=== PATIENT | male | born 1955 | race Caucasian/White ===

== ENCOUNTER 2016-03-31 12:31 | Inpatient (IN) | payer MEDICARE, MEDICAID ==
[~2016-03-31] VITALS: Ht 182.9 cm; Wt 62.1 kg
[~2016-03-31 12:31] MED LIST: ACET-868 PO; ACID1TAB12 PO; ASCO500T9 PO; CLON0.1T PO; DEXT1CAP3 PO; FERR1TAB44 PO; HYDR-3326 PO; ONDA4TAB5 PO; PANT40TA4 PO
[2016-03-31 12:59] LABS: BASOPHILS # (AUTO) 0.1 /CMM (0.0-0.2); BASOPHILS % (AUTO) 1.4 % (0.0-2.0); DIFF TOTAL % 100 %; EOSINOPHILS # (AUTO) 0.2 /CMM (0.0-0.7); EOSINOPHILS % (AUTO) 2.3 % (0.0-6.0); HEMATOCRIT 38 % (39-51); HEMOGLOBIN 11.2 g/dL (13.5-17.5); LYMPHOCYTES # (AUTO) 1.7 /CMM (0.8-4.8); LYMPHOCYTES % (AUTO) 17.2 % (20.0-44.0); MEAN CORPUSCULAR HEMOGLOBIN 24 PG (26.0-33.0); MEAN CORPUSCULAR HGB CONC 30 g/dl (31.0-36.0); MEAN CORPUSCULAR VOLUME 81 fL (80-96); MONOCYTES # (AUTO) 0.5 /CMM (0.1-1.30); MONOCYTES % (AUTO) 5.5 % (2.0-12.0); NEUTROPHILS # (AUTO) 7.1 /CMM (1.8-8.9); NEUTROPHILS % (AUTO) 73.6 % (43.0-81.0); PLATELET COUNT (AUTO) 499 /CMM (150-450); RED BLOOD CELL COUNT(AUTO) 4.68 MIL/uL (4.5-6.0); WHITE BLOOD COUNT (AUTO) 9.6 K/uL (4.3-11.0)
[2016-03-31 13:04] LABS: KETONES,URINE Negative (NEGATIVE); LEUKOCYTE ESTERASE ,URINE Moderate (NEGATIVE); PH,URINE 5.5 (5.0-8.0)
[2016-03-31 13:08] LABS: ADD UA MICROSCOPIC YES
[2016-03-31 13:12] LABS: ADD URINE CULTURE YES
[2016-03-31 13:13] LABS: ANION GAP 11 (5-14); CALCIUM, SERUM 8.9 mg/dL (8.5-10.1); CARBON DIOXIDE 28 mmol/L (21-32); CHLORIDE 104 mmol/L (98-107); CREATININE 0.5 mg/dL (0.6-1.3); GFR 171 mL/min (>60); GLUCOSE 108 mg/dL (74-106); SODIUM SERUM 139 mmol/L (136-145); UREA NITROGEN, BLOOD 16 mg/dL (7-18)
[2016-03-31 13:17] LABS: TROPONIN I < 0.017 ng/mL (0.00-0.056)
[2016-03-31 13:19] LABS: ALANINE AMINOTRANSFERASE 21 U/L (12-78); ALBUMIN 2.4 g/dL (3.4-5.0); ASPARTATE AMINOTRANSFERASE 22 U/L (15-37); BILIRUBIN,DIRECT 0.1 mg/dL (0.0-0.2); BILIRUBIN,TOTAL 0.2 mg/dL (0.2-1.0); INDIRECT BILIRUBIN 0.1 mg/dL (0.0-1.1); INR 1.03 (0.87-1.13); LACTIC ACID 1.1 mmol/L (0.4-2.0); PROTHROMBIN TIME 10.8 SECS (9.5-12.7); TOTAL PROTEIN, SERUM 8.6 g/dL (6.4-8.2)
[2016-03-31] MEDS ORDERED: MIRT15TA PO (13:40)
[2016-03-31] MEDS ORDERED: MULT-213 PO (13:40)
[2016-03-31] MEDS ORDERED: IV NS 0.9% 1,000 ML ONE (14:42)
[2016-03-31] MEDS ORDERED: CEFTRIAXONE 1GM BAG (ER ONLY) 50 ML IV ONE ×2 (14:42→15:00)
[2016-03-31] MEDS ORDERED: IV SET PRIMARY 1 EA INFUS.SET MC ONE (14:42)
[2016-03-31] MEDS ORDERED: IV SET PRIMARY PUMP SET 1 EA INFUS.SET MC ONE ×2 (14:49→17:57)
[2016-03-31] MEDS ORDERED: MEROPENEM 1 G in IV NS 0.9% 100 ML IV ONE ×4 (15:00)
[2016-03-31] MEDS ORDERED: IV NS 0.9% 1,000 ML BAG IV ONE (15:00)
[2016-03-31 16:00] VITALS: BP 129/92
[2016-03-31] MEDS ORDERED: Z GUARD REMEDY 2 OZ OINT TP PRN (16:00)
[2016-03-31] MEDS ORDERED: MAGNESIUM HYDROXIDE 30 ML UDC PO PRN (16:00)
[2016-03-31] MEDS ORDERED: HYDROCODONE/APAP 5/325MG 1 EACH TABLET PO PRN (16:00)
[2016-03-31] MEDS ORDERED: MAG HYDROX/AL HYDROX/SIMETH 30 ML UDC PO PRN (16:00)
[2016-03-31] MEDS ORDERED: ONDANSETRON HCL/PF 4 MG/2 ML VIAL IVP PRN (16:00)
[2016-03-31] MEDS ORDERED: ACETAMINOPHEN 325 MG TABLET PO PRN ×2 (16:00)
[2016-03-31] MEDS ORDERED: CLONIDINE HCL 0.1 MG TABLET PO PRN (16:00)
[2016-03-31] MEDS: ENOXAPARIN SODIUM 40 MG/0.4 ML DISP.SYRIN SQ SCH (17:53)
[2016-03-31] MEDS: ASCORBIC ACID 500 MG TABLET PO SCH (17:53)
[2016-03-31] MEDS: FERROUS SULFATE (325 MG) 325 MG/TAB TABLET PO SCH (17:53)
[2016-03-31] MEDS: ACIDOPHILUS/BULGARICUS 1 EACH TAB.CHEW PO SCH (17:53)
[2016-03-31] MEDS: IV NS 0.9% 1,000 ML IV PRN (17:54)
[2016-03-31 20:00] VITALS: BP 122/90
[2016-03-31] MEDS: MEROPENEM 1 G in IV NS 0.9% 100 ML IV SCH (21:00)
[2016-03-31] MEDS: MIRTAZAPINE 15 MG TABLET PO SCH (21:12)
[2016-03-31] MEDS ORDERED: SECONDARY IV SET 1 EA INFUS.SET MC ONE (21:14)
[2016-04-01] MEDS: ZOLPIDEM TARTRATE 5 MG TABLET PO PRN ×2 (00:25→23:53)
[2016-04-01] MEDS: MEROPENEM 1 G in IV NS 0.9% 100 ML IV SCH ×3 (04:44→20:42)
[2016-04-01 06:42] LABS: BASOPHILS % (AUTO) 0.5 % (0.0-2.0); DIFF TOTAL % 100 %; EOSINOPHILS # (AUTO) 0.2 /CMM (0.0-0.7); EOSINOPHILS % (AUTO) 3.3 % (0.0-6.0); HEMATOCRIT 33 % (39-51); HEMOGLOBIN 10.3 g/dL (13.5-17.5); LYMPHOCYTES # (AUTO) 1.4 /CMM (0.8-4.8); LYMPHOCYTES % (AUTO) 20.1 % (20.0-44.0); MEAN CORPUSCULAR HEMOGLOBIN 25 PG (26.0-33.0); MEAN CORPUSCULAR HGB CONC 31 g/dl (31.0-36.0); MEAN CORPUSCULAR VOLUME 80 fL (80-96); MONOCYTES # (AUTO) 0.4 /CMM (0.1-1.30); MONOCYTES % (AUTO) 6.3 % (2.0-12.0); NEUTROPHILS # (AUTO) 4.7 /CMM (1.8-8.9); NEUTROPHILS % (AUTO) 69.8 % (43.0-81.0); PLATELET COUNT (AUTO) 491 /CMM (150-450); RED BLOOD CELL COUNT(AUTO) 4.08 MIL/uL (4.5-6.0); WHITE BLOOD COUNT (AUTO) 6.8 K/uL (4.3-11.0)
[2016-04-01 06:55] LABS: CALCIUM, SERUM 8.8 mg/dL (8.5-10.1); CREATININE 0.5 mg/dL (0.6-1.3); PHOSPHORUS 3.4 mg/dL (2.5-4.9); POTASSIUM 3.8 mmol/L (3.5-5.1)
[2016-04-01 08:00] VITALS: BP 157/89
[2016-04-01] MEDS: ACIDOPHILUS/BULGARICUS 1 EACH TAB.CHEW PO SCH ×3 (09:17→16:30)
[2016-04-01] MEDS: FERROUS SULFATE (325 MG) 325 MG/TAB TABLET PO SCH ×2 (09:17→16:30)
[2016-04-01] MEDS: ASCORBIC ACID 500 MG TABLET PO SCH ×2 (09:18→16:30)
[2016-04-01] MEDS: PANTOPRAZOLE 40 MG TABLET.DR PO SCH (09:18)
[2016-04-01] MEDS: MULTIVIT, IRON, MIN NO. 8, FA 1 TAB TABLET PO SCH (09:18)
[2016-04-01] MEDS: HYDROCODONE/APAP 5/325MG 1 EACH TABLET PO SCH (09:18)
[2016-04-01] MEDS: IV NS 0.9% 1,000 ML IV PRN (11:05)
[2016-04-01] MEDS: DAKINS QUARTER STRENGTH (0.125%) 480 ML BOTTLE TOP SCH (15:03)
[2016-04-01 16:00] VITALS: BP 129/79
[2016-04-01 20:00] VITALS: BP 136/85
[2016-04-01] MEDS: MIRTAZAPINE 15 MG TABLET PO SCH (20:43)
[2016-04-01] MEDS: ENOXAPARIN SODIUM 40 MG/0.4 ML DISP.SYRIN SQ SCH (20:44)
[2016-04-02] MEDS: IV NS 0.9% 1,000 ML IV PRN (05:14)
[2016-04-02] MEDS: MEROPENEM 1 G in IV NS 0.9% 100 ML IV SCH ×2 (05:14→12:28)
[2016-04-02 08:00] VITALS: BP 125/78
[2016-04-02] MEDS: DAKINS QUARTER STRENGTH (0.125%) 480 ML BOTTLE TOP SCH (09:00)
[2016-04-02] MEDS ORDERED: LIDOCAINE HCL/PF 1% 30 ML SDV ONE (09:18)
[2016-04-02] MEDS ORDERED: BUPIVACAINE MPF 0.5% W/EPI INJ 30 ML VIAL ONE (09:18)
[2016-04-02] MEDS ORDERED: BACITRACIN 50000 UNITS/VIAL ONE (09:20)
[2016-04-02] MEDS ORDERED: CELLULOSE,OXIDIZED 1 EA PACK MC ONE (09:29)
[2016-04-02] MEDS ORDERED: FENTANYL PF 100MCG/2ML AMPUL ONE (09:32)
[2016-04-02] MEDS: PANTOPRAZOLE 40 MG TABLET.DR PO SCH (12:27)
[2016-04-02] MEDS: FERROUS SULFATE (325 MG) 325 MG/TAB TABLET PO SCH ×2 (12:27→17:32)
[2016-04-02] MEDS: MULTIVIT, IRON, MIN NO. 8, FA 1 TAB TABLET PO SCH (12:27)
[2016-04-02] MEDS: HYDROCODONE/APAP 5/325MG 1 EACH TABLET PO SCH (12:27)
[2016-04-02] MEDS: ACIDOPHILUS/BULGARICUS 1 EACH TAB.CHEW PO SCH ×3 (12:28→17:32)
[2016-04-02] MEDS: ASCORBIC ACID 500 MG TABLET PO SCH ×2 (12:28→17:32)
[2016-04-02] MEDS: BOOST PLUS FOOD-CHOCLATE 237 ML BOX PO SCH ×2 (14:05→17:32)
[2016-04-02 16:00] VITALS: BP 122/90
[2016-04-02 20:00] VITALS: BP 129/78
[2016-04-02] MEDS: MIRTAZAPINE 15 MG TABLET PO SCH (22:28)
[2016-04-02] MEDS: ENOXAPARIN SODIUM 40 MG/0.4 ML DISP.SYRIN SQ SCH (22:29)
[2016-04-03] MEDS: MEROPENEM 1 G in IV NS 0.9% 100 ML IV SCH ×3 (00:03→21:26)
[2016-04-03 08:00] VITALS: BP 132/86
[2016-04-03] MEDS: PANTOPRAZOLE 40 MG TABLET.DR PO SCH (09:40)
[2016-04-03] MEDS: ASCORBIC ACID 500 MG TABLET PO SCH ×2 (09:40→16:56)
[2016-04-03] MEDS: ACIDOPHILUS/BULGARICUS 1 EACH TAB.CHEW PO SCH ×3 (09:40→16:57)
[2016-04-03] MEDS: FERROUS SULFATE (325 MG) 325 MG/TAB TABLET PO SCH ×2 (09:40→16:57)
[2016-04-03] MEDS: MULTIVIT, IRON, MIN NO. 8, FA 1 TAB TABLET PO SCH (09:40)
[2016-04-03] MEDS: BOOST PLUS FOOD-CHOCLATE 237 ML BOX PO SCH ×3 (09:41→16:56)
[2016-04-03] MEDS: HYDROCODONE/APAP 5/325MG 1 EACH TABLET PO SCH (09:41)
[2016-04-03 16:00] VITALS: BP_SYST 113; BP_SYST 132; BP_DIAS 49; BP_DIAS 86
[2016-04-03] MEDS: HYDROGEL DRESSING 90 GM TUBE TP SCH (16:33)
[2016-04-03 20:00] VITALS: BP 126/78
[2016-04-03] MEDS: MIRTAZAPINE 15 MG TABLET PO SCH (21:17)
[2016-04-03] MEDS: ZOLPIDEM TARTRATE 5 MG TABLET PO PRN (21:18)
[2016-04-03] MEDS: ENOXAPARIN SODIUM 40 MG/0.4 ML DISP.SYRIN SQ SCH (21:21)
[2016-04-04] MEDS: MEROPENEM 1 G in IV NS 0.9% 100 ML IV SCH ×3 (04:52→20:27)
[2016-04-04 07:43] LABS: BASOPHILS % (AUTO) 0.4 % (0.0-2.0); DIFF TOTAL % 100 %; EOSINOPHILS # (AUTO) 0.1 /CMM (0.0-0.7); EOSINOPHILS % (AUTO) 1.3 % (0.0-6.0); HEMATOCRIT 31 % (39-51); HEMOGLOBIN 9.9 g/dL (13.5-17.5); LYMPHOCYTES % (AUTO) 20.1 % (20.0-44.0); MEAN CORPUSCULAR HEMOGLOBIN 25 PG (26.0-33.0); MEAN CORPUSCULAR HGB CONC 32 g/dl (31.0-36.0); MEAN CORPUSCULAR VOLUME 79 fL (80-96); MONOCYTES # (AUTO) 0.4 /CMM (0.1-1.30); MONOCYTES % (AUTO) 8.5 % (2.0-12.0); NEUTROPHILS # (AUTO) 3.6 /CMM (1.8-8.9); NEUTROPHILS % (AUTO) 69.7 % (43.0-81.0); PLATELET COUNT (AUTO) 335 /CMM (150-450); WHITE BLOOD COUNT (AUTO) 5.2 K/uL (4.3-11.0)
[2016-04-04 07:56] LABS: CALCIUM, SERUM 8.1 mg/dL (8.5-10.1); CREATININE 0.5 mg/dL (0.6-1.3); PHOSPHORUS 2.2 mg/dL (2.5-4.9); POTASSIUM 3.7 mmol/L (3.5-5.1)
[2016-04-04 08:00] VITALS: BP 131/94
[2016-04-04] MEDS: ACIDOPHILUS/BULGARICUS 1 EACH TAB.CHEW PO SCH ×3 (08:12→17:23)
[2016-04-04] MEDS: MULTIVIT, IRON, MIN NO. 8, FA 1 TAB TABLET PO SCH (08:13)
[2016-04-04] MEDS: FERROUS SULFATE (325 MG) 325 MG/TAB TABLET PO SCH ×2 (08:13→17:23)
[2016-04-04] MEDS: HYDROCODONE/APAP 5/325MG 1 EACH TABLET PO SCH (08:13)
[2016-04-04] MEDS: PANTOPRAZOLE 40 MG TABLET.DR PO SCH (08:13)
[2016-04-04] MEDS: ASCORBIC ACID 500 MG TABLET PO SCH ×2 (08:13→17:23)
[2016-04-04] MEDS: ENOXAPARIN SODIUM 40 MG/0.4 ML DISP.SYRIN SQ SCH (08:16)
[2016-04-04] MEDS: BOOST PLUS FOOD-CHOCLATE 237 ML BOX PO SCH ×3 (08:18→17:09)
[2016-04-04] MEDS: HYDROGEL DRESSING 90 GM TUBE TP SCH (11:51)
[2016-04-04] MEDS ORDERED: SECONDARY IV SET 1 EA INFUS.SET MC ONE (12:58)
[2016-04-04] MEDS: Magnesium 1GM/D5W 100ML PREMIX 100 ML IV SCH ×2 (14:00→15:09)
[2016-04-04 16:00] VITALS: BP 128/82
[2016-04-04] MEDS ORDERED: K PHOS NEUTRAL 250 MG TABLET PO ONE (16:00)
[2016-04-04 20:00] VITALS: BP 141/86
[2016-04-04] MEDS: ZOLPIDEM TARTRATE 5 MG TABLET PO PRN (20:34)
[2016-04-04] MEDS ORDERED: IV NS 0.9% 250 ML IV ONE (21:30)
[2016-04-04] MEDS: MIRTAZAPINE 15 MG TABLET PO SCH (21:53)
[2016-04-05] VITALS: BP 141/86
[2016-04-05] MEDS: MEROPENEM 1 G in IV NS 0.9% 100 ML IV SCH ×3 (04:50→21:45)
[2016-04-05 08:00] VITALS: BP 107/84
[2016-04-05] MEDS: ACIDOPHILUS/BULGARICUS 1 EACH TAB.CHEW PO SCH ×3 (08:13→16:17)
[2016-04-05] MEDS: ASCORBIC ACID 500 MG TABLET PO SCH ×2 (08:14→16:17)
[2016-04-05] MEDS: FERROUS SULFATE (325 MG) 325 MG/TAB TABLET PO SCH ×2 (08:14→16:16)
[2016-04-05] MEDS: PANTOPRAZOLE 40 MG TABLET.DR PO SCH (08:14)
[2016-04-05] MEDS: HYDROCODONE/APAP 5/325MG 1 EACH TABLET PO SCH (08:14)
[2016-04-05] MEDS: MULTIVIT, IRON, MIN NO. 8, FA 1 TAB TABLET PO SCH (08:14)
[2016-04-05] MEDS: HYDROGEL DRESSING 90 GM TUBE TP SCH (08:16)
[2016-04-05] MEDS: BOOST PLUS FOOD-CHOCLATE 237 ML BOX PO SCH ×3 (08:16→16:17)
[2016-04-05 08:38] LABS: CALCIUM, SERUM 8.1 mg/dL (8.5-10.1); CREATININE 0.4 mg/dL (0.6-1.3); PHOSPHORUS 2.5 mg/dL (2.5-4.9); POTASSIUM 3.7 mmol/L (3.5-5.1)
[2016-04-05 16:00] VITALS: BP 110/80
[2016-04-05 20:00] VITALS: BP 113/71
[2016-04-05] MEDS: ENOXAPARIN SODIUM 40 MG/0.4 ML DISP.SYRIN SQ SCH (21:44)
[2016-04-05] MEDS ORDERED: IV NS 0.9% 250 ML IV ONE (21:49)
[2016-04-05] MEDS: MIRTAZAPINE 15 MG TABLET PO SCH (22:19)
[2016-04-06] MEDS: MEROPENEM 1 G in IV NS 0.9% 100 ML IV SCH ×2 (04:36→12:33)
[2016-04-06 07:59] LABS: CALCIUM, SERUM 8.2 mg/dL (8.5-10.1); CREATININE 0.5 mg/dL (0.6-1.3); POTASSIUM 3.9 mmol/L (3.5-5.1)
[2016-04-06 08:00] VITALS: BP_SYST 122; BP_SYST 124; BP_DIAS 95
[2016-04-06] MEDS: BOOST PLUS FOOD-CHOCLATE 237 ML BOX PO SCH ×3 (08:59→17:00)
[2016-04-06] MEDS: PANTOPRAZOLE 40 MG TABLET.DR PO SCH (09:00)
[2016-04-06] MEDS: MULTIVIT, IRON, MIN NO. 8, FA 1 TAB TABLET PO SCH (09:00)
[2016-04-06] MEDS: ACIDOPHILUS/BULGARICUS 1 EACH TAB.CHEW PO SCH ×3 (09:00→17:00)
[2016-04-06] MEDS: HYDROCODONE/APAP 5/325MG 1 EACH TABLET PO SCH (09:01)
[2016-04-06] MEDS: ASCORBIC ACID 500 MG TABLET PO SCH ×2 (09:01→17:00)
[2016-04-06] MEDS: FERROUS SULFATE (325 MG) 325 MG/TAB TABLET PO SCH ×2 (09:01→17:00)
[2016-04-06] MEDS: HYDROGEL DRESSING 90 GM TUBE TP SCH (09:02)
[2016-04-06] MEDS ORDERED: Lactose-Free Food PO (13:40)
[2016-04-06] MEDS ORDERED: ERTA1VIA2 IV (13:40)
[2016-04-06] MEDS ORDERED: ENOX40DI SQ (13:40)
[2016-04-06 16:00] VITALS: BP 115/77
== END 2016-04-06 17:50 | DRG 579 ==
LOC: ER 12:34 → MED 15:05
PROVIDERS: ADMIT Internal Medicine; ATTEND Internal Medicine
PROC: 0KBM0ZZ Excision of Perineum Muscle, Open Approach (ICD-10-PCS; principal; 2016-04-02 09:21)
DX: L03.90 Cellulitis, unspecified (principal); R53.2 Functional quadriplegia; G93.41 Metabolic encephalopathy; L97.429 Non-pressure chronic ulcer of left heel and midfoot with unspecified severity; N39.0 Urinary tract infection, site not specified; E87.1 Hypo-osmolality and hyponatremia; L98.499 Non-pressure chronic ulcer of skin of other sites with unspecified severity; K21.9 Gastro-esophageal reflux disease without esophagitis; I10 Essential (primary) hypertension; Z89.511 Acquired absence of right leg below knee; Q05.9 Spina bifida, unspecified; F79 Unspecified intellectual disabilities; Z89.512 Acquired absence of left leg below knee; F32.9 Major depressive disorder, single episode, unspecified; F20.9 Schizophrenia, unspecified; B96.20 Unspecified Escherichia coli [E. coli] as the cause of diseases classified elsewhere; L89.309 Pressure ulcer of unspecified buttock, unspecified stage; L89.619 Pressure ulcer of right heel, unspecified stage; Z87.440 Personal history of urinary (tract) infections
CPT/HCPCS: 36415; 71010-TC; 80048-TC; 80076-TC; 81000-TC; 83605-TC; 83735-TC; 84100-TC; 84484-TC; 85025-TC; 85730-TC; 87040-TC; 87070-TC; 87081-TC; 87086-TC; 87186-TC; 88305-TC; 88312-TC; A4216; A4349; A4606; A6248; A6253; A6402; A6403; J0696; J1650; J2185; J3010; J3475; J3490; J7030; J7050; Z7610

== ENCOUNTER 2016-05-06 17:19 | Inpatient (IN) | payer MEDICARE, MEDICAID ==
[~2016-05-06] VITALS: Ht 182.9 cm; Wt 61.2 kg
[~2016-05-06 17:19] MED LIST changes: -DEXT1CAP3 PO; +ENOX40DI SQ; +ERTA1VIA2 IV; +Lactose-Free Food PO; +MIRT15TA PO; +MULT-213 PO; -ONDA4TAB5 PO
[2016-05-06] MEDS ORDERED: IV NS 0.9% 1,000 ML BAG IV ONE (17:30)
[2016-05-06] MEDS ORDERED: IV NS 0.9% 1,000 ML ONE (17:43)
[2016-05-06] MEDS ORDERED: IV SET PRIMARY PUMP SET 1 EA INFUS.SET MC ONE (17:43)
[2016-05-06 18:03] LABS: BASOPHILS % (AUTO) 0.4 % (0.0-2.0); DIFF TOTAL % 100 %; EOSINOPHILS # (AUTO) 0.1 /CMM (0.0-0.7); EOSINOPHILS % (AUTO) 1.6 % (0.0-6.0); HEMATOCRIT 34 % (39-51); HEMOGLOBIN 10.4 g/dL (13.5-17.5); LYMPHOCYTES # (AUTO) 1.3 /CMM (0.8-4.8); LYMPHOCYTES % (AUTO) 18.6 % (20.0-44.0); MEAN CORPUSCULAR HEMOGLOBIN 24 PG (26.0-33.0); MEAN CORPUSCULAR HGB CONC 31 g/dl (31.0-36.0); MEAN CORPUSCULAR VOLUME 77 fL (80-96); MONOCYTES # (AUTO) 0.4 /CMM (0.1-1.30); MONOCYTES % (AUTO) 6.3 % (2.0-12.0); NEUTROPHILS # (AUTO) 5.1 /CMM (1.8-8.9); NEUTROPHILS % (AUTO) 73.1 % (43.0-81.0); PLATELET COUNT (AUTO) 468 /CMM (150-450); WHITE BLOOD COUNT (AUTO) 6.9 K/uL (4.3-11.0)
[2016-05-06 18:22] LABS: ALBUMIN 2.2 g/dL (3.4-5.0); BILIRUBIN,DIRECT 0.1 mg/dL (0.0-0.2); BILIRUBIN,TOTAL 0.2 mg/dL (0.2-1.0); CALCIUM, SERUM 8.6 mg/dL (8.5-10.1); CREATININE 0.6 mg/dL (0.6-1.3); INDIRECT BILIRUBIN 0.1 mg/dL (0.0-1.1); POTASSIUM 4.3 mmol/L (3.5-5.1)
[2016-05-06 18:31] LABS: INR 0.96 (0.87-1.13); PROTHROMBIN TIME 10.4 SECS (9.5-12.7)
[2016-05-06 18:45] VITALS: BP 132/78
[2016-05-06 20:00] VITALS: BP 131/86
[2016-05-06] MEDS ORDERED: ENOXAPARIN SODIUM 40 MG/0.4 ML DISP.SYRIN SQ SCH (21:00)
[2016-05-06] MEDS ORDERED: CLONIDINE HCL 0.1 MG TABLET PO PRN (21:00)
[2016-05-06] MEDS ORDERED: MEROPENEM 1 G in IV NS 0.9% 100 ML IV SCH (21:00)
[2016-05-06] MEDS ORDERED: ACETAMINOPHEN 325 MG TABLET PO PRN ×2 (21:00→21:30)
[2016-05-06] MEDS: ENOXAPARIN SODIUM 40 MG/0.4 ML DISP.SYRIN SQ SCH (21:30)
[2016-05-06] MEDS ORDERED: MAG HYDROX/AL HYDROX/SIMETH 30 ML UDC PO PRN (21:30)
[2016-05-06] MEDS ORDERED: HYDROCODONE/APAP 5/325MG 1 EACH TABLET PO PRN (21:30)
[2016-05-06] MEDS ORDERED: MAGNESIUM HYDROXIDE 30 ML UDC PO PRN (21:30)
[2016-05-06] MEDS ORDERED: ONDANSETRON HCL/PF 4 MG/2 ML VIAL IVP PRN (21:30)
[2016-05-06] MEDS ORDERED: Z GUARD REMEDY 2 OZ OINT TP PRN (21:30)
[2016-05-06] MEDS ORDERED: VANCOMYCIN 1 GM in IV D5W 250 ML IV SCH (21:30)
[2016-05-06] MEDS ORDERED: ZOLPIDEM TARTRATE 5 MG TABLET PO PRN (21:30)
[2016-05-06] MEDS ORDERED: MIRTAZAPINE 15 MG TABLET ONE (22:18)
[2016-05-06] MEDS: MIRTAZAPINE 15 MG TABLET PO SCH (23:17)
[2016-05-07] MEDS ORDERED: MEROPENEM 1 G VIAL IV ONE (00:37)
[2016-05-07] MEDS ORDERED: IV NS 0.9% 100 ML IV ONE (00:40)
[2016-05-07] MEDS ORDERED: IV SET PRIMARY PUMP SET 1 EA INFUS.SET MC ONE (00:41)
[2016-05-07] MEDS ORDERED: SECONDARY IV SET 1 EA INFUS.SET MC ONE (00:41)
[2016-05-07] MEDS ORDERED: IV NS 0.9% 250 ML IV ONE ×2 (00:41→20:17)
[2016-05-07 06:39] LABS: BASOPHILS % (AUTO) 0.3 % (0.0-2.0); DIFF TOTAL % 100 %; EOSINOPHILS # (AUTO) 0.1 /CMM (0.0-0.7); EOSINOPHILS % (AUTO) 1.8 % (0.0-6.0); HEMATOCRIT 32 % (39-51); HEMOGLOBIN 10.1 g/dL (13.5-17.5); LYMPHOCYTES # (AUTO) 1.3 /CMM (0.8-4.8); LYMPHOCYTES % (AUTO) 19.1 % (20.0-44.0); MEAN CORPUSCULAR HEMOGLOBIN 24 PG (26.0-33.0); MEAN CORPUSCULAR HGB CONC 32 g/dl (31.0-36.0); MEAN CORPUSCULAR VOLUME 77 fL (80-96); MONOCYTES # (AUTO) 0.5 /CMM (0.1-1.30); MONOCYTES % (AUTO) 7.9 % (2.0-12.0); NEUTROPHILS # (AUTO) 4.7 /CMM (1.8-8.9); NEUTROPHILS % (AUTO) 70.9 % (43.0-81.0); PLATELET COUNT (AUTO) 506 /CMM (150-450); RED BLOOD CELL COUNT(AUTO) 4.17 MIL/uL (4.5-6.0); WHITE BLOOD COUNT (AUTO) 6.6 K/uL (4.3-11.0)
[2016-05-07 06:47] LABS: CALCIUM, SERUM 9.1 mg/dL (8.5-10.1); CREATININE 0.5 mg/dL (0.6-1.3); PHOSPHORUS 3.6 mg/dL (2.5-4.9)
[2016-05-07 07:12] LABS: THYROID STIMULATING HORMONE 3.236 uIU/mL (0.358-3.74)
[2016-05-07] MEDS ORDERED: PANTOPRAZOLE 40 MG TABLET.DR PO SCH (07:30)
[2016-05-07 08:00] VITALS: BP 130/72
[2016-05-07] MEDS ORDERED: FENTANYL PF 100MCG/2ML AMPUL ONE (08:25)
[2016-05-07] MEDS ORDERED: MIDAZOLAM HCL 2 MG/2ML VIAL ONE (08:25)
[2016-05-07] MEDS: PANTOPRAZOLE 40 MG TABLET.DR PO SCH (08:26)
[2016-05-07] MEDS: HYDROCODONE/APAP 5/325MG 1 EACH TABLET PO SCH (09:00)
[2016-05-07] MEDS: ACIDOPHILUS/BULGARICUS 1 EACH TAB.CHEW PO SCH ×3 (09:00→17:14)
[2016-05-07] MEDS: ASCORBIC ACID 500 MG TABLET PO SCH ×2 (09:00→17:14)
[2016-05-07] MEDS: FERROUS SULFATE (325 MG) 325 MG/TAB TABLET PO SCH ×2 (09:00→17:14)
[2016-05-07] MEDS: BOOST PLUS FOOD-CHOCLATE 237 ML BOX PO SCH ×3 (09:00→17:13)
[2016-05-07] MEDS ORDERED: CELLULOSE,OXIDIZED 1 EA PACK MC ONE ×3 (10:15→10:17)
[2016-05-07] MEDS ORDERED: CELLULOSE,OXIDIZED 1 EACH EACH MC ONE (10:15)
[2016-05-07] MEDS ORDERED: LIDOCAINE HCL/PF 1% 30 ML SDV ONE (11:44)
[2016-05-07] MEDS ORDERED: BUPIVACAINE MPF 0.5% W/EPI INJ 30 ML VIAL ONE (11:45)
[2016-05-07] MEDS ORDERED: BACITRACIN 50000 UNITS/VIAL ONE (11:45)
[2016-05-07] MEDS: MEROPENEM 1 G in IV NS 0.9% 100 ML IV SCH ×2 (13:11→17:14)
[2016-05-07 15:45] LABS: BASOPHILS % (AUTO) 0.2 % (0.0-2.0); DIFF TOTAL % 100 %; EOSINOPHILS % (AUTO) 0.3 % (0.0-6.0); HEMATOCRIT 30 % (39-51); HEMOGLOBIN 9.6 g/dL (13.5-17.5); MEAN CORPUSCULAR HEMOGLOBIN 24 PG (26.0-33.0); MEAN CORPUSCULAR HGB CONC 31 g/dl (31.0-36.0); MEAN CORPUSCULAR VOLUME 77 fL (80-96); MONOCYTES # (AUTO) 0.5 /CMM (0.1-1.30); MONOCYTES % (AUTO) 6.3 % (2.0-12.0); NEUTROPHILS # (AUTO) 6.9 /CMM (1.8-8.9); NEUTROPHILS % (AUTO) 81.2 % (43.0-81.0); PLATELET COUNT (AUTO) 555 /CMM (150-450); RED BLOOD CELL COUNT(AUTO) 3.97 MIL/uL (4.5-6.0); WHITE BLOOD COUNT (AUTO) 8.5 K/uL (4.3-11.0)
[2016-05-07 15:58] LABS: CALCIUM, SERUM 8.5 mg/dL (8.5-10.1); CREATININE 0.5 mg/dL (0.6-1.3); POTASSIUM 4.3 mmol/L (3.5-5.1)
[2016-05-07 16:00] VITALS: BP_SYST 130; BP_SYST 150; BP_DIAS 72; BP_DIAS 93
[2016-05-07 20:00] VITALS: BP 147/93
[2016-05-07] MEDS ORDERED: BLOOD IV SET 1 EA INFUS.SET MC ONE (20:17)
[2016-05-07] MEDS: ACETYLCYSTEINE 10% 3,000 MG/30 ML VIAL PO SCH (22:25)
[2016-05-07] MEDS: MIRTAZAPINE 15 MG TABLET PO SCH (22:26)
[2016-05-07] MEDS: ENOXAPARIN SODIUM 40 MG/0.4 ML DISP.SYRIN SQ SCH (22:28)
[2016-05-08] MEDS: MEROPENEM 1 G in IV NS 0.9% 100 ML IV SCH ×3 (01:06→16:32)
[2016-05-08] MEDS: PANTOPRAZOLE 40 MG TABLET.DR PO SCH (07:30)
[2016-05-08 08:00] VITALS: BP 129/88
[2016-05-08] MEDS: BOOST PLUS FOOD-CHOCLATE 237 ML BOX PO SCH ×3 (08:23→16:33)
[2016-05-08] MEDS: FERROUS SULFATE (325 MG) 325 MG/TAB TABLET PO SCH ×2 (08:23→16:33)
[2016-05-08] MEDS: ACIDOPHILUS/BULGARICUS 1 EACH TAB.CHEW PO SCH ×3 (08:23→16:33)
[2016-05-08] MEDS: ASCORBIC ACID 500 MG TABLET PO SCH ×2 (08:24→16:33)
[2016-05-08] MEDS: ACETYLCYSTEINE 10% 3,000 MG/30 ML VIAL PO SCH ×2 (08:24→21:13)
[2016-05-08] MEDS: HYDROCODONE/APAP 5/325MG 1 EACH TABLET PO SCH (08:24)
[2016-05-08 08:36] LABS: IRON, SERUM 21 ug/dl (50-175); PERCENT SATURATION 10 % (14-33); TOTAL IRON BINDING CAPACITY 211 ug/dl (250-450)
[2016-05-08] MEDS ORDERED: IV NS 0.9% 250 ML IV ONE (08:41)
[2016-05-08] MEDS ORDERED: CT SWABBABLE VALVE TRANS SET 1 EA INFUS.SET MC ONE (08:42)
[2016-05-08] MEDS ORDERED: IOHEXOL-300 100 ML VIAL IV ONE (08:42)
[2016-05-08 16:00] VITALS: BP 135/89
[2016-05-08 16:19] VITALS: BP 135/89
[2016-05-08] MEDS: DOCUSATE SODIUM 100 MG CAPSULE PO SCH (16:33)
[2016-05-08] MEDS ORDERED: SECONDARY IV SET 1 EA INFUS.SET MC ONE (18:17)
[2016-05-08] MEDS: SOD FERRIC GLUC 125 MG in IV NS 0.9% 100 ML IV SCH (18:19)
[2016-05-08 20:00] VITALS: BP 139/89
[2016-05-08 20:29] VITALS: BP 139/89
[2016-05-08] MEDS: MIRTAZAPINE 15 MG TABLET PO SCH (21:10)
[2016-05-08] MEDS: ENOXAPARIN SODIUM 40 MG/0.4 ML DISP.SYRIN SQ SCH (21:12)
[2016-05-09] MEDS: MEROPENEM 1 G in IV NS 0.9% 100 ML IV SCH ×3 (00:08→17:12)
[2016-05-09 06:50] LABS: PROTHROMBIN TIME 10.8 SECS (9.5-12.7)
[2016-05-09 08:00] VITALS: BP_SYST 105; BP_SYST 123; BP_DIAS 53; BP_DIAS 77
[2016-05-09] MEDS: BOOST PLUS FOOD-CHOCLATE 237 ML BOX PO SCH ×3 (08:38→17:12)
[2016-05-09] MEDS: PANTOPRAZOLE 40 MG TABLET.DR PO SCH (08:40)
[2016-05-09] MEDS: ACIDOPHILUS/BULGARICUS 1 EACH TAB.CHEW PO SCH ×3 (08:40→17:12)
[2016-05-09] MEDS: ACETYLCYSTEINE 10% 3,000 MG/30 ML VIAL PO SCH (08:40)
[2016-05-09] MEDS: DOCUSATE SODIUM 100 MG CAPSULE PO SCH ×2 (08:40→17:12)
[2016-05-09] MEDS: ASCORBIC ACID 500 MG TABLET PO SCH ×2 (08:40→17:12)
[2016-05-09] MEDS: HYDROCODONE/APAP 5/325MG 1 EACH TABLET PO SCH (08:41)
[2016-05-09] MEDS: SOD FERRIC GLUC 125 MG in IV NS 0.9% 100 ML IV SCH (13:54)
[2016-05-09 16:00] VITALS: BP 124/87
[2016-05-09 20:00] VITALS: BP 126/77
[2016-05-09] MEDS: MIRTAZAPINE 15 MG TABLET PO SCH (21:47)
[2016-05-09] MEDS: ENOXAPARIN SODIUM 40 MG/0.4 ML DISP.SYRIN SQ SCH (21:50)
[2016-05-10] MEDS: MEROPENEM 1 G in IV NS 0.9% 100 ML IV SCH ×2 (01:01→08:57)
[2016-05-10 08:00] VITALS: BP 138/98
[2016-05-10] MEDS: ACIDOPHILUS/BULGARICUS 1 EACH TAB.CHEW PO SCH ×3 (08:58→16:54)
[2016-05-10] MEDS: ASCORBIC ACID 500 MG TABLET PO SCH ×2 (08:58→16:54)
[2016-05-10] MEDS: DOCUSATE SODIUM 100 MG CAPSULE PO SCH ×2 (08:58→16:54)
[2016-05-10] MEDS: PANTOPRAZOLE 40 MG TABLET.DR PO SCH (08:58)
[2016-05-10] MEDS: BOOST PLUS FOOD-CHOCLATE 237 ML BOX PO SCH ×3 (08:59→16:55)
[2016-05-10] MEDS: HYDROCODONE/APAP 5/325MG 1 EACH TABLET PO SCH (08:59)
[2016-05-10] MEDS: SOD FERRIC GLUC 125 MG in IV NS 0.9% 100 ML IV SCH (14:23)
[2016-05-10 16:00] VITALS: BP 128/89
[2016-05-10 16:02] VITALS: BP 128/89
[2016-05-10] MEDS: HYDROGEL DRESSING 90 GM TUBE TP SCH (17:04)
[2016-05-10 20:00] VITALS: BP 131/81
[2016-05-10] MEDS: ENOXAPARIN SODIUM 40 MG/0.4 ML DISP.SYRIN SQ SCH (21:30)
[2016-05-10] MEDS: MIRTAZAPINE 15 MG TABLET PO SCH (21:45)
[2016-05-11] MEDS: PANTOPRAZOLE 40 MG TABLET.DR PO SCH ×2 (07:30→09:30)
[2016-05-11 08:00] VITALS: BP 116/69
[2016-05-11] MEDS: BOOST PLUS FOOD-CHOCLATE 237 ML BOX PO SCH ×3 (09:00→17:33)
[2016-05-11] MEDS: ASCORBIC ACID 500 MG TABLET PO SCH ×2 (09:30→17:33)
[2016-05-11] MEDS: HYDROCODONE/APAP 5/325MG 1 EACH TABLET PO SCH (09:30)
[2016-05-11] MEDS: ACIDOPHILUS/BULGARICUS 1 EACH TAB.CHEW PO SCH ×3 (09:30→17:33)
[2016-05-11] MEDS: DOCUSATE SODIUM 100 MG CAPSULE PO SCH ×2 (09:32→17:33)
[2016-05-11 10:10] LABS: BASOPHILS % (AUTO) 0.4 % (0.0-2.0); DIFF TOTAL % 100 %; EOSINOPHILS # (AUTO) 0.3 /CMM (0.0-0.7); EOSINOPHILS % (AUTO) 4.5 % (0.0-6.0); HEMATOCRIT 29 % (39-51); HEMOGLOBIN 8.9 g/dL (13.5-17.5); LYMPHOCYTES # (AUTO) 1.5 /CMM (0.8-4.8); LYMPHOCYTES % (AUTO) 21.9 % (20.0-44.0); MEAN CORPUSCULAR HEMOGLOBIN 24 PG (26.0-33.0); MEAN CORPUSCULAR HGB CONC 31 g/dl (31.0-36.0); MEAN CORPUSCULAR VOLUME 77 fL (80-96); MONOCYTES # (AUTO) 0.6 /CMM (0.1-1.30); MONOCYTES % (AUTO) 8.8 % (2.0-12.0); NEUTROPHILS # (AUTO) 4.5 /CMM (1.8-8.9); NEUTROPHILS % (AUTO) 64.4 % (43.0-81.0); PLATELET COUNT (AUTO) 514 /CMM (150-450); RED BLOOD CELL COUNT(AUTO) 3.75 MIL/uL (4.5-6.0)
[2016-05-11] MEDS: HYDROGEL DRESSING 90 GM TUBE TP SCH (11:12)
[2016-05-11 13:13] LABS: *SPE ALBUMIN 2.4 g/dL (2.9-4.4)
[2016-05-11] MEDS: SOD FERRIC GLUC 125 MG in IV NS 0.9% 100 ML IV SCH (15:08)
[2016-05-11 16:00] VITALS: BP_SYST 117; BP_DIAS 63; BP_DIAS 79
[2016-05-11 19:55] VITALS: BP 120/76
[2016-05-11] MEDS: MIRTAZAPINE 15 MG TABLET PO SCH (21:24)
[2016-05-11] MEDS: ENOXAPARIN SODIUM 40 MG/0.4 ML DISP.SYRIN SQ SCH (21:25)
[2016-05-12] MEDS: PANTOPRAZOLE 40 MG TABLET.DR PO SCH (07:30)
[2016-05-12] MEDS ORDERED: MIDAZOLAM HCL 2 MG/2ML VIAL ONE (07:53)
[2016-05-12] MEDS ORDERED: FENTANYL PF 100MCG/2ML AMPUL ONE (07:53)
[2016-05-12] MEDS ORDERED: SUCCINYLCHOLINE CHLORIDE 20 MG/ML VIAL ONE (07:54)
[2016-05-12] MEDS ORDERED: BUPIVACAINE 0.5 % PF 150 MG/30 ML VIAL ONE (08:08)
[2016-05-12] MEDS ORDERED: BUPIVACAINE MPF 0.5% W/EPI INJ 30 ML VIAL ONE (08:08)
[2016-05-12] MEDS: ACIDOPHILUS/BULGARICUS 1 EACH TAB.CHEW PO SCH ×2 (09:00→12:06)
[2016-05-12] MEDS: ASCORBIC ACID 500 MG TABLET PO SCH (09:00)
[2016-05-12] MEDS: DOCUSATE SODIUM 100 MG CAPSULE PO SCH (09:00)
[2016-05-12] MEDS: HYDROGEL DRESSING 90 GM TUBE TP SCH (09:00)
[2016-05-12] MEDS: BOOST PLUS FOOD-CHOCLATE 237 ML BOX PO SCH ×2 (09:00→12:07)
[2016-05-12] MEDS ORDERED: MULTIVITAMINS,THERAPEUTIC 1 UDTAB TABLET PO SCH (09:00)
[2016-05-12 10:20] VITALS: BP 121/73
[2016-05-12 11:21] VITALS: BP 121/74
[2016-05-12] MEDS: HYDROCODONE/APAP 5/325MG 1 EACH TABLET PO SCH (12:06)
[2016-05-12 16:00] VITALS: BP 113/72
== END 2016-05-12 19:00 | DRG 570 ==
LOC: ER 17:20 → MEDSG2 18:34
PROVIDERS: ADMIT Internal Medicine; ATTEND Internal Medicine
PROC: 0HBJXZZ Excision of Left Upper Leg Skin, External Approach (ICD-10-PCS; principal; 2016-05-07 09:15)
PROC: 07BJ3ZX Excision of Left Inguinal Lymphatic, Percutaneous Approach, Diagnostic (ICD-10-PCS; 2016-05-12)
PROC: 07BH3ZX Excision of Right Inguinal Lymphatic, Percutaneous Approach, Diagnostic (ICD-10-PCS; 2016-05-12)
DX: C44.529 Squamous cell carcinoma of skin of other part of trunk (principal); E43 Unspecified severe protein-calorie malnutrition; R53.2 Functional quadriplegia; G93.40 Encephalopathy, unspecified; D68.59 Other primary thrombophilia; Z68.1 Body mass index [BMI] 19.9 or less, adult; N12 Tubulo-interstitial nephritis, not specified as acute or chronic; L89.899 Pressure ulcer of other site, unspecified stage; D50.9 Iron deficiency anemia, unspecified; E88.09 Other disorders of plasma-protein metabolism, not elsewhere classified; Z74.01 Bed confinement status; K21.9 Gastro-esophageal reflux disease without esophagitis; I10 Essential (primary) hypertension; K59.00 Constipation, unspecified; Z87.442 Personal history of urinary calculi; Z89.511 Acquired absence of right leg below knee; D47.3 Essential (hemorrhagic) thrombocythemia; Q05.9 Spina bifida, unspecified; F32.9 Major depressive disorder, single episode, unspecified; F20.9 Schizophrenia, unspecified; Z87.440 Personal history of urinary (tract) infections; R59.1 Generalized enlarged lymph nodes
CPT/HCPCS: 36415; 71010-TC; 71270-TC; 72194-TC; 74170-TC; 80048-TC; 80061-TC; 80076-TC; 82728-TC; 83540-TC; 83735-TC; 84100-TC; 84155; 84165; 84443-TC; 84484-TC; 85025-TC; 85045-TC; 85610-TC; 85730-TC; 86850-TC; 86921-TC; 87040-TC; 87081-TC; 87086-TC; 88305-TC; A4606; A6248; A6253; A6402; A6403; J0330; J1650; J2185; J2250; J2916; J3010; J3370; J3490; J7030; J7050; J7060; Q9967; Z7610

== ENCOUNTER 2016-06-17 11:45 | Inpatient (IN) | payer MEDICARE, MEDICAID ==
[~2016-06-17] VITALS: Ht 167.6 cm; Wt 68.0 kg
[~2016-06-17 11:45] MED LIST changes: -ERTA1VIA2 IV
--- NOTE | 2016-06-17 11:45 | NUR ---
[facility] FROM [facility]F FOR LEFT UPPER THIGH WOUND DEBRIDEMENT SENT BY DR BIGGS. NAD NOTED. PT IS ALERT AND COOPERATIVE. VSS. PT PLACED IN GOWN AND MONITOR. PENDING MD MENDOZA.
--- NOTE | 2016-06-17 12:00 | NUR ---
SUSAN GIVEN PER PT REQUEST, MD MURRAY TO GIVE
[2016-06-17 12:27] LABS: CALCIUM, SERUM 9.1 mg/dL (8.5-10.1); CREATININE 0.6 mg/dL (0.6-1.3)
[2016-06-17 12:28] LABS: BASOPHILS % (AUTO) 0.4 % (0.0-2.0); EOSINOPHILS # (AUTO) 0.2 /CMM (0.0-0.7); EOSINOPHILS % (AUTO) 2.1 % (0.0-6.0); HEMATOCRIT 39 % (39-51); HEMOGLOBIN 12.3 g/dL (13.5-17.5); LYMPHOCYTES # (AUTO) 1.7 /CMM (0.8-4.8); LYMPHOCYTES % (AUTO) 20.3 % (20.0-44.0); MEAN CORPUSCULAR HEMOGLOBIN 25 PG (26.0-33.0); MEAN CORPUSCULAR HGB CONC 32 g/dl (31.0-36.0); MEAN CORPUSCULAR VOLUME 78 fL (80-96); MONOCYTES # (AUTO) 0.8 /CMM (0.1-1.30); MONOCYTES % (AUTO) 9.3 % (2.0-12.0); NEUTROPHILS # (AUTO) 5.6 /CMM (1.8-8.9); NEUTROPHILS % (AUTO) 67.9 % (43.0-81.0); PLATELET COUNT (AUTO) 333 /CMM (150-450); RDW COEFFICIENT OF VARIATION 19.1 (11.5-15.0); RED BLOOD CELL COUNT(AUTO) 4.95 MIL/uL (4.5-6.0); WHITE BLOOD COUNT (AUTO) 8.3 K/uL (4.3-11.0)
[2016-06-17 12:33] LABS: ALBUMIN 2.9 g/dL (3.4-5.0); BILIRUBIN,TOTAL 0.2 mg/dL (0.2-1.0); TOTAL PROTEIN, SERUM 8.3 g/dL (6.4-8.2)
[2016-06-17 12:48] LABS: INR 0.95 (0.87-1.13); PROTHROMBIN TIME 9.9 SECS (9.5-12.7)
--- NOTE | 2016-06-17 13:45 | NUR ---
REPORT MARTHA SALDIVAR RN FOR KEITH
[2016-06-17 14:00] VITALS: BP 130/66
[2016-06-17] MEDS ORDERED: ZOLPIDEM TARTRATE 5 MG TABLET PO PRN (14:00)
[2016-06-17] MEDS ORDERED: ACETAMINOPHEN 325 MG TABLET PO PRN (14:00)
[2016-06-17] MEDS ORDERED: MAG HYDROX/AL HYDROX/SIMETH 30 ML UDC PO PRN (14:00)
[2016-06-17] MEDS ORDERED: ONDANSETRON HCL/PF 4 MG/2 ML VIAL IVP PRN (14:00)
[2016-06-17] MEDS ORDERED: HYDROCODONE/APAP 5/325MG 1 EACH TABLET PO PRN (14:00)
[2016-06-17] MEDS ORDERED: MORPHINE SULFATE INJ 2 MG/ML DISP.SYRIN IV PRN (14:00)
[2016-06-17] MEDS ORDERED: MAGNESIUM HYDROXIDE 30 ML UDC PO PRN (14:00)
[2016-06-17] MEDS ORDERED: OMEP20CA10 PO (14:29)
[2016-06-17] MEDS ORDERED: HYDR-3326 PO (14:29)
[2016-06-17] MEDS ORDERED: DOCU-170 PO (14:29)
[2016-06-17] MEDS ORDERED: ACID1TAB4 PO (14:29)
[2016-06-17] MEDS ORDERED: PROT946L PO (14:31)
--- NOTE | 2016-06-17 14:36 | NUR ---
MS RN OPENING RECEIVED PATIENT A/OX1 RESPONSIVE TO SOME QUESTIONS. PATIENT DOES NOT APPEAR TO BE IN PAIN, NO SOB, DIFFICULTY BREATHING WITH RESPIRATIONS EQUAL AND UNLABORED. PATIENT IS ON ISOLATION FOR ESBL HX. PATIENT SKIN CLEANSED AND WOUND CARE COMPLETED. PIRES INSERTED. PATIENT ASKING FOR HIS RADIO. CALLED [facility] AND THEY WILL BRING IT FOR PATIENT. PATIENT WITH CALL LIGHT IN REACH, BED LOWERED AND LOCKED, RAILS UPX3 FOR SAFETY AND BED ALARM ON. MD ALANIZ AWARE OF ADMISION AND ADMISSION ORDERS ALREADY ADDED BY
[2016-06-17 14:40] VITALS: BP 128/77
[2016-06-17] MEDS ORDERED: IV SET PRIMARY PUMP SET 1 EA INFUS.SET MC ONE (15:40)
[2016-06-17] MEDS: Z GUARD REMEDY 2 OZ OINT TP PRN (15:44)
[2016-06-17] MEDS: IV D5/0.45 NACL 1,000 ML IV PRN (15:44)
[2016-06-17 16:00] VITALS: BP_SYST 126; BP_DIAS 72; BP_DIAS 75
--- NOTE | 2016-06-17 18:47 | NUR ---
MS RN CLOSING PT STABLE NO COMPLICATIONS NO CHANGES. PATIENT CALL LIGHT IN REACH, BED LOWERED AND LOCKED, RAILS UPX3 FOR SAFETY AND CARE WILL BE ENDORSED TO RN AT THIS TIME
[2016-06-17 20:00] VITALS: BP 157/83
[2016-06-17] MEDS ORDERED: PIPERACILLIN /TAZOBACTAM 3.375 G in IV D5W 50 ML IV SCH (20:00)
[2016-06-17] MEDS ORDERED: LEVOFLOXACIN 500 MG /D5W 100ML 500 MG in PREMIX 1 EA IV SCH (20:00)
--- NOTE | 2016-06-17 20:00 | NUR ---
patient received alert;follows simple commands;right bka and left foot contracted;pt on room air;ivf infusing per order;pt npo for wound debridement in am;wasserman to dd with clear yellow urine;no distres noted at this time
[2016-06-17] MEDS ORDERED: SECONDARY IV SET 1 EA INFUS.SET MC ONE (20:46)
[2016-06-17] MEDS: MEROPENEM 500 MG in IV NS 0.9% 50 ML IV SCH (20:49)
--- NOTE | 2016-06-18 | NUR ---
patient comfortable in bed listening to radio;denies complaints
--- NOTE | 2016-06-18 02:45 | NUR ---
RECEIVED PATIENT FROM ANOTHER NURSE CHAVA. PATIENT AWAKE IN BED A/O X1. PT LISTENING TO MUSIC ON RADIO. IV ON L AC#20 PATENT AND INTACT. PT ON ROOM AIR. PT KEPT CLEAN, DRY, AND COMFORTABLE. CALL LIGHT WITHIN PT REACH. BED IN LOW, LOCKED POSITION, AND SIDE RAILS UP X2. WILL CONTINUE TO MONITOR PT.
[2016-06-18] MEDS ORDERED: SECONDARY IV SET 1 EA INFUS.SET MC ONE (04:07)
[2016-06-18] MEDS: MEROPENEM 500 MG in IV NS 0.9% 50 ML IV SCH ×2 (04:27→14:01)
[2016-06-18] MEDS: IV D5/0.45 NACL 1,000 ML IV PRN ×2 (05:50→22:04)
--- NOTE | 2016-06-18 06:53 | NUR ---
MS RN CLOSING NOTES: PATIENT A/O X1. ALL NEEDS WERE ATTENDED TO. PT LAYING IN BED LISTENING TO MUSIC. PT KEPT CLEAN, DRY, AND COMFORTABLE. FC OUTPUT WAS 400ML. CALL LIGHT WITHIN PT REACH. BED IN LOWEST, LOCKED POSITION, AND SIDE RAILS X2 UP. L AC #20 IV PATENT AND INTACT. WILL ENDORSE TO DAY SHIFT NURSE.
[2016-06-18 07:15] LABS: BASOPHILS % (AUTO) 0.4 % (0.0-2.0); EOSINOPHILS # (AUTO) 0.2 /CMM (0.0-0.7); EOSINOPHILS % (AUTO) 2.9 % (0.0-6.0); HEMATOCRIT 35 % (39-51); HEMOGLOBIN 11.2 g/dL (13.5-17.5); LYMPHOCYTES # (AUTO) 1.5 /CMM (0.8-4.8); MEAN CORPUSCULAR HEMOGLOBIN 25 PG (26.0-33.0); MEAN CORPUSCULAR HGB CONC 32 g/dl (31.0-36.0); MEAN CORPUSCULAR VOLUME 78 fL (80-96); MONOCYTES # (AUTO) 0.4 /CMM (0.1-1.30); MONOCYTES % (AUTO) 7.3 % (2.0-12.0); NEUTROPHILS # (AUTO) 3.4 /CMM (1.8-8.9); NEUTROPHILS % (AUTO) 62.4 % (43.0-81.0); PLATELET COUNT (AUTO) 302 /CMM (150-450); RDW COEFFICIENT OF VARIATION 20.6 (11.5-15.0); RED BLOOD CELL COUNT(AUTO) 4.53 MIL/uL (4.5-6.0); WHITE BLOOD COUNT (AUTO) 5.4 K/uL (4.3-11.0)
--- NOTE | 2016-06-18 07:20 | NUR ---
RN OPENING NOTES RECEIVED REPORT FROM CALENDER WIND UP TENDER NURSE. PATIENT IS IN BED, ALERT AND ORIENTED TO NAME AND PLACE. PATIENT IS NON VERBAL AND COMMUNICATE BY WRITING ON A BOARD. IV SITE IS POTENT AND INTACT. BED IN LOW POSITION, LOCKED AND 2 SIDE RAILS ARE UP. NO SIGNS AND SYMPTOMS OF DISTRESS. WILL CONTINUE TO MONITOR, ASSESS AND EDUCATE PATIENT THROUGHOUT MY SHIFT
[2016-06-18] MEDS: PANTOPRAZOLE 40 MG TABLET.DR PO SCH (07:30)
[2016-06-18 07:40] LABS: MAGNESIUM 1.9 mg/dL (1.8-2.4); PHOSPHORUS 3.5 mg/dL (2.5-4.9)
[2016-06-18 07:45] LABS: INR 0.94 (0.87-1.13)
[2016-06-18 08:00] VITALS: BP 123/71
[2016-06-18] MEDS: DAKINS QUARTER STRENGTH (0.125%) 480 ML BOTTLE TOP SCH (08:40)
--- NOTE | 2016-06-18 08:49 | NUR ---
RN NOTES 0900 MEDS PATIENT IS NPO. MEDS WILL BE ADMINISTERED AFTER DEBRIDEMENT
--- NOTE | 2016-06-18 11:20 | NUR ---
WOUND CARE CONSULT: PT PRESENTS WITH LEFT THIGH WOUND, PRESENT ON ADMISSION WELL LEFT HEEL SCAR. RT BK STUMP INTACT. WOUND ORDERS BY PLASTICS CONSTRUCTION INSPECTOR. LEFT HEEL FOLLOWED BY DPAsim. ALL SKIN PROTECTION MEASURES IN PLACE AND DISCUSSED WITH NURSING STAFF. WILL SEE PRN. RIVAS IN AGREEMENT WITH PLAN OF CARE. Addendum: 06/18/16 at 1126 by BOGDAN ALBERTO PT ON [facility] BED. Addendum: 06/18/16 at 1127 by BOGDAN ALBERTO Amended: Links added.
[2016-06-18 16:00] VITALS: BP 126/78
--- NOTE | 2016-06-18 19:34 | NUR ---
RN CLOSING NOTES PATIENT STABLE. REPORT GAVE TO CREDIT CONTROL ADMINISTRATOR NURSE
--- NOTE | 2016-06-18 20:43 | NUR ---
MS RN OPENING NOTES: RECEIVED PATIENT AWAKE IN BED LYING DOWN. PT A/O X 1 AND CONSTANTLY WRITING ON BOARD. PATIENT WATCHING TELEVISION AND LISTENING TO MUSIC. IV ON L AC 20G INTACT AND PATENT. BED IN LOCKED, LOWEST POSITION, AND SIDE RAILS X2 UP. CALL LIGHT WITHIN PT'S REACH. WILL CONTINUE TO MONITOR PT.
[2016-06-18 20:46] VITALS: BP 143/96
[2016-06-19 05:47] VITALS: BP 143/96
--- NOTE | 2016-06-19 06:32 | NUR ---
MS RN CLOSING NOTES: PATIENT AWAKE IN BED A/O X 1. PATIENT HAS IV ON L AC #20 PATENT AND INTACT. CALL LIGHT WITHIN PT REACH. PT KEPT CLEAN, DRY, AND COMFORTABLE. PT'S BED KEPT IN LOCKED, LOWEST POSITION, AND SIDE RAILS X2 UP. PT'S PIRES CATH WAS EMPTIED AT 2,000 ML. ALL NEEDS WERE ATTENDED TO. WILL ENDORSE TO DAY SHIFT NURSE.
--- NOTE | 2016-06-19 07:30 | NUR ---
RN OPEN NOTES RECEIVED REPORT FROM FLOOR MOLDER NURSE. PATIENT IS IN BED, AWAKE, WATCHING TV. BED IN LOW POSITION, LOCKED AND TWO SIDE RAILS ARE UP. NO SIGNS AND SYMPTOMS OF DISTRESS. WILL CONTINUE TO MONITOR AND ASSESS PATIENT THROUGHOUT MY SHIFT.
[2016-06-19 08:00] VITALS: BP 129/83
[2016-06-19] MEDS: DAKINS QUARTER STRENGTH (0.125%) 480 ML BOTTLE TOP SCH (09:16)
[2016-06-19] MEDS: PANTOPRAZOLE 40 MG TABLET.DR PO SCH (09:17)
[2016-06-19] MEDS: IV D5/0.45 NACL 1,000 ML IV PRN (13:09)
[2016-06-19 16:00] VITALS: BP 123/79
--- NOTE | 2016-06-19 20:00 | NUR ---
RN CLOSING NOTES GAVE REPORT TO MODERN DANCER NURSE. PATIENT IS STABLE. ALERT IN BED, WATCHING TV. NO SIGNS AND SYMPTOMS OF DISTRESS.
[2016-06-19 20:57] VITALS: BP 131/90
--- NOTE | 2016-06-19 21:00 | NUR ---
phlebitis noted to left antecubital where iv is infusing, pictures taken and placed to chart. d/cd iv and started new iv site to right forearm and continue with iv fluids.
[2016-06-20] MEDS: IV D5/0.45 NACL 1,000 ML IV PRN ×2 (02:15→16:30)
--- NOTE | 2016-06-20 07:06 | NUR ---
pt sleeping intermittently overnight,screams and laugh,no bm only smear, continue with iv fluids, wasserman intact and draining well clear yellow urine, dressing change to left thigh wound wet-dry dakins.will continue to monitor.
--- NOTE | 2016-06-20 07:30 | NUR ---
RN MS NOTES PT IN BED, AWAKE, ALERT TO SELF, NO COMPLAINT OF PAIN, BREATHING PATTERN NORMAL, IV FLUIDS INFUSING WELL, CALL LIGHT WITHIN REACH, MADE COMFORTABLE, ISOLATION PRECAUTIONS OBSERVED.
[2016-06-20 07:59] LABS: BASOPHILS % (AUTO) 0.4 % (0.0-2.0); EOSINOPHILS # (AUTO) 0.2 /CMM (0.0-0.7); HEMATOCRIT 35 % (39-51); HEMOGLOBIN 11.2 g/dL (13.5-17.5); LYMPHOCYTES # (AUTO) 1.5 /CMM (0.8-4.8); LYMPHOCYTES % (AUTO) 27.5 % (20.0-44.0); MEAN CORPUSCULAR HEMOGLOBIN 25 PG (26.0-33.0); MEAN CORPUSCULAR HGB CONC 32 g/dl (31.0-36.0); MEAN CORPUSCULAR VOLUME 78 fL (80-96); MONOCYTES # (AUTO) 0.5 /CMM (0.1-1.30); MONOCYTES % (AUTO) 8.9 % (2.0-12.0); NEUTROPHILS # (AUTO) 3.4 /CMM (1.8-8.9); NEUTROPHILS % (AUTO) 60.2 % (43.0-81.0); PLATELET COUNT (AUTO) 279 /CMM (150-450); RDW COEFFICIENT OF VARIATION 20.4 (11.5-15.0); RED BLOOD CELL COUNT(AUTO) 4.48 MIL/uL (4.5-6.0); WHITE BLOOD COUNT (AUTO) 5.6 K/uL (4.3-11.0)
[2016-06-20 08:00] VITALS: BP 157/96
[2016-06-20 08:15] LABS: CALCIUM, SERUM 8.6 mg/dL (8.5-10.1); CREATININE 0.6 mg/dL (0.6-1.3); MAGNESIUM 1.8 mg/dL (1.8-2.4); PHOSPHORUS 3.6 mg/dL (2.5-4.9); POTASSIUM 3.8 mmol/L (3.5-5.1)
[2016-06-20] MEDS: PANTOPRAZOLE 40 MG TABLET.DR PO SCH (08:39)
[2016-06-20] MEDS: PROSOURCE / PROSTAT (PYXIS) 30 ML UDC PO SCH ×2 (08:39→16:30)
[2016-06-20] MEDS: DAKINS QUARTER STRENGTH (0.125%) 480 ML BOTTLE TOP SCH (08:40)
--- NOTE | 2016-06-20 12:16 | NUR ---
RN MS NOTES PT IN BED, AWAKE, CALM AND COOPERATIVE WITH CARE, BEING ASSISTED WITH LUNCH BY METAL POURER, IV FLUIDS INFUSING WELL, CALL LIGHT WITHIN REACH, KEPT COMFORTABLE.
[2016-06-20 16:00] VITALS: BP 136/85
--- NOTE | 2016-06-20 18:30 | NUR ---
RN MS NOTES PT IN BED, AWAKE, ALERT TO SELF, WATCHING TV, NO SIGN OF PAIN OR DISTRESS, RESPIRATIONS NORMAL, IV FLUIDS INFUSING WELL, F/C IN PLACE, DRAINING WELL WITH CLEAR, YELLOW URINE, WOUND TREATMENTS DONE ORDERED, PM CARE RENDERED, ASSISTED WITH MEALS, ASSISTED WITH TURNING AND REPOSITIONING, ALL NEEDS ATTENDED.
--- NOTE | 2016-06-20 19:30 | NUR ---
MS RN OPENING NOTES: PATIENT IN BED, AOX1, NON-VERBAL. APPEARS CALM AND IN NO DISTRESS, WAS SCRIBBLING ON BOARD. BREATHING EVEN AND UNLABORED. BREATH SOUNDS CLEAR TO AUSCULTATION. PIV ACCESS OVER RFA G 22 INTACT AND PATENT TO FLUSH. PIRES CATHETER IN PLACE, DRAINING CLEAR YELLOW URINE. PROVIDED FOR COMFORT AND SAFETY. ON CONTACT ISOLATION FOR ESBL OF THE URINE. WILL CONT TO MONITOR.
[2016-06-20 20:00] VITALS: BP 148/97
[2016-06-21] MEDS: IV D5/0.45 NACL 1,000 ML IV PRN ×2 (05:52→22:53)
--- NOTE | 2016-06-21 07:20 | NUR ---
MS RN CLOSING NOTES: PATIENT IN BED, AOX1, NON VERBAL BUT ABLE TO MAKE NEEDS KNOWN BY WRITING. ON ROOM AIR, BREATHING EVEN AND UNLABORED. PIRES CATHETER IN PLACE DRAINING CLEAR YELLOW URINE, DRAINED TOTAL OF 1500 CC THROUGH SHIFT. PIV OVER RFA G 22 INTACT AND NIFUSING WELL WITH D5 1/2 NS RUNNING AT 75 ML/HR. WOUND DRESSING OVER L INNER THIGH CHANGED. PROVIDED FOR COMFORT AND SAFETY. NO ACUTE CHANGE IN CONDITION NOTED THROUGH SHIFT. WILL ENDORSE TO AM RN FOR KEITH.
--- NOTE | 2016-06-21 07:30 | NUR ---
RN MS NOTES PT IN BED, AWAKE, ALERT AND ORIENTED, NO SIGN OF PAIN OR DISCOMFORT, RESPIRATIONS NORMAL AND NOT LABORED, IV FLUIDS INFUSING WELL, CALL LIGHT WITHIN REACH, COMMUNICATES THROUGH BOARD, NEEDS ATTENDED.
[2016-06-21 08:00] VITALS: BP 171/108
[2016-06-21] MEDS: PANTOPRAZOLE 40 MG TABLET.DR PO SCH (08:55)
[2016-06-21] MEDS: PROSOURCE / PROSTAT (PYXIS) 30 ML UDC PO SCH ×2 (08:55→16:31)
[2016-06-21] MEDS: DAKINS QUARTER STRENGTH (0.125%) 480 ML BOTTLE TOP SCH (09:00)
[2016-06-21] MEDS ORDERED: ACETAMINOPHEN 325 MG TABLET PO PRN (10:30)
--- NOTE | 2016-06-21 12:00 | NUR ---
RN MS NOTES PT IN BED, RESTING, NO COMPLAINT OF PAIN, BREATHING PATTERN NORMAL AND NOT LABORED, CALL LIGHT WITHIN REACH, ASSISTED IN TURNING AND REPOSITIONING.
[2016-06-21] MEDS: ASCORBIC ACID 500 MG TABLET PO SCH ×2 (12:07→16:31)
[2016-06-21] MEDS: FERROUS SULFATE (325 MG) 325 MG/TAB TABLET PO SCH ×2 (12:07→16:31)
[2016-06-21] MEDS: DOCUSATE SODIUM 100 MG CAPSULE PO SCH ×2 (12:08→16:31)
[2016-06-21] MEDS: CLONIDINE HCL 0.1 MG TABLET PO PRN (12:08)
--- NOTE | 2016-06-21 14:52 | NUR ---
RN MS NOTES MADE A FOLLOW UP CALL TO DR. KHURRAM MCKEON TO GET CONSENT FOR PT'S LEFT THIGH WOUND DEBRIDEMENT TOMORROW, LEFT MESSAGES AT PHONE NUMBERS [phone] AND [phone] ext [phone].
[2016-06-21 16:00] VITALS: BP 162/97
[2016-06-21 18:00] VITALS: BP 153/97
--- NOTE | 2016-06-21 18:42 | NUR ---
RN MS NOTES PT IN BED, AWAKE, ALERT TO SELF, NO SIGN OF PAIN OR DISTRESS, BREATHING PATTERN NORMAL, ASSISTED WITH MEALS, PM CARE RENDERED, SKIN TREATMENTS DONE ORDERED, PM MEDS GIVEN, ALL NEEDS ATTENDED.
--- NOTE | 2016-06-21 19:30 | NUR ---
MS RN OPENING NOTES: PATIENT IN BED, AOX1, ABLE TO MAKE NEEDS KNOWN BY WRITING. APPEARS CALM AND IN NO DISTRESS. BREATHING EVEN AND UNLABORED. PIV ACCESS OVER RFA G 22 INTACT AND PATENT, INFUSING WELL WITH D5 1/2 NS RUNNING AT 75 ML/HR. PIRES CATHETER IN PLACE, DRAINING CLEAR YELLOW URINE. PROVIDED FOR COMFORT AND SAFETY. WILL CONT TO MONITOR.
[2016-06-21 20:00] VITALS: BP 139/97
[2016-06-21 22:00] VITALS: BP 139/97
[2016-06-21] MEDS: MIRTAZAPINE 15 MG TABLET PO SCH (22:53)
--- NOTE | 2016-06-22 07:00 | NUR ---
RN NOTES: PATIENT IN BED, AOX1, ON ROOM AIR, BREATHING EVEN AND UNLABORED. APPEARS CALM AND IN NO DISTRESS. MORNING CARE RENDERED. WOUND DRESSING OVER INNER LEFT THIGH CHANGED. NO ACUTE CHANGE IN CONDITION NOTED THROUGH SHIFT. WILL ENDORSE TO AM RN FOR KEITH.
[2016-06-22] MEDS: PANTOPRAZOLE 40 MG TABLET.DR PO SCH (07:30)
[2016-06-22 08:00] VITALS: BP 139/92
--- NOTE | 2016-06-22 08:07 | NUR ---
RN AM NOTES PATIENT AWAKE AND ALERT AND ORIENTED X1, ABLE TO COMMUNICATE BY WRITING ON COMMUNICATION BOARD. ALL NEEDS MET. WILL CONTINUE TO MONITOR.
--- NOTE | 2016-06-22 08:40 | NUR ---
VERBAL CONSENT FROM [facility] OBTAINED OVER THE PHONE WITH 2 NURSE SIGNATURES FOR VERIFICATION. WAITING FOR SURGICAL SCHEDULE.
[2016-06-22] MEDS: ASCORBIC ACID 500 MG TABLET PO SCH ×2 (09:00→16:32)
[2016-06-22] MEDS: FERROUS SULFATE (325 MG) 325 MG/TAB TABLET PO SCH ×2 (10:28→16:31)
[2016-06-22] MEDS: DOCUSATE SODIUM 100 MG CAPSULE PO SCH ×2 (10:28→16:31)
[2016-06-22] MEDS: PROSOURCE / PROSTAT (PYXIS) 30 ML UDC PO SCH ×2 (10:28→16:31)
[2016-06-22] MEDS: DAKINS QUARTER STRENGTH (0.125%) 480 ML BOTTLE TOP SCH (10:35)
--- NOTE | 2016-06-22 11:00 | NUR ---
TRANSFERRED PATIENT TO SECOND FLOOR. GAVE REPORT TO NURSE TAKING OVER CASE. PATIENT LEFT FLOOR IN STABLE CONDITION, ACCOMPANIED BY TWO HOSPITAL STAFF MEMBERS, CULVERT INSTALLER NURSE AND CONTRACTS ANALYST.
[2016-06-22 11:30] VITALS: BP 125/86
--- NOTE | 2016-06-22 11:30 | NUR ---
MS RN NOTE: RECEIVED PATIENT FROM [facility], BENJAMIN GARCIA. PATIENT A/OX 1, BEDBOUND. PATIENT PLACED ON ISOLATION. BREATHING EVEN AND UNLABORED ON ROOM AIR. NO SOB. NO DISTRESS/DISCOMFORT. PATIENT ARRIVED WITH IV PULLED OUT. ATTEMPTED TO INSERT NEW IV'S WITH NO SUCCESS. WILL INFORM MD AND REQUEST MIDLINE INSERTION. PATIENT MADE COMFORTABLE, ALL NEEDS ATTENDED TO, SAFETY MEASURES IN PLACE, WILL CONTINUE TO MONITOR.
[2016-06-22 16:00] VITALS: BP 140/87
--- NOTE | 2016-06-22 16:00 | NUR ---
MS RN NOTE: WOUND CARE RENDERED, TOLERATED WELL. WILL CONTINUE TO MONITOR.
[2016-06-22 17:34] VITALS: BP 140/87
--- NOTE | 2016-06-22 18:21 | NUR ---
MS RN NOTE: PATIENT RESTING IN BED, A/OX 1. BREATHING EVEN AND UNLABORED ON ROOM AIR. NO SOB, NO DISTRESS. PATIENTS F/C INTACT AND DRAINING WELL. LEFT THIGH DRESSING CLEAN AND INTACT. PATIENTS NEEDS ATTENDED TO, SAFETY MEASURES IN PLACE, WILL ENDORSE TO CASINO BANKER FOR KEITH.
[2016-06-22 20:00] VITALS: BP 155/99
--- NOTE | 2016-06-22 20:00 | NUR ---
RN NOTES PX RECEIVED AWAKE, VERBAL BUT RN UNABLE TO COMPREHEND PX, ABLE TO COMMUNICATE VIA WRITING; ON ROOM; NOT IN DISTRESS, RESP EVEN AND UNLABORED; DENIED PAIN, SOB, N/V; PIRES CATH CONNECTED TO BAG BY GRAVITY; WITH RIGHT BKA; LEFT HEEL OFFLOADED; SEE SKIN FLOWSHEET FOR SKIN ASSESSMENT; DISCUSSED PLAN OF CARE.
[2016-06-22] MEDS: MIRTAZAPINE 15 MG TABLET PO SCH (21:30)
[2016-06-22] MEDS ORDERED: SECONDARY IV SET 1 EA INFUS.SET MC ONE (23:16)
[2016-06-22] MEDS ORDERED: IV SET PRIMARY PUMP SET 1 EA INFUS.SET MC ONE (23:17)
[2016-06-22] MEDS: IV D5/0.45 NACL 1,000 ML IV PRN (23:25)
--- NOTE | 2016-06-23 02:12 | NUR ---
RN NOTES PX SLEEPING, RESP EVEN AND UNLABORED; NO S/SX OF DISTRESS. CONTINUED TO MONITOR. CALL LIGHT WITHIN REACH.
--- NOTE | 2016-06-23 06:15 | NUR ---
RN NOTES CONDITION AND NEURO STATUS UNCHANGED; NOT IN DISTRESS, RESP EVEN AND UNLABORED; PX DENIED PAIN, SOB; REPOSITIONED; EARLY AM CARE RENDERED, PIRES AND ORAL CARE GIVEN; CHANGED DRESSING ON RIGHT INNER THIGH USING DAKIN'S PACKING, PROCEDURE TOLERATED; CALL LIGHT WITHIN REACH. WILL ENDORSE TO NEXT RN.
--- NOTE | 2016-06-23 07:15 | NUR ---
MS RN OPENING RECEIVED PATIENT STABLE NO S/S SOB, DIFFICULTY BREATHING OR PAIN. PATIENT IN POSITION OF COMFORT AND REPOSITIONED LEFT HEEL AND BILAT ELBOWS OFFLOADED. PATIENT HAS ALL NEEDS ATTENDED TO. WILL ROUND Q2H OR LESS PER NEEDS.
[2016-06-23 08:00] VITALS: BP 148/81
[2016-06-23] MEDS: PROSOURCE / PROSTAT (PYXIS) 30 ML UDC PO SCH ×2 (08:03→16:19)
[2016-06-23] MEDS: FERROUS SULFATE (325 MG) 325 MG/TAB TABLET PO SCH ×2 (08:03→16:19)
[2016-06-23] MEDS: ASCORBIC ACID 500 MG TABLET PO SCH ×2 (08:03→16:19)
[2016-06-23] MEDS: DOCUSATE SODIUM 100 MG CAPSULE PO SCH ×2 (08:03→16:19)
[2016-06-23] MEDS: Z GUARD REMEDY 2 OZ OINT TP PRN (08:03)
[2016-06-23] MEDS: PANTOPRAZOLE 40 MG TABLET.DR PO SCH (08:03)
[2016-06-23] MEDS: DAKINS QUARTER STRENGTH (0.125%) 480 ML BOTTLE TOP SCH (08:08)
[2016-06-23 16:00] VITALS: BP 131/83
[2016-06-23] MEDS ORDERED: IV SET PRIMARY PUMP SET 1 EA INFUS.SET MC ONE (17:59)
[2016-06-23] MEDS: IV D5/0.45 NACL 1,000 ML IV PRN (18:22)
--- NOTE | 2016-06-23 18:41 | NUR ---
MS RN CLOSING PATIENT STABLE NO COMPLICATIONS. ALL DUE MEDS GIVEN ALL NEEDS MET. PATIENT REPOSITIONED Q2H AND LEFT HEEL AND BILAT ELBOWS OFFLOADED THROUGHOUT DAY. WOUND CARE/SKIN CARE COMPLETED PRN NEEDED. PATIENT LEFT WITH CALL LIGHT IN REACH, BED LOWERED AND LOCKED, RAILS UPX3 FOR SAFETY WITH BED ALARM ON. WILL ENDORSE CARE TO RN.
--- NOTE | 2016-06-23 19:30 | NUR ---
MS RN NOTES RECEIVED ON BED AWAKE,ALERT X1,SCREAM IN NEEDS,WRITE ON BOARD MOST OF HE TIME.DRESSING INTACT ON LEFT THIGH AND GROIN,REPOSITION PER PROTOCOL,OFFLOAD BILATERAL FOOT.ISOLATION PRECAUTION FOR ESBL URINE.PIRES CATH IN PLACE DRAING YELLOWISH OUTPUT.CALL LIGHT IN REACH,NEEDS ANTICIPATED.
[2016-06-23 20:00] VITALS: BP 116/76
[2016-06-23] MEDS: MIRTAZAPINE 15 MG TABLET PO SCH (20:57)
--- NOTE | 2016-06-23 22:00 | NUR ---
MS RN NOTES DUE PO REMERON 7.5MG PO GIVEN
--- NOTE | 2016-06-24 00:46 | NUR ---
MS RN NOTES STILL AWAKE.AMBIEN 5MG PO GIVEN,REPOSITIONED
[2016-06-24] MEDS: IV D5/0.45 NACL 1,000 ML IV PRN ×2 (06:04→16:57)
--- NOTE | 2016-06-24 06:11 | NUR ---
MS RN NOTES SLEPT 5 HOURS LAST NIGHT,DRESSING CHANGED TO LEFT GROIN,THIGH TOLERATED WELL.NEW IVF HUNG,INFUSING AT SAME RATE VIA PUMP.KEPT ISOLATION FOR ESBL URINE.CALL LIGHT IN REACH,NEEDS ATTENDED.FOR WOUND DEBRIDEMENT LEFT GROIN AND THIGH TOMORROW BY DR STEVENSON.WILL ENDORSE TO DAY NURSE FOR KEITH.
--- NOTE | 2016-06-24 07:30 | NUR ---
MS/RN Patient received Patient received from shift supervisor rn. No needs at this time, call light within reach, will continue to monitor and ensure safety.
[2016-06-24] MEDS: FERROUS SULFATE (325 MG) 325 MG/TAB TABLET PO SCH ×2 (08:28→16:51)
[2016-06-24] MEDS: ASCORBIC ACID 500 MG TABLET PO SCH ×2 (08:28→16:51)
[2016-06-24] MEDS: PROSOURCE / PROSTAT (PYXIS) 30 ML UDC PO SCH ×2 (08:28→16:51)
[2016-06-24] MEDS: DOCUSATE SODIUM 100 MG CAPSULE PO SCH ×2 (08:28→16:51)
[2016-06-24] MEDS: PANTOPRAZOLE 40 MG TABLET.DR PO SCH (08:28)
[2016-06-24] MEDS: DAKINS QUARTER STRENGTH (0.125%) 480 ML BOTTLE TOP SCH (08:29)
[2016-06-24 08:30] VITALS: BP 154/96
--- NOTE | 2016-06-24 08:31 | NUR ---
MS/RN Medications Morning medications administered as ordered, no problems swallowing.
[2016-06-24 09:10] VITALS: BP 108/73
--- NOTE | 2016-06-24 10:30 | NUR ---
MS/RN S/B Dr Sandhu Seen by Dr Sandhu - continue with current treatment, await surgery tomorrow.
--- NOTE | 2016-06-24 12:30 | NUR ---
MS/RN Pre op labs Pre op labs, chest x-ray and EKG ordered.
--- NOTE | 2016-06-24 13:02 | NUR ---
MS/RN S/B Fernanda Ortega Seen by wound HEALTHCARE PROJECT MANAGER - patient for surgery tomorrow.
[2016-06-24 13:33] LABS: CALCIUM, SERUM 8.7 mg/dL (8.5-10.1); CREATININE 0.4 mg/dL (0.6-1.3); POTASSIUM 3.7 mmol/L (3.5-5.1)
[2016-06-24 13:41] LABS: INR 0.98 (0.87-1.13); PROTHROMBIN TIME 10.5 SECS (9.5-12.7)
[2016-06-24 13:59] LABS: BASOPHILS % (AUTO) 0.4 % (0.0-2.0); EOSINOPHILS # (AUTO) 0.2 /CMM (0.0-0.7); EOSINOPHILS % (AUTO) 3.1 % (0.0-6.0); HEMATOCRIT 37 % (39-51); HEMOGLOBIN 11.4 g/dL (13.5-17.5); LYMPHOCYTES # (AUTO) 1.5 /CMM (0.8-4.8); LYMPHOCYTES % (AUTO) 26.1 % (20.0-44.0); MEAN CORPUSCULAR HEMOGLOBIN 24 PG (26.0-33.0); MEAN CORPUSCULAR HGB CONC 31 g/dl (31.0-36.0); MEAN CORPUSCULAR VOLUME 78 fL (80-96); MONOCYTES # (AUTO) 0.4 /CMM (0.1-1.30); MONOCYTES % (AUTO) 7.5 % (2.0-12.0); NEUTROPHILS # (AUTO) 3.6 /CMM (1.8-8.9); NEUTROPHILS % (AUTO) 62.9 % (43.0-81.0); PLATELET COUNT (AUTO) 291 /CMM (150-450); RDW COEFFICIENT OF VARIATION 19.6 (11.5-15.0); WHITE BLOOD COUNT (AUTO) 5.7 K/uL (4.3-11.0)
--- NOTE | 2016-06-24 14:58 | NUR ---
MS/RN EKG / Labs EKG and labs drawn ready for surgery.
[2016-06-24 16:00] VITALS: BP 135/94
--- NOTE | 2016-06-24 18:10 | NUR ---
MS/RN End note No changes at this time, for surgery tomorrow. NPO from midnight, consent forms already signed and placed in front of chart. Has been turned and repositioned every 2- hours throughout shift. Will endorse to shift mechanic.
--- NOTE | 2016-06-24 19:30 | NUR ---
RN NOTES RECEIVED PT. AWAKE ON BED, A/OX2, IV FLUID D51/2 NS RUNNING @ 75 ml/hr, F/C DRAINING CLEAR YELLOW URINE, SIDERILS UPX2 CONTINUE TO MONITOR
[2016-06-24 20:00] VITALS: BP 158/79
[2016-06-24] MEDS: MIRTAZAPINE 15 MG TABLET PO SCH (21:37)
[2016-06-25] MEDS: IV D5/0.45 NACL 1,000 ML IV PRN ×2 (05:23→18:46)
[2016-06-25] MEDS: PANTOPRAZOLE 40 MG TABLET.DR PO SCH (07:30)
--- NOTE | 2016-06-25 07:30 | NUR ---
MS/RN OPENING NOTE PT. AWAKE. A&OX2, IN STABLE CONDITION, NO SOB, UNLABORED BREATHING. RIGHT IV MIDLINE INTACT INFUSING AT 75ML/HR. REMAINS NPO FOR SURGERY SCHEDULED AT 1130. TELEPHONE CONSENT OBTAINED FROM [facility].
[2016-06-25 08:00] VITALS: BP 146/91
[2016-06-25] MEDS: FERROUS SULFATE (325 MG) 325 MG/TAB TABLET PO SCH ×2 (08:18→16:50)
[2016-06-25] MEDS: DAKINS QUARTER STRENGTH (0.125%) 480 ML BOTTLE TOP SCH (08:18)
[2016-06-25] MEDS: ASCORBIC ACID 500 MG TABLET PO SCH ×2 (08:18→16:50)
[2016-06-25] MEDS: PROSOURCE / PROSTAT (PYXIS) 30 ML UDC PO SCH ×2 (08:18→16:57)
[2016-06-25] MEDS: DOCUSATE SODIUM 100 MG CAPSULE PO SCH ×2 (08:18→16:52)
--- NOTE | 2016-06-25 09:00 | NUR ---
MS/RN MEDICATIONS AM MEDICATIONS HELD DUE TO NPO BEFORE SURGERY
--- NOTE | 2016-06-25 11:30 | NUR ---
MS/RN OFF FLOOR PT. LEFT TO OPERATING ROOM IN STABLE CONDITION, CHART WITH PT.
[2016-06-25] MEDS ORDERED: LIDOCAINE HCL/PF 1% 30 ML SDV ONE (11:51)
[2016-06-25] MEDS ORDERED: BUPIVACAINE MPF 0.5% W/EPI INJ 30 ML VIAL ONE (11:51)
[2016-06-25] MEDS ORDERED: BACITRACIN 50000 UNITS/VIAL ONE (12:05)
[2016-06-25 12:15] VITALS: BP 137/89
[2016-06-25 12:30] VITALS: BP 134/79
--- NOTE | 2016-06-25 13:08 | NUR ---
MS/RN RETUNED BACK TO SAME ROOM FROM LEFT THIGH WOUND SURGERY PT. RETURNED TO ROOM AWAKE AND TALKING, A&OX2 , IN STABLE CONDITION WITH PIRES CATHETER. VITAL SIGNS STABLE, BP 137/70, HR 96, SPO2 98%. ORDERED FOR PT. TO RESUME DIET, CARDIAC DIET, AND ALL MEDICATIONS. REVIEWED ALL ORDERS AND WERE CARRIED OUT. IV FLUIDS INFUSING AT 75ML/HR IN RIGHT ARM MIDLINE.
[2016-06-25 16:00] VITALS: BP 134/86
--- NOTE | 2016-06-25 16:30 | NUR ---
MS/RN SACRAL WOUND DRESSING CHANGE SACRAL WOUND WAS CLEANSED WITH DAKIN SOLUTION, AND PACKED WITH KERLIX DRESSING SOAKED IN DAKIN SOLUTION. DRY DRESSING APPLIED.
--- NOTE | 2016-06-25 19:30 | NUR ---
MS NURSE'S OPENING NOTE RECEIVED REPORT FROM NIGHT NURSE. PATIENT IS RESTING IN BED, SIDE RAILS UP X2, CALL LIGHT WITHIN REACH AND SO SIGNS OF DISTRESS.
--- NOTE | 2016-06-25 19:35 | NUR ---
MS/RN CLOSING NOTE PT. IS AWAKE IN BED, VITAL SIGNS REMAIN STABLE AFTER SURGERY. NO DRAINAGE NOTED FROM SURGICAL SITE ON LEFT THIGH. TOLERATING DIET, DOES NOT APPEAR IN PAIN OR DISTRESS. WAS INDORSED TO DIRECTOR PATIENT.
[2016-06-25 20:00] VITALS: BP 137/87
[2016-06-25 21:19] VITALS: BP 137/87
[2016-06-25] MEDS: MIRTAZAPINE 15 MG TABLET PO SCH (21:26)
[2016-06-26] MEDS ORDERED: IV D5/0.45 NACL 1,000 ML IV ONE (04:24)
[2016-06-26] MEDS: IV D5/0.45 NACL 1,000 ML IV PRN (04:29)
--- NOTE | 2016-06-26 06:47 | NUR ---
PT IS RESTING IN BED, SIDE RAILS UP X2, BED IN LOCKED POSITION, CALL LIGHT WITHIN REACH. PT SHOWS NO SIGNS OF DISTRESS.
--- NOTE | 2016-06-26 07:30 | NUR ---
MS/RN OPENING NOTE PT. IS AWAKE IN BED, A&OX2. PT. IS NOT IN DISTRESS, NO SOB, AND NO SIGNS OF PAIN. PT. HAS A RIGHT UPPER ARM MIDLINE IV ACCESS INTACT INFUSING AT 75ML/HR. PIRES CATHETER NEAR BEDSIDE. PT. HAS 2 SIDE RAILS UP, BED IN LOW POSITION, AND CALL LIGHT WITHIN REACH.
[2016-06-26] MEDS: FERROUS SULFATE (325 MG) 325 MG/TAB TABLET PO SCH ×2 (07:59→18:44)
[2016-06-26] MEDS: PANTOPRAZOLE 40 MG TABLET.DR PO SCH (07:59)
[2016-06-26] MEDS: DOCUSATE SODIUM 100 MG CAPSULE PO SCH ×2 (07:59→18:44)
[2016-06-26] MEDS: ASCORBIC ACID 500 MG TABLET PO SCH ×2 (07:59→18:44)
[2016-06-26] MEDS: PROSOURCE / PROSTAT (PYXIS) 30 ML UDC PO SCH ×2 (07:59→18:44)
[2016-06-26 08:00] VITALS: BP 141/93
[2016-06-26] MEDS: DAKINS QUARTER STRENGTH (0.125%) 480 ML BOTTLE TOP SCH (08:00)
[2016-06-26 09:00] VITALS: BP 141/93
--- NOTE | 2016-06-26 14:42 | NUR ---
d/c back to SNF today,accepted as per admission Homero.Spoke with Dr. Dick Bryant [phone] and Demetria @ the [facility] , aware and agreed with dc plan of care. Ambulance sweet pickled fruit maker @ 6pm Addendum: 06/26/16 at 1442 by FRAN HINSON RN Amended: Links added.
[2016-06-26 16:00] VITALS: BP 137/75
--- NOTE | 2016-06-26 16:05 | NUR ---
MS/RN PT. DISCHARGE PT. WAS DISCHARGED, AND LEFT HOME WITH .
--- NOTE | 2016-06-26 19:28 | NUR ---
MS/RN CLOSING NOTE LEFT THIGH WOUND INITIAL DRESSING WAS CHANGED WITH DAKIN SOLUTION MOIST GAUZE TO DRY COVER. PT. IS IN STABLE CONDITION. BREATHING EVENLY AND UNLABORED. PT. IS GOING TO BE DISCHARGED TO [facility] AND REPORT WAS GIVEN TO RN. PT. IS IN BED A&OX2. CALL LIGHT WITHIN REACH.
--- NOTE | 2016-06-26 19:30 | NUR ---
MSRN BP ELEVATED AT THIS TIME. NO SOB, AGITATED AT THIS TIME. CLONIDINE 0.1 MG 1 TAB PO ADMINISTERED BY RN . WILL MONITOR BP.
[2016-06-26 19:46] VITALS: BP 150/98
[2016-06-26] MEDS: CLONIDINE HCL 0.1 MG TABLET PO PRN (19:46)
--- NOTE | 2016-06-26 20:00 | NUR ---
BP PRESSURE 150/98. HR= 114, RR=20, O2 SAT 96 ADMINISTERED CLONIDINE 0.1 MG.
--- NOTE | 2016-06-26 20:00 | NUR ---
MSRN BP FROM 170/112 NOW 149/98. WAITING FOR AMBULANCE FOR DISCHARGE TO [facility].
--- NOTE | 2016-06-26 20:30 | NUR ---
MSRN AMBULANCE HERE, BP 160/101. PATIENT TRYING TO COMMUNICATE THROUGH BOARD. AGITATED AGAIN. PLACED CALL TO AUSTYNDemetrius DUCKWORTH, NOBODY ANSWERING. TRIED MORE CALLS, NO ANSWER.
--- NOTE | 2016-06-26 21:00 | NUR ---
MSRN PLACE CALL TO SECONDARY EDUCATION PROFESSOR , NOTIFIED HIGH BP. RN RECEIVED ORDERS PATIENT CLEARED TO GO. ABLE TO REACH [facility], AT 2105, WILL CALL BACK.
--- NOTE | 2016-06-26 21:10 | NUR ---
MSRN RETURN CALL FROM AUSTYNDemetrius DUCKWORTH, AWARE OF BP. LAST BP 138/91. CHELO TSANG WILL TAKE PATIENT.
--- NOTE | 2016-06-26 21:18 | NUR ---
MS NURSES DC NOTES ALBERT SPOKE TO TRINH AT [facility] AND REPORTED PT'S LAST BP OF 131/94 AND TRINH SAID TO GO AHEAD TO TRANSFER PATIENT TO THEIR FACILITY.
--- NOTE | 2016-06-26 21:30 | NUR ---
MSRN PATIENT ON [facility], PATIENT STABLE, LEFT WITH ALL HIS BELONGINGS VIA AMBULANCE IN SATISFACTORY CONDITION.
== END 2016-06-26 21:30 | DRG 579 ==
LOC: EDUNIT# 11:45 → ER 11:47 → MED 13:48 → MEDSG2 06-22 11:32
PROVIDERS: ADMIT Internal Medicine; ATTEND Internal Medicine
PROC: 0KBR0ZZ Excision of Left Upper Leg Muscle, Open Approach (ICD-10-PCS; principal; 2016-06-18)
PROC: 05H533Z Insertion of Infusion Device into Right Subclavian Vein, Percutaneous Approach (ICD-10-PCS; 2016-06-22)
PROC: 0KBR0ZZ Excision of Left Upper Leg Muscle, Open Approach (ICD-10-PCS; 2016-06-25)
DX: C44.729 Squamous cell carcinoma of skin of left lower limb, including hip (principal); E43 Unspecified severe protein-calorie malnutrition; R53.2 Functional quadriplegia; G93.40 Encephalopathy, unspecified; D68.59 Other primary thrombophilia; N12 Tubulo-interstitial nephritis, not specified as acute or chronic; N39.0 Urinary tract infection, site not specified; F79 Unspecified intellectual disabilities; I10 Essential (primary) hypertension; F32.9 Major depressive disorder, single episode, unspecified; K21.9 Gastro-esophageal reflux disease without esophagitis; L89.899 Pressure ulcer of other site, unspecified stage; Q05.9 Spina bifida, unspecified; Z74.01 Bed confinement status; Z89.511 Acquired absence of right leg below knee; E88.09 Other disorders of plasma-protein metabolism, not elsewhere classified; Z68.24 Body mass index [BMI] 24.0-24.9, adult; L89.620 Pressure ulcer of left heel, unstageable; D50.9 Iron deficiency anemia, unspecified; Z87.440 Personal history of urinary (tract) infections; F20.9 Schizophrenia, unspecified; D47.3 Essential (hemorrhagic) thrombocythemia; B96.89 Other specified bacterial agents as the cause of diseases classified elsewhere
CPT/HCPCS: 36415; 36569; 71010-TC; 80048-TC; 80053-TC; 80061-TC; 83540-TC; 83735-TC; 84100-TC; 85025-TC; 85610-TC; 85730-TC; 87040-TC; 87081-TC; 88305-TC; 93307-TC; A4216; A4606; A6253; A6402; A6403; J1956; J2001; J2185; J2543; J2704; J3490; J7060; Z7610

== ENCOUNTER 2016-09-11 19:21 | Inpatient (IN) | payer MEDICARE, MEDICAID ==
[~2016-09-11] VITALS: Ht 165.1 cm; Wt 69.9 kg
[~2016-09-11 19:21] MED LIST changes: -ACID1TAB12 PO; +ACID1TAB4 PO; +DOCU-170 PO; -ENOX40DI SQ; +OMEP20CA10 PO; -PANT40TA4 PO; +PROT946L PO
--- NOTE | 2016-09-11 19:21 | NUR ---
PT CARL MOODY FROM [facility] LEFT UPPER THIGH CELLULITIS SINCE 09/07/16. PLACED ON MONITOR. GOWNED PT. AWAITING MD ORDER
--- NOTE | 2016-09-11 19:30 | NUR ---
DR HERNANDEZ AT BEDSIDE FOR EVAL
--- NOTE | 2016-09-11 19:45 | NUR ---
EKG IN PROGRESS
--- NOTE | 2016-09-11 19:46 | NUR ---
RAC #18 IV ACCESS. BLOOD SAMPLE COLLECTED SENT TO LAB
[2016-09-11 19:52] LABS: BASOPHILS # (AUTO) 0.3 /CMM (0.0-0.2); EOSINOPHILS # (AUTO) 0.1 /CMM (0.0-0.7); EOSINOPHILS % (AUTO) 1.1 % (0.0-6.0); HEMATOCRIT 33 % (39-51); HEMOGLOBIN 10.1 g/dL (13.5-17.5); LYMPHOCYTES # (AUTO) 1.5 /CMM (0.8-4.8); LYMPHOCYTES % (AUTO) 13.8 % (20.0-44.0); MEAN CORPUSCULAR HEMOGLOBIN 22 PG (26.0-33.0); MEAN CORPUSCULAR HGB CONC 31 g/dl (31.0-36.0); MEAN CORPUSCULAR VOLUME 71 fL (80-96); MONOCYTES # (AUTO) 0.7 /CMM (0.1-1.30); MONOCYTES % (AUTO) 6.6 % (2.0-12.0); NEUTROPHILS # (AUTO) 8.3 /CMM (1.8-8.9); NEUTROPHILS % (AUTO) 75.5 % (43.0-81.0); PLATELET COUNT (AUTO) 586 /CMM (150-450); RDW COEFFICIENT OF VARIATION 18.7 (11.5-15.0); RED BLOOD CELL COUNT(AUTO) 4.66 MIL/uL (4.5-6.0); WHITE BLOOD COUNT (AUTO) 10.9 K/uL (4.3-11.0)
[2016-09-11] MEDS ORDERED: IV NS 0.9% 1,000 ML ONE ×2 (19:52→21:10)
[2016-09-11] MEDS ORDERED: IV SET PRIMARY PUMP SET 1 EA INFUS.SET MC ONE (19:52)
[2016-09-11] MEDS ORDERED: MEROPENEM 1,000 MG in IV NS 0.9% 100 ML IV ONE (20:00)
[2016-09-11] MEDS ORDERED: IV NS 0.9% 1,000 ML BAG IV ONE (20:00)
[2016-09-11 20:02] LABS: CALCIUM, SERUM 8.6 mg/dL (8.5-10.1); CARBON DIOXIDE 27 mmol/L (21-32); CHLORIDE 103 mmol/L (98-107); CREATININE 0.7 mg/dL (0.6-1.3); GLUCOSE 123 mg/dL (74-106); POTASSIUM 4.4 mmol/L (3.5-5.1); SODIUM SERUM 136 mmol/L (136-145); UREA NITROGEN, BLOOD 18 mg/dL (7-18)
[2016-09-11 20:06] LABS: INR 1.03 (0.87-1.13); PROTHROMBIN TIME 10.7 SECS (9.5-12.7)
[2016-09-11 20:07] LABS: ALANINE AMINOTRANSFERASE 33 U/L (12-78); ALKALINE PHOSPHATASE 192 U/L (46-116); ASPARTATE AMINOTRANSFERASE 33 U/L (15-37); BILIRUBIN,DIRECT 0.1 mg/dL (0.0-0.2); BILIRUBIN,TOTAL 0.2 mg/dL (0.2-1.0); TOTAL PROTEIN, SERUM 8.3 g/dL (6.4-8.2)
[2016-09-11 20:09] LABS: TROPONIN I < 0.017 ng/mL (0.00-0.056)
[2016-09-11] MEDS ORDERED: IV NS 0.9% 1,000 ML IV ONE (20:30)
[2016-09-11] MEDS ORDERED: LINEZOLID RTU BAG 600 MG in PREMIX 1 EA IV SCH (21:00)
[2016-09-11 21:10] VITALS: BP 130/66
[2016-09-11] MEDS ORDERED: IV SET PRIMARY 1 EA INFUS.SET MC ONE (21:10)
[2016-09-11] MEDS ORDERED: ACETAMINOPHEN 325 MG TABLET PO PRN (21:30)
[2016-09-11] MEDS ORDERED: CLONIDINE HCL 0.1 MG TABLET PO PRN (21:30)
[2016-09-11] MEDS ORDERED: Z GUARD REMEDY 2 OZ OINT TP PRN (21:30)
[2016-09-11] MEDS ORDERED: ONDANSETRON HCL/PF 4 MG/2 ML VIAL IVP PRN (21:30)
--- NOTE | 2016-09-11 21:30 | NUR ---
ms/rn notesa patient new admitted from ER, 60 yo male who came from [facility] with elevated temperature and [facility] 130. awake, alertx1, and anxious. 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 incontinent. wound on sacral area, lower abdomen and lwft groin. edema on left foot. requiring extensive assistance for safety and frequent reassurance. will continue to monitor. md reconciile meds/ informed about elevated hr.will continue to monitor.
[2016-09-11] MEDS ORDERED: MIRTAZAPINE 15 MG TABLET PO SCH (22:00)
[2016-09-11] MEDS ORDERED: MIRTAZAPINE 15 MG TABLET ONE (23:02)
[2016-09-12] MEDS ORDERED: MEROPENEM 1 G VIAL IV ONE (01:28)
[2016-09-12] MEDS ORDERED: IV NS 0.9% 1,000 ML ONE (01:39)
[2016-09-12] MEDS ORDERED: IV SET PRIMARY PUMP SET 1 EA INFUS.SET MC ONE (01:39)
[2016-09-12] MEDS ORDERED: IV NS 0.9% 100 ML IV ONE (01:39)
[2016-09-12] MEDS ORDERED: SECONDARY IV SET 1 EA INFUS.SET MC ONE ×4 (01:39→21:28)
[2016-09-12] MEDS: IV NS 0.9% 1,000 ML IV PRN (01:48)
[2016-09-12 02:34] VITALS: BP 130/66
[2016-09-12] MEDS ORDERED: MEROPENEM 1 G in IV NS 0.9% 100 ML IV SCH (05:00)
--- NOTE | 2016-09-12 06:30 | NUR ---
ms/rn closing notes patient in bed, hob elevated can use call lights for assistance and uses board to write his request. no grimace but not able to sleep during the night prefer to watch tv.On iv ns running 75 ml/hr. right ac gauge 18 patent. for wound consult for lower left groin cellulitis. will endorse to am rn.
[2016-09-12 07:11] LABS: BASOPHILS % (AUTO) 0.4 % (0.0-2.0); EOSINOPHILS # (AUTO) 0.1 /CMM (0.0-0.7); HEMATOCRIT 31 % (39-51); HEMOGLOBIN 9.6 g/dL (13.5-17.5); LYMPHOCYTES # (AUTO) 1.2 /CMM (0.8-4.8); LYMPHOCYTES % (AUTO) 13.7 % (20.0-44.0); MEAN CORPUSCULAR HEMOGLOBIN 22 PG (26.0-33.0); MEAN CORPUSCULAR HGB CONC 31 g/dl (31.0-36.0); MEAN CORPUSCULAR VOLUME 72 fL (80-96); MONOCYTES # (AUTO) 0.8 /CMM (0.1-1.30); MONOCYTES % (AUTO) 9.2 % (2.0-12.0); NEUTROPHILS # (AUTO) 6.5 /CMM (1.8-8.9); NEUTROPHILS % (AUTO) 75.7 % (43.0-81.0); PLATELET COUNT (AUTO) 460 /CMM (150-450); RDW COEFFICIENT OF VARIATION 20.6 (11.5-15.0); RED BLOOD CELL COUNT(AUTO) 4.28 MIL/uL (4.5-6.0); WHITE BLOOD COUNT (AUTO) 8.6 K/uL (4.3-11.0)
[2016-09-12 07:28] LABS: ALBUMIN 1.8 g/dL (3.4-5.0); BILIRUBIN,TOTAL 0.3 mg/dL (0.2-1.0); CALCIUM, SERUM 8.5 mg/dL (8.5-10.1); CREATININE 0.4 mg/dL (0.6-1.3); MAGNESIUM 1.8 mg/dL (1.8-2.4); PHOSPHORUS 3.2 mg/dL (2.5-4.9); POTASSIUM 3.5 mmol/L (3.5-5.1); TOTAL PROTEIN, SERUM 7.5 g/dL (6.4-8.2)
--- NOTE | 2016-09-12 07:30 | NUR ---
MS RN NOTES RECEIVED REPORT WITH PATIENT A/OX1-2. PATIENT ABLE TO COMMUNICATE NEEDS WITH BOARD. NO S/S OF SOB OR DISTRESS NOTED. IV IS PATENT AND INTACT. NO S/S OF SOB OR DISTRESS NOTED. CALL LIGHT IS WITHIN REACH. BED IS IN LOWEST, LOCKED POSITION. SIDE RAILS UPX2. WILL CONTINUE TO MONITOR THROUGHOUT SHIFT.
[2016-09-12 07:34] LABS: THYROID STIMULATING HORMONE 3.814 uIU/mL (0.358-3.74)
[2016-09-12 08:44] LABS: MONOCYTES % (MANUAL) 6 % (0-11.0)
[2016-09-12] MEDS: PROSTAT (PYXIS) 30 ML UDC PO SCH (09:00)
[2016-09-12 09:06] LABS: NEUTROPHILS % (MANUAL) 80 (42-76)
[2016-09-12 09:07] LABS: BAND % (MANUAL) 0 % (0.0-5.0); LYMPHOCYTES % (MANUAL) 12 % (16-48)
[2016-09-12 09:08] LABS: EOSINOPHILS % (MANUAL) 2 % (0-4)
[2016-09-12] MEDS: ASCORBIC ACID 500 MG TABLET PO SCH ×2 (09:48→17:45)
[2016-09-12] MEDS: FERROUS SULFATE (325 MG) 325 MG/TAB TABLET PO SCH ×2 (09:48→17:45)
[2016-09-12] MEDS: DOCUSATE SODIUM 100 MG CAPSULE PO SCH ×2 (09:48→17:45)
[2016-09-12] MEDS: LINEZOLID RTU BAG 600 MG in PREMIX 1 EA IV SCH ×2 (10:26→22:11)
[2016-09-12] MEDS: PANTOPRAZOLE 40 MG TABLET.DR PO SCH (10:31)
[2016-09-12] MEDS: HYDROCODONE/APAP 5/325MG 1 EACH TABLET PO SCH (11:25)
--- NOTE | 2016-09-12 13:16 | NUR ---
MS RN NOTES CALLED CONSERVATORJOEY X2 TO OBTAIN CONSENT FOR PROCEDURE. NO ANSWER. LEFT VM.
[2016-09-12] MEDS: MEROPENEM 500 MG in IV NS 0.9% 50 ML IV SCH ×2 (14:15→21:23)
[2016-09-12] MEDS: NEOMY SULF/BACITRAC ZN/POLY 15 GM TUBE TP SCH (15:26)
[2016-09-12] MEDS: DAKINS QUARTER STRENGTH (0.125%) 480 ML BOTTLE TOP SCH (15:26)
[2016-09-12 16:00] VITALS: BP 128/92
--- NOTE | 2016-09-12 18:44 | NUR ---
MS RN NOTES PATIENT IS A/OX1. PATIENT ATTEMPTS TO COMMUNICATE WITH BOARD. SITTER AT BEDSIDE FOR SAFETY MEASURES. IV PATENT AND INTACT. NO S/S OF SOB OR ACUTE DISTRESS NOTED. ALL PATIENT NEEDS HAVE BEEN MET THROUGHOUT THE DAY. CALL LIGHT IS WITHIN REACH. BED IS IN THE LOWEST, LOCKED POSITION. WILL ENDORSE CARE TO PM SHIFT.
--- NOTE | 2016-09-12 19:30 | NUR ---
MS RN OPENING NOTES: PATIENT IN BED, AOX1, ON ROOM AIR, BREATHING EVEN AND UNLABORED. APPEARS CALM AT THIS TIME, BUT MAKES INCOMPREHENSIBLE SOUNDS. PIV OVER LAC G22 INTACT AND PATENT TO FLUSH. NOTED CLEAN AND INTACT DRESSING OVER LEFT THIGH. PROVIDED FOR COMFORT AND SAFETY. SITTER AT BEDSIDE. BED IN LOWEST AND LOCKED POSITION. SIDERAILS UP X3. WILL CONT TO MONITOR.
[2016-09-12 20:00] VITALS: BP 142/99
[2016-09-13] MEDS: IV NS 0.9% 1,000 ML IV PRN (04:40)
[2016-09-13] MEDS: MEROPENEM 500 MG in IV NS 0.9% 50 ML IV SCH ×3 (04:40→20:53)
--- NOTE | 2016-09-13 05:00 | NUR ---
RN NOTES: PATIENT KEEPS BENDING LEFT ARM, IMPEDING IV FLOW. ATTEMPTED TO REINSERT NEW IV LINE BUT FAILED.
--- NOTE | 2016-09-13 06:57 | NUR ---
MS RN CLOSING NOTES: PATIENT IN BED, AOX4, ON ROOM AIR, BREATHING EVEN AND UNLABORED. PIV OVER LAC G22 INTACT AND INFUSING WELL WITH NS RUNNING AT 75 ML/HR. DUE MEDS GIVEN. MORNING CARE RENDERED. WOUND CARE DONE OVER LEFT THIGH AND LEFT GROIN WOUNDS. PROVIDED FOR COMFORT AND SAFETY. BED IN LOWEST AND LOCKED POSITION, SIDERAILS UP X3. WILL ENDORSE TO AM RN FOR KEITH.
--- NOTE | 2016-09-13 07:41 | NUR ---
RN OPEN NOTES RECEIVED REPORT FROM STAVE HEWER NURSE. PATIENT IS IN BED,ALERT AND ORIENTED TO NAME ONLY. PATIENT IS NON VERBAL BUT ABLE TO COMMUNICATE VIA HIS WRITING BOARD. NO SIGNS AND SYMPTOMS OF DISTRESS OR PAIN. 1:1 SITTER AT BEDSIDE FOR SAFETY. IV SITE IS INTACT AND PATENT. STAVE HEWER NURSES TRIED TO START A NEW IV SITE BUT UNSUCCESSFULLY, WILL INFORM CHARGE NURSE AND MD FOR A POSSIBILITY OF PICC LINE. BED IN LOW POSITION, LOCKED AND TWO SIDE RAILS ARE UP. WILL CONTINUE TO MONITOR AND ASSESS PATIENT'S CONDITION THROUGH OUT MY SHIFT
[2016-09-13 07:50] VITALS: BP 138/88
[2016-09-13] MEDS: LINEZOLID RTU BAG 600 MG in PREMIX 1 EA IV SCH ×2 (08:27→21:33)
[2016-09-13] MEDS: FERROUS SULFATE (325 MG) 325 MG/TAB TABLET PO SCH ×2 (08:29→17:00)
[2016-09-13] MEDS: ASCORBIC ACID 500 MG TABLET PO SCH ×2 (08:29→17:00)
[2016-09-13] MEDS: HYDROCODONE/APAP 5/325MG 1 EACH TABLET PO SCH (08:29)
[2016-09-13] MEDS: DOCUSATE SODIUM 100 MG CAPSULE PO SCH ×2 (08:29→17:00)
[2016-09-13] MEDS: PANTOPRAZOLE 40 MG TABLET.DR PO SCH (08:29)
[2016-09-13] MEDS: DAKINS QUARTER STRENGTH (0.125%) 480 ML BOTTLE TOP SCH (08:30)
[2016-09-13] MEDS: NEOMY SULF/BACITRAC ZN/POLY 15 GM TUBE TP SCH (08:30)
--- NOTE | 2016-09-13 08:40 | NUR ---
MIDLINE NURSE AT BEDSIDE
[2016-09-13] MEDS: PROSTAT (PYXIS) 30 ML UDC PO SCH (09:00)
--- NOTE | 2016-09-13 10:31 | NUR ---
CALLED DONALDO REED, CONSERVATOR. WAS UNABLE TO REACH HER. LEFT A MESSAGE
[2016-09-13] MEDS ORDERED: MIRTAZAPINE 15 MG TABLET PO SCH (13:00)
--- NOTE | 2016-09-13 13:00 | NUR ---
PATIENT IS AGITATED. DR MARTINS MADE AWARE. NEW ORDERS RECEIVED AND CARRIED OUT.
--- NOTE | 2016-09-13 13:14 | NUR ---
LEFT A SECOND MESSAGE TO DONALDO REED WITH THE EMERGENCY LINE ANSWERING SERVICE. SPOKE TO FATOU, COMPLIANCE AND CONTROL ANALYST, SHE WILL PAGE THE CARD SETTER CONSERVATOR
[2016-09-13] MEDS: LORAZEPAM INJ 2 MG/ML VIAL IV PRN ×2 (13:56→21:35)
[2016-09-13 15:55] VITALS: BP 111/69
--- NOTE | 2016-09-13 18:45 | NUR ---
DRESSING CHANGE COMPLETED PER HOSPITAL PROTOCOL AND WOUND CARE INSTRUCTION.
--- NOTE | 2016-09-13 18:58 | NUR ---
RN CLOSING NOTES PATIENT IS IN BED, ALERT AND ORIENTED TO NAME ONLY. VERBALIZE VIA BOARD ONLY. NO SIGNS AND SYMPTOMS OF DISTRESS OR PAIN. ALL NEEDS ANTICIPATED AND NURSING CARE PROVIDED. PATIENT KEPT SAFE, CLEAN AND DRY. IV SITES IS INTACT AND POTENT. BED IN LOW POSITION, LOCKED AND TWO SIDE RAILS ARE UP. WILL ENDORSE TO SKIP PIT WORKER NURSE.
[2016-09-13 19:25] VITALS: BP 151/84
--- NOTE | 2016-09-13 19:30 | NUR ---
RN NOTE; RECEIVED PT IN BED W/ SITTER AT THE BED SIDE, BREATHING EVENLY. NO SOB. NAD. NO S/S O PAIN OR DISCOMFORT. NEEDS ATTENDED. CALL LIGHT WITHIN REACH. WILL CONT TO MONITOR
[2016-09-14] VITALS (7 sets, daily range): BP systolic 106–118; BP diastolic 60–75
[2016-09-14] MEDS: MEROPENEM 500 MG in IV NS 0.9% 50 ML IV SCH ×3 (04:38→21:01)
[2016-09-14] MEDS: IV NS 0.9% 1,000 ML IV PRN ×2 (04:41→16:38)
--- NOTE | 2016-09-14 06:23 | NUR ---
RN NOTE; PT IN BED AWAKE W/ SITTER AT THE BED SIDE. BREATHING EVENLY. NO SOB. NAD. ON ONGOING IVF HYDRATION. NPO FOR SX TODAY. CONSENT TO BE OBTAINED FROM THE CONSERVATOR. GOOD SKIN CARE RENDERED. CLEANED AND DRIED. CALL LIGHT WITHIN REACH. WILL CONT TO MONITOR AND WILL ENDORSE TO AM SHIFT FOR KEITH.
--- NOTE | 2016-09-14 07:20 | NUR ---
ms rn initial notes Received patient in bed, awake, sitter at bedside for constant monitoring. Patient is NPO for procedure. Alert and oriented to name only. Per night auditor nurse consent for procedure is not sign yet due to conservator is not available. Will follow up today. Right upper arm midline in place and patent with IVF infusing well. kept patient clean and comfortable in bed, call light with in patient reach, will continue to monitor accordingly.
[2016-09-14] MEDS: PANTOPRAZOLE 40 MG TABLET.DR PO SCH (07:30)
[2016-09-14 07:39] LABS: BASOPHILS % (AUTO) 0.3 % (0.0-2.0); EOSINOPHILS # (AUTO) 0.2 /CMM (0.0-0.7); EOSINOPHILS % (AUTO) 3.2 % (0.0-6.0); HEMATOCRIT 30 % (39-51); HEMOGLOBIN 9.3 g/dL (13.5-17.5); LYMPHOCYTES % (AUTO) 16.3 % (20.0-44.0); MEAN CORPUSCULAR HEMOGLOBIN 22 PG (26.0-33.0); MEAN CORPUSCULAR HGB CONC 31 g/dl (31.0-36.0); MEAN CORPUSCULAR VOLUME 71 fL (80-96); MONOCYTES # (AUTO) 0.6 /CMM (0.1-1.30); MONOCYTES % (AUTO) 9.7 % (2.0-12.0); NEUTROPHILS # (AUTO) 4.4 /CMM (1.8-8.9); NEUTROPHILS % (AUTO) 70.5 % (43.0-81.0); PLATELET COUNT (AUTO) 472 /CMM (150-450); RDW COEFFICIENT OF VARIATION 20.6 (11.5-15.0); RED BLOOD CELL COUNT(AUTO) 4.14 MIL/uL (4.5-6.0); WHITE BLOOD COUNT (AUTO) 6.2 K/uL (4.3-11.0)
[2016-09-14 07:50] LABS: CALCIUM, SERUM 8.3 mg/dL (8.5-10.1); CREATININE 0.5 mg/dL (0.6-1.3); POTASSIUM 3.4 mmol/L (3.5-5.1)
--- NOTE | 2016-09-14 07:52 | NUR ---
ms rn notes Held protonix medication due to patient is NPO for procedure. Will continue to monitor accordingly.
[2016-09-14 08:23] LABS: BAND % (MANUAL) 1 % (0.0-5.0); EOSINOPHILS % (MANUAL) 3 % (0-4); LYMPHOCYTES % (MANUAL) 18 % (16-48); MONOCYTES % (MANUAL) 8 % (0-11.0); NEUTROPHILS % (MANUAL) 70 (42-76)
[2016-09-14] MEDS: LINEZOLID RTU BAG 600 MG in PREMIX 1 EA IV SCH ×2 (08:56→21:39)
[2016-09-14] MEDS: DOCUSATE SODIUM 100 MG CAPSULE PO SCH ×2 (08:58→16:33)
[2016-09-14] MEDS: HYDROCODONE/APAP 5/325MG 1 EACH TABLET PO SCH (08:59)
[2016-09-14] MEDS: FERROUS SULFATE (325 MG) 325 MG/TAB TABLET PO SCH ×2 (08:59→16:33)
[2016-09-14] MEDS: ASCORBIC ACID 500 MG TABLET PO SCH ×2 (08:59→16:33)
[2016-09-14] MEDS: PROSTAT (PYXIS) 30 ML UDC PO SCH (08:59)
[2016-09-14] MEDS: NEOMY SULF/BACITRAC ZN/POLY 15 GM TUBE TP SCH (09:00)
[2016-09-14] MEDS: DAKINS QUARTER STRENGTH (0.125%) 480 ML BOTTLE TOP SCH (09:00)
--- NOTE | 2016-09-14 09:00 | NUR ---
ms rn notes held all PO medications due to patient is NPO for scheduled procedure. Will continue to monitor accordingly.
[2016-09-14] MEDS ORDERED: IV SET PRIMARY PUMP SET 1 EA INFUS.SET MC ONE (09:23)
[2016-09-14] MEDS ORDERED: BUPIVACAINE MPF 0.5% W/EPI INJ 30 ML VIAL ONE (09:23)
[2016-09-14] MEDS ORDERED: LIDOCAINE HCL/PF 1% 30 ML SDV ONE (09:23)
[2016-09-14] MEDS: POTASSIUM CL. PREMIX PERIPHER. 50 ML IV SCH ×2 (09:27→10:27)
[2016-09-14] MEDS: LORAZEPAM INJ 2 MG/ML VIAL IV PRN ×2 (10:27→23:11)
[2016-09-14] MEDS ORDERED: FENTANYL PF 100MCG/2ML AMPUL ONE (11:32)
[2016-09-14] MEDS ORDERED: MIDAZOLAM HCL 2 MG/2ML VIAL ONE (11:32)
[2016-09-14] MEDS ORDERED: BACITRACIN 50000 UNITS/VIAL ONE (12:00)
--- NOTE | 2016-09-14 12:06 | NUR ---
ms rn notes IV ATB given at the surgery department by Pat (OR) nurse.
--- NOTE | 2016-09-14 12:16 | NUR ---
WOUND CARE CONSULT: PT IN O.R. AT THIS TIME. DEFER TO SURGICAL TEAM FOR WOUND/SKIN TREATMENT PLAN. WILL SEE PRN.
[2016-09-14] MEDS ORDERED: CELLULOSE,OXIDIZED 1 EA PACK MC ONE (12:28)
--- NOTE | 2016-09-14 13:38 | NUR ---
ms rn notes Patient just came back from surgery in stable condition, awake, no SOB or distress noted. Vital signs checked and recorded. Will continue to monitor accordingly.
[2016-09-14] MEDS ORDERED: ANESTHESIA TRAY IN PYXIS 1 EA TRAY MC ONE (15:36)
--- NOTE | 2016-09-14 19:19 | NUR ---
ms rn closing notes All needs provided, attended and anticipated. kept patient clean and comfortable in bed, call light with in patient reach, endorsed to next shift RN to continue care.
--- NOTE | 2016-09-14 19:30 | NUR ---
MS INDUCTION FURNACE OPERATOR INITIAL NOTES GOT REPORT FROM AM NURSE ARUNA, CHECKED PT AT THE SAME TIME, HE'S AWAKE AND ALERT NON-VERBAL BUT ABLE TO WRITE AND USING BOARD TO COMMUNICATE . NOT IN ANY ACUTE DISTRESS OR ANY DISCOMFORT NOTED AT THIS TIME. HE'S ON IVF OF NS AT 75ML/HR INFUSING ON HIS MARIO MIDLINE . NO REDNESS NOTED AT THIS TIME. WATCHING TV , NO AGITATION NOTED. KEPT HIM COMFORTABLE AT ALL TIMES. WILL CONTINUE CLOSELY MONITORING.
--- NOTE | 2016-09-14 23:17 | NUR ---
rn med surg/notes pt started screaming and getting anxious, atiavn 1 mg administered by another nurse tiffanie ivp as ordered. . kept him warm and comfortable at all times. continue closely monitoring for pt safety
--- NOTE | 2016-09-15 01:00 | NUR ---
ore miner/notes pt sleeping comfortably after ativan given and alexandre care done. kept him comfortable at all times. will continue to monitor.
--- NOTE | 2016-09-15 04:00 | NUR ---
patent legal assistant/notes pt remains sleeping even alexandre care done. dressing reinforced, no signs of bleeding noted . reposition him for comfort. IVF still infusing on his right upper arm. breathing even and non-labored, not in any acute distress noted. will continue to monitor.
[2016-09-15] MEDS: MEROPENEM 500 MG in IV NS 0.9% 50 ML IV SCH ×3 (04:22→20:17)
--- NOTE | 2016-09-15 06:00 | NUR ---
new vehicle sales consultant/notes morning care rendered as well as wound care treatment. , pt stable tiffanie the night and slept well after ativan given last night. no signs of any acute distress noted. all due meds given and all needs met. reposition him for comfort. offload left heel on pillows. will continue to monitor.
--- NOTE | 2016-09-15 07:06 | NUR ---
roof bolter operator closing notes pt awake and alert no signs of any acute distress noted. kept him warm and comfortable at all times. endorse to am nurse for continuity of care.
--- NOTE | 2016-09-15 07:30 | NUR ---
m/s visual merchandising manager: initial assessment received pt in bed awake, alert to name only, pt able to communicate by writing things down on his board. pt denies any pain at this time. reality orientation provided prn. 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 3. Debridement of left ischial/thigh wound down to and including muscle/fascia. 4. Debridement of Right lower abdominal wound down to and including muscle/fascia. surgical dressing in place. no drainage/discharge noted at this time. ivf infusing well with ns at 75ml/hr via gayatri midline. continue on 1:1 sitter for safety. will continue to monitor.
[2016-09-15 07:36] LABS: BASOPHILS # (AUTO) 0.2 /CMM (0.0-0.2); BASOPHILS % (AUTO) 1.9 % (0.0-2.0); HEMATOCRIT 34 % (39-51); HEMOGLOBIN 10.5 g/dL (13.5-17.5); LYMPHOCYTES # (AUTO) 0.6 /CMM (0.8-4.8); LYMPHOCYTES % (AUTO) 6.4 % (20.0-44.0); MEAN CORPUSCULAR HEMOGLOBIN 22 PG (26.0-33.0); MEAN CORPUSCULAR HGB CONC 31 g/dl (31.0-36.0); MEAN CORPUSCULAR VOLUME 72 fL (80-96); MONOCYTES # (AUTO) 0.3 /CMM (0.1-1.30); MONOCYTES % (AUTO) 2.8 % (2.0-12.0); NEUTROPHILS # (AUTO) 8.9 /CMM (1.8-8.9); NEUTROPHILS % (AUTO) 88.9 % (43.0-81.0); PLATELET COUNT (AUTO) 340 /CMM (150-450); RDW COEFFICIENT OF VARIATION 20.9 (11.5-15.0); RED BLOOD CELL COUNT(AUTO) 4.75 MIL/uL (4.5-6.0); WHITE BLOOD COUNT (AUTO) 10.1 K/uL (4.3-11.0)
[2016-09-15 08:00] VITALS: BP 99/58
[2016-09-15 08:04] LABS: CALCIUM, SERUM 9.1 mg/dL (8.5-10.1); CREATININE 0.6 mg/dL (0.6-1.3); POTASSIUM 4.3 mmol/L (3.5-5.1)
--- NOTE | 2016-09-15 08:20 | NUR ---
m/s elevator operator service: notes placed condom cath as ordered. will continue to monitor.
[2016-09-15] MEDS: IV NS 0.9% 1,000 ML IV PRN (08:47)
[2016-09-15] MEDS: DOCUSATE SODIUM 100 MG CAPSULE PO SCH ×2 (08:47→16:51)
[2016-09-15] MEDS: PANTOPRAZOLE 40 MG TABLET.DR PO SCH (08:47)
[2016-09-15] MEDS: ASCORBIC ACID 500 MG TABLET PO SCH ×2 (08:47→16:51)
[2016-09-15] MEDS: FERROUS SULFATE (325 MG) 325 MG/TAB TABLET PO SCH ×2 (08:47→16:51)
[2016-09-15] MEDS: HYDROCODONE/APAP 5/325MG 1 EACH TABLET PO SCH (08:47)
[2016-09-15] MEDS: PROSTAT (PYXIS) 30 ML UDC PO SCH (09:00)
[2016-09-15] MEDS: LINEZOLID RTU BAG 600 MG in PREMIX 1 EA IV SCH ×2 (09:11→20:37)
[2016-09-15] MEDS: DAKINS QUARTER STRENGTH (0.125%) 480 ML BOTTLE TOP SCH (09:18)
[2016-09-15] MEDS: NEOMY SULF/BACITRAC ZN/POLY 15 GM TUBE TP SCH (09:19)
--- NOTE | 2016-09-15 09:30 | NUR ---
m/s microsoft crm developer: notes condom cath got dislodged. incontinent care rendered. kept clean and dry. will continue to monitor.
[2016-09-15 10:06] LABS: BAND % (MANUAL) 6 % (0.0-5.0); LYMPHOCYTES % (MANUAL) 1 % (16-48); MONOCYTES % (MANUAL) 4 % (0-11.0); NEUTROPHILS % (MANUAL) 89 (42-76)
--- NOTE | 2016-09-15 10:50 | NUR ---
m/s equipment worker: md visit seen and examined by dr. whiting and made aware re: swelling of the bladder area above the penis region. also informed md re: condom cath not holding properly with verbal order to insert a wasserman catheter. order carried out and acknowledged. md assessed swelling area. will continue to monitor.
--- NOTE | 2016-09-15 11:30 | NUR ---
m/s heating mechanic: notes condom cath removed. attempted to insert wasserman catheter, but pt resistive at this time despite pt educated on the need of wasserman catheter. reality orientation provided prn. will try later after lunch. will continue to monitor. incontinent care rendered. kept clean and dry.
[2016-09-15] MEDS: LORAZEPAM INJ 2 MG/ML VIAL IV PRN (12:58)
--- NOTE | 2016-09-15 12:58 | NUR ---
m/s pulp drier: notes pt ate 100% for lunch and then all of a sudden, pt remove the plate and threw the plate on the floor and broken into pieces. reality orientation provided prn. 1:1 intervention provided. ativan 1mg ivp given by rn. will continue to monitor.
--- NOTE | 2016-09-15 13:20 | NUR ---
m/s injection molding machine offbearer: notes inserted f/c [id number], return of 100ml of clear yellow urine, connected to wasserman bag, marissa. well with minimal discomfort. will continue to monitor.
--- NOTE | 2016-09-15 13:30 | NUR ---
m/s a r specialist: notes tx done to left thigh/ischeal and left inguinal area as ordered due to soilage. turned and repositioned, kept comfortable. will continue to monitor.
--- NOTE | 2016-09-15 14:58 | NUR ---
WOUND CARE CONSULT: PT FOLLOWED BY SURGICAL TEAM AND PLASTICS TEAM. DEFER TO SURGEONS. WILL SEE PRN. PT ON NAY ISOFLEX LOW AIRLOSS BED. IN AGREEMENT WITH PLAN OF CARE. Addendum: 09/15/16 at 1503 by BOGDAN SCANLON WNDNU PT SEEN FOR ABDOMINAL SURGICAL SITE WITH N.P. RECOMMEND PACK WITH HYDROGEL AND MOIST KERLIX, COVER WITH ABD PAD. WILL SEE PRN.
--- NOTE | 2016-09-15 15:15 | NUR ---
m/s law enforcement director: plastic surgeon f/u seen and examined by dolores (barbie) with tx order. order acknowledged.
[2016-09-15] MEDS ORDERED: HYDROGEL DRESSING 90 GM TUBE TP PRN (15:30)
[2016-09-15 16:50] VITALS: BP 105/69
--- NOTE | 2016-09-15 16:55 | NUR ---
m/s wax pattern coater: plastic surgeon seen and examined by dr. felton with order. order acknowledged. dr. felton will call dpoa as stated re: plan of care.
--- NOTE | 2016-09-15 17:00 | NUR ---
m/s glass block installer: notes PLACE A CALL TO DR KHURRAM MCKEON ([facility] FROM [facility] ( ) AND INFORMED HIM RE: CT ABDOMEN/PELVIS WITH IV CONTRAST AND OBTAINED CONSENT OVER THE PHONE WITH ANOTHER NURSE VERIFYING VERBAL CONSENT.
--- NOTE | 2016-09-15 18:39 | NUR ---
m/s color depositing machine tender: notes ate 100% for dinner. no apparent distress noted. continue on ivf, infusing well. f/c draining well to gravity. needs attended. will continue to monitor.
--- NOTE | 2016-09-15 19:15 | NUR ---
RN NOTES RECEIVED PT AWAKE, HOB ELEVATED, NO SOB, NOT IN DISTRESS, ON ROOM AIR WITH GOOD SATURATION. PT ALERT AND ORIENTED TO NAME ONLY, SCREAMS AND MUMBLE UNCLEAR WORDS. COMMUNICATES BY WRITING TROUGH THE BOARD. NO SIGNS OF PAIN AND DISCOMFORT NOTED. IV ACCESS ON RIGHT UPPER MIDLINE PATENT AND INTACT WITH ONGOING IVF INFUSING WELL. DRESSING ON RIGHT ABDOMINAL FOLDS , LEFT UPPER THIGH AND POSTERIOR SACRUM INTACT DRY AND CLEAN. PIRES CATH INTACT WITH CLEAR URINE OUTPUT NOTED. KEPT COMFORTABLE AND ATTENDED WITH SITTER AT BEDSIDE. WILL CONTINUE TO MONITOR PT.
[2016-09-15 22:00] VITALS: BP 133/82
--- NOTE | 2016-09-16 | NUR ---
RN NOTES PT FOR CT OF ABDOMEN AND PELVIS WITH CONTRAST TODAY, PLACED PT ON NPO.WILL CONTINUE TO MONITOR PT.
[2016-09-16] MEDS: MEROPENEM 500 MG in IV NS 0.9% 50 ML IV SCH ×2 (04:05→12:38)
[2016-09-16] MEDS: IV NS 0.9% 1,000 ML IV PRN (04:05)
--- NOTE | 2016-09-16 07:10 | NUR ---
RN NOTES PT AWAKE, HOB ELEVATED, NO SIGNS OF DISTRESS AND DISCOMFORT NOTED. ON ROOM AIR AND TOLERATED WELL.VITAL SIGNS STABLE, AFEBRILE, NO COMPLAIN OF PAIN, NO EPISODE OF NAUSEA AND VOMITING. ALL DUE MEDS GIVEN. REORIENT PT PRN. KEPT SAFE AND COMFORTABLE. KEPT PT ON NPO FOR THE PROCEDURE SCHEDULED FOR TODAY.PT STAY AWAKE MOST OF THE TIME. SKIN CARE AND WOUND CARE DONE. TURNED AND REPOSITION SCHEDULED. WILL ENDORSE TO MORNING RN FOR CONTINUITY OF CARE.
[2016-09-16] MEDS: PANTOPRAZOLE 40 MG TABLET.DR PO SCH (07:30)
--- NOTE | 2016-09-16 07:53 | NUR ---
RN OPENING NOTES RECEIVED PATIENT IN BED, AWAKE, HOB ELEVATED, NO SOB OR DISTRESS NOTED. A/O X 1 COMMUNICATION BY WRITING ON HIS BOARD. IV INTACT AND PATENT. KEPT PATIENT CLEAN AND COMFORTABLE IN BED, CALL LIGHT WITHIN PATIENT REACH. WILL CONTINUE TO MONITOR ACCORDINGLY.
[2016-09-16] MEDS: LINEZOLID RTU BAG 600 MG in PREMIX 1 EA IV SCH (08:24)
[2016-09-16] MEDS: DAKINS QUARTER STRENGTH (0.125%) 480 ML BOTTLE TOP SCH (08:25)
[2016-09-16] MEDS: NEOMY SULF/BACITRAC ZN/POLY 15 GM TUBE TP SCH (08:26)
[2016-09-16] MEDS ORDERED: HYDROGEL DRESSING 90 GM TUBE TP SCH (09:00)
[2016-09-16] MEDS: DOCUSATE SODIUM 100 MG CAPSULE PO SCH ×2 (09:00→16:20)
[2016-09-16] MEDS: FERROUS SULFATE (325 MG) 325 MG/TAB TABLET PO SCH ×2 (09:00→16:21)
[2016-09-16] MEDS: ASCORBIC ACID 500 MG TABLET PO SCH ×2 (09:00→16:21)
[2016-09-16] MEDS: PROSTAT (PYXIS) 30 ML UDC PO SCH (09:00)
[2016-09-16] MEDS: HYDROCODONE/APAP 5/325MG 1 EACH TABLET PO SCH (09:00)
[2016-09-16] MEDS ORDERED: IV NS 0.9% 250 ML IV ONE (09:48)
[2016-09-16] MEDS ORDERED: IOHEXOL-300 100 ML VIAL IV ONE (09:49)
[2016-09-16] MEDS ORDERED: CT SWABBABLE VALVE TRANS SET 1 EA INFUS.SET MC ONE (09:49)
--- NOTE | 2016-09-16 13:35 | NUR ---
RN NOTES PATIENT WITH NO SOB OR DISTRESS WITH SITTER AT BEDSIDE.
--- NOTE | 2016-09-16 19:28 | NUR ---
RN NOTES ALL NEEDS PROVIDED, ATTENDED, AND ANTICIPATED. KEPT PATIENT CLEAN AND COMFORTABLE IN BED, CALL LIGHT WITHIN PATIENT REACH, WILL CONTINUE TO MONITOR ACCORDINGLY. ENDORSED TO NEXT SHIFT RN TO CONTINUE CARE.
--- NOTE | 2016-09-16 19:36 | NUR ---
RN NOTES RECEIVED REPORT FROM MORNING RN, PT FOR DISCHARGE BACK TO SNF IN [facility] TODAY. REPORT WAS GIVEN ALREADY TO NURSE AMADO. AMBULANCE IS HERE TO SCHEDULE PLANNING MANAGER THE PT BUT HEART RATE IS 133, CALLED [facility] IF THEY WILL ACCEPT THE PT IF HEART RATE IS 133 BUT NOBODY IS PICKING UP THE PHONE. WILL OBSERVED PT , AND INFORM THE DOCTOR. PT IS AWAKE, ALERT TO SELF, NO SOB, NOT IN DISTRESS, NO SIGNS OF PAIN AND DISCOMFORT NOTED. ON ROOM AIR AND TOLERATED WELL. VITAL SIGNS BP 146/91, HR 133, RR 18, TEMP 98.7, O2 SAT AT ROOM AIR 95%. MIDLINE ON RIGHT UPPER ARM PATENT AND INTACT, NO REDNESS OR SIGNS OF INFILTRATE NOTED. PIRES CATH PATENT AND INTACT WITH CLEAR URINE OUTPUT NOTED. WOUND DRESSING INTACT. WILL CONTINUE TO MONITOR PT.
[2016-09-16 20:44] VITALS: BP 150/86
--- NOTE | 2016-09-16 20:45 | NUR ---
RN NOTES VITAL SIGNS RECHECKED BP 150/86, HR 125, RR 18, TEMP 98.5, O2SAT AT ROOM AIR 95%. NO SOB, NOT IN DISTRESS. DENIES ANY PAIN AND DISCOMFORT. PAGED DOCTOR ELECTRICAL ENGINEERING DRAFTING OFFICER, AWAITING FOR RETURN CALL.WILL CONTINUE TO MONITOR PT.
--- NOTE | 2016-09-16 21:15 | NUR ---
RN NOTES SPOKE TO TAMIE MOHAMUD, COMPOSITE LAYUP WORKER MADE HIM AWARE PT IS FOR D/C BACK TO SNF WITH HEART RATE RANGING FROM 127-135. LATEST VITAL SIGNS BP 150/85, HR 125, RR 18, TEMP 98.5, O2SAT 95% AT ROOM AIR. NO SOB, NOT IN DISTRESS AND NOT COMPLAINING OF ANY PAIN OR DISCOMFORT. PT CALM, QUIET AND COOPERATIVE. PER TAMIE CARLOS PT IS STABLE, AND OK TO DISCHARGE.
--- NOTE | 2016-09-16 21:20 | NUR ---
RN NOTES [facility] AND SPOKE TO NURSE YEIMI, MADE HER AWARE OF THE LATEST VITAL SIGNS OF THE PT AND IS OK TO BE DISCHARGE ORDERED. AGREED TO ACCEPT THE PT LONG THE DOCTOR IS AWARE. [facility] NOTIFIED OF THE DISCHARGE, SPOKE TO EDWARD EMT AND WILL TRAFFIC RATE COMPUTER THE PT IN AN HOUR
--- NOTE | 2016-09-16 22:50 | NUR ---
RN NOTES PT WAS PICKED UP BY [facility], AWAKE, ALERT , NO SOB, NOT IN DISTRESS, DENIES ANY PAIN AND DISCOMFORT, ON ROOM AIR WITH GOOD SATURATION. LATEST VITAL SIGNS BP 153/94, HR 122, RR 18, TEMP 98.5, O2SAT 96%. SKIN CARE AND WOUND CARE DONE, NO BLEEDING NOTED. PIRES CATH INTACT. MID LINE ON RIGHT UPPER ARM INTACT AND FLUSHES WELL WITHOUT SIGNS OF INFILTRATE. KEPT MIDLINE INTACT BECAUSE PT WILL CONTINUE WITH MERREM AND ZYVOX IV FOR FOR 14 MORE DAYS. DISCHARGED PT IN STABLE CONDITION VIA GURNEY.
== END 2016-09-16 22:50 | DRG 571 ==
LOC: ER 19:22 → MED 20:26
PROVIDERS: ADMIT Nurse Practitioner Acute Care; ATTEND Nurse Practitioner Acute Care
PROC: 05H533Z Insertion of Infusion Device into Right Subclavian Vein, Percutaneous Approach (ICD-10-PCS; 2016-09-13)
PROC: 0HBJXZZ Excision of Left Upper Leg Skin, External Approach (ICD-10-PCS; 2016-09-14)
PROC: 0KBL0ZZ Excision of Left Abdomen Muscle, Open Approach (ICD-10-PCS; 2016-09-14)
PROC: 0KBR0ZZ Excision of Left Upper Leg Muscle, Open Approach (ICD-10-PCS; principal; 2016-09-14 12:00)
DX: C44.729 Squamous cell carcinoma of skin of left lower limb, including hip (principal); L03.116 Cellulitis of left lower limb; E44.0 Moderate protein-calorie malnutrition; L02.211 Cutaneous abscess of abdominal wall; F79 Unspecified intellectual disabilities; L89.159 Pressure ulcer of sacral region, unspecified stage; Q05.9 Spina bifida, unspecified; D50.9 Iron deficiency anemia, unspecified; E87.6 Hypokalemia; I10 Essential (primary) hypertension; K21.9 Gastro-esophageal reflux disease without esophagitis; Z87.442 Personal history of urinary calculi; E88.09 Other disorders of plasma-protein metabolism, not elsewhere classified; Z89.511 Acquired absence of right leg below knee; Z87.440 Personal history of urinary (tract) infections; D47.3 Essential (hemorrhagic) thrombocythemia; S31.109A Unspecified open wound of abdominal wall, unspecified quadrant without penetration into peritoneal cavity, initial encounter; X58.XXXA Exposure to other specified factors, initial encounter; Y93.9 Activity, unspecified; Y92.129 Unspecified place in nursing home as the place of occurrence of the external cause; D75.89 Other specified diseases of blood and blood-forming organs; Z79.899 Other long term (current) drug therapy
CPT/HCPCS: 36415; 71010-TC; 80048-TC; 80053-TC; 80061-TC; 80076-TC; 83605-TC; 83735-TC; 84100-TC; 84443-TC; 84484-TC; 85025-TC; 85730-TC; 87040-TC; 87070-TC; 87075-TC; 87081-TC; 87186-TC; 88305-TC; A4216; A4349; A4606; A6248; A6253; A6402; A6403; C1713; J2020; J2060; J2185; J2250; J2704; J3010; J3480; J3490; J7030; J7050; Q9967; Z7610

== ENCOUNTER 2016-10-20 14:25 | Inpatient (IN) | payer MEDICARE, MEDICAID ==
[~2016-10-20] VITALS: Ht 170.2 cm; Wt 68.0 kg
--- NOTE | 2016-10-20 14:25 | NUR ---
SENT BY TAMIE GRANADOS FOR EVALUATION OF RIGHT GROIN ABSCESS WORSENING X 2 DAYS. NAD NOTED. PT AAO X1, COMPLIANT. VSS PT PLACED IN GOWN. RR EVEN AND UNLABORED. PENDING MD MENDOZA.
--- NOTE | 2016-10-20 15:05 | NUR ---
DUKE MOODY AT BEDSIDE FOR EVAL.
--- NOTE | 2016-10-20 15:11 | NUR ---
ekg at bedside
[2016-10-20 15:31] LABS: CALCIUM, SERUM 8.3 mg/dL (8.5-10.1); CREATININE 0.6 mg/dL (0.6-1.3); POTASSIUM 4.1 mmol/L (3.5-5.1)
[2016-10-20] MEDS ORDERED: ONDA4TAB5 PO (15:34)
[2016-10-20 15:37] LABS: ALBUMIN 1.9 g/dL (3.4-5.0); BILIRUBIN,TOTAL 0.2 mg/dL (0.2-1.0); TOTAL PROTEIN, SERUM 7.5 g/dL (6.4-8.2)
[2016-10-20 15:55] LABS: BASOPHILS % (AUTO) 0.4 % (0.0-2.0); EOSINOPHILS # (AUTO) 0.2 /CMM (0.0-0.7); EOSINOPHILS % (AUTO) 1.9 % (0.0-6.0); HEMATOCRIT 29 % (39-51); HEMOGLOBIN 9.1 g/dL (13.5-17.5); LYMPHOCYTES # (AUTO) 1.4 /CMM (0.8-4.8); LYMPHOCYTES % (AUTO) 13.3 % (20.0-44.0); MEAN CORPUSCULAR HEMOGLOBIN 22 PG (26.0-33.0); MEAN CORPUSCULAR HGB CONC 31 g/dl (31.0-36.0); MEAN CORPUSCULAR VOLUME 71 fL (80-96); MONOCYTES # (AUTO) 0.8 /CMM (0.1-1.30); MONOCYTES % (AUTO) 7.7 % (2.0-12.0); NEUTROPHILS # (AUTO) 8.4 /CMM (1.8-8.9); NEUTROPHILS % (AUTO) 76.7 % (43.0-81.0); RDW COEFFICIENT OF VARIATION 18.9 (11.5-15.0); WHITE BLOOD COUNT (AUTO) 10.8 K/uL (4.3-11.0)
[2016-10-20 15:58] LABS: PLATELET COUNT (AUTO) 35 /CMM (150-450)
[2016-10-20] MEDS ORDERED: PIPERACILLIN /TAZOBACTAM 3.375 G in IV D5W 50 ML IV ONE (17:00)
[2016-10-20] MEDS ORDERED: IV NS 0.9% 1,000 ML BAG IV ONE ×2 (17:00→18:30)
[2016-10-20 17:05] LABS: BAND % (MANUAL) 4 % (0.0-5.0); LYMPHOCYTES % (MANUAL) 18 % (16-48); MONOCYTES % (MANUAL) 4 % (0-11.0); NEUTROPHILS % (MANUAL) 74 (42-76)
--- NOTE | 2016-10-20 17:34 | NUR ---
REPORT GIVEN TO OSMIN ALEXANDER FOR KEITH
--- NOTE | 2016-10-20 18:15 | NUR ---
dr gonzalez seeing pt at this time
[2016-10-20] MEDS ORDERED: HYDROCODONE/APAP 5/325MG 1 EACH TABLET PO PRN (18:30)
[2016-10-20] MEDS ORDERED: ONDANSETRON HCL/PF 4 MG/2 ML VIAL IVP PRN (18:30)
[2016-10-20] MEDS ORDERED: VANCOMYCIN 1 GM in IV D5W 250 ML IV ONE (18:30)
[2016-10-20] MEDS ORDERED: ACETAMINOPHEN 325 MG TABLET PO PRN (18:30)
[2016-10-20] MEDS ORDERED: MORPHINE SULFATE INJ 2 MG/ML DISP.SYRIN IV PRN ×2 (18:30)
[2016-10-20] MEDS ORDERED: CLONIDINE HCL 0.1 MG TABLET PO PRN (18:30)
--- NOTE | 2016-10-20 18:41 | NUR ---
RN NOTES RECEIVED PT FROM ER IN ROOM 115-1, ALERT , FOLLOWS SIMPLE COMMANDS, RESPIRATION EVEN AND UNLABORED, NO DISTRESS NOTED, R AC IV SITE G 20 CDI, DENIES ANY DISTRESS , WILL ENDORSE TO MOTOR VEHICLE LIGHT ASSEMBLER NURSE FOR CONTINUITY OF CARE .
[2016-10-20 19:09] LABS: IRON, SERUM 14 ug/dl (50-175); TOTAL IRON BINDING CAPACITY 198 ug/dl (250-450)
--- NOTE | 2016-10-20 19:20 | NUR ---
MS/RN NOTES RECEIVED PT. LYING IN BED. AWAKE, ALERT AND ORIENTED TO SELF. PT. OPENS EYES AND WRITES ON WHITE BOARD. BREATHING EVEN AND UNLABORED ON ROOM AIR. NO SOB, RESPIRATORY DISTRESS OR S/S OF PAIN NOTED AT THIS TIME. PT. WITH RIGHT AC 20 GAUGE IV SALINE LOCK PRESENT, PATENT AND INTACT. BED IN LOWEST POSITION, CALL LIGHT WITHIN REACH, SIDE RAILS UP X3, WILL CONTINUE TO MONITOR.
[2016-10-20 20:00] VITALS: BP 114/76
--- NOTE | 2016-10-20 20:00 | NUR ---
MS/RN NOTES CALLED [facility] POLICE SERGEANT TERRANCE MOHAMUD TO CLARIFY ADMITTING ORDERS. PER TERRANCE MOHAMUD NEW ORDERS: PT. CAN HAVE REGULAR DIET, TELE MONITORING, NO NEED FOR SEPSIS FLUIDS AT THIS TIME PT. RECEIVED 1L NS IN ER AND LACTIC ACID WAS 1.0, START NS @ 75 ML/HR. WILL CARRY OUT ORDERS. WILL CONTINUE TO MONITOR.
[2016-10-20 20:26] VITALS: BP 114/76
[2016-10-20] MEDS ORDERED: IV NS 0.9% 1,000 ML BAG IV PRN (20:30)
[2016-10-20] MEDS: PROSOURCE / PROSTAT (PYXIS) 30 ML UDC PO SCH (20:32)
[2016-10-20] MEDS: ACIDOPHILUS/BULGARICUS 1 EACH TAB.CHEW PO SCH (20:33)
[2016-10-20 21:06] LABS: RETICULOCYTE COUNT 1.9 % (0.6-2.5)
[2016-10-20 21:23] LABS: D-DIMER 1.81 mg/L(FEU (0.17-0.50); INR 1.03 (0.87-1.13); THYROID STIMULATING HORMONE 3.01 uIU/mL (0.358-3.74)
[2016-10-20] MEDS: IV NS 0.9% 1,000 ML IV PRN (22:42)
[2016-10-20] MEDS: MIRTAZAPINE 15 MG TABLET PO SCH (22:42)
[2016-10-20] MEDS: PIPERACILLIN /TAZOBACTAM 3.375 G in IV D5W 50 ML IV SCH (23:54)
[2016-10-21] VITALS: BP 114/70
[2016-10-21] MEDS ORDERED: PIPERACILLIN /TAZOBACTAM 3.375 G in IV D5W 50 ML IV SCH ×2
--- NOTE | 2016-10-21 00:47 | NUR ---
TELE/RN NOTES NOTIFIED TERRANCE MOHAMUD PT. HEART RATE REMAINS ELEVATED RANGING FROM 117-127. PER TERRANCE MOHAMUD NEW ORDER: 500 CC BOLUS OF NS X1 NOW. WILL CARRY OUT ORDER. WILL CONTINUE TO MONITOR.
[2016-10-21] MEDS ORDERED: IV NS 0.9% 500 ML BAG IV ONE (01:00)
[2016-10-21] MEDS: ACETAMINOPHEN 325 MG TABLET PO PRN (01:27)
[2016-10-21 04:00] VITALS: BP 108/65
[2016-10-21 04:01] VITALS: BP 108/65
[2016-10-21] MEDS: PIPERACILLIN /TAZOBACTAM 3.375 G in IV D5W 50 ML IV SCH ×3 (06:25→17:17)
--- NOTE | 2016-10-21 06:50 | NUR ---
MS/RN NOTES PT. IS LYING IN BED. AWAKE, ALERT AND ORIENTED TO SELF. PT. OPENS EYES AND WRITES ON WHITE BOARD. BREATHING EVEN AND UNLABORED ON ROOM AIR. NO SOB, RESPIRATORY DISTRESS OR S/S OF PAIN NOTED AT THIS TIME. PT. WITH RIGHT AC 20 GAUGE IV SALINE LOCK PRESENT, PATENT AND INTACT ADMINISTERING TO PT. NS @ 75 ML/HR. ALL PT. NEEDS MET. PT. OFFLOADED, TURNED AND REPOSITIONED Q2H AND NEEDED. BED IN LOWEST POSITION, CALL LIGHT WITHIN REACH, SIDE RAILS UP X3, WILL ENDORSE TO [facility] NURSE FOR CONTINUITY OF CARE. Addendum: 10/21/16 at 0703 by ALMITA MUÑOZ RN PT. WITH EXTERNAL ROLLS MILL OPERATOR PRESENT AND INTACT. CURRENT RHYTHM = SINUS TACH HR 112.
--- NOTE | 2016-10-21 07:36 | NUR ---
RN OPEN NOTES RECEIVED REPORT FROM COST CONTROL ANALYST NURSE. WILL CONTINUE TO ASSESS AND MONITOR PATIENT THROUGHOUT MY SHIFT
[2016-10-21 07:39] LABS: BASOPHILS % (AUTO) 0.3 % (0.0-2.0); EOSINOPHILS # (AUTO) 0.2 /CMM (0.0-0.7); HEMATOCRIT 27 % (39-51); LYMPHOCYTES # (AUTO) 1.6 /CMM (0.8-4.8); LYMPHOCYTES % (AUTO) 13.2 % (20.0-44.0); MEAN CORPUSCULAR HEMOGLOBIN 22 PG (26.0-33.0); MEAN CORPUSCULAR HGB CONC 30 g/dl (31.0-36.0); MEAN CORPUSCULAR VOLUME 72 fL (80-96); MONOCYTES % (AUTO) 8.2 % (2.0-12.0); NEUTROPHILS # (AUTO) 9.1 /CMM (1.8-8.9); NEUTROPHILS % (AUTO) 76.3 % (43.0-81.0); RDW COEFFICIENT OF VARIATION 20.5 (11.5-15.0); RED BLOOD CELL COUNT(AUTO) 3.69 MIL/uL (4.5-6.0); WHITE BLOOD COUNT (AUTO) 11.9 K/uL (4.3-11.0)
[2016-10-21 07:45] LABS: PLATELET COUNT (AUTO) 38 /CMM (150-450)
--- NOTE | 2016-10-21 07:45 | NUR ---
CRITICAL VALUE REPORTED BY LAB AT 0745. PLATELET LEVEL OF 38. WILL INFORM . DR BORGES ON THE CASE AND EVALUATED PATIENT YESTERDAY.
[2016-10-21 07:55] LABS: TROPONIN I < 0.017 ng/mL (0.00-0.056)
[2016-10-21 07:57] LABS: INR 1.03 (0.87-1.13)
[2016-10-21 08:00] VITALS: BP 116/76
[2016-10-21] MEDS: DOCUSATE SODIUM 100 MG CAPSULE PO SCH ×2 (08:06→16:24)
[2016-10-21] MEDS: ASCORBIC ACID 500 MG TABLET PO SCH ×2 (08:06→16:24)
[2016-10-21] MEDS: PANTOPRAZOLE 40 MG TABLET.DR PO SCH (08:06)
[2016-10-21] MEDS: ACIDOPHILUS/BULGARICUS 1 EACH TAB.CHEW PO SCH ×3 (08:06→16:24)
[2016-10-21] MEDS: FERROUS SULFATE (325 MG) 325 MG/TAB TABLET PO SCH ×2 (08:06→16:24)
[2016-10-21] MEDS: MULTIVIT, IRON, MIN NO. 8, FA 1 TAB PO SCH (08:06)
[2016-10-21] MEDS: PROSOURCE / PROSTAT (PYXIS) 30 ML UDC PO SCH ×3 (08:06→16:24)
[2016-10-21 08:43] LABS: EOSINOPHILS % (MANUAL) 1 % (0-4); LYMPHOCYTES % (MANUAL) 13 % (16-48); MONOCYTES % (MANUAL) 7 % (0-11.0); NEUTROPHILS % (MANUAL) 79 (42-76)
[2016-10-21] MEDS ORDERED: PANTOPRAZOLE 40 MG VIAL IV SCH (09:00)
[2016-10-21] MEDS ORDERED: HYDROCODONE/APAP 5/325MG 1 EACH TABLET PO SCH (09:00)
[2016-10-21 09:15] LABS: APPEARANCE,URINE CLEAR (CLEAR); BILIRUBIN,URINE NEGATIVE (NEGATIVE); BLOOD, URINE TRACE-INTA Ery/uL (NEGATIVE); COLOR,URINE YELLOW (YELLOW); KETONES,URINE NEGATIVE (NEGATIVE); LEUKOCYTE ESTERASE ,URINE 3+ (NEGATIVE); NITRITE, URINE NEGATIVE (NEGATIVE); PROTEIN,URINE NEGATIVE (NEGATIVE); UGLUCOSE NEGATIVE (NEGATIVE)
[2016-10-21 09:40] LABS: BACTERIA,URINE Rare /HPF (None Seen); SQUAMOUS EPITHELIAL CELL,UR Few /HPF (None Seen); WBC,URINE 81-100 /HPF (0-3)
--- NOTE | 2016-10-21 10:05 | NUR ---
TERRANCE MILIAN AT BEDSIDE TO EVALUATE WOUND. PER TERRANCE MILIAN, PATIENT MIGHT BE GOING TO WOUND DEBRIDEMENT / SURGERY TOMORROW
--- NOTE | 2016-10-21 10:21 | NUR ---
WOUND CARE CONSULT: PT SEEN BY SURGICAL TEAM. DEFER TO SURGICAL TEAM FOR WOUND TREATMENT PLAN. WILL SEE PRN. Addendum: 10/21/16 at 1039 by BOGDAN SCANLON WNDNU ALL SKIN PROTECTION MEASURES IN PLACE. FIRST STEP MATTRESS ORDERED. DISCUSSED WITH NURSING STAFF. IN AGREEMENT WITH PLAN OF CARE.
[2016-10-21] MEDS ORDERED: Z GUARD REMEDY 2 OZ OINT TP PRN (11:00)
[2016-10-21 12:00] VITALS: BP 119/75
[2016-10-21] MEDS: Z GUARD REMEDY 2 OZ OINT TP SCH (12:16)
--- NOTE | 2016-10-21 12:25 | NUR ---
ATTEMPTED TO REACH DOM REILLY AT [phone] TO GET A VERBAL CONSENT, UNSUCCESSFULLY
--- NOTE | 2016-10-21 14:05 | NUR ---
SPOKE WITH DOM REILLY AT [phone] TO GET A VERBAL CONSENT. PER PINA REILLY, ONLY DR MIKE PAULSON IS APPROVING CONSENT. WILL ATTEMPT TO REACH DR PAULSON
--- NOTE | 2016-10-21 14:41 | NUR ---
CALLED DR MIKE PAULSON REGARDING CONSENT NEEDED FOR I&D, DEBRIDEMENT AND CT WITH CONTRAST. NO ANSWER, LEFT A MESSAGE
--- NOTE | 2016-10-21 17:44 | NUR ---
RN IS HAVING PROBLEMS GETTING CONSENT FOR CT ABD. & PEL. WITH/WITHOUT IV CONTRAST. RN WILL CALL BACK.
--- NOTE | 2016-10-21 18:52 | NUR ---
AGRI BUSINESS AGENT CLOSING NOTES PATIENT IS IN BED, ALERT AND ORIENTED TO SELF ONLY. SINUS TACHY ON THE MONITOR. ALL NURSING CARE ANTICIPATED. PATIENT KEPT CLEAN ANS DRY. CONSENT FOR ABDOMINAL I&D, DEBRIDEMENT AND CT WITH CONTRAST NEED TO BE OBTAIN FROM DR PAULSON, LEFT A MESSAGE BUT NO CALL BACK. IV SITE IS INTACT AND PATENT. NO SIGNS AND SYMPTOMS OF DISTRESS OR PAIN. BED IN LOW POSITION, LOCKED AND TWO SIDE RAILS ARE UP. WILL ENDORSE TO DIRECTOR OF WEB MARKETING NURSE FOR KEITH.
--- NOTE | 2016-10-21 19:05 | NUR ---
PINSETTER MECHANIC AUTOMATIC OPENING NOTES: RECEIVED PT IN BED, ALERT AND ORIENTED TO SELF ONLY. SINUS TACHY ON THE MONITOR. IV SITE IS INTACT AND PATENT ON R AC. IV BEING INFUSED WITH NS AT 75ML/HR. NO SIGNS AND SYMPTOMS OF DISTRESS OR PAIN. BED IN LOW POSITION, LOCKED AND TWO SIDE RAILS ARE UP. WILL CONTINUE TO MONITOR PT.
[2016-10-21 20:00] VITALS: BP 117/70
[2016-10-21] MEDS ORDERED: ACIDOPHILUS/BULGARICUS 1 EACH TAB.CHEW PO SCH (20:00)
[2016-10-21] MEDS: MEROPENEM 500 MG in IV NS 0.9% 50 ML IV SCH (21:16)
[2016-10-21] MEDS: MIRTAZAPINE 15 MG TABLET PO SCH (21:16)
[2016-10-21] MEDS ORDERED: CLINDAMYCIN IV RTU IN D5W 900 MG/50 ML PIGGYBACK IV SCH (22:00)
[2016-10-21] MEDS: CLINDAMYCIN 900 MG in IV D5W 50 ML IV SCH (22:06)
[2016-10-21] MEDS: IV NS 0.9% 1,000 ML IV PRN (22:48)
[2016-10-22] VITALS (10 sets, daily range): BP systolic 90–163; BP diastolic 50–85
[2016-10-22] MEDS: MEROPENEM 500 MG in IV NS 0.9% 50 ML IV SCH ×3 (04:37→21:19)
[2016-10-22] MEDS: CLINDAMYCIN 900 MG in IV D5W 50 ML IV SCH ×3 (05:37→20:31)
[2016-10-22 07:02] LABS: BASOPHILS % (AUTO) 0.2 % (0.0-2.0); EOSINOPHILS # (AUTO) 0.1 /CMM (0.0-0.7); EOSINOPHILS % (AUTO) 1.1 % (0.0-6.0); HEMATOCRIT 24 % (39-51); HEMOGLOBIN 7.6 g/dL (13.5-17.5); LYMPHOCYTES # (AUTO) 1.6 /CMM (0.8-4.8); LYMPHOCYTES % (AUTO) 15.9 % (20.0-44.0); MEAN CORPUSCULAR HEMOGLOBIN 23 PG (26.0-33.0); MEAN CORPUSCULAR HGB CONC 32 g/dl (31.0-36.0); MEAN CORPUSCULAR VOLUME 71 fL (80-96); MONOCYTES # (AUTO) 0.7 /CMM (0.1-1.30); MONOCYTES % (AUTO) 7.3 % (2.0-12.0); NEUTROPHILS # (AUTO) 7.4 /CMM (1.8-8.9); NEUTROPHILS % (AUTO) 75.5 % (43.0-81.0); PLATELET COUNT (AUTO) 83 /CMM (150-450); RDW COEFFICIENT OF VARIATION 20.4 (11.5-15.0); RED BLOOD CELL COUNT(AUTO) 3.32 MIL/uL (4.5-6.0); WHITE BLOOD COUNT (AUTO) 9.8 K/uL (4.3-11.0)
--- NOTE | 2016-10-22 07:30 | NUR ---
CYTOLOGY TECHNOLOGIST CLOSING NOTES: ALL NEEDS WERE ATTENDED AND ANTICIPATED FOR. PATIENT IS IN BED, ALERT AND ORIENTED TO SELF ONLY. SINUS TACHY ON THE MONITOR. PATIENT KEPT CLEAN AND DRY. NO IV SITE. CHARGE NURSE AWARE AND WILL NOTIFY RESEARCH PHYSIOLOGIST FOR MIDLINE INSERTION. NO SIGNS AND SYMPTOMS OF DISTRESS OR PAIN. CONSENTS HAVE BEEN OBTAINED. BED IN LOW POSITION, LOCKED AND TWO SIDE RAILS ARE UP. ENDORSED TO AM NURSE FOR KEITH.
[2016-10-22 08:06] LABS: CALCIUM, SERUM 7.8 mg/dL (8.5-10.1); CREATININE 0.5 mg/dL (0.6-1.3); MAGNESIUM 1.8 mg/dL (1.8-2.4); PHOSPHORUS 3.2 mg/dL (2.5-4.9)
[2016-10-22 08:45] LABS: BAND % (MANUAL) 1 % (0.0-5.0); EOSINOPHILS % (MANUAL) 1 % (0-4); LYMPHOCYTES % (MANUAL) 12 % (16-48); MONOCYTES % (MANUAL) 5 % (0-11.0); NEUTROPHILS % (MANUAL) 81 (42-76)
[2016-10-22] MEDS: PROSOURCE / PROSTAT (PYXIS) 30 ML UDC PO SCH ×3 (09:00→19:06)
[2016-10-22 09:19] LABS: *SPE A/G RATIO 0.6 (0.7-1.7); *SPE ALBUMIN 2.5 g/dL (2.9-4.4); *SPE ALPHA-1-GLOBULIN 0.2 g/dL (0.0-0.4); *SPE BETA GLOBULIN 0.9 g/dL (0.7-1.3); *SPE M-SPIKE Not Observed g/dL (Not Observed)
--- NOTE | 2016-10-22 10:46 | NUR ---
CT ON HOLD, PT. WENT FOR SURGERY PER RN (SARITA).
[2016-10-22] MEDS ORDERED: LIDOCAINE 0.5% HCL 50 ML VIAL ONE (11:00)
[2016-10-22] MEDS ORDERED: BUPIVACAINE MPF 0.5% W/EPI INJ 30 ML VIAL ONE (11:00)
[2016-10-22] MEDS ORDERED: MIDAZOLAM HCL 2 MG/2ML VIAL ONE (11:01)
[2016-10-22] MEDS ORDERED: FENTANYL PF 250MCG/5ML AMPUL ONE (11:02)
[2016-10-22] MEDS ORDERED: BACITRACIN 50000 UNITS/VIAL ONE (11:25)
--- NOTE | 2016-10-22 12:40 | NUR ---
RN NOTE PT CAME FROM OR IN STABLE CONDITION, VS STABLE, DENIES PAIN, SMALL AMOUNT OF BLOOD NOTED. WILL CONTINUE TO MONITOR.
[2016-10-22] MEDS: ACIDOPHILUS/BULGARICUS 1 EACH TAB.CHEW PO SCH ×3 (13:00→19:05)
[2016-10-22] MEDS: ASCORBIC ACID 500 MG TABLET PO SCH ×2 (13:08→19:05)
[2016-10-22] MEDS: PANTOPRAZOLE 40 MG TABLET.DR PO SCH (13:08)
[2016-10-22] MEDS: MULTIVIT, IRON, MIN NO. 8, FA 1 TAB PO SCH (13:08)
[2016-10-22] MEDS: DOCUSATE SODIUM 100 MG CAPSULE PO SCH ×2 (13:08→19:06)
[2016-10-22] MEDS: FERROUS SULFATE (325 MG) 325 MG/TAB TABLET PO SCH ×2 (13:08→19:06)
[2016-10-22] MEDS: Z GUARD REMEDY 2 OZ OINT TP SCH (13:10)
[2016-10-22] MEDS: POTASSIUM CL. PREMIX PERIPHER. 50 ML IV SCH ×4 (14:29→21:18)
[2016-10-22] MEDS ORDERED: IOHEXOL-300 100 ML VIAL IV ONE (16:29)
[2016-10-22] MEDS ORDERED: IV NS 0.9% 250 ML IV ONE (16:30)
[2016-10-22] MEDS ORDERED: CT SWABBABLE VALVE TRANS SET 1 EA INFUS.SET MC ONE (16:30)
[2016-10-22] MEDS: LORAZEPAM INJ 2 MG/ML VIAL IVP PRN (16:31)
[2016-10-22] MEDS: Magnesium 1GM/D5W 100ML PREMIX 100 ML IV SCH ×2 (16:57→18:54)
--- NOTE | 2016-10-22 18:00 | NUR ---
RN NOTE PER DR ALANIZ TO TRANSFUSE 1 pRBCS TO ADDRESS HBG 7.6. WILL ORDER AND ENDORSE TO LOCAL INTERMODAL TRUCK DRIVER.
--- NOTE | 2016-10-22 18:00 | NUR ---
RN NOTE POTASSIUM AND MAGNESIUM IV WAS GIVEN LATE DUE TO PT BEING ABSENT FROM UNIT AND ONCE PT RETURNED FROM SURGERY, PT NEEDED ANTIBIOTICS A PRIORITY.
[2016-10-22] MEDS: ACETAMINOPHEN 325 MG TABLET PO PRN ×2 (19:07→21:28)
[2016-10-22] MEDS: MIRTAZAPINE 15 MG TABLET PO SCH (21:21)
--- NOTE | 2016-10-22 22:20 | NUR ---
RN NOTES PT IS AWAKE AOX1 MAKES SOME NOISE CONFUSED BUT FOLLOWED COMMAND. NO ACUTE RESP DISTRESS. PALE LOOKING,. ST 103 ON TELE MONITOR. IV SITE ON RAC G 20 INTACT AND PATENT. LAST 2 BAGS OF KCL IV FINISHED. STARTED 1 UNIT PRBC DUE TO HGB 7.6. WITNESS BY ROMEO ALEXANDER. NO ACTIVE BLEEDING FROM S/P SURGERY OR DEBRIDEMENT NOTED. PRESSURE DRESSING KEPT INTACT. KEPT PT CLEAN AND COMFORTABLE IN BED. WILL CONTINUE TO MONITOR.
[2016-10-22] MEDS: IV NS 0.9% 1,000 ML IV PRN (23:41)
[2016-10-23] VITALS (8 sets, daily range): BP systolic 88–130; BP diastolic 51–73
--- NOTE | 2016-10-23 01:30 | NUR ---
RN NOTES NOTED PT 'S BP IN A LOW SIDES LAST VS CHECKED AFTER TRANSFUSION IS 88/54 INTERVENTION MADE, TREN[place], IVF ONGOING PER MD ORDERED. PT IS ASYMPTOMATIC NO SUDDEN CHANGES OF MENTAL STATUS. RECHECKED AFTER 30 MINUTES PT VS/BP WENT UP TO 106/55 HR 100 KEPT PT CLEAN AND DRY. WILL CONTINUE TO MONITOR.
[2016-10-23] MEDS: MEROPENEM 500 MG in IV NS 0.9% 50 ML IV SCH ×3 (04:35→21:46)
[2016-10-23] MEDS: CLINDAMYCIN 900 MG in IV D5W 50 ML IV SCH ×3 (04:35→21:46)
[2016-10-23 05:11] LABS: HAPTOGLOBIN 353 mg/dL (34-200)
[2016-10-23 05:55] LABS: BASOPHILS % (AUTO) 0.4 % (0.0-2.0); EOSINOPHILS # (AUTO) 0.1 /CMM (0.0-0.7); EOSINOPHILS % (AUTO) 1.1 % (0.0-6.0); HEMATOCRIT 24 % (39-51); HEMOGLOBIN 7.8 g/dL (13.5-17.5); LYMPHOCYTES # (AUTO) 0.6 /CMM (0.8-4.8); LYMPHOCYTES % (AUTO) 6.3 % (20.0-44.0); MEAN CORPUSCULAR HEMOGLOBIN 24 PG (26.0-33.0); MEAN CORPUSCULAR HGB CONC 33 g/dl (31.0-36.0); MEAN CORPUSCULAR VOLUME 74 fL (80-96); MONOCYTES # (AUTO) 0.6 /CMM (0.1-1.30); NEUTROPHILS % (AUTO) 86.2 % (43.0-81.0); PLATELET COUNT (AUTO) 115 /CMM (150-450); RDW COEFFICIENT OF VARIATION 21.5 (11.5-15.0); RED BLOOD CELL COUNT(AUTO) 3.24 MIL/uL (4.5-6.0); WHITE BLOOD COUNT (AUTO) 9.2 K/uL (4.3-11.0)
[2016-10-23 06:07] LABS: CALCIUM, SERUM 7.5 mg/dL (8.5-10.1); POTASSIUM 4.5 mmol/L (3.5-5.1)
[2016-10-23 06:15] LABS: CREATININE 0.5 mg/dL (0.6-1.3)
[2016-10-23 06:21] LABS: MAGNESIUM 2.1 mg/dL (1.8-2.4); PHOSPHORUS 3.4 mg/dL (2.5-4.9)
--- NOTE | 2016-10-23 07:26 | NUR ---
RN NOTES PT ASLEEP WELL ON BED. BREATHING EVEN AND UNLABORED. DENIES ANY PAIN. AFEBRILE. VS STABLE AT THIS TIME. NO ACTIVE BLEEDING SHOWS. TOLERATED I UNIT PRBC NO SIGNIFICANT CHANGES. KEPT CLEAN AND DRY. ENDORSED CONTINUITY OF CARE TO AM NURSE.
--- NOTE | 2016-10-23 07:30 | NUR ---
RN INITIAL NOTES PT IS IN BED, A/O X1, ON ROOM AIR SATURATING 95%, NO RESPIRATORY DISTRESS NOTED. ON TELE MONITOR SINUS TACH 110, NO ACTIVE BLEEDING NOTED, AFEBRILE. NO S/SX OF INFECTION OF L THIGH/GROIN AND ABDOMINAL AREA. WILL KEEP SITE CLEAN AND DRY. ON REGULAR DIET, HUMBERTO MIDLINE IS FLUSHED AND PATENT, ON NS 75ML/HR. ASSISTED PT WITH TURNING AND REPOSITIONING, SIDE RAILS UP, BED LOCKED AND IN LOWEST POSITION, CALL LIGHT WITHIN REACH.
[2016-10-23] MEDS: PROSOURCE / PROSTAT (PYXIS) 30 ML UDC PO SCH ×3 (08:14→16:38)
[2016-10-23] MEDS: ACIDOPHILUS/BULGARICUS 1 EACH TAB.CHEW PO SCH ×3 (08:14→16:39)
[2016-10-23] MEDS: DOCUSATE SODIUM 100 MG CAPSULE PO SCH ×2 (08:14→16:39)
[2016-10-23] MEDS: ASCORBIC ACID 500 MG TABLET PO SCH ×2 (08:14→16:39)
[2016-10-23] MEDS: PANTOPRAZOLE 40 MG TABLET.DR PO SCH (08:14)
[2016-10-23] MEDS: MULTIVIT, IRON, MIN NO. 8, FA 1 TAB PO SCH (08:14)
[2016-10-23] MEDS: FERROUS SULFATE (325 MG) 325 MG/TAB TABLET PO SCH ×2 (08:14→16:39)
[2016-10-23] MEDS: Z GUARD REMEDY 2 OZ OINT TP SCH (08:16)
[2016-10-23] MEDS: LORAZEPAM INJ 2 MG/ML VIAL IVP PRN (08:53)
--- NOTE | 2016-10-23 10:04 | NUR ---
REPORTED TO CORBIN REGARDING HGB OF 7.8 - NO NEW FURTHER ORDERS.
[2016-10-23] MEDS: DAKINS QUARTER STRENGTH (0.125%) 480 ML BOTTLE TOP SCH (14:28)
--- NOTE | 2016-10-23 18:44 | NUR ---
RN CLOSING NOTES NO SIGNIFICANT CHANGES DURING AM SHIFT. PT WAS SINUS DURING AM SHIFT, AND NOW ON M/S, TOLERATING ROOM AIR. WOUND TREATMENT DONE, KEPT PT CLEAN AND DRY THROUGHOUT THE SHIFT. HUMBERTO MIDLINE IS PATENT NO S/SX OF INFECTION AND INFILTRATION NOTED. ALL MEDS GIVEN ORDERED, PT TOLERATED IT WELL, ALL SAFETY MEASURES MAINTAINED, CALL LIGHT WITHIN REACH. WILL ENDORSE TO PM NURSE FOR CONTINUATION OF CARE.
--- NOTE | 2016-10-23 19:15 | NUR ---
RN INITIAL NOTES RECEIVED PATIENT IN BED, AWAKE AND ALERT, ORIENTED X1-2. DENIES ANY PAIN AND DISCOMFORT. NEEDS ANTICIPATED AND MET. SAFETY AND COMFORT ENSURED. BED IN LOW AND LOCKED POSITION. PATIENT WITH NO ACUTE DISTRESS. HUMBERTO MIDLINE PATENT AND INTACT, IVF ORDERED. WILL MONITOR CLOSELY.
[2016-10-23] MEDS: MIRTAZAPINE 15 MG TABLET PO SCH (21:46)
[2016-10-23] MEDS: IV NS 0.9% 1,000 ML IV PRN (22:11)
[2016-10-24] VITALS: BP 105/59
[2016-10-24 04:00] VITALS: BP 115/68
--- NOTE | 2016-10-24 04:09 | NUR ---
RN NOTES AM CARE/BED BATH DONE, PATIENT KEPT CLEAN AND DRY. PATIENT WITH MODERATE BLEEDING ON SURGICAL WOUND SITES, S/P DEBRIDEMENT ON 10/20/16. WOUND TREATMENT RENDERED ORDERED. SAFETY AND COMFORT ENSURED. BED IN LOW AND LOCKED POSITION. CALL LIGHT IN REACH. NEEDS ANTICIPATED AND MET.
[2016-10-24] MEDS: CLINDAMYCIN 900 MG in IV D5W 50 ML IV SCH (05:17)
[2016-10-24] MEDS: MEROPENEM 500 MG in IV NS 0.9% 50 ML IV SCH ×3 (05:51→21:08)
--- NOTE | 2016-10-24 06:44 | NUR ---
RN CLOSING NOTES PATIENT WITH NO ACUTE CHANGE IN CONDITION OBSERVED OVERNIGHT. ALL DUE MEDS GIVEN ORDERED. AM LABS DRAWN. PATIENT'S NEEDS ANTICIPATED AND MET. SAFETY AND COMFORT ENSURED. BED IN LOW AND LOCKED POSITION. CALL LIGHT IN REACH. WILL ENDORSE ACCORDINGLY FOR CONTINUITY OF CARE.
[2016-10-24 07:16] LABS: BASOPHILS % (AUTO) 0.4 % (0.0-2.0); EOSINOPHILS # (AUTO) 0.2 /CMM (0.0-0.7); EOSINOPHILS % (AUTO) 3.3 % (0.0-6.0); HEMATOCRIT 25 % (39-51); HEMOGLOBIN 7.9 g/dL (13.5-17.5); LYMPHOCYTES % (AUTO) 17.6 % (20.0-44.0); MEAN CORPUSCULAR HEMOGLOBIN 24 PG (26.0-33.0); MEAN CORPUSCULAR HGB CONC 32 g/dl (31.0-36.0); MEAN CORPUSCULAR VOLUME 74 fL (80-96); MONOCYTES # (AUTO) 0.6 /CMM (0.1-1.30); MONOCYTES % (AUTO) 10.2 % (2.0-12.0); NEUTROPHILS # (AUTO) 3.9 /CMM (1.8-8.9); NEUTROPHILS % (AUTO) 68.5 % (43.0-81.0); PLATELET COUNT (AUTO) 190 /CMM (150-450); RDW COEFFICIENT OF VARIATION 22.4 (11.5-15.0); RED BLOOD CELL COUNT(AUTO) 3.37 MIL/uL (4.5-6.0); WHITE BLOOD COUNT (AUTO) 5.7 K/uL (4.3-11.0)
[2016-10-24 07:20] LABS: CALCIUM, SERUM 7.7 mg/dL (8.5-10.1); CREATININE 0.5 mg/dL (0.6-1.3); MAGNESIUM 1.8 mg/dL (1.8-2.4); PHOSPHORUS 3.6 mg/dL (2.5-4.9); POTASSIUM 3.3 mmol/L (3.5-5.1)
--- NOTE | 2016-10-24 07:26 | NUR ---
RN INITIAL NOTES PT IS IN BED, A/O X1, USES COMMUNICATION BOARD, ON ROOM AIR SATURATING WELL, NO RESPIRATORY DISTRESS NOTED, NO ACTIVE BLEEDING NOTED, L THIGH/GROIN AND ABDOMINAL AREA CLEAN AND DRY. WILL CONTINUE TO MONITOR. ON REGULAR DIET, L UPPER ARM IV SITE IS FLUSHED AND PATENT, ON NS 75ML/HR. ASSISTED PT WITH TURNING AND REPOSITIONING, SIDE RAILS UP, BED LOCKED AND IN LOWEST POSITION, CALL LIGHT WITHIN REACH.
[2016-10-24 08:00] VITALS: BP 116/66
[2016-10-24] MEDS: FERROUS SULFATE (325 MG) 325 MG/TAB TABLET PO SCH ×2 (08:03→16:18)
[2016-10-24] MEDS: DOCUSATE SODIUM 100 MG CAPSULE PO SCH ×2 (08:03→16:17)
[2016-10-24] MEDS: MULTIVIT, IRON, MIN NO. 8, FA 1 TAB PO SCH (08:03)
[2016-10-24] MEDS: PROSOURCE / PROSTAT (PYXIS) 30 ML UDC PO SCH ×3 (08:03→16:18)
[2016-10-24] MEDS: ACIDOPHILUS/BULGARICUS 1 EACH TAB.CHEW PO SCH ×3 (08:03→16:18)
[2016-10-24] MEDS: PANTOPRAZOLE 40 MG TABLET.DR PO SCH (08:04)
[2016-10-24] MEDS: ASCORBIC ACID 500 MG TABLET PO SCH ×2 (08:04→16:18)
[2016-10-24] MEDS: DAKINS QUARTER STRENGTH (0.125%) 480 ML BOTTLE TOP SCH (08:05)
[2016-10-24] MEDS: Z GUARD REMEDY 2 OZ OINT TP SCH (08:06)
[2016-10-24] MEDS ORDERED: POTASSIUM CHLORIDE 20 MEQ TAB.PRT.SR PO ONE ×2 (10:00→11:00)
--- NOTE | 2016-10-24 11:46 | NUR ---
MADE ROUNDS WITH DR ALANIZ, HGB 7.9 INCREASING, NO FURTHER ORDERS. POTASSIUM 3.3 WAS REPLACED.
[2016-10-24] MEDS: IV NS 0.9% 1,000 ML IV PRN (14:06)
[2016-10-24 16:00] VITALS: BP 108/69
--- NOTE | 2016-10-24 19:00 | NUR ---
RN CLOSING NOTES NO SIGNIFICANT CHANGES DURING AM SHIFT. TOLERATED ROOM AIR. NO RESPIRATORY DISTRESS NOTED. WOUND TREATMENT DONE, KEPT PT CLEAN AND DRY THROUGHOUT THE SHIFT. L UPPER ARM IS PATENT, NO S/SX OF INFECTION AND INFILTRATION NOTED. ALL MEDS GIVEN ORDERED, PT TOLERATED IT WELL, ALL SAFETY MEASURES MAINTAINED, CALL LIGHT WITHIN REACH. WILL ENDORSE TO PM NURSE FOR CONTINUATION OF CARE.
--- NOTE | 2016-10-24 19:15 | NUR ---
RN INITIAL NOTES RECEIVED PATIENT IN BED, AWAKE AND ALERT, ORIENTED X1-2. DENIES ANY PAIN AND DISCOMFORT. NEEDS ANTICIPATED AND MET. SAFETY AND COMFORT ENSURED. BED IN LOW AND LOCKED POSITION. PATIENT WITH NO ACUTE DISTRESS. HUMBERTO PIV NOTED TO BE INFILTRATED, FLUIDS HELD, ELEVATED EXTREMITY, WILL INSERT NEW PIV ACCESS. WILL MONITOR CLOSELY.
[2016-10-24 20:00] VITALS: BP 126/69
[2016-10-24 20:10] VITALS: BP 126/69
[2016-10-24] MEDS: MIRTAZAPINE 15 MG TABLET PO SCH (21:08)
[2016-10-25 04:00] VITALS: BP 134/77
[2016-10-25] MEDS: IV NS 0.9% 1,000 ML IV PRN ×2 (05:02→20:14)
[2016-10-25] MEDS: MEROPENEM 500 MG in IV NS 0.9% 50 ML IV SCH ×3 (05:02→21:22)
--- NOTE | 2016-10-25 06:34 | NUR ---
RN CLOSING NOTES PATIENT WITH NO ACUTE DISTRESS OBSERVED OVERNIGHT. NO PAIN AND NO DISCOMFORT. IVF INFUSING ORDERED ON PATIENT'S R UPPER ARM PIV, PATENT AND INTACT, NO SIGNS OF INFILTRATION. WOUND TREATMENT RENDERED ORDERED. AM LABS DRAWN. ALL DUE MEDS GIVEN ORDERED. PATIENT'S NEEDS ANTICIPATED AND MET. SAFETY AND COMFORT ENSURED. BED IN LOW AND LOCKED POSITION. CALL LIGHT IN REACH. WILL ENDORSE ACCORDINGLY FOR CONTINUITY OF CARE.
--- NOTE | 2016-10-25 07:43 | NUR ---
AM RN NOTE Received patient awake, A/O X1-2. No acute distress noted. Resp even and non-labored. IV site intact and patent. Bed in low locked position. Will continue to monitor.
[2016-10-25 07:51] LABS: CALCIUM, SERUM 8.1 mg/dL (8.5-10.1); CREATININE 0.5 mg/dL (0.6-1.3); MAGNESIUM 1.8 mg/dL (1.8-2.4); PHOSPHORUS 3.2 mg/dL (2.5-4.9); POTASSIUM 3.6 mmol/L (3.5-5.1)
[2016-10-25] MEDS: FERROUS SULFATE (325 MG) 325 MG/TAB TABLET PO SCH ×2 (08:10→17:37)
[2016-10-25] MEDS: ACIDOPHILUS/BULGARICUS 1 EACH TAB.CHEW PO SCH ×3 (08:10→17:37)
[2016-10-25] MEDS: PROSOURCE / PROSTAT (PYXIS) 30 ML UDC PO SCH ×3 (08:10→17:37)
[2016-10-25] MEDS: PANTOPRAZOLE 40 MG TABLET.DR PO SCH (08:10)
[2016-10-25] MEDS: MULTIVIT, IRON, MIN NO. 8, FA 1 TAB PO SCH (08:10)
[2016-10-25] MEDS: DOCUSATE SODIUM 100 MG CAPSULE PO SCH ×2 (08:10→17:37)
[2016-10-25] MEDS: ASCORBIC ACID 500 MG TABLET PO SCH ×2 (08:10→17:37)
[2016-10-25] MEDS: Z GUARD REMEDY 2 OZ OINT TP SCH (08:11)
[2016-10-25] MEDS: DAKINS QUARTER STRENGTH (0.125%) 480 ML BOTTLE TOP SCH (08:11)
[2016-10-25] MEDS: LORAZEPAM INJ 2 MG/ML VIAL IVP PRN (14:06)
[2016-10-25] MEDS ORDERED: FEE PK DOSING 1 MIN EA MC ONE (16:31)
[2016-10-25] MEDS ORDERED: LEVOFLOXACIN 500 MG /D5W 100ML 500 MG in PREMIX 1 EA IV SCH (17:00)
[2016-10-25] MEDS: GENTAMICIN 400 MG in IV D5W 100 ML IV SCH (18:00)
--- NOTE | 2016-10-25 18:19 | NUR ---
AM RN NOTE Patient lying in his bed, continue on gentamicin IV ATB as ordered. IV site intact and patent. Will endorse care to next shift.
--- NOTE | 2016-10-25 19:10 | NUR ---
RN NOTES RECEIVED PT AWAKE, HOB ELEVATED, NO SOB, NOT IN DISTRESS, ON ROOM AIR AND TOLERATED WELL. PT ALERT AND ORIENTED X1-2, GARBLED WORDS, ABLE TO COMMUNICATE NEEDS BY WRITING IT IN THE PAPER. PT IS CALM AND COOPERATIVE WITH CARE. DENIES ANY PAIN AND DISCOMFORT AT THIS TIME. IV ACCESS ON RIGHT UPPER ARM PATENT AND INTACT WITH ONGOING IV FLUID INFUSING WELL. KEPT COMFORTABLE AND ATTENDED. KEPT BED IN THE LOWEST POSITION, LOCKED, SIDE RAILS X3 UP, BED ALARM ON, WITH CALL LIGHT WITH IN REACH. WILL CONTINUE TO MONITOR PT.
[2016-10-25 20:00] VITALS: BP 132/84
[2016-10-25] MEDS: LEVOFLOXACIN 500 MG /D5W 100ML 500 MG in PREMIX 1 EA IV SCH (20:09)
[2016-10-25] MEDS: MIRTAZAPINE 15 MG TABLET PO SCH (21:23)
[2016-10-25 22:00] VITALS: BP 132/84
[2016-10-26 03:24] LABS: BASOPHILS % (AUTO) 0.3 % (0.0-2.0); EOSINOPHILS # (AUTO) 0.2 /CMM (0.0-0.7); EOSINOPHILS % (AUTO) 3.8 % (0.0-6.0); HEMATOCRIT 26 % (39-51); HEMOGLOBIN 8.1 g/dL (13.5-17.5); LYMPHOCYTES # (AUTO) 1.3 /CMM (0.8-4.8); LYMPHOCYTES % (AUTO) 21.1 % (20.0-44.0); MEAN CORPUSCULAR HEMOGLOBIN 23 PG (26.0-33.0); MEAN CORPUSCULAR HGB CONC 31 g/dl (31.0-36.0); MEAN CORPUSCULAR VOLUME 74 fL (80-96); MONOCYTES # (AUTO) 0.6 /CMM (0.1-1.30); MONOCYTES % (AUTO) 9.1 % (2.0-12.0); NEUTROPHILS # (AUTO) 4.1 /CMM (1.8-8.9); NEUTROPHILS % (AUTO) 65.7 % (43.0-81.0); PLATELET COUNT (AUTO) 284 /CMM (150-450); WHITE BLOOD COUNT (AUTO) 6.3 K/uL (4.3-11.0)
[2016-10-26 03:32] LABS: CALCIUM, SERUM 8.2 mg/dL (8.5-10.1); CREATININE 0.5 mg/dL (0.6-1.3); MAGNESIUM 1.7 mg/dL (1.8-2.4); PHOSPHORUS 3.5 mg/dL (2.5-4.9); POTASSIUM 3.2 mmol/L (3.5-5.1)
[2016-10-26 04:00] VITALS: BP 157/94
[2016-10-26] MEDS: MEROPENEM 500 MG in IV NS 0.9% 50 ML IV SCH ×2 (04:46→12:49)
--- NOTE | 2016-10-26 06:43 | NUR ---
RN NOTES PT ASLEEP, HOB ELEVATED, BREATHING REGULAR AND UNLABORED, NO SOB, NOT IN DISTRESS, ON ROOM AIR AND TOLERATED WELL. VITAL SIGNS STABLE, AFEBRILE. NO COMPLAIN OF PAIN, NO EPISODE OF NAUSEA AND VOMITING. ALL DUE MEDS GIVEN. SKIN CARE AND WOUND DRESSING DONE. KEPT PT CLEAN AND DRY. ALL NEEDS ATTENDED. WILL ENDORSE TO MORNING RN FOR CONTINUITY OF CARE.
--- NOTE | 2016-10-26 07:00 | NUR ---
RN NOTES RECEIVED PT ON BED, ALERT ,GARBED WORDS ,ABLE TO COMMUNICATE NEEDS BY WRITING ON A BOARD, RESPIRATION EVEN AND UNLABORED, ON RA , NO SOB NOTED, R UPPER ARM IV #22 CDI,NS AT 75CC/HR RUNNING VIA R UPPER ARM IV SITE . SR UP x3, CALL LIGHT WITHIN EASY REACH , CONTINUE TO MONITOR PT CLOSELY .
[2016-10-26 08:00] VITALS: BP 137/84
[2016-10-26] MEDS: DOCUSATE SODIUM 100 MG CAPSULE PO SCH ×2 (08:23→17:24)
[2016-10-26] MEDS: ACIDOPHILUS/BULGARICUS 1 EACH TAB.CHEW PO SCH ×3 (08:24→17:25)
[2016-10-26] MEDS: PROSOURCE / PROSTAT (PYXIS) 30 ML UDC PO SCH ×3 (08:24→17:26)
[2016-10-26] MEDS: ASCORBIC ACID 500 MG TABLET PO SCH ×2 (08:24→17:25)
[2016-10-26] MEDS: MULTIVIT, IRON, MIN NO. 8, FA 1 TAB PO SCH (08:24)
[2016-10-26] MEDS: FERROUS SULFATE (325 MG) 325 MG/TAB TABLET PO SCH ×2 (08:24→17:25)
[2016-10-26] MEDS: PANTOPRAZOLE 40 MG TABLET.DR PO SCH (08:24)
[2016-10-26] MEDS: Z GUARD REMEDY 2 OZ OINT TP SCH (08:26)
[2016-10-26] MEDS: DAKINS QUARTER STRENGTH (0.125%) 480 ML BOTTLE TOP SCH (08:26)
[2016-10-26] MEDS: POTASSIUM CL. PREMIX PERIPHER. 50 ML IV SCH ×4 (10:54→14:54)
[2016-10-26] MEDS: Magnesium 1GM/D5W 100ML PREMIX 100 ML IV SCH ×2 (10:54→11:58)
[2016-10-26] MEDS: IV NS 0.9% 1,000 ML IV PRN (10:54)
[2016-10-26] MEDS ORDERED: POTASSIUM CHLORIDE 20 MEQ TAB.PRT.SR PO ONE (11:00)
[2016-10-26] MEDS ORDERED: Magnesium 1GM/D5W 100ML PREMIX 100 ML IV SCH (11:00)
--- NOTE | 2016-10-26 15:00 | NUR ---
RN NOTES R UPPER ARM IV SITE CAME OUT , ATTEMPT TO START IV SITE x2, INTERNAL RECRUITER NOTIFIED FOR MIDLINE PLACEMENT .
[2016-10-26 16:00] VITALS: BP 119/90
[2016-10-26 16:16] LABS: *SPE PROTEIN TOTAL 6.5 g/dL (6.0-8.5)
--- NOTE | 2016-10-26 18:00 | NUR ---
RN NOTES PT STABLE , AWAITING FOR MIDLINE PLACEMENT , PT AT REST , SR UP x3, CALL LIGHT WITHIN EASY REACH, NO DISTRESS NOTED, WILL ENDORSE TO MACHINE STEMMER NURSE FOR CONTINUITY OF CARE
--- NOTE | 2016-10-26 19:35 | NUR ---
MS RN INITIAL NOTE PT RECEIVED IN BED. A/O X1 NONVERBAL WITH NOTED MUMBLING AND MAKING NOISES TO GET ATTENTION. ON ROOM AIR AND SATURATING WELL. BREATHING IS REGULAR, EVEN AND UNLABORED. MIDLINE JUST INSERTED NOW HUMBERTO MIDLINE #20 WITH CONTINUOUS FLUIDS RESTARTED. PT INSTRUCTED TO NOT PULL ON IV. CALL LIGHT WITHIN REACH. WILL CONTINUE TO MONITOR.
[2016-10-26 20:00] VITALS: BP 128/86
[2016-10-26] MEDS: GENTAMICIN 400 MG in IV D5W 100 ML IV SCH (20:19)
[2016-10-26] MEDS: LEVOFLOXACIN 500 MG /D5W 100ML 500 MG in PREMIX 1 EA IV SCH (21:00)
[2016-10-26] MEDS: MIRTAZAPINE 15 MG TABLET PO SCH (21:43)
[2016-10-27 04:00] VITALS: BP 149/96
--- NOTE | 2016-10-27 07:11 | NUR ---
MS RN CLOSING NOTE MS RN CLOSING NOTE PT REMAINED STABLE DURING SHIFT. NO ACUTE DISTRESS NOTED. IV SITE INTACT AND PATENT. ALL NEEDS ATTENDED TO PROMPTLY. KEPT CLEAN AND DRY AT ALL TIMES. ALL SAFETY MEASURES IN PLACE. WILL ENDORSE TO NEXT SHIFT FOR CONTINUITY OF CARE.
[2016-10-27 07:13] LABS: BASOPHILS % (AUTO) 0.3 % (0.0-2.0); EOSINOPHILS # (AUTO) 0.2 /CMM (0.0-0.7); HEMATOCRIT 28 % (39-51); HEMOGLOBIN 8.9 g/dL (13.5-17.5); LYMPHOCYTES % (AUTO) 16.4 % (20.0-44.0); MEAN CORPUSCULAR HEMOGLOBIN 23 PG (26.0-33.0); MEAN CORPUSCULAR HGB CONC 31 g/dl (31.0-36.0); MEAN CORPUSCULAR VOLUME 74 fL (80-96); MONOCYTES # (AUTO) 0.5 /CMM (0.1-1.30); MONOCYTES % (AUTO) 7.7 % (2.0-12.0); NEUTROPHILS # (AUTO) 4.6 /CMM (1.8-8.9); NEUTROPHILS % (AUTO) 72.6 % (43.0-81.0); PLATELET COUNT (AUTO) 326 /CMM (150-450); RDW COEFFICIENT OF VARIATION 23.1 (11.5-15.0); RED BLOOD CELL COUNT(AUTO) 3.81 MIL/uL (4.5-6.0); WHITE BLOOD COUNT (AUTO) 6.3 K/uL (4.3-11.0)
[2016-10-27 07:39] LABS: CALCIUM, SERUM 8.4 mg/dL (8.5-10.1); CREATININE 0.5 mg/dL (0.6-1.3); PHOSPHORUS 3.6 mg/dL (2.5-4.9); POTASSIUM 3.5 mmol/L (3.5-5.1)
[2016-10-27 07:56] LABS: BAND % (MANUAL) 2 % (0.0-5.0); EOSINOPHILS % (MANUAL) 4 % (0-4); LYMPHOCYTES % (MANUAL) 15 % (16-48); MONOCYTES % (MANUAL) 6 % (0-11.0); NEUTROPHILS % (MANUAL) 73 (42-76)
[2016-10-27 08:00] VITALS: BP 139/87
--- NOTE | 2016-10-27 08:30 | NUR ---
RN NOTES: PT RECEIVED ALERT AWAKE, ABLE TO COMMUNICATE VIA WRITTEN METHOD. ON ROOM AIR. BREATHING PATTERN REGULAR & UNLABORED. HUMBERTO MIDLINE INTACT, RUNNING WITH IV FLUIDS ORDERED. SAFETY MEASURES OBSERVED. HOB ELEVATED. PT CLEAN AND DRY. WILL CONTINUE TO MONITOR. CALL LIGHT WITHIN REACH.
[2016-10-27] MEDS: FERROUS SULFATE (325 MG) 325 MG/TAB TABLET PO SCH ×2 (09:24→17:26)
[2016-10-27] MEDS: PROSOURCE / PROSTAT (PYXIS) 30 ML UDC PO SCH ×3 (09:24→17:27)
[2016-10-27] MEDS: PANTOPRAZOLE 40 MG TABLET.DR PO SCH (09:24)
[2016-10-27] MEDS: MULTIVIT, IRON, MIN NO. 8, FA 1 TAB PO SCH (09:24)
[2016-10-27] MEDS: ACIDOPHILUS/BULGARICUS 1 EACH TAB.CHEW PO SCH ×3 (09:24→17:25)
[2016-10-27] MEDS: ASCORBIC ACID 500 MG TABLET PO SCH ×2 (09:24→17:25)
[2016-10-27] MEDS: DOCUSATE SODIUM 100 MG CAPSULE PO SCH ×2 (09:24→17:25)
[2016-10-27] MEDS: DAKINS QUARTER STRENGTH (0.125%) 480 ML BOTTLE TOP SCH (09:27)
[2016-10-27] MEDS: Z GUARD REMEDY 2 OZ OINT TP SCH (09:27)
[2016-10-27] MEDS: IV NS 0.9% 1,000 ML IV PRN (12:46)
[2016-10-27 16:00] VITALS: BP 153/94
[2016-10-27] MEDS ORDERED: RXGEN XX (16:12)
[2016-10-27] MEDS ORDERED: LEVO500T15 PO (16:12)
[2016-10-27] MEDS: GENTAMICIN 400 MG in IV D5W 100 ML IV SCH (17:28)
--- NOTE | 2016-10-27 18:39 | NUR ---
RN CLOSING NOTE: PT REMAINS STABLE DURING SHIFT. NO CHANGE OF CONDITION NOTED. DISCHARGE CANCELLED TODAY DUE TO NON AVAILABILITY OF ISOLATION BED AT [facility]. WILL CONTINUE TO MONITOR. SAFETY MEASURES OBSERVED. CALL LIGHT WITHIN REACH. WILL ENDORSE TO DIRECTOR OF PLANNING RN FOR CONTINUITY OF CARE.
--- NOTE | 2016-10-27 19:30 | NUR ---
MS RN INITIAL NOTE PT RECEIVED IN BED. NOTED TO BE RESTLESS AND MAKING LOUD NOISES. A/O X1 WITH GARBLED SOUNDS WHEN SPOKEN TO. ON ROOM AIR AND SATURATING WELL. ISOLATION PRECAUTIONS OBSERVED. IV HUMBERTO MIDLINE CLEAN, INTACT AND FLUSHING WELL. BED IN LOWEST POSITION AND LOCKED. BED ALARM ON AT ALL TIMES. CALL LIGHT WITHIN EASY REACH. WILL CONTINUE TO MONITOR.
[2016-10-27 20:00] VITALS: BP 137/84
[2016-10-27] MEDS: LEVOFLOXACIN 500 MG /D5W 100ML 500 MG in PREMIX 1 EA IV SCH (20:02)
[2016-10-27] MEDS: MIRTAZAPINE 15 MG TABLET PO SCH (21:16)
[2016-10-27] MEDS: LORAZEPAM INJ 2 MG/ML VIAL IVP PRN (21:16)
[2016-10-28 04:00] VITALS: BP 143/94
[2016-10-28] MEDS: IV NS 0.9% 1,000 ML IV PRN (04:20)
[2016-10-28 07:26] VITALS: BP 143/94
[2016-10-28 07:27] VITALS: BP 143/94
[2016-10-28 07:30] LABS: CALCIUM, SERUM 8.4 mg/dL (8.5-10.1); CREATININE 0.5 mg/dL (0.6-1.3); POTASSIUM 3.5 mmol/L (3.5-5.1)
--- NOTE | 2016-10-28 07:30 | NUR ---
RN NOTES RECEIVED PATIENT IN BED ALERT, AWAKE, ORIENTED X1 WITH BREATHING NORMAL, EVEN AND UNLABORED. NO SOB NOTED. ON ROOM AIR, SATURATING WELL. NO ACUTE DISTRESS NOTED. HUMBERTO MIDLINE IS PATENT AND INTACT, RUNNING IVF PER ORDER. KEPT CLEAN, DRY AND COMFORTABLE. ALL NEEDS ATTENDED. SAFETY MEASURE OBSERVED. CALL LIGHT WITH IN REACH. WILL CONT TO MONITOR.
--- NOTE | 2016-10-28 07:59 | NUR ---
MS RN CLOSING NOTE PT REMAINED STABLE DURING SHIFT. NO ACUTE DISTRESS NOTED. ISOLATION PRECAUTIONS OBSERVED. CALL LIGHT WITHIN EASY REACH. IV SITE INTACT WITH FLUIDS RUNNING. KEPT CLEAN AND DRY. WOUND TREATMENT DONE PER MD ORDERS. WILL ENDORSE TO NEXT SHIFT FOR KEITH.
[2016-10-28 08:00] VITALS: BP 150/92
[2016-10-28] MEDS: PANTOPRAZOLE 40 MG TABLET.DR PO SCH (08:25)
[2016-10-28] MEDS: DOCUSATE SODIUM 100 MG CAPSULE PO SCH (08:43)
[2016-10-28] MEDS: MULTIVIT, IRON, MIN NO. 8, FA 1 TAB PO SCH (08:43)
[2016-10-28] MEDS: FERROUS SULFATE (325 MG) 325 MG/TAB TABLET PO SCH (08:43)
[2016-10-28] MEDS: ASCORBIC ACID 500 MG TABLET PO SCH (08:43)
[2016-10-28] MEDS: ACIDOPHILUS/BULGARICUS 1 EACH TAB.CHEW PO SCH (08:43)
[2016-10-28] MEDS: DAKINS QUARTER STRENGTH (0.125%) 480 ML BOTTLE TOP SCH (08:44)
[2016-10-28] MEDS: Z GUARD REMEDY 2 OZ OINT TP SCH (08:45)
[2016-10-28] MEDS: PROSOURCE / PROSTAT (PYXIS) 30 ML UDC PO SCH (09:33)
[2016-10-28] MEDS: LORAZEPAM INJ 2 MG/ML VIAL IVP PRN (10:58)
--- NOTE | 2016-10-28 11:30 | NUR ---
RN NOTES PATIENT DISCHARGED IN STABLE CONDITION WITH BREATHING NORMAL, EVEN AND UNLABORED. NO SOB NOTED. NO ACUTE DISTRESS NOTED. REPORT CALLED AND GIVEN TO [facility]. DISCHARGE INSTRUCTION GIVEN WITH FEEDBACK, UNDERSTOOD WELL. KEPT CLEAN, DRY AND COMFORTABLE. HUMBERTO MIDLINE IS PATENT AND INTACT, NO INFILTRATION NOTED. NO REDNESS NOTED. PATIENT LEFT VIA AMBULANCE WITH 2 SOLAR ENERGY ADVISOR IN STABLE CONDITION.
[2016-10-28] MEDS ORDERED: LEVOFLOXACIN (500MG) 500 MG TABLET PO SCH (20:00)
== END 2016-10-28 11:34 | DRG 579 ==
LOC: ER 14:29 → MEDSG1 17:47 → TELE1 10-21 07:10 → MEDSG1 10-23 13:23
PROVIDERS: ADMIT Internal Medicine; ATTEND Internal Medicine
PROC: 0KBR0ZZ Excision of Left Upper Leg Muscle, Open Approach (ICD-10-PCS; principal; 2016-10-20)
PROC: 0KBL0ZZ Excision of Left Abdomen Muscle, Open Approach (ICD-10-PCS; 2016-10-20)
PROC: 0KBP0ZZ Excision of Left Hip Muscle, Open Approach (ICD-10-PCS; 2016-10-20)
PROC: 30233N1 Transfusion of Nonautologous Red Blood Cells into Peripheral Vein, Percutaneous Approach (ICD-10-PCS; 2016-10-22)
PROC: 05H633Z Insertion of Infusion Device into Left Subclavian Vein, Percutaneous Approach (ICD-10-PCS; 2016-10-22)
DX: L03.116 Cellulitis of left lower limb (principal); E43 Unspecified severe protein-calorie malnutrition; L89.159 Pressure ulcer of sacral region, unspecified stage; L89.309 Pressure ulcer of unspecified buttock, unspecified stage; D69.6 Thrombocytopenia, unspecified; E66.01 Morbid (severe) obesity due to excess calories; L02.214 Cutaneous abscess of groin; L89.629 Pressure ulcer of left heel, unspecified stage; N39.0 Urinary tract infection, site not specified; J98.11 Atelectasis; F20.9 Schizophrenia, unspecified; C44.729 Squamous cell carcinoma of skin of left lower limb, including hip; Z89.511 Acquired absence of right leg below knee; Z88.1 Allergy status to other antibiotic agents; Z87.440 Personal history of urinary (tract) infections; Z79.899 Other long term (current) drug therapy; K21.9 Gastro-esophageal reflux disease without esophagitis; I10 Essential (primary) hypertension; F79 Unspecified intellectual disabilities; D50.9 Iron deficiency anemia, unspecified; Q05.9 Spina bifida, unspecified; F89 Unspecified disorder of psychological development; K20.9 Esophagitis, unspecified
CPT/HCPCS: 36415; 36569; 71010-TC; 74178; 80048-TC; 80053-TC; 80170-TC; 81000-TC; 82306; 82378; 82553-TC; 82728-TC; 82746; 82962-TC; 83010; 83540-TC; 83605-TC; 83615-TC; 83735-TC; 84100-TC; 84155; 84165; 84443-TC; 84484-TC; 84550-TC; 85025-TC; 85045-TC; 85385-TC; 85396; 85610-TC; 85652-TC; 85730-TC; 86850-TC; 86921-TC; 87040-TC; 87070-TC; 87075-TC; 87081-TC; 87086-TC; 87186-TC; 88305-TC; 93307-TC; A4216; A4349; A4606; A6253; A6402; A6403; A6407; J1580; J1956; J2060; J2185; J2250; J2370; J2405; J2543; J2704; J3010; J3475; J3480; J3490; J7030; J7040; J7050; J7060; P9016-BL; Q9967; Z7610

== ENCOUNTER 2016-12-21 16:12 | Inpatient (IN) | payer MEDICARE, MEDICAID ==
[~2016-12-21] VITALS: Ht 172.7 cm; Wt 63.2 kg
[~2016-12-21 16:12] MED LIST changes: +LEVO500T15 PO; -Lactose-Free Food PO; +ONDA4TAB5 PO; +RXGEN XX
--- NOTE | 2016-12-21 16:47 | NUR ---
NEW IV STARTED ON LAC, 18G AND RFA, 20 G. BLOOD DRAWN AND SENT TO LAB.
--- NOTE | 2016-12-21 17:00 | NUR ---
URINE OBTAINED AND SENT TO LAB.
[2016-12-21 17:03] LABS: CARBON DIOXIDE 29 mmol/L (21-32); CHLORIDE 102 mmol/L (98-107); CREATININE 0.7 mg/dL (0.6-1.3); GLUCOSE 118 mg/dL (74-106); POTASSIUM 4.3 mmol/L (3.5-5.1); SODIUM SERUM 136 mmol/L (136-145); UREA NITROGEN, BLOOD 18 mg/dL (7-18)
[2016-12-21 17:07] LABS: INR 0.99 (0.87-1.13); PROTHROMBIN TIME 10.3 SECS (9.5-12.7)
[2016-12-21] MEDS ORDERED: CRAN450C PO (17:08)
[2016-12-21] MEDS ORDERED: NUTR1PAC14 PO (17:08)
[2016-12-21] MEDS ORDERED: MAGN400O6 PO (17:08)
[2016-12-21] MEDS ORDERED: MIRT7.5T10 PO (17:08)
[2016-12-21] MEDS ORDERED: SACC250C6 PO (17:08)
[2016-12-21] MEDS ORDERED: NA P133E RC (17:08)
[2016-12-21] MEDS ORDERED: GABA100C PO (17:08)
[2016-12-21 17:09] LABS: ALANINE AMINOTRANSFERASE 43 U/L (12-78); ALBUMIN 1.7 g/dL (3.4-5.0); ALKALINE PHOSPHATASE 214 U/L (46-116); ASPARTATE AMINOTRANSFERASE 47 U/L (15-37); BILIRUBIN,DIRECT 0.1 mg/dL (0.0-0.2); BILIRUBIN,TOTAL 0.1 mg/dL (0.2-1.0)
[2016-12-21 17:11] LABS: TROPONIN I < 0.017 ng/mL (0.00-0.056)
[2016-12-21 17:19] LABS: BASOPHILS % (AUTO) 0.2 % (0.0-2.0); EOSINOPHILS # (AUTO) 0.3 /CMM (0.0-0.7); EOSINOPHILS % (AUTO) 2.2 % (0.0-6.0); HEMATOCRIT 32 % (39-51); HEMOGLOBIN 9.8 g/dL (13.5-17.5); LYMPHOCYTES # (AUTO) 1.6 /CMM (0.8-4.8); LYMPHOCYTES % (AUTO) 14.4 % (20.0-44.0); MEAN CORPUSCULAR HEMOGLOBIN 22 PG (26.0-33.0); MEAN CORPUSCULAR HGB CONC 31 g/dl (31.0-36.0); MEAN CORPUSCULAR VOLUME 72 fL (80-96); MONOCYTES # (AUTO) 0.8 /CMM (0.1-1.30); MONOCYTES % (AUTO) 7.3 % (2.0-12.0); NEUTROPHILS # (AUTO) 8.7 /CMM (1.8-8.9); NEUTROPHILS % (AUTO) 75.9 % (43.0-81.0); PLATELET COUNT (AUTO) 605 /CMM (150-450); RDW COEFFICIENT OF VARIATION 17.4 (11.5-15.0); RED BLOOD CELL COUNT(AUTO) 4.39 MIL/uL (4.5-6.0); WHITE BLOOD COUNT (AUTO) 11.4 K/uL (4.3-11.0)
--- NOTE | 2016-12-21 17:23 | NUR ---
WOUND CULTURES OBTAINED AND SENT TO LAB .
--- NOTE | 2016-12-21 17:30 | NUR ---
REPORT GIVEN TO DENISE ALEXANDER FOR ADMISSION.
[2016-12-21 17:35] LABS: APPEARANCE,URINE Clear (CLEAR); BILIRUBIN,URINE Negative (NEGATIVE); BLOOD, URINE Moderate Ery/uL (NEGATIVE); COLOR,URINE Yellow (YELLOW); KETONES,URINE Trace (NEGATIVE); LEUKOCYTE ESTERASE ,URINE Large (NEGATIVE); NITRITE, URINE Positive (NEGATIVE); PH,URINE 8.5 (5.0-8.0); PROTEIN,URINE 100 mg/dl (NEGATIVE); UGLUCOSE Negative (NEGATIVE)
[2016-12-21 17:41] LABS: BACTERIA,URINE Many /HPF (None Seen); SQUAMOUS EPITHELIAL CELL,UR Moderate /HPF (None Seen); WBC,URINE 21-50 /HPF (0-3)
[2016-12-21] MEDS ORDERED: CEFEPIME 1 GM in IV D5W 50 ML IV ONE (18:00)
[2016-12-21] MEDS ORDERED: PIPERACILLIN /TAZOBACTAM 3.375 G in IV D5W 50 ML IV ONE (18:00)
[2016-12-21] MEDS ORDERED: IV 1/2NS 1000 ML 1,000 ML IV PRN (18:09)
--- NOTE | 2016-12-21 18:25 | NUR ---
PATIENT TRANSPORTED TO [facility] WITH EMT VIA STRETCHER FOR ADMISSION. RN, DENISE TO PROVIDE KEITH.
[2016-12-21] MEDS ORDERED: LORAZEPAM INJ 2 MG/ML VIAL IV PRN ×2 (18:30→18:45)
[2016-12-21] MEDS ORDERED: ONDANSETRON HCL/PF 4 MG/2 ML VIAL IVP PRN ×2 (18:30→18:45)
[2016-12-21] MEDS ORDERED: MAGNESIUM HYDROXIDE 30 ML UDC PO PRN ×2 (18:30→18:45)
[2016-12-21] MEDS ORDERED: ACETAMINOPHEN 325 MG TABLET PO PRN ×2 (18:30→18:45)
[2016-12-21] MEDS ORDERED: ENOXAPARIN SODIUM 40 MG/0.4 ML DISP.SYRIN SQ SCH ×3 (18:30→21:00)
[2016-12-21] MEDS ORDERED: MAG HYDROX/AL HYDROX/SIMETH 30 ML UDC PO PRN ×2 (18:30→18:45)
--- NOTE | 2016-12-21 18:30 | NUR ---
RN MS NOTES RECEIVED PT FROM E.R. STAFF VIA GEOVANY, AWAKE, ALERT, COMMUNICATES THROUGH WRITING ON A BOARD, ASSISTED TO BED, MADE COMFORTABLE, ROOM SET UP ORIENTATION PROVIDED, VITAL SIGNS TAKEN AND RECORDED, CALL LIGHT WITHIN REACH, AWAITING ADMITTING ORDERS FROM MD.
[2016-12-21 19:22] VITALS: BP 102/68
[2016-12-21 20:00] VITALS: BP 109/75
--- NOTE | 2016-12-21 20:00 | NUR ---
RN NOTES PATIENT AWAKE IN THE BED. VS STABLE. NO C/O PAIN AT THIS TIME. RESPIRATIONS EVEN AND UNLABORED. NO RESPIRATORY DISTRESS NOTED. IV ACCESS PATENT AND INTACT. SKIN CLEAN AND DRY. PIRES CATHETER DRAINING WITH CLEAR AND YELLOW URINE. BED IN LOW POSITION. SIDE RAILS X2. CALL LIGHT WITHIN EASY REACH. CONTINUE TO MONITOR.
[2016-12-21] MEDS: MEROPENEM 500 MG in IV NS 0.9% 50 ML IV SCH (20:23)
[2016-12-21] MEDS: IV 1/2NS 1000 ML 1,000 ML IV PRN (20:24)
[2016-12-21] MEDS: LINEZOLID RTU BAG 600 MG in PREMIX 1 EA IV SCH (21:44)
[2016-12-22] MEDS ORDERED: CLONIDINE HCL 0.1 MG TABLET PO PRN (01:00)
[2016-12-22] MEDS: MEROPENEM 500 MG in IV NS 0.9% 50 ML IV SCH ×3 (03:57→20:34)
--- NOTE | 2016-12-22 07:01 | NUR ---
RN CLOSING NOTES PATIENT SLEEPING IN THE BED. VS STABLE. NO C/O PAIN AT THIS TIME. RESPIRATIONS EVEN AND UNLABORED. NO RESPIRATORY DISTRESS NOTED. IV ACCESS PATENT AND INTACT. PIRES CATHETER DRAINING WITH CLEAR AND YELLOW URINE. BED IN LOW POSITION. SIDE RAILS X2. CALL LIGHT WITHIN EASY REACH. WILL ENDORSE TO RN DAY SHIFT FOR CONTINUITY OF CARE.
--- NOTE | 2016-12-22 07:40 | NUR ---
RN OPENING NOTES RECEIVED PT. IN BED AWAKE, ALERT, ACKNOWLEDGES NAME, AND CAN FOLLOW DIRECTION. PT. COMMUNICATES BY WRITING ON BOARD. BREATHING UNLABORED AND EVENLY ON ROOM AIR. IV FLUIDS RUNNING AT BEDSIDE. PT. HAS PIRES CATHETER WITH YELLOW, CLEAR, WITH SEDIMENTATION. BED IS IN LOW LOCKED POSITION, 2 SIDE RAILS UP, AND CALL LIGHT IS WITHIN REACH. WILL CONTINUE TO ASSESS AND MONITOR.
[2016-12-22 08:00] VITALS: BP 112/72
[2016-12-22] MEDS: FAMOTIDINE (20 MG) 20 MG TABLET PO SCH (10:37)
[2016-12-22] MEDS: GABAPENTIN 100 MG CAPSULE PO SCH ×2 (10:37→16:42)
[2016-12-22] MEDS: DOCUSATE SODIUM 100 MG CAPSULE PO SCH ×2 (10:38→16:42)
[2016-12-22] MEDS: MULTIVIT, IRON, MIN NO. 8, FA 1 TAB PO SCH (10:38)
[2016-12-22] MEDS: ASCORBIC ACID 500 MG TABLET PO SCH ×2 (10:38→16:42)
[2016-12-22] MEDS: LINEZOLID RTU BAG 600 MG in PREMIX 1 EA IV SCH ×2 (10:38→21:26)
--- NOTE | 2016-12-22 10:59 | NUR ---
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 RECOMMENDATIONS MADE FOR SKIN PROTECTION AND WOUND CARE. DISCUSSED WITH NURSING STAFF. PT ON NAY ISOFLEX LOW AIRLOSS BED. RECOMMEND SURGICAL CONSULT. WILL SEE PRN. RIVAS IN AGREEMENT WITH PLAN OF CARE. SCARRING NOTED TO SACRAL AND LEFT HEEL AREAS. RT LEG AMPUTATION STUMP NOTED. Addendum: 12/22/16 at 1102 by BOGDAN SCANLON WNDNU Amended: Links added.
[2016-12-22] MEDS ORDERED: HYDROGEL DRESSING 90 GM TUBE TP PRN (11:00)
[2016-12-22] MEDS: Z GUARD REMEDY 2 OZ OINT TP SCH (11:05)
[2016-12-22] MEDS: DAKINS QUARTER STRENGTH (0.125%) 480 ML BOTTLE TOP SCH (12:14)
[2016-12-22] MEDS: Z GUARD REMEDY 2 OZ OINT TP PRN (12:14)
[2016-12-22] MEDS: HYDROGEL DRESSING 90 GM TUBE TP SCH (12:14)
[2016-12-22 12:30] VITALS: BP 109/75
[2016-12-22] MEDS: HYDROCODONE/APAP 5/325MG 1 EACH TABLET PO PRN (14:18)
[2016-12-22 16:00] VITALS: BP_SYST 116; BP_SYST 133; BP_DIAS 70; BP_DIAS 74
--- NOTE | 2016-12-22 16:11 | NUR ---
RN NOTES CHANGED PT.'S DRESSINGS ON LEFT BUTTOCKS STAGE 4, LEFT PERINEAL WOUND, AND ABDOMINAL WOUND PER WOUND TREATMENT RECOMMENDATIONS. PT. WAS SEEN AND EXAMINED BY BOGDAN WOUND CARE NURSE.
[2016-12-22] MEDS ORDERED: SACCHAROMYCES BOULARDII 250 MG CAPSULE PO SCH ×2 (17:00)
--- NOTE | 2016-12-22 19:30 | NUR ---
MS FIORDALIZA INITIAL NOTES RECEIVED REPORT FROM AM NURSE WHILE DOING ROUNDS AND SEEN PT IN BED AWAKE AND ALERT WATCHING TV AT THIS TIME. DENIES ANY PAIN OR ANY DISCOMFORT. NO SOB NOTED. STILL WITH PIRES TO GRAVITY WITH CLOUDY YELLOW WITH SEDIMENTS OUTPUT NOTED. PT COMMUNICATE JOAN WRITING ON HIS BOARD. KEPT HIM WARM AND COMFORTABLE AT ALL TIMES. ENCOURAGE HIM TO USED THE CALL LIGHT IF HE NEEDS SOME HELPED. ON ISOFLEX BED WITH SIDE RAILS X2 BED IN LOW LOCK IN POSITION . PLACE CALL LIGHT AT REACH.
--- NOTE | 2016-12-22 19:30 | NUR ---
RN CLOSING NOTES PT. IN BED AWAKE, ALERT, ACKNOWLEDGES NAME, AND CAN FOLLOW DIRECTION. PT. COMMUNICATES BY WRITING ON BOARD. BREATHING UNLABORED AND EVENLY ON ROOM AIR. IV FLUIDS AT BEDSIDE. PT. HAS PIRES CATHETER. BED IS IN LOW LOCKED POSITION, 2 SIDE RAILS UP, AND CALL LIGHT IS WITHIN REACH. WILL ENDORSE REPORT TO NURSE.
[2016-12-22 20:32] VITALS: BP 97/59
[2016-12-22] MEDS: ENOXAPARIN SODIUM 40 MG/0.4 ML DISP.SYRIN SQ SCH (21:38)
--- NOTE | 2016-12-22 21:53 | NUR ---
PRESCHOOL ASSISTANT PRINCIPAL/NOTES PT RESTING AT THIS TIME. ZYVOX IVP BAG ORDERED. NO ADVERSE REACTION NOTED. ROUTINE MEDS GIVEN ORDERED. KEPT HIM WARM AND COMFORTABLE AT ALL TIMES. PLACE CALL LIGHT AT REACH.
[2016-12-22] MEDS ORDERED: MIRTAZAPINE 15 MG TABLET PO SCH (22:00)
--- NOTE | 2016-12-23 | NUR ---
MANAGER FOREIGN/NOTES PT SLEEPING COMFORTABLY IN BED WITHOUT ANY ACUTE DISTRESS NOTED. RESPIRATION EVEN AND NON-LABORED. IVF STILL INFUSING ON HIS LEFT AC. REPOSITION HIM FOR COMFORT. WILL CONTINUE TO MONITOR. PLACE CALL LIGHT AT REACH.
--- NOTE | 2016-12-23 00:49 | NUR ---
FIORDALIZA/NOTES PT AWAKE AND SCREAMING ONCE IN A WHILE SEEMS IN PAIN FROM HIS WOUND, NORCO TABLET GIVEN PO WITH APPLE SAUCE. ATE WELL AND DRINK WELL, NO ASPIRATION NOTED. REPOSITION HIM FOR COMFORT. KEPT HIM WARM AND COMFORTABLE AT ALL TIMES. WILL CONTINUE TO MONITOR. PLACE CALL LIGHT AT REACH. Addendum: 12/24/16 at 0100 by HERMELINDO YA LVN DISREGARD THIS NOTED. WRONG DATE AND TIMED.
[2016-12-23] MEDS: MEROPENEM 500 MG in IV NS 0.9% 50 ML IV SCH ×3 (04:07→20:34)
[2016-12-23] MEDS: IV 1/2NS 1000 ML 1,000 ML IV PRN (04:09)
--- NOTE | 2016-12-23 07:05 | NUR ---
MS CROSS COUNTRY TRUCK DRIVER CLOSING NOTES PT AWAKE AND ALERT SEEMS COMFORTABLE AFTER SPONGE BATH RENDERED . IVF STILL INFUSING ON HIS LEFT AC. STABLE JOAN THE NIGHT AND SLEPT WELL. ALL DUE MEDS GIVEN AND ALL NEEDS MET. REPOSITION FOR COMFORT. WATCHING AT THIS TIME WITHOUT ANY DISCOMFORT. REQUESTED TO HAVE SPRITE . PIRES DRAINING WELL 1800 OUPTU NOTED . NO BOWEL MOVEMENT AND REPOSITION HIM FOR COMFORT. ENDORSE TO AM NURSE FOR CONTINUITY OF CARE. PLACE CALL LIGHT AT REACH.
--- NOTE | 2016-12-23 07:10 | NUR ---
MS RN OPENING NOTES RECEIVED PT FROM NIGHTSHIFT NURSE IN STABLE CONDITION. PT IS A/O X1-2, NON VERBAL, BUT USES A SKETCH PAD TO COMMUNICATE HIS NEEDS. PIRES CATHETER NOTED TO BE DRAINING CLOUDY YELLOW URINE WITH SEDIMENTS COLLECTED AT THE BOTTOM. MULTIPLE STAGED WOUNDS NOTED ON HIS LOWER RIGHT ABDOMEN, PERINEALS AREA, AND SACRUM. WOUND DRESSINGS ARE DRY AND INTACT. IV PRESENT ON LEFT AC 18G INFUSING 1/2 NS @ 75ML/HR. PT IS TOLERATING INFUSION WELL. NO REDNESS OR SIGNS OF INFILTRATION NOTED. BED IN LOW LOCKED POSITION, SIDE RAILS UP X3, CALL LIGHT WITHIN REACH, BED ALARM ON. WILL CONTINUE TO MONITOR.
[2016-12-23 07:37] LABS: BASOPHILS % (AUTO) 0.3 % (0.0-2.0); EOSINOPHILS # (AUTO) 0.2 /CMM (0.0-0.7); EOSINOPHILS % (AUTO) 2.9 % (0.0-6.0); HEMATOCRIT 29 % (39-51); HEMOGLOBIN 8.8 g/dL (13.5-17.5); LYMPHOCYTES # (AUTO) 0.8 /CMM (0.8-4.8); LYMPHOCYTES % (AUTO) 11.4 % (20.0-44.0); MEAN CORPUSCULAR HEMOGLOBIN 22 PG (26.0-33.0); MEAN CORPUSCULAR HGB CONC 31 g/dl (31.0-36.0); MEAN CORPUSCULAR VOLUME 72 fL (80-96); MONOCYTES # (AUTO) 0.5 /CMM (0.1-1.30); MONOCYTES % (AUTO) 7.5 % (2.0-12.0); NEUTROPHILS # (AUTO) 5.6 /CMM (1.8-8.9); NEUTROPHILS % (AUTO) 77.9 % (43.0-81.0); PLATELET COUNT (AUTO) 543 /CMM (150-450); RED BLOOD CELL COUNT(AUTO) 3.96 MIL/uL (4.5-6.0); WHITE BLOOD COUNT (AUTO) 7.2 K/uL (4.3-11.0)
[2016-12-23 07:58] LABS: CALCIUM, SERUM 8.6 mg/dL (8.5-10.1); CREATININE 0.5 mg/dL (0.6-1.3); MAGNESIUM 2.1 mg/dL (1.8-2.4); PHOSPHORUS 3.4 mg/dL (2.5-4.9); POTASSIUM 3.8 mmol/L (3.5-5.1)
[2016-12-23 08:00] VITALS: BP 108/75
[2016-12-23] MEDS: HYDROGEL DRESSING 90 GM TUBE TP SCH (08:24)
[2016-12-23] MEDS: DAKINS QUARTER STRENGTH (0.125%) 480 ML BOTTLE TOP SCH (08:24)
[2016-12-23] MEDS: Z GUARD REMEDY 2 OZ OINT TP SCH (08:25)
[2016-12-23] MEDS: LINEZOLID RTU BAG 600 MG in PREMIX 1 EA IV SCH (08:26)
[2016-12-23] MEDS: LACTOBACILLUS RHAMNOSUS GG 1 EACH CAP.SPRINK PO SCH ×2 (08:26→17:13)
[2016-12-23] MEDS: DOCUSATE SODIUM 100 MG CAPSULE PO SCH ×2 (08:27→17:13)
[2016-12-23] MEDS: FAMOTIDINE (20 MG) 20 MG TABLET PO SCH (08:27)
[2016-12-23] MEDS: ASCORBIC ACID 500 MG TABLET PO SCH ×2 (08:27→17:13)
[2016-12-23] MEDS: MULTIVIT, IRON, MIN NO. 8, FA 1 TAB PO SCH (08:27)
[2016-12-23] MEDS: GABAPENTIN 100 MG CAPSULE PO SCH ×2 (08:27→17:13)
[2016-12-23 10:14] LABS: BAND % (MANUAL) 1 % (0.0-5.0); EOSINOPHILS % (MANUAL) 1 % (0-4); LYMPHOCYTES % (MANUAL) 14 % (16-48); MONOCYTES % (MANUAL) 6 % (0-11.0); NEUTROPHILS % (MANUAL) 78 (42-76)
--- NOTE | 2016-12-23 13:43 | NUR ---
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 WILL UPDATE MS FLOW SHEET
[2016-12-23 16:00] VITALS: BP 120/84
--- NOTE | 2016-12-23 16:06 | NUR ---
MS RN NOTES MULTIPLE ATTEMPTS WERE MADE TO CONTACT THE PT'S FAMILY TO GET CONSENT FOR WOUND DEBRIDEMENT BUT THE NUMBERS LISTED ON THE FACE SHEET ARE FOR ANOTHER [employer] AND THE OTHER IS DISCONNECTED. [facility] WAS CONTACTED TO SEE IF HE HAD ANY OTHER FAMILY OR A POSSIBLE CONSERVATOR. PER THE CHARGE THERE, DR. MORTENSEN IS THE PRIMARY DECISION MAKER AND CAN BE CONTACTED FOR THE REGARD. DR. MCKEON WAS CONTACTED AND ASKED THAT WE FAX THE CONSENT FOR HIM TO SIGN. CONSENTS WAS SENT, DR. MCKEON CONFIRMED THAT HE RECEIVED IT. CURRENTLY AWAITING FAX BACK.
--- NOTE | 2016-12-23 17:07 | NUR ---
MS RN NOTES FAX RECEIVED FROM DR. MCKEON WITH SIGNED CONSENT FOR WOUND DEBRIDEMENT
--- NOTE | 2016-12-23 18:45 | NUR ---
MS RN CLOSING NOTES PT REMAINS IN STABLE CONDITION. NO ACUTE CHANGES IN STATUS DURING SHIFT. ALL DUE MEDS GIVEN AND ORDERS CARRIED OUT ACCORDINGLY. PT WAS REPOSITIONED AND TURNED Q2HRS. CATHETER CARE RENDERED. WOUND TREATMENT RENDERED ORDERED. DRESSINGS REMAIN DRY, CLEAN, AND INTACT. IV REMAINS PATENT AND INTACT WITH CURRENT INFUSION OF 1/2 NS @ 75ML.HR. PT CONTINUE TO TOLERATE INFUSION WELL. ALL SAFETY MEASURES IN PLACE. WILL ENDORSE TO NIGHTSHIFT NURSE FOR KEITH
--- NOTE | 2016-12-23 19:39 | NUR ---
MS FIORDALIZA INITIAL NOTES RECEIVED REPORT FROM AM NURSE AND SEEN PT IN BED AWAKE AND ALERT WATCHING TV WITH IVF OF 1/2 NS INFUSING AT 75ML/HR ON HIS LEFT AC. PATENT AND INTACT. NO SIGNS OF ANY ACUTE DISTRESS OR ANY DISCOMFORT NOTED. AT THIS TIME. KEPT HIM WARM AND COMFORTABLE AT ALL TIMES. STILL COMMUNICATING USING HIS BOARD. PLACE CALL LIGHT AT REACH.
[2016-12-23 20:00] VITALS: BP 119/69
[2016-12-23] MEDS: LINEZOLID 600 MG TABLET PO SCH (21:26)
[2016-12-23] MEDS: ENOXAPARIN SODIUM 40 MG/0.4 ML DISP.SYRIN SQ SCH (21:27)
[2016-12-23] MEDS: HYDROCODONE/APAP 5/325MG 1 EACH TABLET PO PRN (22:43)
--- NOTE | 2016-12-23 22:45 | NUR ---
CIRCUIT BREAKER MECHANIC/NOTES PT AWAKE AND SCREAMING ONCE IN A WHILE SEEMS IN PAIN FROM HIS WOUND, NORCO TABLET GIVEN PO WITH APPLE SAUCE. ATE WELL AND DRINK WELL, NO ASPIRATION NOTED. REPOSITION HIM FOR COMFORT. KEPT HIM WARM AND COMFORTABLE AT ALL TIMES. WILL CONTINUE TO MONITOR. PLACE CALL LIGHT AT REACH.
[2016-12-24] MEDS: MEROPENEM 500 MG in IV NS 0.9% 50 ML IV SCH ×3 (04:40→19:54)
--- NOTE | 2016-12-24 05:18 | NUR ---
RN NOTES: NOTED THAT IV SITE OVER LAC IS LEAKING. STOPPED MERREM IV DOSE AT THIS TIME. ATTEMPTED TO REINSERT NEW IV LINE, BUT FAILED. [place]AS FROM ICU CALLED TO REINSERT NEW IV LINE.
--- NOTE | 2016-12-24 06:55 | NUR ---
MS SERVICE OFFICER NOTES WOUND CARE TREATMENT DONE AND SPONGE BATH RENDERED. SCREAMS ONCE IN A WHILE BUT NO SIGNS OF ANY ACUTE DISTRESS NOTED. ALL DUE MEDS GIVEN AND ALL NEEDS MET. STABLE JOAN THE NIGHT AND SLEPT WELL AFTER PAIN MEDS GIVEN AND REPOSITION PT FOR COMFORT. KEPT HIM WARM AND COMFORTABLE AT ALL TIMES. BED ALARM SET AND PLACE CALL LIGHT AT REACH. BED IN LOW AND LOCK IN POSITION WITH SIDE RAILS X2 UP. ENDORSE TO AM NURSE FOR CONTINUITY OF CARE.
[2016-12-24 07:28] LABS: BASOPHILS # (AUTO) 0.1 /CMM (0.0-0.2); BASOPHILS % (AUTO) 0.7 % (0.0-2.0); EOSINOPHILS # (AUTO) 0.2 /CMM (0.0-0.7); EOSINOPHILS % (AUTO) 2.6 % (0.0-6.0); HEMATOCRIT 32 % (39-51); HEMOGLOBIN 9.8 g/dL (13.5-17.5); LYMPHOCYTES # (AUTO) 1.3 /CMM (0.8-4.8); LYMPHOCYTES % (AUTO) 16.3 % (20.0-44.0); MEAN CORPUSCULAR HEMOGLOBIN 22 PG (26.0-33.0); MEAN CORPUSCULAR HGB CONC 31 g/dl (31.0-36.0); MEAN CORPUSCULAR VOLUME 72 fL (80-96); MONOCYTES # (AUTO) 0.9 /CMM (0.1-1.30); MONOCYTES % (AUTO) 10.9 % (2.0-12.0); NEUTROPHILS # (AUTO) 5.5 /CMM (1.8-8.9); NEUTROPHILS % (AUTO) 69.5 % (43.0-81.0); PLATELET COUNT (AUTO) 591 /CMM (150-450); RDW COEFFICIENT OF VARIATION 18.5 (11.5-15.0); RED BLOOD CELL COUNT(AUTO) 4.42 MIL/uL (4.5-6.0); RETICULOCYTE COUNT 2.3 % (0.6-2.5); WHITE BLOOD COUNT (AUTO) 7.9 K/uL (4.3-11.0)
--- NOTE | 2016-12-24 07:41 | NUR ---
ms rn initial notes Received patient in bed, awake, head of bed elevated, no SOB or distress noted, on room air and tolerated well. Patient pulled his IV out. Alert and oriented x 1. Kept patient clean and comfortable in bed, call light with in patient reach, will continue to monitor accordingly.
[2016-12-24 07:44] LABS: CALCIUM, SERUM 9.2 mg/dL (8.5-10.1); CREATININE 0.6 mg/dL (0.6-1.3); MAGNESIUM 2.3 mg/dL (1.8-2.4); PHOSPHORUS 3.6 mg/dL (2.5-4.9); POTASSIUM 3.3 mmol/L (3.5-5.1)
[2016-12-24 07:58] LABS: FERRITIN 60 ng/mL (8-388)
[2016-12-24 08:00] VITALS: BP 124/85
[2016-12-24 08:08] LABS: BAND % (MANUAL) 1 % (0.0-5.0); EOSINOPHILS % (MANUAL) 2 % (0-4); LYMPHOCYTES % (MANUAL) 16 % (16-48); MONOCYTES % (MANUAL) 9 % (0-11.0); NEUTROPHILS % (MANUAL) 72 (42-76)
[2016-12-24 08:48] LABS: IRON, SERUM 21 ug/dl (50-175); TOTAL IRON BINDING CAPACITY 197 ug/dl (250-450)
[2016-12-24] MEDS: LINEZOLID 600 MG TABLET PO SCH ×2 (08:53→21:04)
[2016-12-24] MEDS: MULTIVIT, IRON, MIN NO. 8, FA 1 TAB PO SCH (08:53)
[2016-12-24] MEDS: FAMOTIDINE (20 MG) 20 MG TABLET PO SCH (08:54)
[2016-12-24] MEDS: LACTOBACILLUS RHAMNOSUS GG 1 EACH CAP.SPRINK PO SCH ×2 (08:54→16:42)
[2016-12-24] MEDS: DOCUSATE SODIUM 100 MG CAPSULE PO SCH ×2 (08:54→16:42)
[2016-12-24] MEDS: GABAPENTIN 100 MG CAPSULE PO SCH ×2 (08:54→16:42)
[2016-12-24] MEDS: ASCORBIC ACID 500 MG TABLET PO SCH ×2 (08:54→16:42)
[2016-12-24] MEDS: Z GUARD REMEDY 2 OZ OINT TP SCH (08:54)
[2016-12-24] MEDS: DAKINS QUARTER STRENGTH (0.125%) 480 ML BOTTLE TOP SCH (08:54)
--- NOTE | 2016-12-24 10:02 | NUR ---
PATIENT ATE BREAKFAST. AWAITING CONSENT FOR CT CHEST ABD/PELVIS W/WO CONTRAST.
[2016-12-24] MEDS ORDERED: POTASSIUM CHLORIDE 20 MEQ TAB.PRT.SR PO SCH (12:00)
[2016-12-24] MEDS ORDERED: IV NS 0.9% 250 ML IV ONE (14:21)
[2016-12-24] MEDS ORDERED: IOHEXOL-300 100 ML VIAL IV ONE (14:21)
[2016-12-24 16:00] VITALS: BP 113/72
[2016-12-24] MEDS: FERROUS SULFATE (325 MG) 325 MG/TAB TABLET PO SCH (16:42)
[2016-12-24] MEDS ORDERED: FEE PK DOSING 1 MIN EA MC ONE (17:24)
[2016-12-24] MEDS ORDERED: DOSING PER PHARMACY-AMIKACI IV XX PRN (17:30)
[2016-12-24] MEDS: AMIKACIN IV SCH (18:24)
[2016-12-24] MEDS: D5W IV SCH (18:24)
[2016-12-24] MEDS: IV 1/2NS 1000 ML 1,000 ML IV PRN (18:24)
--- NOTE | 2016-12-24 19:12 | NUR ---
ms RN closing notes All needs provided, attended, and anticipated. no complaint of pain or discomfort noted. Kept patient clean and comfortable in bed, call light with in patient reach, endorsed to next shift RN to continue care. Urine output of 800ml.
--- NOTE | 2016-12-24 19:30 | NUR ---
MS RN NOTE RECEIVED PATIENT FROM DAY SHIFT, PATIENT IS ALERT AND ORIENTEDX1, ON BED REST, NO S/S OF RESPIRATORY DISTRESS OR PAIN AT THIS TIME. PIRES CATH PRESENT WITH YELLOW CLEAR URINE, MID LINE ON RIGHT UPPER ARM IS PATENT AND INTACT, FLUID IS RUNNING. SRX2, BED IN LOW POSITION, CALL LIGHT WITHIN REACH, WILL CONTINUE TO MONITOR PATIENT.
[2016-12-24 19:37] VITALS: BP 123/78
[2016-12-24] MEDS: ENOXAPARIN SODIUM 40 MG/0.4 ML DISP.SYRIN SQ SCH (21:03)
--- NOTE | 2016-12-25 07:15 | NUR ---
RN OPEN NOTES RECEIVED REPORT FROM MATHEMATICAL SCIENCES PROFESSOR NURSE. WILL CONTINUE TO MONITOR AND ASSESS PATIENT THROUGH OUT MY SHIFT
[2016-12-25 08:00] VITALS: BP 135/87
[2016-12-25] MEDS: LACTOBACILLUS RHAMNOSUS GG 1 EACH CAP.SPRINK PO SCH ×2 (09:28→17:07)
[2016-12-25] MEDS: DOCUSATE SODIUM 100 MG CAPSULE PO SCH ×2 (09:28→17:07)
[2016-12-25] MEDS: LINEZOLID 600 MG TABLET PO SCH ×2 (09:29→20:20)
[2016-12-25] MEDS: ASCORBIC ACID 500 MG TABLET PO SCH ×2 (09:29→17:07)
[2016-12-25] MEDS: Z GUARD REMEDY 2 OZ OINT TP SCH (09:29)
[2016-12-25] MEDS: MULTIVIT, IRON, MIN NO. 8, FA 1 TAB PO SCH (09:29)
[2016-12-25] MEDS: FAMOTIDINE (20 MG) 20 MG TABLET PO SCH (09:29)
[2016-12-25] MEDS: GABAPENTIN 100 MG CAPSULE PO SCH ×2 (09:29→17:07)
[2016-12-25] MEDS: DAKINS QUARTER STRENGTH (0.125%) 480 ML BOTTLE TOP SCH (09:29)
--- NOTE | 2016-12-25 09:38 | NUR ---
MS RN NOTES RECEIVED PT FROM 3W TRANSFER. STABLE CONDITION. REPORT RECEIVED FROM HUMBERTO.
[2016-12-25] MEDS: FERROUS SULFATE (325 MG) 325 MG/TAB TABLET PO SCH ×2 (10:15→17:07)
[2016-12-25 10:30] LABS: HEMATOCRIT 30 % (39-51); HEMOGLOBIN 9.2 g/dL (13.5-17.5); MEAN CORPUSCULAR HEMOGLOBIN 22 PG (26.0-33.0); MEAN CORPUSCULAR VOLUME 72 fL (80-96); RED BLOOD CELL COUNT(AUTO) 4.18 MIL/uL (4.5-6.0); WHITE BLOOD COUNT (AUTO) 10.9 K/uL (4.3-11.0)
[2016-12-25 10:31] LABS: BASOPHILS % (AUTO) 0.4 % (0.0-2.0); EOSINOPHILS % (AUTO) 1.5 % (0.0-6.0); LYMPHOCYTES % (AUTO) 13.7 % (20.0-44.0); MEAN CORPUSCULAR HGB CONC 30 g/dl (31.0-36.0); MONOCYTES % (AUTO) 7.1 % (2.0-12.0); NEUTROPHILS % (AUTO) 77.3 % (43.0-81.0); PLATELET COUNT (AUTO) 546 /CMM (150-450); RDW COEFFICIENT OF VARIATION 19.1 (11.5-15.0)
[2016-12-25 10:34] LABS: CALCIUM, SERUM 8.6 mg/dL (8.5-10.1); CREATININE 0.5 mg/dL (0.6-1.3); POTASSIUM 3.9 mmol/L (3.5-5.1)
[2016-12-25 10:34] LABS: EOSINOPHILS % (MANUAL) 2 % (0-4); LYMPHOCYTES % (MANUAL) 13 % (16-48); MONOCYTES % (MANUAL) 7 % (0-11.0); NEUTROPHILS % (MANUAL) 78 (42-76)
[2016-12-25] MEDS: IV 1/2NS 1000 ML 1,000 ML IV PRN (11:45)
[2016-12-25] MEDS: MEROPENEM 500 MG in IV NS 0.9% 50 ML IV SCH ×2 (11:46→20:20)
--- NOTE | 2016-12-25 11:46 | NUR ---
MS RN NOTES STARTED MERREM IV. WOUND CARE DONE WITH TASHA MILIAN.
--- NOTE | 2016-12-25 12:35 | NUR ---
MS RN NOTES PATIENT (+) FOR ESBL OF URINE. AMIKACIN LEVEL 6.9. DR. ROJAS NOTIFIED AND AWARE.
--- NOTE | 2016-12-25 15:24 | NUR ---
MS RN NOTES PIRES CATHETER CHANGED [FR 18] ISOLATION PRECAUTION
--- NOTE | 2016-12-25 15:36 | NUR ---
MS RN NOTES SPOKE WITH [facility] RE PT'S AMIKACIN LEVEL IS 6.9, PER HER ITS OKAY ITS A RANDOM LEVEL AND NOT TROUGH. OKAY TO GIVE 1800 SCHEDULE.
[2016-12-25 16:00] VITALS: BP 131/86
[2016-12-25] MEDS: AMIKACIN IV SCH (17:08)
[2016-12-25] MEDS: D5W IV SCH (17:08)
--- NOTE | 2016-12-25 17:08 | NUR ---
MS RN NOTES STARTED AMIKIN IV. PM CARE DONE.
[2016-12-25 18:00] VITALS: BP 131/86
--- NOTE | 2016-12-25 18:23 | NUR ---
MS RN CLOSING NOTES ALL NEEDS PROVIDED, ATTENDED AND ANTICIPATED, NO COMPLAINT OF PAIN OR DISCOMFORT, IVF ONGOING. TO RIGHT UPPER ARM MIDLINE. SITE CLEAR. KEPT PATIENT CLEAN AND COMFORTABLE, CALL LIGHT WITHIN REACH, SAFETY MEASURES IN PLACE. PM CARE DONE. WILL ENDORSE TO NEXT SHIFT FOR KEITH.
--- NOTE | 2016-12-25 19:45 | NUR ---
MS RN NOTE: PATIENT RESTING IN BED, NO ACUTE DISTRESS NOTED. BREATHING EVEN AND UNLABORED, NO SOB NOTED. MIDLINE TO MARIO IN PLACE, INFUSING 1/2NS AT 75 ML/HR. PIRES CATHETER IN PLACE, DRAINING CLEAR YELLOW URINE. ISOLATION PRECAUTIONS OBSERVED. BED LOCKED AND IN LOWEST POSITION, CALL LIGHT IN REACH. WILL CONTINUE TO MONITOR.
[2016-12-25 20:00] VITALS: BP 113/67
[2016-12-25] MEDS: ENOXAPARIN SODIUM 40 MG/0.4 ML DISP.SYRIN SQ SCH (20:20)
--- NOTE | 2016-12-26 03:00 | NUR ---
MS RN NOTE: PATIENT SLEEPING IN BED, NO ACUTE DISTRESS NOTED. BREATHING EVEN AND UNLABORED, NO SOB NOTED. WILL CONTINUE TO MONITOR.
[2016-12-26] MEDS: MEROPENEM 500 MG in IV NS 0.9% 50 ML IV SCH ×3 (03:57→20:03)
[2016-12-26] MEDS: IV 1/2NS 1000 ML 1,000 ML IV PRN ×2 (03:57→17:49)
--- NOTE | 2016-12-26 06:05 | NUR ---
MS RN NOTE: PATIENT RESTING IN BED, NO ACUTE DISTRESS NOTED. BREATHING EVEN AND UNLABORED, NO SOB NOTED. MIDLINE TO MARIO IN PLACE, INFUSING 1/2NS AT 75 ML/HR. PIRES CATHETER IN PLACE, DRAINED 1500ML OF CLEAR YELLOW URINE. ISOLATION PRECAUTIONS OBSERVED. BED LOCKED AND IN LOWEST POSITION, CALL LIGHT IN REACH. WILL ENDORSE TO DAY NURSE TO CONTINUE WITH PLAN OF CARE.
--- NOTE | 2016-12-26 07:30 | NUR ---
MS/RN Patient received Patient received from awake overnight monitor. Side rails X3 in upright position, brakes locked, call light within reach. Communication board with patient and able to make needs known. Will continue to monitor and ensure safety.
[2016-12-26 08:00] VITALS: BP 115/72
[2016-12-26 08:06] LABS: CALCIUM, SERUM 8.7 mg/dL (8.5-10.1); CREATININE 0.4 mg/dL (0.6-1.3); POTASSIUM 3.4 mmol/L (3.5-5.1)
[2016-12-26] MEDS: LACTOBACILLUS RHAMNOSUS GG 1 EACH CAP.SPRINK PO SCH ×2 (08:57→17:47)
[2016-12-26] MEDS: MULTIVIT, IRON, MIN NO. 8, FA 1 TAB PO SCH (08:57)
[2016-12-26] MEDS: ASCORBIC ACID 500 MG TABLET PO SCH ×2 (08:57→17:47)
[2016-12-26] MEDS: FERROUS SULFATE (325 MG) 325 MG/TAB TABLET PO SCH ×2 (08:57→17:47)
[2016-12-26] MEDS: GABAPENTIN 100 MG CAPSULE PO SCH ×2 (08:57→17:47)
[2016-12-26] MEDS: LINEZOLID 600 MG TABLET PO SCH ×2 (08:57→20:03)
[2016-12-26] MEDS: DOCUSATE SODIUM 100 MG CAPSULE PO SCH ×2 (08:57→17:47)
[2016-12-26] MEDS: FAMOTIDINE (20 MG) 20 MG TABLET PO SCH (08:58)
[2016-12-26] MEDS: DAKINS QUARTER STRENGTH (0.125%) 480 ML BOTTLE TOP SCH (08:58)
--- NOTE | 2016-12-26 09:00 | NUR ---
MS/RN Medications Able to swallow all oral medications without difficulty.
--- NOTE | 2016-12-26 11:00 | NUR ---
MS/RN S/B Dr Jacobs Seen by Dr Daniels - labs ordered for tomorrow, await CT scan results for staging.
[2016-12-26] MEDS: Z GUARD REMEDY 2 OZ OINT TP SCH (11:47)
[2016-12-26] MEDS ORDERED: POTASSIUM CHLORIDE 20 MEQ TAB.PRT.SR PO SCH (12:00)
--- NOTE | 2016-12-26 12:21 | NUR ---
MS/RN Potassium replaced Potassium level 3.4, replaced with 20meq oral.
--- NOTE | 2016-12-26 14:36 | NUR ---
MS/RN S/B Dr Yoo Seen by Dr Yoo - recommending GI consult due to mass in ascending colon.
--- NOTE | 2016-12-26 15:30 | NUR ---
MS/RN Dressing changed Dressing changed as ordered.
[2016-12-26 16:17] VITALS: BP 124/66
[2016-12-26] MEDS: AMIKACIN IV SCH (17:47)
[2016-12-26] MEDS: D5W IV SCH (17:47)
--- NOTE | 2016-12-26 18:22 | NUR ---
MS/RN End note All needs attended, skin kept clean and dry, left heel elevated on pillow to prevent skin breakdown. Will endorse to cook night.
[2016-12-26 20:00] VITALS: BP 117/59
[2016-12-26] MEDS: ENOXAPARIN SODIUM 40 MG/0.4 ML DISP.SYRIN SQ SCH (20:18)
--- NOTE | 2016-12-26 20:19 | NUR ---
RN NOTE; RECEIVED PT IN BED AWAKE AND ALERT. BREATHING EVENLY. NO SOB. NAD. SKIN WARM AND DRY. NO S/S OR C/O PAIN OR DISCOMFORT. F/C IN PLACE DRAINING CLEAR YELLOW URINE. ON ONGOING IVF HYDRATION RONALD WELL. MID LINE INTACT AND PATENT. WOUND'S DRESSING CDI. NEEDS ATTENDED. CALL LIGHT WITHIN REACH. WILL CONT TO MONITOR
--- NOTE | 2016-12-26 23:03 | NUR ---
PT NOTED W/ Na LEVEL OF 129 AND CURRENTLY ON 1/2NS AT 75ML/HR HYDRATION. HELD THE IVF TEMPORARY . WILL TRY TO GET A HOLD OF MD FOR POSSIBLE SWITCH TO NS OR D/C THE IVF HYDRATION.
[2016-12-27] MEDS: MEROPENEM 500 MG in IV NS 0.9% 50 ML IV SCH ×2 (05:06→17:40)
--- NOTE | 2016-12-27 06:40 | NUR ---
RN NOTE; PT IN BED SLEEPING, AROUSES EASILY. BREATHING EVENLY. NO SOB,. NAD. SKIN WARM AND DRY. F/C IN PLACE. WOUND CARE AND SKIN CARE PROVIDED. BED BATH GIVEN . ALL MEDS GIVEN ORDERED. ASSISTED W/ REPOSITIONING. CLEANED AND DRIED. NOTED W/ MINIMAL REDNESS ON THE MARIO. CALLED ICU AND REQUESTED MIDLINE TO BE EVALUATED BY A PICC LINE/ MID LINE NURSE. BED LOW LOCKED . CALL LIGHT WITHIN REACH. WILL CONT TO MONITOR AND WILL ENDORSE TO AM SHIFT FOR KEITH.
[2016-12-27 06:57] LABS: CREATININE 0.5 mg/dL (0.6-1.3); POTASSIUM 3.8 mmol/L (3.5-5.1)
--- NOTE | 2016-12-27 07:15 | NUR ---
MS RN NOTES RECEIVED PATIENT IN BED, ON ROOM AIR, TOLERATING WELL. MARIO ARM WITH MINIMAL REDNESS, IVF NOT INFUSING AT THIS TIME, MIDLINE TO BE CHECKED FOR EVAL PER NIGHT NIGHT. WILL F/U. PIRES CATH IN PLACE, DRAINING TO GRAVITY. APPEARS COMFORTABLE IN BED, NO C/O ANY DISCOMFORT. CALL LIGHT WITHIN REACH. ON CONTACT ISOLATION ESBL WOUND AND URINE. WILL CONT TO MONITOR.
[2016-12-27 08:00] VITALS: BP 106/67
[2016-12-27] MEDS: ASCORBIC ACID 500 MG TABLET PO SCH ×2 (08:17→16:12)
[2016-12-27] MEDS: LACTOBACILLUS RHAMNOSUS GG 1 EACH CAP.SPRINK PO SCH ×2 (08:17→16:12)
[2016-12-27] MEDS: FERROUS SULFATE (325 MG) 325 MG/TAB TABLET PO SCH ×2 (08:17→16:12)
[2016-12-27] MEDS: GABAPENTIN 100 MG CAPSULE PO SCH ×2 (08:18→16:12)
[2016-12-27] MEDS: MULTIVIT, IRON, MIN NO. 8, FA 1 TAB PO SCH (08:18)
[2016-12-27] MEDS: DOCUSATE SODIUM 100 MG CAPSULE PO SCH ×2 (08:18→16:12)
[2016-12-27] MEDS: LINEZOLID 600 MG TABLET PO SCH ×2 (08:18→20:27)
[2016-12-27] MEDS: FAMOTIDINE (20 MG) 20 MG TABLET PO SCH (08:18)
[2016-12-27] MEDS: Z GUARD REMEDY 2 OZ OINT TP SCH (08:44)
[2016-12-27] MEDS: DAKINS QUARTER STRENGTH (0.125%) 480 ML BOTTLE TOP SCH (08:45)
--- NOTE | 2016-12-27 09:30 | NUR ---
MARIO MIDLINE WAS EVALUATED AND REMOVED BY JOB-RN. BAR CATCHER WAS INFORMED, WILL RE INSERT ANOTHER MIDLINE.
--- NOTE | 2016-12-27 11:01 | NUR ---
PER NIXONBOGDAN, PATIENT RECEIVED PNA VACCINE ON 2015, VACCINATION STATUS UPDATED. Addendum: 12/27/16 at 1301 by TESS JIN RN DISREGARD ABOVE NOTES, NOT FOR THIS PATIENT.
[2016-12-27 16:00] VITALS: BP 133/79
--- NOTE | 2016-12-27 16:55 | NUR ---
HUMBERTO LUX G18 REINSERT BY SIMON/BENJAMIN. INFORMED PHARMACY TO ADJUST TIMING OF IV ANTIBIOTIC ORDERS.
[2016-12-27] MEDS: D5W IV SCH (18:12)
[2016-12-27] MEDS: AMIKACIN IV SCH (18:12)
--- NOTE | 2016-12-27 18:42 | NUR ---
MS RN CLOSING NOTES PATIENT IN BED, AWAKE. RESPIRATION EVEN AND NON LABORED. HUMBERTO MIDLINE PATENT AND INTACT, ON ANTIBIOTIC WITH NO ADVERSE REACTION, AFEBRILE. DRESSING CHANGED IN LEFT BUTTOCK, LEFT GROIN, AND RIGHT LOWER ABD. SURGICAL WOUND. PIRES CATH INTACT, DRAINING TO GRAVITY, URINE CLEAR AND YELLOW. SIDE RAILS UP X2, SAFETY MEASURES PROVIDED. BED LOW AND LOCKED. PER HYDROSTATIC TESTER-BOLA MILIAN, PATIENT TO BE EVALUATED BY DR. YOUSIF TOMORROW FOR WOUND DEBRIDEMENT OR POSSIBLE I&D ABSCESS. WILL ENDORSE TO CLIENT RELATIONSHIP EXECUTIVE RN FOR CONTINUITY OF CARE.
--- NOTE | 2016-12-27 19:09 | NUR ---
RN NOTE; RECEIVED PT IN BED AWAKE AND ALERT. RESPIRATION EVEN. NO SOB. NAD. SKIN WARM AND DRY. NO S/S OR C/O PAIN OR DISCOMFORT. F/C IN PLACE DRAINING CLEAR YELLOW URINE. ON ONGOING IVF HYDRATION RONALD WELL. MID LINE INTACT AND PATENT. WOUND'S DRESSING CDI. NEEDS ATTENDED. CALL LIGHT WITHIN REACH. WILL CONT TO MONITOR
[2016-12-27 20:00] VITALS: BP 115/63
[2016-12-27] MEDS: ENOXAPARIN SODIUM 40 MG/0.4 ML DISP.SYRIN SQ SCH (20:27)
[2016-12-27 20:36] VITALS: BP 115/63
[2016-12-28] MEDS: MEROPENEM 500 MG in IV NS 0.9% 50 ML IV SCH ×3 (00:28→16:07)
[2016-12-28] MEDS: IV 1/2NS 1000 ML 1,000 ML IV PRN ×3 (00:35→20:50)
--- NOTE | 2016-12-28 04:39 | NUR ---
ATIVAN IV GIVEN ORDERED FOR CONSTANT SCREAMING AND YELLING. WILL CONT TO MONITOR
--- NOTE | 2016-12-28 07:01 | NUR ---
RN NOTE; PT IN BED SLEEPING, AROUSES EASILY. BREATHING EVENLY. NO SOB,. NAD. SKIN WARM AND DRY. F/C IN PLACE. WOUND CARE AND SKIN CARE PROVIDED. BED BATH GIVEN . ALL MEDS GIVEN ORDERED. ASSISTED W/ REPOSITIONING. CLEANED AND DRIED. BED LOW LOCKED . CALL LIGHT WITHIN REACH. WILL CONT TO MONITOR AND WILL ENDORSE TO AM SHIFT FOR KEITH.
--- NOTE | 2016-12-28 07:15 | NUR ---
RN MS NOTES PATIENT ALERT AND ORIENTED X1, ABLE TO WRITE ON BOARD, BREATHING EVEN AND UNLABORED, NO DISTRESS NOTED, NO S/SX OF PAIN OR DISCOMFORT AT THIS TIME, NEEDS ATTENDED, TURNED AND REPOSITIONED, IVF 1/2NS AT 75ML/HR, INFUSING WELL, SAFETY MEASURES IN PLACED, CALL LIGHT WITHIN REACH, WILL CONTINUE TO MONITOR.
[2016-12-28 07:40] LABS: CALCIUM, SERUM 8.2 mg/dL (8.5-10.1); CREATININE 0.6 mg/dL (0.6-1.3); POTASSIUM 3.4 mmol/L (3.5-5.1)
[2016-12-28 08:00] VITALS: BP 107/67
[2016-12-28] MEDS: FERROUS SULFATE (325 MG) 325 MG/TAB TABLET PO SCH ×2 (08:23→16:09)
[2016-12-28] MEDS: LACTOBACILLUS RHAMNOSUS GG 1 EACH CAP.SPRINK PO SCH ×2 (08:23→16:09)
[2016-12-28] MEDS: MULTIVIT, IRON, MIN NO. 8, FA 1 TAB PO SCH (08:23)
[2016-12-28] MEDS: DOCUSATE SODIUM 100 MG CAPSULE PO SCH ×2 (08:23→16:09)
[2016-12-28] MEDS: LINEZOLID 600 MG TABLET PO SCH (08:23)
[2016-12-28] MEDS: FAMOTIDINE (20 MG) 20 MG TABLET PO SCH (08:23)
[2016-12-28] MEDS: ASCORBIC ACID 500 MG TABLET PO SCH ×2 (08:23→16:09)
[2016-12-28] MEDS: Z GUARD REMEDY 2 OZ OINT TP SCH (08:23)
[2016-12-28] MEDS: DAKINS QUARTER STRENGTH (0.125%) 480 ML BOTTLE TOP SCH (08:23)
[2016-12-28] MEDS: GABAPENTIN 100 MG CAPSULE PO SCH ×2 (08:23→16:09)
[2016-12-28] MEDS ORDERED: POTASSIUM CHLORIDE 20 MEQ TAB.PRT.SR PO ONE (10:00)
--- NOTE | 2016-12-28 11:30 | NUR ---
RN MS NOTES PATIENT SEEN BY DR. ELVA YOUSIF WOUND DEBRIDEMENT DONE AT BEDSIDE, WOUND TREATMENT RENDERED, PATIENT TOLERATED PROCEDURE, KEPT IN A COMFORTABLE POSITION. DR. JACQUES MADE AWARE OF DEBRIDEMENT. SAFETY MEASURES IN PLACED, WILL CONTINUE TO MONITOR.
--- NOTE | 2016-12-28 16:31 | NUR ---
RN MS NOTES VITAL SIGNS SHOWS, TEMP 100.8, BP 142/79, HR 143, SPO2 94% IN ROOM AIR, NOTED PATIENT COUGHING INTERMITTENTLY, AND APPEARS RESTLESS, NO S/SX OF DISTRESS, NO SOB NOTED. PATIENT CONTINUES TO BE ALERT AND ORIENTED X1, NO CHANGE IN LOC. PAGED DR. JACQUES AND INFORMED OF CHANGES, RECEIVED ORDER FOR CXR STAT AND EKG STAT, ORDER NOTED AND CARRIED OUT. WILL CONTINUE TO MONITOR.
[2016-12-28] MEDS: AMIKACIN IV SCH (17:02)
[2016-12-28] MEDS: D5W IV SCH (17:02)
--- NOTE | 2016-12-28 17:08 | NUR ---
RN MS NOTES EKG AND CXR DONE, AWAITING FOR CXR RESULT AND WILL RELAY TO DR. JACQUES. PATIENT'S HR 141 AT THIS TIME, ASYMPTOMATIC, SPO2 95% IN ROOM AIR, NO SOB NOTED, PATIENT WITH INTERMITTENT COUGHING. HOB KEPT ELEVATED, NO S/SX OF DISTRESS AT THIS TIME, WILL CONTINUE TO MONITOR.
--- NOTE | 2016-12-28 17:38 | NUR ---
RN MS NOTES VITAL SIGNS RECHECKED, PATIENT RESTING QUIETLY, CALM, BP 126/79, HR 138, R 20, T 98.2, SPO2 96% RA, NO TYLENOL GIVEN, PAGED DR. JACQUES, AWAITING FOR A CALL BACK.
--- NOTE | 2016-12-28 17:55 | NUR ---
RN MS NOTES PAGED DR. JACQUES AGAIN, STILL AWAITING FOR A CALL BACK. PATIENT IS IN NO DISTRESS, WILL CONTINUE TO MONITOR.
--- NOTE | 2016-12-28 18:25 | NUR ---
BENJAMIN DWYER NOTES RECEIVED ORDER FROM DR. JACQUES, TO HOLD DISCHARGE AND TRANSFER PATIENT TO TELEMETRY FOR CONTINUOUS MONITORING. ORDER NOTED AND CARRIED OUT. NURSING OFFICE MACHINES TEACHER MADE AWARE AND WILL MAKE ARRANGEMENTS. Addendum: 12/28/16 at 1837 by CHEL GARVEY RN ADDENDUM: RELAYED EKG RESULT AND CXR RESULT TO DR. JACQUES AND RECEIVED ORDER.
--- NOTE | 2016-12-28 18:41 | NUR ---
RN MS NOTES NOTED PATIENT COUGHING DURING MEALS, PATIENT PLACED ON NPO AND ORDERED SWALLOW EVAL. FOR ASPIRATION PRECAUTION. DR. JACQUES MADE AWARE.
--- NOTE | 2016-12-28 19:10 | NUR ---
RN MS NOTES PATIENT WILL BE TRANSFERRED TO ROOM 319 FOR TELEMETRY, REPORT GIVEN TO GIOVANNI ALEXANDER.
--- NOTE | 2016-12-28 19:30 | NUR ---
ms rn note Received patient awake and alert in bed. No distress or noted. HUMBERTO midline intact, with fluids running as ordered. Cody catheter intact, with yellow urine draining to collection bag. Dressings to wound C/D/I at this time. bed lcoked and in lowest position, side rails up, call light within reach. will continue to monitor.
[2016-12-28 19:55] VITALS: BP 102/65
--- NOTE | 2016-12-28 20:10 | NUR ---
RADIOGRAPHER CARDIAC CATHETERIZATION INITIAL NOTES PT WS TRANSFERRED FROM [place] [id number]. PT CAME TO FLOOR VIA GURNEY. BREATHING EVENLY AND UNLABORED ON ROOM AIR. NO SIGNS OF SOB OR DISTRESS. TELE MONITOR SHOWS ST-126. HUMBERTO MIDLINE INTACT AND PATENT. CONTINUING ABX AND IVF HYDRATION. PT USES BOARD TO COMMUNICATE AND HAS IT AT BEDSIDE. BED IS IN LOW AND LOCKED POSITION. WILL CONTINUE TO MONITOR
--- NOTE | 2016-12-28 20:15 | NUR ---
radio television announcer note patient transferred to room 319 in stable condition. Report given to gomez Ybarra.
[2016-12-28] MEDS: LINEZOLID RTU BAG 600 MG in PREMIX 1 EA IV SCH (20:49)
[2016-12-28] MEDS: ENOXAPARIN SODIUM 40 MG/0.4 ML DISP.SYRIN SQ SCH (20:52)
[2016-12-28 21:00] VITALS: BP 124/68
[2016-12-29] VITALS: BP 104/72
[2016-12-29] MEDS: MEROPENEM 500 MG in IV NS 0.9% 50 ML IV SCH ×3 (00:02→16:46)
[2016-12-29 04:00] VITALS: BP 121/78
[2016-12-29 05:56] LABS: CALCIUM, SERUM 8.5 mg/dL (8.5-10.1); CREATININE 0.5 mg/dL (0.6-1.3); POTASSIUM 3.4 mmol/L (3.5-5.1)
--- NOTE | 2016-12-29 06:51 | NUR ---
MICA MINER BLASTING CLOSING NOTES PT IS IN BED RESTING, IV FLUIDS INFUSING. NPO STATUS AND ISOLATION PRECAUTIONS MAINTAINED. TELE MONITOR SHOWS ST 120. NO SIGNS OF SOB OR DISTRESS. BREATHING EVENLY AND UNLABORED OR RA. WILL ENDORSE TO DAYSHIFT.
--- NOTE | 2016-12-29 07:30 | NUR ---
radio mechanic initial notes Received patient in bed, awake, head of bed elevated, no SOB or distress noted, on room air with 02 saturation of 98%. Midline on the left upper arm patent and intact with IVF infusing well, wasserman in placed attached to drainage bag with no sediment noted. Kept patient clean and comfortable in bed, call light with in patient reach, will continue to monitor accordingly.
[2016-12-29 08:00] VITALS: BP 112/70
[2016-12-29] MEDS: LACTOBACILLUS RHAMNOSUS GG 1 EACH CAP.SPRINK PO SCH ×2 (09:00→16:46)
[2016-12-29] MEDS: ASCORBIC ACID 500 MG TABLET PO SCH ×2 (09:00→16:46)
[2016-12-29] MEDS: FERROUS SULFATE (325 MG) 325 MG/TAB TABLET PO SCH ×2 (09:00→16:46)
[2016-12-29] MEDS: DOCUSATE SODIUM 100 MG CAPSULE PO SCH ×2 (09:00→16:47)
[2016-12-29] MEDS: FAMOTIDINE (20 MG) 20 MG TABLET PO SCH (09:00)
[2016-12-29] MEDS: GABAPENTIN 100 MG CAPSULE PO SCH ×2 (09:00→16:47)
[2016-12-29] MEDS: MULTIVIT, IRON, MIN NO. 8, FA 1 TAB PO SCH (09:00)
[2016-12-29] MEDS: DAKINS QUARTER STRENGTH (0.125%) 480 ML BOTTLE TOP SCH (09:21)
[2016-12-29] MEDS: Z GUARD REMEDY 2 OZ OINT TP SCH (09:21)
--- NOTE | 2016-12-29 09:36 | NUR ---
telemetry registered nurse notes All oral medication held due to patient is npo. will continue to monitor accordingly.
[2016-12-29] MEDS: LINEZOLID RTU BAG 600 MG in PREMIX 1 EA IV SCH ×2 (10:21→20:20)
[2016-12-29 12:00] VITALS: BP 107/64
[2016-12-29] MEDS: POTASSIUM CL. PREMIX PERIPHER. 50 ML IV SCH ×2 (14:02→15:15)
[2016-12-29] MEDS: IV 1/2NS 1000 ML 1,000 ML IV PRN (14:02)
[2016-12-29 16:00] VITALS: BP 118/67
[2016-12-29] MEDS: D5W IV SCH (18:52)
[2016-12-29] MEDS: AMIKACIN IV SCH (18:52)
--- NOTE | 2016-12-29 19:25 | NUR ---
SHOOTER HELPER OPENING NOTES: RECEIVED PT RESTING IN BED AND IS WRITING ON HIS BOARD. PT IS NONVERBAL AND IS TOLERATING ROOM AIR WELL. NO SIGNS OF SOB OR DISTRESS. HUMBERTO MIDLINE INTACT AND PATENT AND IS BEING INFUSED WITH 1/2NS AT 75ML/HR. CALL LIGHT WITHIN PT'S REACH. BED KEPT IN LOW, LOCKED POSITION, AND SIDE RAILS X 2 UP. WILL CONTINUE TO MONITOR PT.
--- NOTE | 2016-12-29 19:48 | NUR ---
telegraph office manager closing notes All needs provided, attended, and anticipated. Kept patient clean and comfortable in bed, call light with in patient reach, endorsed to next shift RN to continue care. on tele monitor ST 105. Cody output of 1350.
[2016-12-29 20:00] VITALS: BP 114/65
[2016-12-29] MEDS: ENOXAPARIN SODIUM 40 MG/0.4 ML DISP.SYRIN SQ SCH (21:21)
[2016-12-30] VITALS: BP 108/67
[2016-12-30] MEDS: MEROPENEM 500 MG in IV NS 0.9% 50 ML IV SCH ×2 (00:03→08:45)
[2016-12-30 04:00] VITALS: BP 114/71
--- NOTE | 2016-12-30 07:30 | NUR ---
PHOTO MASK PATTERN GENERATOR CLOSING NOTES: ALL NEEDS WERE ATTENDED AND ANTICIPATED FOR. PT IS AWAKE WITH HIS HOB ELEVATED. PT IS CLAPPING AND IS NON-VERBAL BUT STILL ABLE TO MAKE SOME SOUNDS. PT IS TOLERATING ROOM AIR WELL. NO SIGNS OF SOB OR DISTRESS. HUMBERTO MIDLINE INTACT AND PATENT AND IS BEING INFUSED WITH 1/2NS AT 75ML/HR. CALL LIGHT WITHIN PT'S REACH. BED KEPT IN LOW, LOCKED POSITION, AND SIDE RAILS X 2 UP. PT ON TELE BOX AND SHOWS SR 90- ST 103. PT ALSO HAS PIRES CATH AND IS ATTACHED TO DRAINAGE BAG WITH URINE DRAINING. PIRES CATH OUTPUT WAS 1800ML. WOUND TREATMENT PERFORMED ORDERED. ENDORSED TO AM NURSE FOR KEITH.
[2016-12-30 08:00] VITALS: BP 117/68
--- NOTE | 2016-12-30 08:45 | NUR ---
BRAZING FURNACE OPERATOR OPENING NOTES PT RESTING IN BED. PT NONVERBAL. NO APPARENT S/S OF DISTRESS OR PAIN. PT TELE MONITORED SINUS TACHYCARDIA RATE 120. PT PIRES CATHETER INTACT. PT MIDLINE INTACT AND IVF NS .45% RUNNING @75ML/HR. PT TOLERATING FLUIDS WELL. WILL CONTINUE TO MONITOR. CALL LIGHT WITHIN REACH.
[2016-12-30] MEDS: GABAPENTIN 100 MG CAPSULE PO SCH ×2 (08:46→17:55)
[2016-12-30] MEDS: FAMOTIDINE (20 MG) 20 MG TABLET PO SCH (08:46)
[2016-12-30] MEDS: DOCUSATE SODIUM 100 MG CAPSULE PO SCH ×2 (08:46→17:55)
[2016-12-30] MEDS: FERROUS SULFATE (325 MG) 325 MG/TAB TABLET PO SCH ×2 (08:46→17:55)
[2016-12-30] MEDS: LACTOBACILLUS RHAMNOSUS GG 1 EACH CAP.SPRINK PO SCH ×2 (08:46→17:55)
[2016-12-30] MEDS: MULTIVIT, IRON, MIN NO. 8, FA 1 TAB PO SCH (08:46)
[2016-12-30] MEDS: ASCORBIC ACID 500 MG TABLET PO SCH ×2 (08:46→17:55)
[2016-12-30] MEDS: Z GUARD REMEDY 2 OZ OINT TP SCH (08:47)
[2016-12-30] MEDS: DAKINS QUARTER STRENGTH (0.125%) 480 ML BOTTLE TOP SCH (08:48)
[2016-12-30 09:46] LABS: BASOPHILS % (AUTO) 0.4 % (0.0-2.0); EOSINOPHILS # (AUTO) 0.1 /CMM (0.0-0.7); EOSINOPHILS % (AUTO) 2.8 % (0.0-6.0); HEMATOCRIT 27 % (39-51); HEMOGLOBIN 8.4 g/dL (13.5-17.5); LYMPHOCYTES # (AUTO) 0.6 /CMM (0.8-4.8); MEAN CORPUSCULAR HEMOGLOBIN 22 PG (26.0-33.0); MEAN CORPUSCULAR HGB CONC 32 g/dl (31.0-36.0); MEAN CORPUSCULAR VOLUME 71 fL (80-96); MONOCYTES # (AUTO) 0.5 /CMM (0.1-1.30); MONOCYTES % (AUTO) 11.2 % (2.0-12.0); NEUTROPHILS # (AUTO) 3.6 /CMM (1.8-8.9); NEUTROPHILS % (AUTO) 73.6 % (43.0-81.0); PLATELET COUNT (AUTO) 299 /CMM (150-450); RDW COEFFICIENT OF VARIATION 18.9 (11.5-15.0); RED BLOOD CELL COUNT(AUTO) 3.74 MIL/uL (4.5-6.0); WHITE BLOOD COUNT (AUTO) 4.8 K/uL (4.3-11.0)
[2016-12-30] MEDS: LINEZOLID RTU BAG 600 MG in PREMIX 1 EA IV SCH (09:53)
[2016-12-30 09:58] LABS: CALCIUM, SERUM 8.7 mg/dL (8.5-10.1); CREATININE 0.6 mg/dL (0.6-1.3); POTASSIUM 3.3 mmol/L (3.5-5.1)
[2016-12-30 11:26] LABS: EOSINOPHILS % (MANUAL) 1 % (0-4); LYMPHOCYTES % (MANUAL) 17 % (16-48); MONOCYTES % (MANUAL) 11 % (0-11.0); NEUTROPHILS % (MANUAL) 71 (42-76)
[2016-12-30] MEDS: METOPROLOL TARTRATE 25 MG TABLET PO SCH ×2 (11:35→20:31)
[2016-12-30] MEDS: IV 1/2NS 1000 ML 1,000 ML IV PRN (14:25)
[2016-12-30 16:00] VITALS: BP 121/70
--- NOTE | 2016-12-30 18:41 | NUR ---
RN MS NOTES PT RESTING IN BED. PT NONVERBAL, PT COMMUNICATES WITH WRITING ON A BOARD. NO APPARENT S/S OF DISTRESS OR PAIN. TOLERATING IVF WELL. PT MIDLINE INTACT. PT PIRES CATHETER INTACT. PT VITAL SIGNS STABLE. KEPT PT CALM AND COMFORTABLE. CALL LIGHT WITHIN REACH.
[2016-12-30] MEDS: PIPERACILLIN /TAZOBACTAM 3.375 G in IV D5W 50 ML IV SCH (18:54)
[2016-12-30 20:00] VITALS: BP 132/70
--- NOTE | 2016-12-30 20:06 | NUR ---
MS/RN OPENING NOTES PATIENT IN BED, AWAKE, ALERT X2. NON VERBAL BUT CAN CLAP HANDS AND USE SIGN BOARD. PULSE RATE AT 110. MD CALLED AND AWAITING FOR RETURN CALL. PLATEST POTASSIUM AT 0945 AT 3.3L AND NEED TO BE REPLACED. WILL CONTINUE SOME IV ATB . WILL CONTINUE TO MONITOR.
[2016-12-30] MEDS: AMIKACIN IV SCH (20:16)
[2016-12-30] MEDS: D5W IV SCH (20:16)
--- NOTE | 2016-12-30 20:30 | NUR ---
MS/RN NOTES RECEIVED ORDER FROM MD REGARDING LATEST POTASSIUM 12/30 RESULT 0945, SAID TO CHECK LABS IN THE AM. TO GIVE LOVENOX PER MD, REPORTED HGB LEVEL 8.4 L, NO BLEEDING, PATIENT ON BED REST.
[2016-12-30] MEDS: ENOXAPARIN SODIUM 40 MG/0.4 ML DISP.SYRIN SQ SCH (20:32)
[2016-12-31] MEDS: PIPERACILLIN /TAZOBACTAM 3.375 G in IV D5W 50 ML IV SCH ×3 (00:16→11:56)
[2016-12-31 05:23] VITALS: BP 132/70
--- NOTE | 2016-12-31 06:31 | NUR ---
319-2 MS/RN NOTES PATIENT ABLE TO SLEEP DURING THE NIGHT. RESPIRATIONS EVEN AND UNLABORED, KEPT SKIN INTACT AND DRY, IV ATB ADMINISTERED W/ NO S/S OF ADVERSE REACTION. OFF LOAD AND KEPT PATIENT COMFORTABLE. TOLERATED MEDS W/ APPLE SAUCE. WILL FOLLOW UP AM LABS. PULSE RATE IN 100.
--- NOTE | 2016-12-31 07:05 | NUR ---
RN NOTES, INITIAL: PATIENT RESTING IN BED. PATIENT NONVERBAL AND AROUSABLE TO NAME. NO SIGNS OF DISTRESS NOTED ON ROOM AIR. NO FACIAL GRIMACING NOTED. MIDLINE PATENT AND INTACT. BED IN LOWEST LOCKED POSITION. CALL LIGHT WITHIN REACH. WILL CONTINUE TO MONITOR
[2016-12-31 08:00] VITALS: BP 108/52
[2016-12-31 08:31] LABS: BASOPHILS % (AUTO) 0.3 % (0.0-2.0); EOSINOPHILS # (AUTO) 0.1 /CMM (0.0-0.7); HEMATOCRIT 26 % (39-51); HEMOGLOBIN 8.6 g/dL (13.5-17.5); LYMPHOCYTES # (AUTO) 0.7 /CMM (0.8-4.8); LYMPHOCYTES % (AUTO) 14.2 % (20.0-44.0); MEAN CORPUSCULAR HEMOGLOBIN 23 PG (26.0-33.0); MEAN CORPUSCULAR HGB CONC 33 g/dl (31.0-36.0); MEAN CORPUSCULAR VOLUME 71 fL (80-96); MONOCYTES # (AUTO) 0.5 /CMM (0.1-1.30); MONOCYTES % (AUTO) 10.5 % (2.0-12.0); NEUTROPHILS # (AUTO) 3.4 /CMM (1.8-8.9); PLATELET COUNT (AUTO) 329 /CMM (150-450); RDW COEFFICIENT OF VARIATION 18.7 (11.5-15.0); WHITE BLOOD COUNT (AUTO) 4.8 K/uL (4.3-11.0)
[2016-12-31] MEDS: LACTOBACILLUS RHAMNOSUS GG 1 EACH CAP.SPRINK PO SCH (09:26)
[2016-12-31] MEDS: ASCORBIC ACID 500 MG TABLET PO SCH (09:26)
[2016-12-31] MEDS: GABAPENTIN 100 MG CAPSULE PO SCH (09:26)
[2016-12-31] MEDS: MULTIVIT, IRON, MIN NO. 8, FA 1 TAB PO SCH (09:26)
[2016-12-31] MEDS: FERROUS SULFATE (325 MG) 325 MG/TAB TABLET PO SCH (09:26)
[2016-12-31 09:27] VITALS: BP 108/52
[2016-12-31] MEDS: METOPROLOL TARTRATE 25 MG TABLET PO SCH (09:27)
[2016-12-31] MEDS: DOCUSATE SODIUM 100 MG CAPSULE PO SCH (09:27)
[2016-12-31] MEDS: FAMOTIDINE (20 MG) 20 MG TABLET PO SCH (09:27)
[2016-12-31] MEDS: DAKINS QUARTER STRENGTH (0.125%) 480 ML BOTTLE TOP SCH (09:28)
[2016-12-31] MEDS: Z GUARD REMEDY 2 OZ OINT TP SCH (09:29)
[2016-12-31] MEDS: Z GUARD REMEDY 2 OZ OINT TP PRN (09:29)
[2016-12-31 10:26] LABS: BAND % (MANUAL) 2 % (0.0-5.0); LYMPHOCYTES % (MANUAL) 4 % (16-48); MONOCYTES % (MANUAL) 4 % (0-11.0); NEUTROPHILS % (MANUAL) 90 (42-76)
[2016-12-31 11:33] LABS: CALCIUM, SERUM 8.4 mg/dL (8.5-10.1); CREATININE 0.6 mg/dL (0.6-1.3)
[2016-12-31 11:35] LABS: POTASSIUM 2.8 mmol/L (3.5-5.1)
--- NOTE | 2016-12-31 11:58 | NUR ---
RN NOTES: LAB CALLED WITH POTASSIUM RESULTS OF 2.8. DR ESTRELLA INFORMED. HE ORDERED POTASSIUM 60MEQ PO ONCE
[2016-12-31] MEDS ORDERED: POTASSIUM CHLORIDE 20 MEQ TAB.PRT.SR PO ONE (12:00)
--- NOTE | 2016-12-31 14:22 | NUR ---
RN NOTES: PATIENT DISCHARGED TO [facility] PER MD ORDERS. PATIENT STABLE. VS WNL. NONLABORED BREATHING ON ROOM AIR. MEDICATION LIST ATTACHED, SAMUEL BARLOW, GIVEN TO PATIENT. REPORT GIVEN TO RN, NORTH, AT [facility]. MIDLINE ON LEFT UPPER ARM INTACT AND PATENT. PIRES CATHETER DRAINING YELLOW CLEAR URINE. WOUND TREATMENT DONE DURING SHIFT, PATIENT TURNED AND REPOSITIONED EVERY 2 HOURS BEFORE LEAVING. PNEUMONIA VACCINE NOT ADMINISTERED DUE TO PATIENT'S AGE. FLU VACCINE GIVEN EARLIER IN THE MONTH. PATIENT LEFT WITH TRANSPORTERS.
--- NOTE | 2016-12-31 14:26 | NUR ---
RN NOTES: PATIENT DISCHARGED TO [facility] PER MD ORDERS. PATIENT STABLE. VS WNL. NONLABORED BREATHING ON ROOM AIR. MEDICATION LIST ATTACHED, SAMUEL BARLOW, GIVEN TO PATIENT. REPORT GIVEN TO RN, NORTH, AT [facility]. MIDLINE ON LEFT UPPER ARM INTACT AND PATENT. PIRES CATHETER DRAINING YELLOW CLEAR URINE. WOUND TREATMENT DONE DURING SHIFT, PATIENT TURNED AND REPOSITIONED EVERY 2 HOURS BEFORE LEAVING. PNEUMONIA VACCINE NOT ADMINISTERED DUE TO PATIENT'S AGE. FLU VACCINE GIVEN EARLIER IN THE MONTH. PATIENT LEFT WITH TRANSPORTERS. PATIENT'S NEXT OF KIN CONTACTED. HOWEVER, UNABLE TO REACH THEM DUE. PHONE NUMBER DID NOT MATCH WITH THE NAME THAT WAS GIVEN ON THE FACESHEET. WOUND PICTURES TAKEN AND PLACED IN CHART
--- NOTE | 2016-12-31 14:26 | NUR ---
RN NOTES: PATIENT DISCHARGED TO [facility] PER MD ORDERS. PATIENT STABLE. VS WNL. NONLABORED BREATHING ON ROOM AIR. MEDICATION LIST ATTACHED, SAMUEL BARLOW, GIVEN TO PATIENT. REPORT GIVEN TO RN, NORTH, AT [facility]. MIDLINE ON LEFT UPPER ARM INTACT AND PATENT. PIRES CATHETER DRAINING YELLOW CLEAR URINE. WOUND TREATMENT DONE DURING SHIFT, PATIENT TURNED AND REPOSITIONED EVERY 2 HOURS BEFORE LEAVING. PNEUMONIA VACCINE NOT ADMINISTERED DUE TO PATIENT'S AGE. FLU VACCINE GIVEN EARLIER IN THE MONTH. PATIENT LEFT WITH TRANSPORTERS. PATIENT'S NEXT OF KIN CONTACTED. HOWEVER, UNABLE TO REACH THEM DUE. PHONE NUMBER DID NOT MATCH WITH THE NAME THAT WAS GIVEN ON THE FACESHEET
== END 2016-12-31 14:30 | DRG 573 ==
LOC: ER 16:13 → MED 19:05 → MEDSG2 12-25 09:40 → TELE 12-28 20:15 → MED 12-30 08:53
PROVIDERS: ADMIT Nurse Practitioner Acute Care; ATTEND Nurse Practitioner Acute Care
PROC: 05H533Z Insertion of Infusion Device into Right Subclavian Vein, Percutaneous Approach (ICD-10-PCS; 2016-12-27)
PROC: 05H633Z Insertion of Infusion Device into Left Subclavian Vein, Percutaneous Approach (ICD-10-PCS; 2016-12-27)
PROC: 0KBP0ZZ Excision of Left Hip Muscle, Open Approach (ICD-10-PCS; principal; 2016-12-28)
PROC: 0YBD0ZZ Excision of Left Upper Leg, Open Approach (ICD-10-PCS; 2016-12-28)
DX: L89.154 Pressure ulcer of sacral region, stage 4 (principal); E43 Unspecified severe protein-calorie malnutrition; G93.40 Encephalopathy, unspecified; R53.2 Functional quadriplegia; D68.59 Other primary thrombophilia; C76.3 Malignant neoplasm of pelvis; C18.2 Malignant neoplasm of ascending colon; M86.9 Osteomyelitis, unspecified; N39.0 Urinary tract infection, site not specified; S71.102A Unspecified open wound, left thigh, initial encounter; F20.9 Schizophrenia, unspecified; F79 Unspecified intellectual disabilities; Q05.9 Spina bifida, unspecified; Z74.01 Bed confinement status; Z89.511 Acquired absence of right leg below knee; Z88.1 Allergy status to other antibiotic agents; Z85.828 Personal history of other malignant neoplasm of skin; S71.102S Unspecified open wound, left thigh, sequela; X58.XXXS Exposure to other specified factors, sequela; I10 Essential (primary) hypertension; Z79.899 Other long term (current) drug therapy; Z87.440 Personal history of urinary (tract) infections; K21.0 Gastro-esophageal reflux disease with esophagitis; B96.89 Other specified bacterial agents as the cause of diseases classified elsewhere; F32.9 Major depressive disorder, single episode, unspecified; D50.9 Iron deficiency anemia, unspecified; S31.103A Unspecified open wound of abdominal wall, right lower quadrant without penetration into peritoneal cavity, initial encounter; S31.104A Unspecified open wound of abdominal wall, left lower quadrant without penetration into peritoneal cavity, initial encounter; X58.XXXA Exposure to other specified factors, initial encounter; K20.9 Esophagitis, unspecified; Y92.129 Unspecified place in nursing home as the place of occurrence of the external cause; R91.1 Solitary pulmonary nodule
CPT/HCPCS: 36415; 36569; 71010-TC; 71270-TC; 74178; 80048-TC; 80076-TC; 80150; 81000-TC; 82378; 82728-TC; 83540-TC; 83605-TC; 83735-TC; 84100-TC; 84484-TC; 85025-TC; 85045-TC; 85730-TC; 87040-TC; 87070-TC; 87081-TC; 87086-TC; 87186-TC; 92611-TC; A4216; A4606; A6248; A6253; A6402; A6403; J0278; J0692; J1650; J2020; J2060; J2185; J2543; J3480; J3490; J7050; J7060; Q9967; Z7610

== ENCOUNTER 2017-01-14 10:46 | Inpatient (IN) | payer MEDICARE, MEDICAID ==
[~2017-01-14] VITALS: Ht 167.6 cm; Wt 66.2 kg
[~2017-01-14 10:46] MED LIST changes: -ACID1TAB4 PO; +CRAN450C PO; -FERR1TAB44 PO; +GABA100C PO; -LEVO500T15 PO; +MAGN400O6 PO; -MIRT15TA PO; +MIRT7.5T10 PO; +NA P133E RC; +NUTR1PAC14 PO; -PROT946L PO; -RXGEN XX; +SACC250C6 PO
--- NOTE | 2017-01-14 11:10 | NUR ---
CARL MOODY FROM [facility] DISCHARGE ON R SUPRAPUBIC WOUND IKERE, ENA NOTED, VSS, COMMUNICATES USING SAMUEL VALDEZ MD AT BS.
[2017-01-14] MEDS ORDERED: METO25TA20 PO (11:14)
[2017-01-14] MEDS ORDERED: AMIN30LI4 PO (11:14)
[2017-01-14] MEDS ORDERED: BISA10SU8 RC (11:14)
[2017-01-14] MEDS ORDERED: ZINC220C8 PO (11:14)
[2017-01-14] MEDS ORDERED: ENOX40DI SQ (11:14)
[2017-01-14] MEDS ORDERED: FERR-58 PO (11:14)
[2017-01-14] MEDS ORDERED: IV NS 0.9% 1,000 ML BAG IV ONE ×2 (11:30)
[2017-01-14] MEDS ORDERED: PIPERACILLIN /TAZOBACTAM 3.375 G in IV D5W 50 ML IV ONE (11:30)
[2017-01-14 12:00] LABS: BILIRUBIN,URINE Negative (NEGATIVE); BLOOD, URINE Trace-lysed Ery/uL (NEGATIVE); COLOR,URINE Yellow (YELLOW); KETONES,URINE Negative (NEGATIVE); LEUKOCYTE ESTERASE ,URINE Moderate (NEGATIVE); NITRITE, URINE Negative (NEGATIVE); PROTEIN,URINE Negative (NEGATIVE); UGLUCOSE Negative (NEGATIVE); UROBILINOGEN,URINE 0.2 EU/dL (0.2)
[2017-01-14 12:00] LABS: BASOPHILS # (AUTO) 0.2 /CMM (0.0-0.2); EOSINOPHILS # (AUTO) 0.5 /CMM (0.0-0.7); HEMOGLOBIN 8.4 g/dL (13.5-17.5); MONOCYTES # (AUTO) 0.8 /CMM (0.1-1.30)
[2017-01-14 12:05] LABS: APPEARANCE,URINE HAZY (CLEAR)
[2017-01-14 12:07] LABS: BASOPHILS % (AUTO) 2.3 % (0.0-2.0); EOSINOPHILS % (AUTO) 5.3 % (0.0-6.0); HEMATOCRIT 27 % (39-51); LYMPHOCYTES # (AUTO) 1.4 /CMM (0.8-4.8); LYMPHOCYTES % (AUTO) 15.9 % (20.0-44.0); MEAN CORPUSCULAR HEMOGLOBIN 22 PG (26.0-33.0); MEAN CORPUSCULAR HGB CONC 31 g/dl (31.0-36.0); MEAN CORPUSCULAR VOLUME 71 fL (80-96); MONOCYTES % (AUTO) 8.9 % (2.0-12.0); NEUTROPHILS % (AUTO) 67.6 % (43.0-81.0); PLATELET COUNT (AUTO) 420 /CMM (150-450); RDW COEFFICIENT OF VARIATION 18.1 (11.5-15.0); RED BLOOD CELL COUNT(AUTO) 3.79 MIL/uL (4.5-6.0); WHITE BLOOD COUNT (AUTO) 8.9 K/uL (4.3-11.0)
[2017-01-14 12:13] LABS: CALCIUM, SERUM 9.8 mg/dL (8.5-10.1); CARBON DIOXIDE 30 mmol/L (21-32); CHLORIDE 101 mmol/L (98-107); CREATININE 0.5 mg/dL (0.6-1.3); GLUCOSE 96 mg/dL (74-106); POTASSIUM 3.6 mmol/L (3.5-5.1); SODIUM SERUM 133 mmol/L (136-145); UREA NITROGEN, BLOOD 18 mg/dL (7-18)
[2017-01-14 12:16] LABS: INR 0.96 (0.87-1.13)
[2017-01-14 12:19] LABS: ALANINE AMINOTRANSFERASE 20 U/L (12-78); ALBUMIN 1.5 g/dL (3.4-5.0); ALKALINE PHOSPHATASE 167 U/L (46-116); ASPARTATE AMINOTRANSFERASE 39 U/L (15-37); BILIRUBIN,TOTAL 0.2 mg/dL (0.2-1.0); TOTAL PROTEIN, SERUM 7.8 g/dL (6.4-8.2)
[2017-01-14 12:21] LABS: TROPONIN I < 0.017 ng/mL (0.00-0.056)
[2017-01-14 12:22] LABS: BACTERIA,URINE Few /HPF (None Seen)
[2017-01-14 12:23] LABS: SQUAMOUS EPITHELIAL CELL,UR Few /HPF (None Seen)
[2017-01-14 12:41] LABS: EOSINOPHILS % (MANUAL) 5 % (0-4); LYMPHOCYTES % (MANUAL) 22 % (16-48); MONOCYTES % (MANUAL) 6 % (0-11.0); NEUTROPHILS % (MANUAL) 67 (42-76)
--- NOTE | 2017-01-14 13:26 | NUR ---
WOUND CULTURE SENT TO LAB
[2017-01-14] MEDS ORDERED: VANCOMYCIN 1 GM in IV D5W 250 ML IV SCH (13:30)
[2017-01-14] MEDS ORDERED: ONDANSETRON HCL/PF 4 MG/2 ML VIAL IVP PRN (13:30)
[2017-01-14] MEDS ORDERED: ACETAMINOPHEN 325 MG TABLET PO PRN (13:30)
[2017-01-14] MEDS ORDERED: MAGNESIUM HYDROXIDE 30 ML UDC PO PRN (13:30)
[2017-01-14] MEDS ORDERED: Z GUARD REMEDY 2 OZ OINT TP PRN (13:30)
[2017-01-14] MEDS ORDERED: CLONIDINE HCL 0.1 MG TABLET PO PRN (13:30)
[2017-01-14] MEDS ORDERED: NA PHOS,M-B/NA PHOS,DI-BA 1 EA ENEMA RC PRN (13:30)
[2017-01-14] MEDS ORDERED: BISACODYL SUPP (10 MG) 10 MG/SUPP.RECT SUPP.RECT RC PRN (13:30)
--- NOTE | 2017-01-14 13:55 | NUR ---
BED 328-1
[2017-01-14 14:45] VITALS: BP 115/77
--- NOTE | 2017-01-14 14:45 | NUR ---
MS RN: ADMISSION NOTE RECEIVED PT FROM ER. REPORT GIVEN BY TASHA. PT A/OX2. UNABLE TO COMMUNICATE. USES BOARD TO COMMUNICATE. ABLE TO SOMEWHAT COMPREHEND INFORMATION PROVIDED. ADMITTED WITH DX OF WOUND INFECTION AND UTI. VS STABLE. BP 115/77, PULSE 101, TMP 98.1, RR 18, O2 98% ON ROOM AIR. NO DISTRESS NOTED. NO PAIN NOTED. NO SOB NOTED. BEDREST. FALL PRECAUTIONS IN PLACE. ON SOFT DIET. R FA #20 HL. L AC #20 RUNNING NS AT 75ML/HR. SKIN ASSESSMENT DONE. PICTURES TAKEN AND PLACED IN CHART OF R LEG BELOW THE KNEE AMPUTATION, SUPRAPUBIC WOUND, L GROIN WOUND, AND L SACRAL WOUND. DRESSING INTACT. MED RECON DONE BY MD BARRAGAN. RESTING COMFORTABLY IN BED. CALL LIGHT WITHIN REACH.
[2017-01-14 16:00] VITALS: BP 115/77
[2017-01-14] MEDS: LINEZOLID RTU BAG 600 MG in PREMIX 1 EA IV SCH (16:13)
[2017-01-14] MEDS: IV NS 0.9% 1,000 ML IV PRN (16:15)
[2017-01-14] MEDS: GABAPENTIN 100 MG CAPSULE PO SCH (17:19)
[2017-01-14] MEDS: DOCUSATE SODIUM 100 MG CAPSULE PO SCH (17:19)
[2017-01-14] MEDS: FERROUS SULFATE (325 MG) 325 MG/TAB TABLET PO SCH (17:19)
--- NOTE | 2017-01-14 18:24 | NUR ---
MS RN: CLOSING NOTE PT A/OX2. ABLE TO UNDERSTAND INFORMATION GIVEN TO A CERTAIN EXTENT. USES BOARD TO VERBALIZE/ COMMUNICATES. PT IS COMPLIANT. TAKES ALL MEDICATION ON TIME NO ADVERSE REACTIONS NOTED. NO PAIN NOTED. ATE DINNER WITH NO N/V NOTED. IV ON RIGHT FA HL AND L AC RUNNING NS AT 75ML/HR. SITE CLEAR AND PATENT. PIRES CATH IN PLACE AND DRAINING. BED REST. TURNED AND REPOSITIONED Q 2 HOURS. RESTING COMFORTABLY IN BED. HOB ELEVATED. FALL PRECAUTIONS IN PLACE. CALL LIGHT WITHIN REACH.
[2017-01-14] MEDS: PIPERACILLIN /TAZOBACTAM 3.375 G in IV D5W 50 ML IV SCH ×2 (18:37→23:55)
--- NOTE | 2017-01-14 19:48 | NUR ---
RN OPENING NOTES PT AWAKE AND RESTING IN BED. NO APPARENT S/S OF PAIN OR DISTRESS. PT USES BOARD FOR COMMUNICATION. PT HAS RT FA IV, PATENT AND INTACT. L AC RUNNING NS @75ML/HR, PT TOLERATING WELL. PT PIRES CATHETER CLEAN, INTACT AND DRAINING WELL. SAFETY PRECAUTIONS IN PLACE, BED IN LOW LOCKED POSITION, 2XSIDERAILS UP. HOB ELEVATED. CALL LIGHT WITHIN REACH. WILL CONTINUE TO MONITOR.
[2017-01-14 20:00] VITALS: BP 107/65
[2017-01-14 20:15] VITALS: BP 108/52
[2017-01-14] MEDS ORDERED: PIPERACILLIN /TAZOBACTAM 4.5 G in IV D5W 50 ML IV SCH (21:00)
[2017-01-14] MEDS: MIRTAZAPINE 15 MG TABLET PO SCH (21:11)
[2017-01-14] MEDS: METOPROLOL TARTRATE 25 MG TABLET PO SCH (21:16)
[2017-01-14] MEDS: ENOXAPARIN SODIUM 40 MG/0.4 ML DISP.SYRIN SQ SCH (21:23)
[2017-01-14] MEDS: DAKINS QUARTER STRENGTH (0.125%) 480 ML BOTTLE TOP SCH (23:30)
[2017-01-15] MEDS: LINEZOLID RTU BAG 600 MG in PREMIX 1 EA IV SCH ×2 (03:44→18:35)
[2017-01-15] MEDS: IV NS 0.9% 1,000 ML IV PRN (04:33)
--- NOTE | 2017-01-15 06:00 | NUR ---
CALLED THE CONSERVATOR TO RECEIVE CONSENT FOR DEBRIDEMENT OF LEFT ISCHIAL, THIGH, GROIN AND SUPRAPUBIC WOUNDS. LEFT A MESSAGE WITH TICKET COLLECTOR AYAN.
--- NOTE | 2017-01-15 06:17 | NUR ---
FLORENCIA RETURNED PHONE CALL AND SAID THAT SHE WOULD TEXT DR MCKEON (CONSERVATOR) AND INFORM HIM THAT I WOULD BE CALLING FOR THE CONSENT.
--- NOTE | 2017-01-15 06:25 | NUR ---
CALLED DR MCKEON FOR CONSENT. REQUESTED A VERBAL TELEPHONE CONSENT. TELEPHONE CONSENT WITNESSED BY GRISEL ALEXANDER. DR MCKEON ALSO REQUESTED CONSENT FORMS BE FAXED TO HIS OFFICE. .
--- NOTE | 2017-01-15 06:46 | NUR ---
RN CLOSING NOTES PT AWAKE AND RESTING IN BED. NO SIGNIFICANT CHANGES OVERNIGHT. NO APPARENT S/S OF PAIN OR DISTRESS. PT USES BOARD FOR COMMUNICATION. PT HAS RT FA IV, PATENT AND INTACT. L AC RUNNING NS @75ML/HR, PT TOLERATING WELL. PT PIRES CATHETER CLEAN, INTACT AND DRAINING WELL. PIRES OUTPUT FOR THE EVENING 1800 ML. ALL PT NEEDS ADDRESSED AND MET. SAFETY PRECAUTIONS IN PLACE, BED IN LOW LOCKED POSITION, 2XSIDERAILS UP. HOB ELEVATED. CONSENT FOR DEBRIDEMENT OF LEFT ISCHIAL, THIGH, GROIN AND SUPRAPUBIC WOUNDS RECEIVED FROM DR MCKEON (CONSERVATOR). CALL LIGHT WITHIN REACH. WILL ENDORSE TO DAY SHIFT NURSE FOR CONTINUITY OF CARE.
[2017-01-15] MEDS: PIPERACILLIN /TAZOBACTAM 3.375 G in IV D5W 50 ML IV SCH ×3 (06:52→18:35)
[2017-01-15 06:56] LABS: BASOPHILS % (AUTO) 0.4 % (0.0-2.0); EOSINOPHILS # (AUTO) 0.4 /CMM (0.0-0.7); EOSINOPHILS % (AUTO) 4.7 % (0.0-6.0); HEMATOCRIT 27 % (39-51); HEMOGLOBIN 8.3 g/dL (13.5-17.5); LYMPHOCYTES # (AUTO) 0.9 /CMM (0.8-4.8); LYMPHOCYTES % (AUTO) 11.9 % (20.0-44.0); MEAN CORPUSCULAR HEMOGLOBIN 22 PG (26.0-33.0); MEAN CORPUSCULAR HGB CONC 31 g/dl (31.0-36.0); MEAN CORPUSCULAR VOLUME 72 fL (80-96); MONOCYTES # (AUTO) 0.4 /CMM (0.1-1.30); MONOCYTES % (AUTO) 4.7 % (2.0-12.0); NEUTROPHILS # (AUTO) 5.9 /CMM (1.8-8.9); NEUTROPHILS % (AUTO) 78.3 % (43.0-81.0); PLATELET COUNT (AUTO) 469 /CMM (150-450); RDW COEFFICIENT OF VARIATION 19.6 (11.5-15.0); RED BLOOD CELL COUNT(AUTO) 3.76 MIL/uL (4.5-6.0); WHITE BLOOD COUNT (AUTO) 7.6 K/uL (4.3-11.0)
[2017-01-15 07:06] LABS: CALCIUM, SERUM 9.3 mg/dL (8.5-10.1); CREATININE 0.5 mg/dL (0.6-1.3); MAGNESIUM 1.9 mg/dL (1.8-2.4); POTASSIUM 3.2 mmol/L (3.5-5.1)
[2017-01-15 08:00] VITALS: BP 120/77
--- NOTE | 2017-01-15 08:20 | NUR ---
MS RN RECEIVED ON BED,AWAKE,ALERT,ORIENTED X2,NOT IN ANY FORM OF DISTRESS, RESPIRATIONS EVEN AND UNLABORED, NO SOB NOTED, LUNGS ARE CLEAR,ABDOMEN SOFT,POSITIVE BOWEL SOUNDS, DENIES PAIN AT THIS TIME, WILL MONITOR PATIENT'S CONDITION.
--- NOTE | 2017-01-15 09:00 | NUR ---
MS ALEXANDER BREAKFAST SERVED,DUE MEDS GIVEN,TOLERATED WELL.
[2017-01-15 09:30] LABS: EOSINOPHILS % (MANUAL) 2 % (0-4); LYMPHOCYTES % (MANUAL) 10 % (16-48); MONOCYTES % (MANUAL) 3 % (0-11.0); NEUTROPHILS % (MANUAL) 85 (42-76)
[2017-01-15] MEDS: ASCORBIC ACID 500 MG TABLET PO SCH (10:15)
[2017-01-15] MEDS: GABAPENTIN 100 MG CAPSULE PO SCH ×2 (10:16→18:35)
[2017-01-15] MEDS: DOCUSATE SODIUM 100 MG CAPSULE PO SCH ×2 (10:16→18:35)
[2017-01-15] MEDS: FERROUS SULFATE (325 MG) 325 MG/TAB TABLET PO SCH ×2 (10:16→18:35)
[2017-01-15] MEDS: METOPROLOL TARTRATE 25 MG TABLET PO SCH ×2 (10:16→22:07)
[2017-01-15] MEDS: ZINC SULFATE 220 MG CAPSULE PO SCH (10:16)
[2017-01-15] MEDS: HYDROCODONE/APAP 5/325MG 1 EACH TABLET PO SCH (10:17)
[2017-01-15] MEDS: DAKINS QUARTER STRENGTH (0.125%) 480 ML BOTTLE TOP SCH ×2 (10:18→18:49)
[2017-01-15] MEDS: POTASSIUM CHLORIDE 20 MEQ POWDER PACKET PO SCH ×2 (10:30→11:30)
[2017-01-15] MEDS ORDERED: HYDROGEL DRESSING 90 GM TUBE TP PRN (10:30)
[2017-01-15 12:19] LABS: IRON, SERUM 15 ug/dl (50-175); TOTAL IRON BINDING CAPACITY 144 ug/dl (250-450)
[2017-01-15] MEDS ORDERED: POTASSIUM CHLORIDE 20 MEQ TAB.PRT.SR PO ONE (12:30)
--- NOTE | 2017-01-15 14:00 | NUR ---
ms rn dressing change to sacral area.
[2017-01-15 16:00] VITALS: BP 95/70
[2017-01-15] MEDS ORDERED: POTASSIUM CHLORIDE 20 MEQ POWDER PACKET GT ONE (16:30)
--- NOTE | 2017-01-15 18:20 | NUR ---
ms rn patient on bed, no distress noted.
[2017-01-15] MEDS: HYDROGEL DRESSING 90 GM TUBE TP SCH (18:49)
--- NOTE | 2017-01-15 19:30 | NUR ---
MS RN OPENING NOTES: PATIENT IN BED, AOX2, COMMUNICATES VIA GESTURING/ WRITING. APPEARS CALM AND IN NO DISTRESS. PIV OVER LAC APPEARS INFILTRATED, D'JEANINE. OTHER PIV OVER RFA G 22 DOES NOT FLUSH WELL, D'JEANINE. PIRES CATHETER IN PLACE DRAINING CLEAR YELLOW URINE. PROVIDED FOR COMFORT AND SAFETY. BED IN LOWEST AND LOCKED POSITION, SIDERAILS UPX3. WILL CONT TO MONITOR.
[2017-01-15 20:00] VITALS: BP 109/67
--- NOTE | 2017-01-15 20:30 | NUR ---
RN NOTES: NEW PIV INSERTED AT LFA G22 INTACT AND PATENT, BY BENJAMIN HATHAWAY WITH GOOD BLOOD RETURN.
[2017-01-15] MEDS: MIRTAZAPINE 15 MG TABLET PO SCH (22:08)
[2017-01-15] MEDS: ENOXAPARIN SODIUM 40 MG/0.4 ML DISP.SYRIN SQ SCH (22:10)
[2017-01-16] MEDS: PIPERACILLIN /TAZOBACTAM 3.375 G in IV D5W 50 ML IV SCH ×3 (00:02→12:50)
[2017-01-16] MEDS: IV NS 0.9% 1,000 ML IV PRN (02:05)
[2017-01-16 02:20] VITALS: BP 106/62
[2017-01-16] MEDS: LINEZOLID RTU BAG 600 MG in PREMIX 1 EA IV SCH (03:34)
--- NOTE | 2017-01-16 04:00 | NUR ---
RN NOTES: MORNING CARE RENDERED. WOUND DRESSING OVER SUPRAPUBIC AREA, LEFT INNER THIGH AND POSTERIOR THIGH DONE.
--- NOTE | 2017-01-16 06:37 | NUR ---
MS RN CLOSING NOTES: PATIENT IN BED, AOX2, ON ROOM AIR, BREATHING EVEN AND UNLABORED. APPEARS CALM AND IN NO DISTRESS. PIV OVER LFA G 22 INTACT AND INFUSING WELL WITH NS RUNNING AT 75 ML/HR. DUE MEDS GIVEN. PROVIDED FOR COMFORT AND SAFETY. WOUND DRESSING OVER SUPRAPUBIC AND LEFT INNER THIGHS DONE. BED IN LOWEST AND LOCKED POSITION, SIDERAILS UPX3. WILL ENDORSE TO AM RN FOR KEITH.
[2017-01-16 06:59] LABS: CALCIUM, SERUM 8.8 mg/dL (8.5-10.1); CREATININE 0.6 mg/dL (0.6-1.3); MAGNESIUM 1.7 mg/dL (1.8-2.4); PHOSPHORUS 3.1 mg/dL (2.5-4.9); POTASSIUM 3.1 mmol/L (3.5-5.1)
--- NOTE | 2017-01-16 07:00 | NUR ---
RN INITIAL NOTES: PATIENT RESTING IN BED. ALERT ORIENTED X2. NO SIGNS OF DISTRESS. NONLABORED BREATHING NOTED ON ROOM AIR. NO FACIAL GRIMACES NOTED. IV SITE PATENT AND INTACT. PATIENT RESTING IN BED AT LOWEST LOCKED POSITION. CALL LIGHT WITHIN REACH. WILL CONTINUE TO MONITOR
[2017-01-16 08:00] VITALS: BP 107/70
[2017-01-16] MEDS: METOPROLOL TARTRATE 25 MG TABLET PO SCH ×2 (09:00→21:19)
[2017-01-16] MEDS: FERROUS SULFATE (325 MG) 325 MG/TAB TABLET PO SCH ×2 (09:05→16:52)
[2017-01-16] MEDS: ASCORBIC ACID 500 MG TABLET PO SCH (09:05)
[2017-01-16] MEDS: DOCUSATE SODIUM 100 MG CAPSULE PO SCH ×2 (09:05→16:51)
[2017-01-16] MEDS: HYDROCODONE/APAP 5/325MG 1 EACH TABLET PO SCH (09:06)
[2017-01-16] MEDS: ZINC SULFATE 220 MG CAPSULE PO SCH (09:07)
[2017-01-16] MEDS ORDERED: Magnesium 1GM/D5W 100ML PREMIX 100 ML IV SCH (10:00)
[2017-01-16] MEDS ORDERED: POTASSIUM CL. PREMIX PERIPHER. 50 ML IV SCH ×2 (10:00→12:00)
[2017-01-16] MEDS: GABAPENTIN 100 MG CAPSULE PO SCH ×2 (10:20→16:53)
[2017-01-16] MEDS: HYDROGEL DRESSING 90 GM TUBE TP SCH (10:21)
[2017-01-16] MEDS: Magnesium 1GM/D5W 100ML PREMIX 100 ML IV SCH ×2 (11:43→13:24)
[2017-01-16] MEDS: MUPIROCIN OINT 2% 22 GM TUBE TP SCH ×2 (11:48→21:19)
--- NOTE | 2017-01-16 11:55 | NUR ---
RN NOTES: DR ALANIZ ORDERED MIDLINE INSERTION
[2017-01-16] MEDS: Potassium Chloride 10 MEQ in IV D5W 50 ML IV SCH ×4 (15:10→19:06)
[2017-01-16 16:00] VITALS: BP 106/63
[2017-01-16] MEDS: MEROPENEM 1 G in IV NS 0.9% 100 ML IV SCH ×2 (16:23→21:18)
--- NOTE | 2017-01-16 18:23 | NUR ---
MS RN CLOSING NOTES: PATIENT RESTING IN BED. ALERT ORIENTED X2. NO SIGNS OF DISTRESS. NONLABORED BREATHING NOTED ON ROOM AIR. NO FACIAL GRIMACES NOTED. ELECTROLYTE REPLACEMENT ADMINISTERED LATE DUE TO PATIENT'S ACCESS. NEW MIDLINE INSERTED ON LEFT UPPER EXTREMITY, GAUGE 18. PATIENT REMOVED IV THAT WAS ON LEFT FOREARM. PATIENT RESTING IN BED AT LOWEST LOCKED POSITION. CALL LIGHT WITHIN REACH. DURING SHIFT, PATIENT TURNED AND REPOSITIONED EVERY 2 HOURS. WOUND CARE DONE. WILL ENDORSE TO NEXT SHIFT
[2017-01-16 20:00] VITALS: BP 122/85
[2017-01-16] MEDS: ENOXAPARIN SODIUM 40 MG/0.4 ML DISP.SYRIN SQ SCH (21:18)
[2017-01-16] MEDS: DOXYCYCLINE HYCLATE (100 MG) 100 MG TABLET PO SCH (21:18)
[2017-01-16] MEDS: MIRTAZAPINE 15 MG TABLET PO SCH (21:18)
[2017-01-16] MEDS: HYDROCODONE/APAP 5/325MG 1 EACH TABLET PO PRN (21:23)
[2017-01-17] MEDS: IV NS 0.9% 1,000 ML IV PRN ×2 (00:28→16:35)
[2017-01-17] MEDS: MEROPENEM 1 G in IV NS 0.9% 100 ML IV SCH ×3 (05:27→20:48)
--- NOTE | 2017-01-17 06:38 | NUR ---
MS RN NOTES AWAKE & ALERT. NOT IN ANY DISTRESS. NO SOB NOTED. DENIES ANY PAIN OR DISCOMFORT AT THIS TIME. WITH IVF INFUSING WELL. AM CARE DONE. MONITORED ACCORDINGLY. CALL LIGHT WITHIN REACH. BED IN LOWEST POSITION. SR UP X 3 FOR SAFETY WITH BED ALARM ON. WILL ENDORSE TO NEXT SHIFT.
[2017-01-17 07:13] LABS: BASOPHILS % (AUTO) 0.3 % (0.0-2.0); EOSINOPHILS # (AUTO) 0.4 /CMM (0.0-0.7); EOSINOPHILS % (AUTO) 4.8 % (0.0-6.0); HEMATOCRIT 26 % (39-51); LYMPHOCYTES % (AUTO) 13.1 % (20.0-44.0); MEAN CORPUSCULAR HEMOGLOBIN 23 PG (26.0-33.0); MEAN CORPUSCULAR HGB CONC 31 g/dl (31.0-36.0); MEAN CORPUSCULAR VOLUME 72 fL (80-96); MONOCYTES # (AUTO) 0.6 /CMM (0.1-1.30); MONOCYTES % (AUTO) 7.3 % (2.0-12.0); NEUTROPHILS # (AUTO) 5.7 /CMM (1.8-8.9); NEUTROPHILS % (AUTO) 74.5 % (43.0-81.0); PLATELET COUNT (AUTO) 477 /CMM (150-450); RDW COEFFICIENT OF VARIATION 19.5 (11.5-15.0); RED BLOOD CELL COUNT(AUTO) 3.56 MIL/uL (4.5-6.0); WHITE BLOOD COUNT (AUTO) 7.7 K/uL (4.3-11.0)
[2017-01-17 07:23] LABS: CALCIUM, SERUM 8.3 mg/dL (8.5-10.1); CREATININE 0.6 mg/dL (0.6-1.3); MAGNESIUM 2.1 mg/dL (1.8-2.4); PHOSPHORUS 3.3 mg/dL (2.5-4.9); POTASSIUM 3.8 mmol/L (3.5-5.1)
--- NOTE | 2017-01-17 07:55 | NUR ---
MS RN: INITIAL NOTE RECEIVED PT A/OX2. ON MS . NO DISTRESS NOTED. NO SOB NOTED. NO PAIN NOTED. PIRES CATH IN PLACE AND FLOWING. ON CONTACT ISOLATION FOR ESBL OF WOUND/URINE AND MRSA OF NARES. ON SOFT DIET. HUMBERTO MIDLINE NOTED. SITE CLEAR AND PATENT. HEAD OF BED ELEVATED. FALL PRECAUTIONS IN PLACE. RESTING COMFORTABLY IN BED. CALL LIGHT WITHIN REACH.
[2017-01-17 08:00] VITALS: BP 118/73
[2017-01-17] MEDS: DOXYCYCLINE HYCLATE (100 MG) 100 MG TABLET PO SCH ×2 (08:37→20:48)
[2017-01-17] MEDS: ZINC SULFATE 220 MG CAPSULE PO SCH (08:37)
[2017-01-17] MEDS: GABAPENTIN 100 MG CAPSULE PO SCH ×2 (08:38→16:34)
[2017-01-17] MEDS: DOCUSATE SODIUM 100 MG CAPSULE PO SCH ×2 (08:38→16:34)
[2017-01-17] MEDS: HYDROCODONE/APAP 5/325MG 1 EACH TABLET PO SCH (08:38)
[2017-01-17] MEDS: FERROUS SULFATE (325 MG) 325 MG/TAB TABLET PO SCH ×2 (08:38→16:34)
[2017-01-17] MEDS: METOPROLOL TARTRATE 25 MG TABLET PO SCH ×2 (08:38→20:49)
[2017-01-17] MEDS: ASCORBIC ACID 500 MG TABLET PO SCH (08:38)
[2017-01-17] MEDS: HYDROGEL DRESSING 90 GM TUBE TP SCH (08:39)
[2017-01-17] MEDS: DAKINS QUARTER STRENGTH (0.125%) 480 ML BOTTLE TOP SCH (08:39)
[2017-01-17] MEDS: MUPIROCIN OINT 2% 22 GM TUBE TP SCH ×2 (08:40→21:02)
[2017-01-17 10:22] LABS: BAND % (MANUAL) 2 % (0.0-5.0); EOSINOPHILS % (MANUAL) 7 % (0-4); LYMPHOCYTES % (MANUAL) 13 % (16-48); MONOCYTES % (MANUAL) 6 % (0-11.0); NEUTROPHILS % (MANUAL) 72 (42-76)
--- NOTE | 2017-01-17 14:32 | NUR ---
PIRES CATH PULLED. REINSERTED DUE TO DEBRIDEMENT IN SACRAL AREA. URINE FLOWING AND PATENT.
[2017-01-17 16:00] VITALS: BP 120/71
--- NOTE | 2017-01-17 19:10 | NUR ---
MS RN: CLOSING NOTE PT/OX2. TOOK ALL MEDICATIONS ON TIME. NO ADVERSE REACTIONS NOTED. NO PAIN NOTED. NO SOB NOTED. MARIO MIDLINE IN PLACE. SITE CLEAR AND PATENT. IV FLUIDS NS RUNNING AT 75ML/HR. WOUND CARE DONE PER MD ORDER. PIRES CATH IN PLACE AND DRAINING. OUTPUT 600ML. ON CONTACT ISOLATION FOR ESBL AND MRSA. RESTING COMFORTABLY IN BED. CALL LIGHT WITHIN REACH.
--- NOTE | 2017-01-17 19:25 | NUR ---
RN OPEN NOTES RECEIVED PATIENT AWAKE IN BED. A/O X2. NO SIGNS OF DISTRESS OR DISCOMFORT. BREATHING EVEN AND UNLABORED. HAS HUMBERTO MIDLINE WITH NS INFUSING, PATENT AND INTACT, NO SIGNS OF REDNESS OR INFILTRATION. BED IN LOW LOCKED POSITION WITH SIDE RAILS X2. CALL LIGHT WITHIN REACH. WILL CONTINUE TO MONITOR.
[2017-01-17 20:00] VITALS: BP_SYST 118; BP_SYST 123; BP_DIAS 62; BP_DIAS 90
[2017-01-17] MEDS: HYDROCODONE/APAP 5/325MG 1 EACH TABLET PO PRN (20:49)
--- NOTE | 2017-01-17 20:49 | NUR ---
RN NOTES ADMINISTERED NORCO 5/325 ORDERED FOR GENERALIZED PAIN. PATIENT PRESENTS WITH FACIAL GRIMACE, VS CHANGES, AND NODES YES WHEN ASKED IF HES IN PAIN. WILL CONTINUE TO MONITOR.
[2017-01-17] MEDS: ENOXAPARIN SODIUM 40 MG/0.4 ML DISP.SYRIN SQ SCH (20:50)
[2017-01-17] MEDS: MIRTAZAPINE 15 MG TABLET PO SCH (21:01)
[2017-01-18] MEDS: MEROPENEM 1 G in IV NS 0.9% 100 ML IV SCH ×2 (05:00→12:12)
[2017-01-18] MEDS: IV NS 0.9% 1,000 ML IV PRN (05:00)
--- NOTE | 2017-01-18 05:00 | NUR ---
RN NOTES PATIENT PIRES CATH CAME OUT WITH BALLOON STILL INTACT, IT APPEARS THE URINE IS BYPASSING THE PIRES CATH. INFORMED CHARGE NURSE. PER CHARGE DO NOT REINSERT NEW PIRES AT THIS TIME. WILL CONTINUE TO MONITOR.
--- NOTE | 2017-01-18 07:10 | NUR ---
RN CLOSING NOTES PATIENT AWAKE IN BED. A/O X2. NO SIGNS OF DISTRESS OR DISCOMFORT. BREATHING EVEN AND UNLABORED. HAS HUMBERTO MIDLINE WITH NS INFUSING, PATENT AND INTACT, NO SIGNS OF REDNESS OR INFILTRATION. BED IN LOW LOCKED POSITION WITH SIDE RAILS X2. CALL LIGHT WITHIN REACH. ENDORSED TO AM SHIFT FOR KEITH. Addendum: 01/18/17 at 0740 by DAMIAN LOWRY RN NO SIGNIFICANT CHANGES THROUGH THE NIGHT. ALL NEEDS MET. WOUND CARE TX ORDERED. REPOSITIONED Q2H.
--- NOTE | 2017-01-18 07:47 | NUR ---
MS RN: INITIAL NOTE RECEIVED PT A/OX2. ON CONTACT ISOLATION FOR ESBL URINE AND WOUND/ MRSA NARES. NO DISTRESS NOTED. NO SOB NOTED. NO PAIN NOTED. USES DIAPER AND INCONTINENT. ON SOFT DIET. LUE MIDLINE RUNNING NS AT 75ML/HR. SITE CLEAR AND PATENT. DRESSING INTACT AND CLEAN. RESTING COMFORTABLY IN BED. CALL LIGHT WITHIN REACH.
[2017-01-18 08:00] VITALS: BP 139/82
[2017-01-18] MEDS: GABAPENTIN 100 MG CAPSULE PO SCH (09:39)
[2017-01-18] MEDS: HYDROCODONE/APAP 5/325MG 1 EACH TABLET PO SCH (09:39)
[2017-01-18] MEDS: ASCORBIC ACID 500 MG TABLET PO SCH (09:39)
[2017-01-18] MEDS: DAKINS QUARTER STRENGTH (0.125%) 480 ML BOTTLE TOP SCH (09:39)
[2017-01-18] MEDS: HYDROGEL DRESSING 90 GM TUBE TP SCH (09:39)
[2017-01-18] MEDS: DOCUSATE SODIUM 100 MG CAPSULE PO SCH (09:39)
[2017-01-18 09:40] VITALS: BP 139/82
[2017-01-18] MEDS: FERROUS SULFATE (325 MG) 325 MG/TAB TABLET PO SCH (09:40)
[2017-01-18] MEDS: METOPROLOL TARTRATE 25 MG TABLET PO SCH (09:40)
[2017-01-18] MEDS: ZINC SULFATE 220 MG CAPSULE PO SCH (09:40)
[2017-01-18] MEDS: DOXYCYCLINE HYCLATE (100 MG) 100 MG TABLET PO SCH (09:40)
[2017-01-18] MEDS: MUPIROCIN OINT 2% 22 GM TUBE TP SCH (09:41)
[2017-01-18] MEDS ORDERED: SODI473S8 TOP (12:04)
[2017-01-18] MEDS ORDERED: Hydrogel Dressing TP ×2 (12:04)
[2017-01-18] MEDS ORDERED: DOXY100T2 PO (14:17)
[2017-01-18] MEDS ORDERED: MERO1VIA IV (14:17)
--- NOTE | 2017-01-18 15:44 | NUR ---
MS RN: DISCHARGE NOTE PT D/C BACK TO [facility]. TOOK ALL MEDICATIONS ON TIME. NO ADVERSE REACTIONS NOTED. NO PAIN NOTED. NO SOB NOTED. VS STABLE. BP 154/98, PULSE 110, RR18, 02 98% ON ROOM AIR. INCONTINENT. USES DIAPER. ON SOFT DIET. WOUND CARE DONE PRIOR TO D/C. WOUND PHOTOS IN CHART. LUE MIDLINE #[address] DRESSING INTACT. NO REDNESS. NO BLEEDING NOTED. PATENT. LEFT HOSPITAL WITH MIDLINE DUE TO CONTINUING OF IV ATB IN FACILITY. ALL DISCHARGE INFORMATION PRINTED AND SIGNED BY TWO RNS. ALL BELONGINGS ACCOUNTED FOR. REPORT GIVEN TO LANDY IN FACILITY. ON CONTACT ISOLATION FOR MRSA NARS AND ESBL URINE AND WOUND. DISCHARGE PACKET SENT WITH AMBULANCE. LEFT FACILITY WITH TWO EMT ON [facility].
== END 2017-01-18 15:30 | DRG 853 ==
LOC: ER 10:54 → MED 14:36
PROC: 0KBP0ZZ Excision of Left Hip Muscle, Open Approach (ICD-10-PCS; principal; 2017-01-15)
PROC: 0JBM0ZZ Excision of Left Upper Leg Subcutaneous Tissue and Fascia, Open Approach (ICD-10-PCS; 2017-01-15)
PROC: 05H633Z Insertion of Infusion Device into Left Subclavian Vein, Percutaneous Approach (ICD-10-PCS; 2017-01-16)
DX: A41.9 Sepsis, unspecified organism (principal); E43 Unspecified severe protein-calorie malnutrition; J15.6 Pneumonia due to other Gram-negative bacteria; L89.154 Pressure ulcer of sacral region, stage 4; L89.329 Pressure ulcer of left buttock, unspecified stage; R53.2 Functional quadriplegia; J15.9 Unspecified bacterial pneumonia; D68.59 Other primary thrombophilia; N13.30 Unspecified hydronephrosis; M86.9 Osteomyelitis, unspecified; N39.0 Urinary tract infection, site not specified; C44.529 Squamous cell carcinoma of skin of other part of trunk; F20.9 Schizophrenia, unspecified; S31.109A Unspecified open wound of abdominal wall, unspecified quadrant without penetration into peritoneal cavity, initial encounter; D63.8 Anemia in other chronic diseases classified elsewhere; I10 Essential (primary) hypertension; Q05.9 Spina bifida, unspecified; Z89.511 Acquired absence of right leg below knee; Z88.1 Allergy status to other antibiotic agents; Z79.899 Other long term (current) drug therapy; F79 Unspecified intellectual disabilities; K21.9 Gastro-esophageal reflux disease without esophagitis; F32.9 Major depressive disorder, single episode, unspecified; I25.10 Atherosclerotic heart disease of native coronary artery without angina pectoris; Z74.01 Bed confinement status; Z87.440 Personal history of urinary (tract) infections; Z87.81 Personal history of (healed) traumatic fracture; E87.6 Hypokalemia; Q54.9 Hypospadias, unspecified; X58.XXXA Exposure to other specified factors, initial encounter; Y92.10 Unspecified residential institution as the place of occurrence of the external cause; Z22.322 Carrier or suspected carrier of Methicillin resistant Staphylococcus aureus; B96.89 Other specified bacterial agents as the cause of diseases classified elsewhere; N45.2 Orchitis; L89.629 Pressure ulcer of left heel, unspecified stage; K20.9 Esophagitis, unspecified
CPT/HCPCS: 36415; 71010-TC; 76870-TC; 80048-TC; 80076-TC; 81000-TC; 82272-TC; 83540-TC; 83605-TC; 83735-TC; 84100-TC; 84484-TC; 85025-TC; 85730-TC; 87040-TC; 87070-TC; 87081-TC; 87086-TC; 87186-TC; A4216; A4606; A6248; A6253; A6402; A6403; J1650; J2020; J2185; J2543; J3370; J3475; J3480; J7030; J7060; Z7610

== ENCOUNTER 2017-03-03 03:15 | Inpatient (IN) | payer MEDICARE, MEDICAID ==
[~2017-03-03] VITALS: Ht 167.6 cm; Wt 64.1 kg
[~2017-03-03 03:15] MED LIST changes: +AMIN30LI4 PO; +BISA10SU8 RC; -DOCU-170 PO; +DOCU100C36 PO; +DOXY100T2 PO; +ENOX40DI SQ; +FERR-58 PO; +Hydrogel Dressing TP; +MERO1VIA IV; +METO25TA20 PO; -NUTR1PAC14 PO; -ONDA4TAB5 PO; +SACC250C PO; -SACC250C6 PO; +SODI473S8 TOP; +ZINC220C8 PO
--- NOTE | 2017-03-03 03:27 | NUR ---
PT BIBA FROM [facility] FOR ABNORMAL LABS LOW H&H. PT NONVERBAL PER [facility], RESPONSIVE TO VERBAL AND PAINFUL STIMULI. RR EVEN AND UNLABORED. NO SOB NOTED. NAD NOTED. NO NVD AT THIS TIME. PT GOWNED AND PLACED ON MONITOR. DR CESPEDES AT BEDSIDE FOR EVAL. 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 PT WITH FC INTACT AND DRAINING WELL.
--- NOTE | 2017-03-03 04:04 | NUR ---
URINE COLLECTED. CALLED LAB FOR VOCATIONAL PSYCHOLOGIST.
[2017-03-03 04:25] LABS: BASOPHILS # (AUTO) 0.1 /CMM (0.0-0.2); BASOPHILS % (AUTO) 0.5 % (0.0-2.0); EOSINOPHILS # (AUTO) 0.4 /CMM (0.0-0.7); EOSINOPHILS % (AUTO) 2.9 % (0.0-6.0); HEMATOCRIT 26 % (39-51); HEMOGLOBIN 7.9 g/dL (13.5-17.5); LYMPHOCYTES # (AUTO) 1.5 /CMM (0.8-4.8); LYMPHOCYTES % (AUTO) 11.2 % (20.0-44.0); MEAN CORPUSCULAR HEMOGLOBIN 21 PG (26.0-33.0); MEAN CORPUSCULAR HGB CONC 30 g/dl (31.0-36.0); MEAN CORPUSCULAR VOLUME 71 fL (80-96); MONOCYTES # (AUTO) 0.7 /CMM (0.1-1.30); MONOCYTES % (AUTO) 5.3 % (2.0-12.0); NEUTROPHILS # (AUTO) 10.6 /CMM (1.8-8.9); NEUTROPHILS % (AUTO) 80.1 % (43.0-81.0); PLATELET COUNT (AUTO) 610 /CMM (150-450); RDW COEFFICIENT OF VARIATION 19.9 (11.5-15.0); RED BLOOD CELL COUNT(AUTO) 3.72 MIL/uL (4.5-6.0); WHITE BLOOD COUNT (AUTO) 13.2 K/uL (4.3-11.0)
[2017-03-03 04:28] LABS: APPEARANCE,URINE CLOUDY (CLEAR); BILIRUBIN,URINE NEGATIVE (NEGATIVE); BLOOD, URINE 1+ Ery/uL (NEGATIVE); COLOR,URINE YELLOW (YELLOW); KETONES,URINE NEGATIVE (NEGATIVE); LEUKOCYTE ESTERASE ,URINE 3+ (NEGATIVE); NITRITE, URINE POSITIVE (NEGATIVE); PROTEIN,URINE 1+ mg/dl (NEGATIVE); UGLUCOSE NEGATIVE (NEGATIVE); UROBILINOGEN,URINE 0.2 EU/dL (0.2)
[2017-03-03] MEDS ORDERED: IV NS 0.9% 1,000 ML BAG IV ONE ×2 (04:30→05:30)
[2017-03-03 04:34] LABS: BACTERIA,URINE Rare /HPF (None Seen); CALCIUM OXALATE CRYSTALS,UR Few /HPF (None Seen); SQUAMOUS EPITHELIAL CELL,UR Few /HPF (None Seen); WBC,URINE TOO NUMEROUS TO COUN /HPF (0-3)
[2017-03-03 04:38] LABS: CALCIUM, SERUM 11.4 mg/dL (8.5-10.1); CREATININE 0.6 mg/dL (0.6-1.3); POTASSIUM 4.5 mmol/L (3.5-5.1)
[2017-03-03 04:40] LABS: PROTHROMBIN TIME 10.4 SECS (9.5-12.7)
[2017-03-03] MEDS ORDERED: CEFTRIAXONE 1GM BAG (ER ONLY) 50 ML IV ONE (04:41)
[2017-03-03 04:44] LABS: BILIRUBIN,TOTAL 0.2 mg/dL (0.2-1.0); TOTAL PROTEIN, SERUM 8.2 g/dL (6.4-8.2)
[2017-03-03 04:48] LABS: ALBUMIN 1.4 g/dL (3.4-5.0)
[2017-03-03] MEDS ORDERED: CEFTRIAXONE 1GM BAG (ER ONLY) 1 GM/50 ML PIGGYBACK IV ONE (05:00)
[2017-03-03 05:02] LABS: EOSINOPHILS % (MANUAL) 3 % (0-4); LYMPHOCYTES % (MANUAL) 13 % (16-48); MONOCYTES % (MANUAL) 4 % (0-11.0); NEUTROPHILS % (MANUAL) 80 (42-76)
--- NOTE | 2017-03-03 05:08 | NUR ---
DR. CESPEDES SPEAKING TO TERRANCE MARTINEZ REGARDING ADMISSION
--- NOTE | 2017-03-03 07:18 | NUR ---
REPORT GIVEN TO BENJAMIN DE JESUS FOR KEITH
--- NOTE | 2017-03-03 07:46 | NUR ---
Patient is resting comfortably in bed with eyes closed. Easily aroused. VSS
--- NOTE | 2017-03-03 08:13 | NUR ---
WILL BE ADMITTED TO [facility]
[2017-03-03] MEDS ORDERED: NUTR1PAC14 PO (08:20)
--- NOTE | 2017-03-03 08:22 | NUR ---
Report given to BENJAMIN Rosas, continue plan of care.
[2017-03-03 08:45] VITALS: BP 108/63
[2017-03-03] MEDS ORDERED: ENOXAPARIN SODIUM 40 MG/0.4 ML DISP.SYRIN SQ SCH (10:19)
[2017-03-03] MEDS ORDERED: Z GUARD REMEDY 2 OZ OINT TP PRN (10:30)
[2017-03-03] MEDS ORDERED: ONDANSETRON HCL/PF 4 MG/2 ML VIAL IVP PRN (10:30)
--- NOTE | 2017-03-03 10:35 | NUR ---
HEAD OF HUMAN RESOURCES ADMITTING NOTES PT ADMITTED TO UNIT VIA [facility] ALERT AND ORIENTED X1, NON-VERBAL. TRANSFERRED PT TO BED GENTLY AND COMFORTABLY. HOB ELEVATED. PT WITH DIAGNOSIS OF ANEMIA AND UTI WITH SIGNIFICANT DX OF PAD, HTN, SPINA BIFIDA, MENTAL RETARDATION, GERD, CHRONIC ENCEPHALOPATHY, JX OF SQUAMOLUS CANCER. PT HAS RIGHT BELLOW KNEE AMPUTATION, STUMP IS INTACT WITH NO WOUND OR BLEEDING NOTED. PHOTOS OF SKIN TAKEN AND FILED ON CHART. PT PLACED ON TELE-MONITORING WITH SINUS TACHYCARDIA WITH HR OF 118. ON ROOM AIR, BREATHING EVEN AND UNLABORED. V/S CHECKED AND RECORDED. PIRES CATHETER G#18 IN PLACED AND ACTIVELY DRAINING CLOUDY YELLOWISH URINE TO BEDSIDE DRAINAGE BAG. PT WITH IV ACCESS ON RIGHT WRIST G# 22, IVF OF NS @ 100ML/HR TO BE STARTED. PLACED BED IN LOCKED AND LOWEST POSITION WITH SIDE-RAILS UP X3. CALL LIGHT WITHIN REACH. ALL SAFETY MEASURES INITIATED. WILL CONTINUE TO MONITOR.
[2017-03-03 11:00] VITALS: BP 108/63
[2017-03-03] MEDS ORDERED: MAGNESIUM HYDROXIDE 30 ML UDC PO PRN (11:00)
[2017-03-03] MEDS ORDERED: HYDROCODONE/APAP 5/325MG 1 EACH TABLET PO PRN (11:00)
[2017-03-03] MEDS ORDERED: CLONIDINE HCL 0.1 MG TABLET PO PRN (11:00)
[2017-03-03] MEDS ORDERED: NA PHOS,M-B/NA PHOS,DI-BA 1 EA ENEMA RC PRN (11:00)
[2017-03-03] MEDS ORDERED: BISACODYL SUPP (10 MG) 10 MG/SUPP.RECT SUPP.RECT RC PRN (11:00)
--- NOTE | 2017-03-03 11:08 | NUR ---
RN NOTES DR LUJAN MADE AWARE OF PT'S LOW HGB 7.9 AND HCT 26 WITH ORDER NOT TO ADMINISTER LOVENOX 40 MG SQ THIS MORNING AND TO DISCONTINUE LOVENOX FOR NOW. WILL CONTINUE TO MONITOR
[2017-03-03] MEDS: IV NS 0.9% 1,000 ML IV PRN ×2 (11:14→20:18)
[2017-03-03 11:53] LABS: IRON, SERUM 23 ug/dl (50-175); TOTAL IRON BINDING CAPACITY 189 ug/dl (250-450)
[2017-03-03 12:00] VITALS: BP 110/63
[2017-03-03 16:00] VITALS: BP 118/65
[2017-03-03] MEDS: GABAPENTIN 100 MG CAPSULE PO SCH (16:30)
[2017-03-03] MEDS: DOCUSATE SODIUM 100 MG CAPSULE PO SCH (16:30)
[2017-03-03] MEDS: DAKINS QUARTER STRENGTH (0.125%) 480 ML BOTTLE TOP SCH (16:30)
--- NOTE | 2017-03-03 18:49 | NUR ---
M1 ARMOR CREWMAN CLOSING NOTES PT AWAKE AND RESTING IN BED AT MODERATE HIGH BACKREST POSITION. A/O X 1, NON-VERBAL, COOPERATIVE. ON TELE-MONITORING WITH CURRENT READING OF SINUS TACHYCARDIA WITH HR OF 116. ON ROOM AIR, BREATHING EVEN AND UNLABORED. PIRES CATHETER G#18 IN PLACED AND ACTIVELY DRAINING CLOUDY YELLOWISH URINE TO BEDSIDE DRAINAGE BAG. IV ACCESS ON RIGHT WRIST G# 22 INTACT AND PATENT WITH IVF OF NS @ 100ML/HR INFUSING WELL. KEPT BED IN LOCKED AND LOWEST POSITION WITH SIDE-RAILS UP X3. CALL LIGHT WITHIN REACH. PT WITH NO BOWEL MOVEMENT TODAY, WILL ENDORSED TO GRAPE CUTTER STAFF TO COLLECT STOOL FOR OCCULT. ALL NEEDS AND CARE PROVIDED WELL. WILL ENDORSED TO GRAPE CUTTER NURSE FOR KEITH.
--- NOTE | 2017-03-03 19:42 | NUR ---
MANAGER BEHAVIORAL INITIAL NOTES PT IS IN BED RESTING, A/O X1. PT IS BREATHING EVENLY AND UNLABORED ON RA, NO SIGNS OF SOB OR DISTRESS. PIRES CATHETER IS INTACT DRAINING WITH CLOUDY URINE. WOUND DRESSING INTACT, NO SIGNS OF LEAKAGE. TELE MONITOR SHOWING ST 115. CONSENT FORM TO BE OBTAINED FOR WOUND DEBRIDEMENT. BED IS IN LOW AND LOCKED POSITION. WILL CONTINUE TO MONITOR PT
[2017-03-03 20:00] VITALS: BP 127/81
[2017-03-03] MEDS: METOPROLOL TARTRATE 25 MG TABLET PO SCH (20:15)
--- NOTE | 2017-03-03 20:30 | NUR ---
FIRST ATTEMPT TO CONTACT LISTED FAMILY MEMBER FOR CONSENT FOR WOUND DEBRIDEMENT, MD KHURRAM MCKEON. NO ANSWER. WILL TRY AGAIN
--- NOTE | 2017-03-03 20:50 | NUR ---
ATTEMPTED TO CONTACT MD KHURRAM MCKEON AGAIN, NO ANSWER. MESSAGE WAS LEFT ON ANSWERING MACHINE. AWAITING CALL BACK
[2017-03-03] MEDS: MIRTAZAPINE 15 MG TABLET PO SCH (21:29)
[2017-03-04] VITALS: BP 102/76
[2017-03-04 04:00] VITALS: BP 108/64
[2017-03-04] MEDS: DAKINS QUARTER STRENGTH (0.125%) 480 ML BOTTLE TOP SCH ×3 (04:01→15:29)
[2017-03-04] MEDS: CEFTRIAXONE 1 G in IV D5W 50 ML IV SCH (05:23)
--- NOTE | 2017-03-04 06:07 | NUR ---
AVIATION ELECTRICIAN CLOSING NOTES PT IS IN BED RESTING, ABLE TO FOLLOW SIMPLE COMMANDS. ON TELE MONITOR SHOWING SR 117. NO SIGNS OF SOB OR DISTRESS. BREATHING EVENLY AND UNLABORED ON RA. WOUND CARE RENDERED. IV FLUIDS RUNNING. PIRES CATHETER INTACT AND PATENT. BED IS IN LOW AND LOCKED POSITION, CALL LIGHT WITHIN REACH. WILL ENDORSE TO DAYSHIFT
[2017-03-04 08:00] VITALS: BP 125/78
--- NOTE | 2017-03-04 08:03 | NUR ---
BLOCK CHOPPER HAND NOTES. PT WITH CONTACT RECS R/T: ESBL WOUND. PT RECEIVED A&0X1 RESTING IN BED. TELE: ST 117. PT TOLERATING ROOM AIR WITH NO SOB, SAO2 96%. PT INDICATING NO PAIN AT THIS TIME. PT WITH IVC AT R WRIST INTACT AND OPERATIONAL. PIRES INTACT AND OPERATIONAL DRAINING PEPE YELLOW URINE WITH SOME CLOUDINESS. PT BRIEFED ON TODAY'S POC, WILL CONTINUE TO ORIENTATE THROUGHOUT SHIFT. PT IS WITH OUT INDICATION OF CONCERN OR COMPLAINT AT THIS TIME.
--- NOTE | 2017-03-04 08:09 | NUR ---
FURNITURE MOVER HELPER NOTES. SPOKE WITH CONSERVATOR, CONSENT FOR DEBRIDEMENT FAXED TO DR KHURRAM MCKEON. [phone]. AWAITING RESPONSE.
[2017-03-04 09:09] LABS: BASOPHILS % (AUTO) 0.2 % (0.0-2.0); EOSINOPHILS # (AUTO) 0.1 /CMM (0.0-0.7); EOSINOPHILS % (AUTO) 1.1 % (0.0-6.0); HEMATOCRIT 24 % (39-51); HEMOGLOBIN 7.4 g/dL (13.5-17.5); LYMPHOCYTES # (AUTO) 1.3 /CMM (0.8-4.8); LYMPHOCYTES % (AUTO) 9.6 % (20.0-44.0); MEAN CORPUSCULAR HEMOGLOBIN 22 PG (26.0-33.0); MEAN CORPUSCULAR HGB CONC 30 g/dl (31.0-36.0); MEAN CORPUSCULAR VOLUME 72 fL (80-96); MONOCYTES # (AUTO) 0.8 /CMM (0.1-1.30); MONOCYTES % (AUTO) 6.3 % (2.0-12.0); NEUTROPHILS # (AUTO) 10.9 /CMM (1.8-8.9); NEUTROPHILS % (AUTO) 82.8 % (43.0-81.0); PLATELET COUNT (AUTO) 566 /CMM (150-450); RDW COEFFICIENT OF VARIATION 19.7 (11.5-15.0); RED BLOOD CELL COUNT(AUTO) 3.39 MIL/uL (4.5-6.0); WHITE BLOOD COUNT (AUTO) 13.1 K/uL (4.3-11.0)
[2017-03-04 09:22] LABS: BILIRUBIN,TOTAL 0.1 mg/dL (0.2-1.0); CALCIUM, SERUM 11.1 mg/dL (8.5-10.1); CREATININE 0.6 mg/dL (0.6-1.3); MAGNESIUM 2.1 mg/dL (1.8-2.4); PHOSPHORUS 2.8 mg/dL (2.5-4.9); POTASSIUM 3.4 mmol/L (3.5-5.1); TOTAL PROTEIN, SERUM 7.5 g/dL (6.4-8.2)
[2017-03-04] MEDS: PANTOPRAZOLE 40 MG TABLET.DR PO SCH (09:25)
[2017-03-04] MEDS: DOCUSATE SODIUM 100 MG CAPSULE PO SCH ×2 (09:25→16:04)
[2017-03-04] MEDS: ZINC SULFATE 220 MG CAPSULE PO SCH (09:26)
[2017-03-04] MEDS: METOPROLOL TARTRATE 25 MG TABLET PO SCH ×2 (09:26→21:00)
[2017-03-04] MEDS: ASCORBIC ACID 500 MG TABLET PO SCH (09:26)
[2017-03-04] MEDS: GABAPENTIN 100 MG CAPSULE PO SCH ×2 (09:26→16:04)
[2017-03-04 09:31] LABS: ALBUMIN 1.3 g/dL (3.4-5.0)
--- NOTE | 2017-03-04 09:35 | NUR ---
UNDERGROUND UTILITY LOCATOR NOTES. CRITICAL LAB VALUE REPORTED BY YUMIKO ALBUMIN 1.3. VERBAL REPORT GIVEN TO DR. MCCALL.
[2017-03-04 10:09] LABS: THYROID STIMULATING HORMONE 3.494 uIU/mL (0.358-3.74)
[2017-03-04] MEDS: IV NS 0.9% 1,000 ML IV PRN (13:06)
--- NOTE | 2017-03-04 14:55 | NUR ---
RN NOTES. ENDORSED TO BENJAMIN MCCALL AT BEDSIDE. NO OBVIOUS OR SIGNIFICANT CHANGES IN PT CONDITION. PT TOLERATING ROOM AIR WITH NO SOB, REPORTING NO PAIN, NOW WITH IVC AT RIGHT FA WITH NS 100ML/HR, WOUND DEBRIDEMENT AND REDRESSING DONE BY , ALL NURSE DUTIES COMPLETED UP TO TIME OF ENDORSEMENT. PT CURRENTLY RESTING WITHOUT CONCERN OR COMPLAINT AT THIS TIME.
--- NOTE | 2017-03-04 14:58 | NUR ---
RECEIVED PT AND REPORT FROM BENJAMIN MCKOY. NO SOB OR DISTRESS NOTED AT THIS TIME. PATIENT IS SLEEPING. BED IN A LOW POSITION, CALL LIGHT WITHIN PATIENT REACH. WILL CONTINUE TO MONITOR.
[2017-03-04 16:00] VITALS: BP 107/60
[2017-03-04] MEDS: ACETAMINOPHEN 325 MG TABLET PO PRN (17:04)
--- NOTE | 2017-03-04 18:18 | NUR ---
NO SIGNIFICANT CHANGES IN PATIENT CONDITION THROUGHOUT THE SHIFT. NO SOB OR DISTRESS NOTED AT THIS TIME. PATIENT DENIES PAIN. HEART RATE SR IN THE 60S WITH 1ST DEGREE AV BLOCK. BED IN A LOW POSITION, CALL LIGHT WITHIN PATIENT REACH. WILL ENDORSE FOR KEITH. Addendum: 03/04/17 at 1821 by TAI SERNA RN PLEASE DISREGARD HEART RATE THIS DOCUMENTED ON WRONG PT.
--- NOTE | 2017-03-04 19:10 | NUR ---
RN OPENING NOTES RECEIVED REPORT FROM AM RN. PATIENT A/A/O X1. BREATHING EVEN & UNLABORED, ON ROOM AIR. NO S/S OF SOB OR DIFFICULTY BREATHING . PULSES PRESENT. RIGHT FOREARM IV #22 INTACT & PATENT W/ DRESSING CDI & IVF NS @ 100 ML/HR. NO S/S OF ANY PAIN OR DISCOMFORT @ THIS TIME. SAFETY MEASURES IN PLACE W/ SIDE RAILS UP, BED LOCKED & IN LOWEST POSITION & CALL LIGHT WITHIN REACH. PATIENT RESTING COMFORTABLY IN BED. WILL CONTINUE TO MONITOR.
[2017-03-04 20:00] VITALS: BP 93/56
[2017-03-04] MEDS: MIRTAZAPINE 15 MG TABLET PO SCH (21:52)
[2017-03-05] MEDS: IV NS 0.9% 1,000 ML IV PRN (00:52)
[2017-03-05] MEDS: DAKINS QUARTER STRENGTH (0.125%) 480 ML BOTTLE TOP SCH ×3 (03:27→15:30)
[2017-03-05] MEDS: CEFTRIAXONE 1 G in IV D5W 50 ML IV SCH (05:35)
[2017-03-05 08:00] VITALS: BP 124/68
--- NOTE | 2017-03-05 08:05 | NUR ---
RN OPENING NOTES RECEIVED PT. A/OX1 PT IS NONVERBAL BUT ABLE TO UNDERSTAND VERBAL COMMUNICATION. PT APPEARS LETHARGIC, DENIES PAIN AT THIS TIME. F/C IN PLACE AND PATENT. WOUND CARE TO BE PERFORMED ON GROIN AND BUTTOCKS AREA. IV ACCESS LOCATED ON RIGHT FOREARM 22G RUNNING NS AT 100 ML/HR. SAFETY MEASURES IN PLACE, CALL LIGHT WITHIN REACH. WILL CONTINUE TO MONITOR.
[2017-03-05] MEDS: METOPROLOL TARTRATE 25 MG TABLET PO SCH ×2 (09:00→21:57)
[2017-03-05] MEDS: ZINC SULFATE 220 MG CAPSULE PO SCH (09:12)
[2017-03-05] MEDS: PANTOPRAZOLE 40 MG TABLET.DR PO SCH (09:12)
[2017-03-05] MEDS: DOCUSATE SODIUM 100 MG CAPSULE PO SCH ×2 (09:12→18:09)
[2017-03-05] MEDS: GABAPENTIN 100 MG CAPSULE PO SCH ×2 (09:13→18:09)
[2017-03-05] MEDS: ASCORBIC ACID 500 MG TABLET PO SCH (09:13)
[2017-03-05 16:00] VITALS: BP 106/59
[2017-03-05] MEDS: ACETAMINOPHEN 325 MG TABLET PO PRN (18:09)
--- NOTE | 2017-03-05 18:54 | NUR ---
RN CLOSING NOTES PT IS STABLE AND RESTING IN BED. NO S/S OF RESPIRATORY DISTRESS OR SOB. NO C/O PAIN AT THIS TIME. PT HAD ELEVATED TEMP THAT REQUIRED PRN TYLENOL. ALL PT NEEDS ANTICIPATED AND MET. SAFETY MEASURES IN PLACE, CALL LIGHT WITHIN REACH. WILL ENDORSE TO PHARMACY ASSOCIATE FOR KEITH.
--- NOTE | 2017-03-05 19:30 | NUR ---
MS RN NOTES RECEIVED RESTING COMFORTABLY ON BED,BREATHING REGULAR,NOT IN ANY FORM OF DISTRESS.ISOLATION PRECAUTION FOR ESBL URINE,MRSA WOUND.IVF NS 100ML/HR RATE IN PROGRESS VIA IV PUMP ON RFA,SITE PATENT.REPOSITION PER PROTOCOL,CALL LIGHT IN REACH,NEEDS ANTICIPATED.
[2017-03-05 20:00] VITALS: BP_SYST 116; BP_SYST 133; BP_DIAS 69
--- NOTE | 2017-03-05 21:00 | NUR ---
MS RN NOTES TRIED TO PUT BACK IV BUT REFUSED
[2017-03-05] MEDS: MIRTAZAPINE 15 MG TABLET PO SCH (21:58)
[2017-03-06] MEDS: DAKINS QUARTER STRENGTH (0.125%) 480 ML BOTTLE TOP SCH ×3 (03:18→15:30)
--- NOTE | 2017-03-06 03:18 | NUR ---
MS RN NOTES WOUND CARE WITH DAKINS SOLUTION TO GROIN AND BUTTOCKS DONE.
[2017-03-06] MEDS: CEFTRIAXONE 1 G in IV D5W 50 ML IV SCH (05:45)
--- NOTE | 2017-03-06 06:00 | NUR ---
MS RN NOTES DUE ROCEPHIN 1 GM IVPB HUNG
--- NOTE | 2017-03-06 07:14 | NUR ---
MS RN NOTES NO SIGNIFICANT CHANGE IN STATUS.KEPT ON ISOLATION PRECAUTION,MED COMPLIANT,CALL LIGHT IN REACH,NEEDS ATTENDED.
[2017-03-06 08:00] VITALS: BP 122/65
--- NOTE | 2017-03-06 08:27 | NUR ---
RN OPENING NOTES RECEIVED PT. PT IS STABLE AND SLEEPING IN BED. A/OX1, PT IS NON-VERBAL. NO S/S OF RESPIRATORY DISTRESS OR SOB. PT IS ON RA WITH O2 SAT WNL. FC IN PLACE AND PATENT. IV ACCESS LOCATED ON R FOREARM SL DUE TO PT REFUSAL FOR FLUIDS. SAFETY MEASURES IN PLACE, CALL LIGHT WITHIN REACH. WILL CONTINUE TO MONITOR.
[2017-03-06 08:57] LABS: BASOPHILS % (AUTO) 0.1 % (0.0-2.0); CALCIUM, SERUM 9.6 mg/dL (8.5-10.1); CREATININE 0.5 mg/dL (0.6-1.3); EOSINOPHILS # (AUTO) 0.2 /CMM (0.0-0.7); EOSINOPHILS % (AUTO) 1.8 % (0.0-6.0); HEMATOCRIT 23 % (39-51); LYMPHOCYTES # (AUTO) 1.1 /CMM (0.8-4.8); LYMPHOCYTES % (AUTO) 10.4 % (20.0-44.0); MAGNESIUM 1.6 mg/dL (1.8-2.4); MEAN CORPUSCULAR HEMOGLOBIN 21 PG (26.0-33.0); MEAN CORPUSCULAR HGB CONC 30 g/dl (31.0-36.0); MEAN CORPUSCULAR VOLUME 70 fL (80-96); MONOCYTES # (AUTO) 0.7 /CMM (0.1-1.30); MONOCYTES % (AUTO) 6.9 % (2.0-12.0); NEUTROPHILS # (AUTO) 8.7 /CMM (1.8-8.9); NEUTROPHILS % (AUTO) 80.8 % (43.0-81.0); PHOSPHORUS 2.3 mg/dL (2.5-4.9); PLATELET COUNT (AUTO) 431 /CMM (150-450); RDW COEFFICIENT OF VARIATION 18.4 (11.5-15.0); RED BLOOD CELL COUNT(AUTO) 3.25 MIL/uL (4.5-6.0); WHITE BLOOD COUNT (AUTO) 10.7 K/uL (4.3-11.0)
[2017-03-06] MEDS: METOPROLOL TARTRATE 25 MG TABLET PO SCH ×2 (09:00→21:17)
[2017-03-06 09:04] LABS: HEMOGLOBIN 6.9 g/dL (13.5-17.5)
[2017-03-06] MEDS: GABAPENTIN 100 MG CAPSULE PO SCH ×2 (09:20→16:59)
[2017-03-06] MEDS: ZINC SULFATE 220 MG CAPSULE PO SCH (09:20)
[2017-03-06] MEDS: ASCORBIC ACID 500 MG TABLET PO SCH (09:20)
[2017-03-06] MEDS: DOCUSATE SODIUM 100 MG CAPSULE PO SCH ×2 (09:20→16:59)
[2017-03-06] MEDS: PANTOPRAZOLE 40 MG TABLET.DR PO SCH (09:20)
--- NOTE | 2017-03-06 10:00 | NUR ---
RN NOTES BP MEDICATION HELD DUE TO NORMAL PT BP OF 122/65.
--- NOTE | 2017-03-06 10:48 | NUR ---
RN NOTES INFORMED BY LAB THAT PT H/H IS 6.9. CONTACTED MARIO LUJAN AND INFORMED HIM OF RESULTS. 2 UNITS PRBC ORDERED.
[2017-03-06 11:29] LABS: LYMPHOCYTES % (MANUAL) 8 % (16-48); MONOCYTES % (MANUAL) 3 % (0-11.0); NEUTROPHILS % (MANUAL) 89 (42-76)
[2017-03-06] MEDS ORDERED: K PHOS NEUTRAL 250 MG TABLET PO ONE (13:00)
[2017-03-06 14:55] VITALS: BP 113/59
[2017-03-06 15:14] VITALS: BP 109/59
[2017-03-06 16:00] VITALS: BP 106/58
--- NOTE | 2017-03-06 19:21 | NUR ---
RN CLOSING NOTES PT IS STABLE AND RESTING IN BED. NO S/S OF DISTRESS OR SOB. NO C/O PAIN AT THIS TIME. 1 UNIT OF PRBCS TRANSFUSED. AWAITING H/H BEFORE 2ND ORDER. ALL PT NEEDS ANTICIPATED AND MET. SAFETY MEASURES IN PLACE. CALL LIGHT WITHIN REACH. WILL ENDORSE TO PUPPY TRAINER FOR KEITH.
--- NOTE | 2017-03-06 19:30 | NUR ---
MS RN OPENING NOTES: PATIENT I BED, AOX1, NON VERBAL, ON ROOM AIR, BREATHING EVEN AND UNLABORED. APPEARS CALM AND IN NO DISTRESS. WITH PIRES CATHETER DRAINING CLEAR YELLOW URINE. HUMBERTO MIDLINE G 20 INTACT AND PATENT, INFUSING WELL WITH NS RUNNING AT 100 ML/HR. PROVIDED FOR COMFORT AND SAFETY. BED IN LOWEST AND LOCKED POSITION, SIDERAILS UP X 3. WILL CONT TO MONITOR.
[2017-03-06 20:00] VITALS: BP 114/66
[2017-03-06 20:11] LABS: BASOPHILS # (AUTO) 0.3 /CMM (0.0-0.2); BASOPHILS % (AUTO) 2.5 % (0.0-2.0); EOSINOPHILS # (AUTO) 0.2 /CMM (0.0-0.7); EOSINOPHILS % (AUTO) 1.9 % (0.0-6.0); HEMATOCRIT 27 % (39-51); HEMOGLOBIN 8.3 g/dL (13.5-17.5); LYMPHOCYTES # (AUTO) 1.3 /CMM (0.8-4.8); LYMPHOCYTES % (AUTO) 10.1 % (20.0-44.0); MEAN CORPUSCULAR HEMOGLOBIN 22 PG (26.0-33.0); MEAN CORPUSCULAR HGB CONC 31 g/dl (31.0-36.0); MEAN CORPUSCULAR VOLUME 71 fL (80-96); MONOCYTES # (AUTO) 0.7 /CMM (0.1-1.30); MONOCYTES % (AUTO) 5.7 % (2.0-12.0); NEUTROPHILS # (AUTO) 9.9 /CMM (1.8-8.9); NEUTROPHILS % (AUTO) 79.8 % (43.0-81.0); PLATELET COUNT (AUTO) 514 /CMM (150-450); RDW COEFFICIENT OF VARIATION 19.4 (11.5-15.0); RED BLOOD CELL COUNT(AUTO) 3.77 MIL/uL (4.5-6.0); WHITE BLOOD COUNT (AUTO) 12.4 K/uL (4.3-11.0)
[2017-03-06] MEDS ORDERED: POTASSIUM CHLORIDE 20 MEQ POWDER PACKET GT SCH (20:30)
[2017-03-06] MEDS ORDERED: Magnesium 1GM/D5W 100ML PREMIX PIGGYBACK IV ONE ×2 (20:30→21:30)
--- NOTE | 2017-03-06 20:35 | NUR ---
RN NOTES: CALLED [employer] MARKET CLERK TERRANCE DON, TO INFORM RE PATIENT'S HGB: 8.3, INCREASED AFTER 1 UNIT PRBC. PER BLOCKER HAND, NO NEED TO GIVE THE 2ND UNIT OF PRBC AT THIS TIME. ORDERS MADE FOR POTASSIUM AND MAGNESIUM REPLACEMENT WELL. ORDERS NOTED AND CARRIED OUT.
--- NOTE | 2017-03-06 20:36 | NUR ---
RN NOTES: INFORMED FLORENCIA CREW TRUCK DRIVER OF INCREASED WBC AT 12.4, ALSO INFORMED THAT PT IS ON ATB : ROCEPHIN 1 GM Q 24 HRS IV. NNO GIVEN AT THIS TIME.
[2017-03-06] MEDS ORDERED: POTASSIUM CHLORIDE 20 MEQ POWDER PACKET ONE (20:37)
[2017-03-06] MEDS ORDERED: Magnesium 1GM/D5W 100ML PREMIX 200 ML IV ONE (20:38)
[2017-03-06] MEDS: IV NS 0.9% 1,000 ML IV PRN (20:56)
[2017-03-06] MEDS ORDERED: POTASSIUM CHLORIDE 20 MEQ POWDER PACKET PO ONE (21:30)
[2017-03-06 21:52] LABS: BAND % (MANUAL) 3 % (0.0-5.0); EOSINOPHILS % (MANUAL) 2 % (0-4); LYMPHOCYTES % (MANUAL) 7 % (16-48); MONOCYTES % (MANUAL) 2 % (0-11.0); NEUTROPHILS % (MANUAL) 86 (42-76)
[2017-03-06] MEDS: MIRTAZAPINE 15 MG TABLET PO SCH (22:03)
[2017-03-07] MEDS ORDERED: IOHEXOL-300 100 ML VIAL IV ONE (01:51)
--- NOTE | 2017-03-07 04:03 | NUR ---
RN NOTES: MORNING CARE RENDERED TO PATIENT. PATIENT HAD SOFT BM, TARRY IN COLOR. COLLECTED STOOL SAMPLE FOR OCCULT BLOOD. WOUND DRESSING DONE ORDERED.
[2017-03-07] MEDS: DAKINS QUARTER STRENGTH (0.125%) 480 ML BOTTLE TOP SCH ×3 (04:08→14:35)
[2017-03-07 04:15] VITALS: BP 115/66
[2017-03-07] MEDS: CEFTRIAXONE 1 G in IV D5W 50 ML IV SCH (05:29)
--- NOTE | 2017-03-07 07:01 | NUR ---
MS RN CLOSING NOTES: PATIENT IN BED, AOX1, NON VERBAL, ON ROOM AIR, BREATHING EVEN AND UNLABORED. APPEARS WEAK LOOKING, BUT CALM AND IN NO DISTRESS, WAS ABLE TO FOLLOW SIMPLE COMMANDS. HUMBERTO MIDLINE INTACT AND INFUSING WELL WITH NS RUNNING AT 100 ML/HR. PIRES CATHETER IN PLACE DRAINING CLOUDY YELLOW URINE. DUE MEDS GIVEN. PROVIDED FOR COMFORT AND SAFETY. BED IN LOWEST AND LOCKED POSITION, SIDERAILS UP X 3. MORNING CARE RENDERED. WILL ENDORSE TO AM RN FOR KEITH.
--- NOTE | 2017-03-07 07:30 | NUR ---
MS RN OPENING NOTES RECEIVED PATIENT IN STABLE CONDITION. IN NO APPARENT DISTRESS. BEDSIDE RAILS ARE UP X2. BED IS LOCKED AND LOWERED. WILL CONTINUE TO MONITOR. CALL LIGHT IS WITHIN REACH.
[2017-03-07 08:00] VITALS: BP 122/65
[2017-03-07] MEDS: PANTOPRAZOLE 40 MG TABLET.DR PO SCH (08:56)
[2017-03-07] MEDS: ASCORBIC ACID 500 MG TABLET PO SCH (08:56)
[2017-03-07] MEDS: DOCUSATE SODIUM 100 MG CAPSULE PO SCH ×2 (08:56→16:00)
[2017-03-07] MEDS: GABAPENTIN 100 MG CAPSULE PO SCH ×2 (08:56→16:00)
[2017-03-07] MEDS: METOPROLOL TARTRATE 25 MG TABLET PO SCH ×2 (08:56→21:17)
[2017-03-07] MEDS: ZINC SULFATE 220 MG CAPSULE PO SCH (08:56)
[2017-03-07 11:23] LABS: BASOPHILS % (AUTO) 0.2 % (0.0-2.0); EOSINOPHILS # (AUTO) 0.2 /CMM (0.0-0.7); EOSINOPHILS % (AUTO) 1.2 % (0.0-6.0); HEMATOCRIT 25 % (39-51); MEAN CORPUSCULAR HEMOGLOBIN 23 PG (26.0-33.0); MEAN CORPUSCULAR HGB CONC 32 g/dl (31.0-36.0); MEAN CORPUSCULAR VOLUME 71 fL (80-96); MONOCYTES % (AUTO) 6.5 % (2.0-12.0); NEUTROPHILS # (AUTO) 12.7 /CMM (1.8-8.9); NEUTROPHILS % (AUTO) 85.1 % (43.0-81.0); PLATELET COUNT (AUTO) 516 /CMM (150-450); RED BLOOD CELL COUNT(AUTO) 3.56 MIL/uL (4.5-6.0); WHITE BLOOD COUNT (AUTO) 14.9 K/uL (4.3-11.0)
[2017-03-07 11:46] LABS: CALCIUM, SERUM 9.7 mg/dL (8.5-10.1); CREATININE 0.4 mg/dL (0.6-1.3); PHOSPHORUS 2.3 mg/dL (2.5-4.9)
[2017-03-07 11:47] LABS: POTASSIUM 2.8 mmol/L (3.5-5.1)
[2017-03-07] MEDS: POTASSIUM CHLORIDE 20 MEQ TAB.PRT.SR PO SCH (13:37)
[2017-03-07 16:00] VITALS: BP 124/73
[2017-03-07] MEDS ORDERED: K PHOS NEUTRAL 250 MG TABLET PO ONE (16:30)
--- NOTE | 2017-03-07 19:00 | NUR ---
MS RN CLOSING NOTES PATIENT IS IN STABLE CONDITION. IN NO APPARENT DISTRESS. BEDSIDE RAILS ARE UP X2. BED IS LOCKED AND LOWERED. WILL ENDORSE CARE TO AGED OR DISABLED CARE WORKER NURSE FOR KEITH.
--- NOTE | 2017-03-07 19:15 | NUR ---
MS/RN NOTES RECEIVED PT. SITTING UP IN BED AWAKE, ALERT AND ORIENTED X1. PT. IS NON-VERBAL. BREATHING EVEN AND UNLABORED ON ROOM AIR. NO SOB, RESPIRATORY DISTRESS OR S/S OF PAIN NOTED AT THIS TIME. PT. WITH LEFT UPPER ARM MIDLINE PRESENT, PATENT AND INTACT ADMINISTERING TO PT. NS @ 100ML/HR. PT. WITH PIRES CATHETER PRESENT, PATENT AND INTACT DRAINING CLEAR YELLOW URINE. BED LOCKED AND IN LOWEST POSITION, SIDE RAILS UP X3, BED ALARM ON, CALL LIGHT WITHIN REACH, WILL CONTINUE TO MONITOR.
[2017-03-07 20:29] VITALS: BP 118/67
[2017-03-07] MEDS ORDERED: POTASSIUM CHLORIDE 20 MEQ POWDER PACKET PO ONE (20:30)
[2017-03-07] MEDS: IV NS 0.9% 1,000 ML IV PRN (21:16)
[2017-03-07] MEDS: MIRTAZAPINE 15 MG TABLET PO SCH (21:17)
[2017-03-08] MEDS: DAKINS QUARTER STRENGTH (0.125%) 480 ML BOTTLE TOP SCH ×2 (03:55→17:36)
[2017-03-08] MEDS: CEFTRIAXONE 1 G in IV D5W 50 ML IV SCH (06:17)
--- NOTE | 2017-03-08 06:26 | NUR ---
MS/RN NOTES PT. IS LYING IN BED RESTING. BREATHING EVEN AND UNLABORED ON ROOM AIR. NO SOB, RESPIRATORY DISTRESS OR S/S OF PAIN NOTED AT THIS TIME. PT. WITH LEFT UPPER ARM MIDLINE PRESENT, PATENT AND INTACT ADMINISTERING TO PT. NS @ 100ML/HR. PT. WITH PIRES CATHETER PRESENT, PATENT AND INTACT DRAINING CLOUDY YELLOW URINE. ALL PT. NEEDS MET. WOUND CARE PROVIDED. BED LOCKED AND IN LOWEST POSITION, SIDE RAILS UP X3, BED ALARM ON, CALL LIGHT WITHIN REACH, WILL ENDORSE TO DAYSARFT NURSE FOR CONTINUITY OF CARE.
--- NOTE | 2017-03-08 07:24 | NUR ---
MS RN OPENING NOTES PATIENT IS RESTING IN BED IN NO APPARENT DISTRESS. BEDSIDE RAILS ARE UP X2. BED IS LOCKED AND LOWERED. WILL CONTINUE TO MONITOR.
[2017-03-08 07:35] LABS: BASOPHILS % (AUTO) 0.2 % (0.0-2.0); EOSINOPHILS # (AUTO) 0.2 /CMM (0.0-0.7); EOSINOPHILS % (AUTO) 2.4 % (0.0-6.0); HEMATOCRIT 24 % (39-51); HEMOGLOBIN 7.6 g/dL (13.5-17.5); LYMPHOCYTES # (AUTO) 0.9 /CMM (0.8-4.8); LYMPHOCYTES % (AUTO) 9.1 % (20.0-44.0); MEAN CORPUSCULAR HEMOGLOBIN 22 PG (26.0-33.0); MEAN CORPUSCULAR HGB CONC 32 g/dl (31.0-36.0); MEAN CORPUSCULAR VOLUME 71 fL (80-96); MONOCYTES # (AUTO) 0.7 /CMM (0.1-1.30); MONOCYTES % (AUTO) 7.2 % (2.0-12.0); NEUTROPHILS # (AUTO) 8.2 /CMM (1.8-8.9); NEUTROPHILS % (AUTO) 81.1 % (43.0-81.0); PLATELET COUNT (AUTO) 490 /CMM (150-450); RDW COEFFICIENT OF VARIATION 18.7 (11.5-15.0); RED BLOOD CELL COUNT(AUTO) 3.42 MIL/uL (4.5-6.0); WHITE BLOOD COUNT (AUTO) 10.1 K/uL (4.3-11.0)
[2017-03-08 07:52] LABS: CALCIUM, SERUM 10.2 mg/dL (8.5-10.1); CREATININE 0.4 mg/dL (0.6-1.3); MAGNESIUM 1.9 mg/dL (1.8-2.4); PHOSPHORUS 2.7 mg/dL (2.5-4.9); POTASSIUM 3.1 mmol/L (3.5-5.1)
[2017-03-08 08:00] VITALS: BP 113/69
[2017-03-08] MEDS: IV NS 0.9% 1,000 ML IV PRN (08:00)
[2017-03-08] MEDS: DOCUSATE SODIUM 100 MG CAPSULE PO SCH ×2 (08:02→17:39)
[2017-03-08] MEDS: ASCORBIC ACID 500 MG TABLET PO SCH (08:02)
[2017-03-08] MEDS: ZINC SULFATE 220 MG CAPSULE PO SCH (08:02)
[2017-03-08] MEDS: POTASSIUM CHLORIDE 20 MEQ TAB.PRT.SR PO SCH (08:03)
[2017-03-08] MEDS: PANTOPRAZOLE 40 MG TABLET.DR PO SCH (08:03)
[2017-03-08] MEDS: GABAPENTIN 100 MG CAPSULE PO SCH ×2 (08:04→17:39)
[2017-03-08] MEDS: METOPROLOL TARTRATE 25 MG TABLET PO SCH ×2 (08:09→23:03)
--- NOTE | 2017-03-08 11:00 | NUR ---
RN OPENING NOTES RECEIVED PATIENT FROM BENJAMIN CAMARGO FOR CONTINUATION OF CARE.
[2017-03-08 16:00] VITALS: BP 110/66
--- NOTE | 2017-03-08 19:35 | NUR ---
RN CLOSING NOTES PATIENT RESTING COMFORTABLY IN BED. NO ACUTE DISTRESS. RESPIRATIONS EVEN AND UNLABORED. AOX1 NON VERBAL. ALL NEEDS MET. ALL MEDS GIVEN APPROPRIATE. BED LOCKED IN THE LOWEST POSITION WITH SIDE RAILS UP X2. CALL LIGHT WITHIN REACH. WILL ENDORSE TO NIGHT RN FOR KEITH.
--- NOTE | 2017-03-08 19:55 | NUR ---
RN OPENING NOTES RECEIVED REPORT FROM MARIBELL RNBLANCA. FOUND Pt AWAKE, RESTING IN BED. NO S/S OF ACUTE DISTRESS OR SOB NOTED. Pt IS A/OX1, NONVERBAL, BUT COMMUNICATES VIA WRITING ON CLIPBOARD. PIRES CATHETER IN PLACE. IV ACCESS ON HUMBERTO MIDLINE #20G, IVF NS @100ML/HR. SAFETY MEASURES IN PLACE. BED LOW LOCKED, HOB ELEVATED, SIDE RAILS UP, BED ALARM ON, CALL LIGHT AND BEDSIDE TABLE WITHIN REACH. WILL CONTINUE TO MONITOR Pt THROUGHOUT THE NIGHT FOR SAFETY.
[2017-03-08 20:00] VITALS: BP 104/66
[2017-03-08] MEDS ORDERED: SODI473S8 TOP (20:05)
[2017-03-08] MEDS: MIRTAZAPINE 15 MG TABLET PO SCH (23:02)
[2017-03-08] MEDS: ACETAMINOPHEN 325 MG TABLET PO PRN (23:03)
[2017-03-09] VITALS (7 sets, daily range): BP systolic 104–112; BP diastolic 56–68
--- NOTE | 2017-03-09 02:02 | NUR ---
RN NOTES TRIED CALLING DOM REILLY (PERSON TO NOTIFY; [phone]), TO GET CONSENT FOR BLOOD TRANSFUSION. THERE WAS NO CURRENT UP TO DATE CONSENT FORM SIGNED FOR BLOOD TRANSFUSION FOUND IN Pt's CHART. LEFT MESSAGE FOR DOM. WILL SEE IF THEY CALL BACK IN TIME TO GIVE THE BLOOD.
--- NOTE | 2017-03-09 02:05 | NUR ---
RN NOTES CALLED KHURRAM MCKEON MD ([phone]) TO OBTAIN CONSENT FOR BLOOD TRANSFUSION. NO ANSWER. LEFT MESSAGE WITH CALL BACK NUMBER TO UNIT.
--- NOTE | 2017-03-09 02:15 | NUR ---
RN NOTES FOUND AFTER HOURS PHONE NUMBER ([phone]) TO REACH THE [facility], TO GET CONSENT FOR THE BLOOD TRANSFUSION, BUT AN AUTOMATED MESSAGE SAID THAT THEY ARE CLOSED FOR THE HOLIDAY. WILL ENDORSE TO DAYSHIFT RN TO SEE IF THEY CAN BE REACHED DURING THE DAY AFTER THE HOLIDAY.
--- NOTE | 2017-03-09 02:33 | NUR ---
RN NOTES UNABLE TO TRANSFUSE BLOOD AT THIS TIME DUE TO LACK OF CONSENT FORM FOR BLOOD TRANSFUSION. Pt IS UNABLE TO SIGN DUE TO MEDICAL CONDITION.
[2017-03-09] MEDS: DAKINS QUARTER STRENGTH (0.125%) 480 ML BOTTLE TOP SCH ×2 (03:30→15:52)
[2017-03-09] MEDS: IV NS 0.9% 1,000 ML IV PRN (04:10)
--- NOTE | 2017-03-09 04:11 | NUR ---
RN NOTES DAIKINS SOLUTION BOTTLE IS EMPTY. NO OTHER BOTTLES FOUND. WILL DO WOUND CARE WITH STERILE NS SOLUTION.
[2017-03-09] MEDS: CEFTRIAXONE 1 G in IV D5W 50 ML IV SCH (06:02)
--- NOTE | 2017-03-09 06:50 | NUR ---
RN CLOSING NOTES NO SIGNIFICANT CHANGES IN Pt's CONDITION. Pt REMAINS STABLE AT THIS TIME. NO S/S OF ACUTE DISTRESS OR SOB NOTED DURING THE NIGHT. ALL NEEDS MET AND ATTENDED TO. SAFETY MEASURES IN PLACE. WILL ENDORSE TO DAYSHIFT RN FOR Pt's KEITH.
--- NOTE | 2017-03-09 07:24 | NUR ---
ms rn initial notes Received patient in bed, awake, head of bed elevated, no SOB or distress noted, on room air. on isolation for Hx of ESBL urine. Cody in placed attached to drainage bag. HUMBERTO midline and in placed with IVF infusing well. No facial grimace noted. Kept patient clean and comfortable in bed, call light with in patient reach, will continue to monitor accordingly.
[2017-03-09] MEDS: PANTOPRAZOLE 40 MG TABLET.DR PO SCH (07:58)
[2017-03-09] MEDS: ASCORBIC ACID 500 MG TABLET PO SCH (08:01)
[2017-03-09] MEDS: GABAPENTIN 100 MG CAPSULE PO SCH ×2 (08:01→16:26)
[2017-03-09] MEDS: METOPROLOL TARTRATE 25 MG TABLET PO SCH (08:01)
[2017-03-09] MEDS: ZINC SULFATE 220 MG CAPSULE PO SCH (08:01)
[2017-03-09] MEDS: DOCUSATE SODIUM 100 MG CAPSULE PO SCH ×2 (08:43→16:26)
[2017-03-09] MEDS: POTASSIUM CHLORIDE 20 MEQ TAB.PRT.SR PO SCH (08:43)
[2017-03-09 09:36] LABS: BASOPHILS % (AUTO) 0.2 % (0.0-2.0); EOSINOPHILS # (AUTO) 0.2 /CMM (0.0-0.7); EOSINOPHILS % (AUTO) 1.7 % (0.0-6.0); HEMATOCRIT 24 % (39-51); HEMOGLOBIN 7.4 g/dL (13.5-17.5); LYMPHOCYTES # (AUTO) 0.8 /CMM (0.8-4.8); LYMPHOCYTES % (AUTO) 8.6 % (20.0-44.0); MEAN CORPUSCULAR HEMOGLOBIN 22 PG (26.0-33.0); MEAN CORPUSCULAR HGB CONC 31 g/dl (31.0-36.0); MEAN CORPUSCULAR VOLUME 71 fL (80-96); MONOCYTES # (AUTO) 0.6 /CMM (0.1-1.30); NEUTROPHILS # (AUTO) 8.1 /CMM (1.8-8.9); NEUTROPHILS % (AUTO) 83.5 % (43.0-81.0); PLATELET COUNT (AUTO) 473 /CMM (150-450); RDW COEFFICIENT OF VARIATION 19.3 (11.5-15.0); RED BLOOD CELL COUNT(AUTO) 3.39 MIL/uL (4.5-6.0); WHITE BLOOD COUNT (AUTO) 9.7 K/uL (4.3-11.0)
[2017-03-09 09:52] LABS: CREATININE 0.4 mg/dL (0.6-1.3); MAGNESIUM 1.7 mg/dL (1.8-2.4); PHOSPHORUS 2.4 mg/dL (2.5-4.9); POTASSIUM 3.6 mmol/L (3.5-5.1)
[2017-03-09] MEDS ORDERED: K PHOS NEUTRAL 250 MG TABLET PO ONE (16:00)
--- NOTE | 2017-03-09 19:00 | NUR ---
ms group burner machine notes Discharge instructions [facility] due to patient is unable to understand and comprehend. Discontinued IV and pressured applied. Skin assessment and pictures taken and filed in the chart. Ambulance came to waste picker the patient. patient left the hospital via gurney accompanied by 2 EMT's in stable condition. No complaint of pain or discomfort, nor chest pain, no SOB or distress noted. Flu and pneumonia vaccine not given. Vital signs checked and recorded. MD and charge nurse made aware.
== END 2017-03-09 18:55 | DRG 871 ==
LOC: ER 03:20 → TELE 08:19 → MED 03-04 10:27
PROVIDERS: ADMIT Nurse Practitioner Acute Care; ATTEND Nurse Practitioner Acute Care
PROC: 30233N1 Transfusion of Nonautologous Red Blood Cells into Peripheral Vein, Percutaneous Approach (ICD-10-PCS; principal; 2017-03-06)
PROC: 05H633Z Insertion of Infusion Device into Left Subclavian Vein, Percutaneous Approach (ICD-10-PCS; 2017-03-06)
PROC: B547ZZA Ultrasonography of Left Subclavian Vein, Guidance (ICD-10-PCS; 2017-03-06)
DX: A41.9 Sepsis, unspecified organism (principal); E43 Unspecified severe protein-calorie malnutrition; G93.49 Other encephalopathy; L89.159 Pressure ulcer of sacral region, unspecified stage; D62 Acute posthemorrhagic anemia; L97.529 Non-pressure chronic ulcer of other part of left foot with unspecified severity; E83.52 Hypercalcemia; E86.0 Dehydration; N39.0 Urinary tract infection, site not specified; Q05.9 Spina bifida, unspecified; Z89.511 Acquired absence of right leg below knee; Z79.899 Other long term (current) drug therapy; Z87.440 Personal history of urinary (tract) infections; F79 Unspecified intellectual disabilities; I10 Essential (primary) hypertension; K21.9 Gastro-esophageal reflux disease without esophagitis; Z85.828 Personal history of other malignant neoplasm of skin; Z88.1 Allergy status to other antibiotic agents; D47.3 Essential (hemorrhagic) thrombocythemia; I73.9 Peripheral vascular disease, unspecified
CPT/HCPCS: 36415; 36569; 80048-TC; 80053-TC; 80061-TC; 80076-TC; 81000-TC; 82272-TC; 82728-TC; 83540-TC; 83735-TC; 83921; 84100-TC; 84134-TC; 84443-TC; 85025-TC; 85045-TC; 85730-TC; 86850-TC; 86921-TC; 87081-TC; 87086-TC; 87186-TC; A4606; A6253; A6402; A6403; J0696; J3475; J7030; J7042; J7050; J7060; P9016-BL; Q9967; Z7610

== ENCOUNTER 2017-03-22 11:12 | Inpatient (IN) | payer MEDICARE, MEDICAID ==
[~2017-03-22] VITALS: Ht 160 cm; Wt 63.5 kg
--- NOTE | 2017-03-22 07:30 | NUR ---
MS RN NOTES. PT A&0X1, PT WITH IVC AT R FA G#22 INTACT AND SALINE LOCKED. PT INDICATING NO PAIN. PT TOLERATING ROOM AIR WITHOUT DISTRESS. PT BED IN LOWEST LOCKED POSITION WITH HANDRAILSX2 AND CALL LEIVA WITH REACH. PT ENDORSED TO NIGHT NURSE FOR KEITH.
[~2017-03-22 11:12] MED LIST changes: -AMIN30LI4 PO; -DOXY100T2 PO; -MERO1VIA IV; +NUTR1PAC14 PO
--- NOTE | 2017-03-22 11:20 | NUR ---
BB PRIVATE EMS FROM [facility] FOR CELLULITIS OF THE LEFT GROIN. PATIENT ALSO HAS MULTIPLE WOUNDS IN TREATMENT. PATIENT IS A/OX 1, BREATHING EVEN AND UNLABORED. NO SOB. VITALS STABLE. SAFETY AND COMFORT MEASURES IN PLACE. AWAITING MD ORDERS.
--- NOTE | 2017-03-22 11:50 | NUR ---
NEW IV STARTED ON RFA, 22G. BLOOD DRAWN AND SENT TO LAB.
--- NOTE | 2017-03-22 11:55 | NUR ---
URINE OBTAINED AND SENT TO LAB .
[2017-03-22 11:58] LABS: BASOPHILS # (AUTO) 0.2 /CMM (0.0-0.2); BASOPHILS % (AUTO) 1.4 % (0.0-2.0); EOSINOPHILS # (AUTO) 0.1 /CMM (0.0-0.7); EOSINOPHILS % (AUTO) 0.9 % (0.0-6.0); HEMATOCRIT 27 % (39-51); HEMOGLOBIN 8.2 g/dL (13.5-17.5); LYMPHOCYTES # (AUTO) 1.2 /CMM (0.8-4.8); LYMPHOCYTES % (AUTO) 9.3 % (20.0-44.0); MEAN CORPUSCULAR HEMOGLOBIN 22 PG (26.0-33.0); MEAN CORPUSCULAR HGB CONC 30 g/dl (31.0-36.0); MEAN CORPUSCULAR VOLUME 72 fL (80-96); MONOCYTES % (AUTO) 7.6 % (2.0-12.0); NEUTROPHILS % (AUTO) 80.8 % (43.0-81.0); PLATELET COUNT (AUTO) 525 /CMM (150-450); RDW COEFFICIENT OF VARIATION 20.7 (11.5-15.0); RED BLOOD CELL COUNT(AUTO) 3.76 MIL/uL (4.5-6.0); WHITE BLOOD COUNT (AUTO) 12.5 K/uL (4.3-11.0)
[2017-03-22] MEDS ORDERED: PIPERACILLIN /TAZOBACTAM 3.375 G in IV D5W 50 ML IV ONE (12:00)
[2017-03-22 12:06] LABS: APPEARANCE,URINE Cloudy (CLEAR); BILIRUBIN,URINE Negative (NEGATIVE); BLOOD, URINE Small Ery/uL (NEGATIVE); COLOR,URINE Yellow (YELLOW); KETONES,URINE 15 (NEGATIVE); LEUKOCYTE ESTERASE ,URINE Large (NEGATIVE); NITRITE, URINE Positive (NEGATIVE); PH,URINE 8.5 (5.0-8.0); PROTEIN,URINE 100 mg/dl (NEGATIVE); UGLUCOSE Negative (NEGATIVE)
[2017-03-22 12:06] LABS: CALCIUM, SERUM 11.7 mg/dL (8.5-10.1); CARBON DIOXIDE 33 mmol/L (21-32); CHLORIDE 109 mmol/L (98-107); CREATININE 0.5 mg/dL (0.6-1.3); GLUCOSE 138 mg/dL (74-106); POTASSIUM 3.6 mmol/L (3.5-5.1); SODIUM SERUM 142 mmol/L (136-145); UREA NITROGEN, BLOOD 34 mg/dL (7-18)
[2017-03-22 12:09] LABS: INR 1.01 (0.87-1.13)
[2017-03-22 12:11] LABS: BACTERIA,URINE Few /HPF (None Seen); SQUAMOUS EPITHELIAL CELL,UR Few /HPF (None Seen); WBC,URINE 80-100 /HPF (0-3)
[2017-03-22 12:11] LABS: ALANINE AMINOTRANSFERASE 36 U/L (12-78); ALKALINE PHOSPHATASE 268 U/L (46-116); ASPARTATE AMINOTRANSFERASE 38 U/L (15-37); BILIRUBIN,TOTAL 0.1 mg/dL (0.2-1.0); TOTAL PROTEIN, SERUM 7.6 g/dL (6.4-8.2)
--- NOTE | 2017-03-22 12:11 | NUR ---
PATIENT MEDICATED PER MD ORDERS.
[2017-03-22 12:13] LABS: ALBUMIN 1.1 g/dL (3.4-5.0)
[2017-03-22 12:14] LABS: TROPONIN I < 0.017 ng/mL (0.00-0.056)
--- NOTE | 2017-03-22 12:23 | NUR ---
Pato cavanaugh in [facility] - 03/22/17 at 1229 by COLBY REPORT GIVEN TO CAMILO ALEXANDER FOR KEITH UPON ADMISSION.
[2017-03-22] MEDS ORDERED: LACT10SO PO (12:27)
--- NOTE | 2017-03-22 13:50 | NUR ---
REPORT GIVEN TO EAN ALEXANDER FOR KEITH UPON ADMISSION.
--- NOTE | 2017-03-22 14:10 | NUR ---
PATIENT TRANSPORTED TO [facility] VIA STRETCHER. RNEAN TO PROVIDE KEITH .
--- NOTE | 2017-03-22 14:20 | NUR ---
MS RN NOTES. PT ARRIVED A&0X1, ALERT AND WILL NOD HEAD APPROPRIATELY TO QUESTIONS. VITALS WNL. PT TOLERATING ROOM AIR WITH NO OBVIOUS S/S OF RESP DISTRESS. PT WITH IVC AT R FA G#22 INTACT AND SALINE LOCKED. PT INDICATING NO PAIN. WOUNDS DOCUMENTED AND WOUND CONSULT ORDERED. PT BRIEFED ON POC, WILL CONTINUE TO MONITOR.
[2017-03-22] MEDS ORDERED: Medication Not On Formulary EA (Arginine/Glutamine/Calcium Hmb (Juven Packet) 1 EACH) PO SCH (15:00)
[2017-03-22] MEDS ORDERED: HYDROCODONE/APAP 5/325MG 1 EACH TABLET PO PRN (15:00)
[2017-03-22] MEDS ORDERED: ZOLPIDEM TARTRATE 5 MG TABLET PO PRN (15:00)
[2017-03-22] MEDS ORDERED: BISACODYL SUPP (10 MG) 10 MG/SUPP.RECT SUPP.RECT RC PRN (15:00)
[2017-03-22] MEDS ORDERED: ACETAMINOPHEN 325 MG TABLET PO PRN (15:00)
[2017-03-22] MEDS ORDERED: Z GUARD REMEDY 2 OZ OINT TP PRN (15:00)
[2017-03-22] MEDS ORDERED: MAGNESIUM HYDROXIDE 30 ML UDC PO PRN (15:00)
[2017-03-22] MEDS ORDERED: CLONIDINE HCL 0.1 MG TABLET PO PRN (15:00)
[2017-03-22] MEDS ORDERED: ONDANSETRON HCL/PF 4 MG/2 ML VIAL IVP PRN (15:00)
[2017-03-22] MEDS ORDERED: MAG HYDROX/AL HYDROX/SIMETH 30 ML UDC PO PRN (15:00)
[2017-03-22] MEDS ORDERED: PIPERACILLIN /TAZOBACTAM 4.5 G in IV D5W 50 ML IV SCH (15:00)
[2017-03-22 16:00] VITALS: BP 98/57
[2017-03-22] MEDS ORDERED: Medication Not On Formulary EA (Saccharomyces Boulardii (Florastor) 250 MG) PO SCH (17:00)
[2017-03-22] MEDS ORDERED: Medication Not On Formulary EA (Cranberry Fruit Concentrate (Cranberry) 450 MG) PO SCH (17:00)
[2017-03-22] MEDS: DOCUSATE SODIUM 100 MG CAPSULE PO SCH (17:27)
[2017-03-22] MEDS: GABAPENTIN 100 MG CAPSULE PO SCH (17:28)
[2017-03-22] MEDS: FERROUS SULFATE (325 MG) 325 MG/TAB TABLET PO SCH (17:28)
[2017-03-22] MEDS: LACTULOSE 10 G/15 ML UDC (PYXIS) PO SCH (17:28)
[2017-03-22] MEDS: IV NS 0.9% 1,000 ML IV PRN (17:31)
[2017-03-22] MEDS: PIPERACILLIN /TAZOBACTAM 3.375 G in IV D5W 50 ML IV SCH ×2 (17:33→23:17)
[2017-03-22 20:00] VITALS: BP 96/56
--- NOTE | 2017-03-22 20:18 | NUR ---
MS RN INITIAL NOTES PT IS IN BED RESTING. NO SIGNS OF SOB OR DISTRESS, BREATHING EVENLY AND UNLABORED ON RA. PT RESPONDS TO NAME AND TOUCH. IV ACCESS IS INTACT WITH FLUIDS RUNNING. PENDING WOUND CARE. BED IS IN LOW AND LOCKED POSITION, CALL LIGHT WITHIN REACH. WILL CONTINUE TO MONITOR PT
[2017-03-22] MEDS: METOPROLOL TARTRATE 25 MG TABLET PO SCH (21:00)
[2017-03-22] MEDS: MIRTAZAPINE 15 MG TABLET PO SCH (22:12)
[2017-03-23] VITALS: BP 107/61
[2017-03-23 04:00] VITALS: BP 108/62
[2017-03-23] MEDS: PIPERACILLIN /TAZOBACTAM 3.375 G in IV D5W 50 ML IV SCH ×3 (05:41→17:23)
--- NOTE | 2017-03-23 06:41 | NUR ---
MS RN CLOSING NOTES PT IS IN BED RESTING, NO SIGNS OF SOB OR DISTRESS. BREATHING EVENLY AND UNLABORED ON RA. WOUND CARE RENDERED WITH NS, PENDING WOUND CONSULT. IV ACCESS IS INTACT AND INFUSING. PIRES CATHETER WAS RE ENFORCED, DUE TO LEAKAGE NOTED. WILL ENDORSE TO DAYSHIFT. BED IS IN LOW AND LOCKED POSITION, CALL LIGHT WITHIN REACH. WILL ENDORSE TO DAYSHIFT
[2017-03-23 07:11] LABS: BILIRUBIN,TOTAL 0.2 mg/dL (0.2-1.0); CALCIUM, SERUM 11.7 mg/dL (8.5-10.1); CREATININE 0.5 mg/dL (0.6-1.3); MAGNESIUM 2.2 mg/dL (1.8-2.4); PHOSPHORUS 2.5 mg/dL (2.5-4.9); POTASSIUM 3.8 mmol/L (3.5-5.1); TOTAL PROTEIN, SERUM 7.5 g/dL (6.4-8.2)
[2017-03-23 07:57] LABS: BASOPHILS % (AUTO) 0.1 % (0.0-2.0); EOSINOPHILS # (AUTO) 0.2 /CMM (0.0-0.7); EOSINOPHILS % (AUTO) 1.6 % (0.0-6.0); HEMATOCRIT 27 % (39-51); HEMOGLOBIN 8.3 g/dL (13.5-17.5); LYMPHOCYTES # (AUTO) 1.2 /CMM (0.8-4.8); LYMPHOCYTES % (AUTO) 8.4 % (20.0-44.0); MEAN CORPUSCULAR HEMOGLOBIN 23 PG (26.0-33.0); MEAN CORPUSCULAR HGB CONC 31 g/dl (31.0-36.0); MEAN CORPUSCULAR VOLUME 74 fL (80-96); MONOCYTES % (AUTO) 6.6 % (2.0-12.0); NEUTROPHILS # (AUTO) 12.1 /CMM (1.8-8.9); NEUTROPHILS % (AUTO) 83.3 % (43.0-81.0); PLATELET COUNT (AUTO) 537 /CMM (150-450); RDW COEFFICIENT OF VARIATION 22.3 (11.5-15.0); RED BLOOD CELL COUNT(AUTO) 3.64 MIL/uL (4.5-6.0); WHITE BLOOD COUNT (AUTO) 14.5 K/uL (4.3-11.0)
[2017-03-23 08:00] VITALS: BP 101/62
--- NOTE | 2017-03-23 08:00 | NUR ---
RN MS NOTES PT IN BED, AWAKE, NO FACIAL GRIMACING OR MOANING, IV FLUIDS INFUSING WELL, CALL LIGHT WITHIN REACH, F/C IN PLACE, ASSISTED IN TURNING AND REPOSITIONING, KEPT COMFORTABLE.
[2017-03-23 08:31] LABS: ALBUMIN 1.2 g/dL (3.4-5.0)
[2017-03-23] MEDS: METOPROLOL TARTRATE 25 MG TABLET PO SCH ×2 (09:00→21:00)
[2017-03-23] MEDS: LACTULOSE 10 G/15 ML UDC (PYXIS) PO SCH ×2 (09:27→16:03)
[2017-03-23] MEDS: FERROUS SULFATE (325 MG) 325 MG/TAB TABLET PO SCH ×2 (09:27→16:03)
[2017-03-23] MEDS: ZINC SULFATE 220 MG CAPSULE PO SCH (09:27)
[2017-03-23] MEDS: MULTIVITAMINS,THERAGRAN 1 UDTAB TABLET PO SCH (09:28)
[2017-03-23] MEDS: GABAPENTIN 100 MG CAPSULE PO SCH ×2 (09:28→16:03)
[2017-03-23] MEDS: DOCUSATE SODIUM 100 MG CAPSULE PO SCH ×2 (09:28→16:03)
[2017-03-23] MEDS: PANTOPRAZOLE 40 MG TABLET.DR PO SCH (09:28)
[2017-03-23 10:40] LABS: BAND % (MANUAL) 3 % (0.0-5.0); EOSINOPHILS % (MANUAL) 2 % (0-4); LYMPHOCYTES % (MANUAL) 10 % (16-48); MONOCYTES % (MANUAL) 7 % (0-11.0); NEUTROPHILS % (MANUAL) 78 (42-76)
--- NOTE | 2017-03-23 12:13 | NUR ---
RN MS NOTES PT IN BED, AWAKE, ALERT TO SELF, NO FACIAL GRIMACING OR MOANING, MIDLINE INSERTION DONE AT RIGHT UPPER ARM PER MD ORDER, IV FLUIDS INFUSING WELL, ASSISTED WITH MEALS, F/C IN PLACE, KEPT CLEAN AND COMFORTABLE.
[2017-03-23 16:00] VITALS: BP 108/59
[2017-03-23] MEDS: IV NS 0.9% 1,000 ML IV PRN (16:06)
[2017-03-23] MEDS: DAKINS QUARTER STRENGTH (0.125%) 480 ML BOTTLE TOP SCH (17:29)
--- NOTE | 2017-03-23 18:33 | NUR ---
RN MS NOTES PT IN BED, AWAKE, ALERT TO SELF, NO SIGN OF PAIN OR DISCOMFORT, BREATHING PATTERN NORMAL, CALL LIGHT WITHIN REACH, WOUND TREATMENTS AND DRESSING CHANGE DONE, IV FLUIDS INFUSING WELL, PM CARE RENDERED, ALL NEEDS ATTENDED.
--- NOTE | 2017-03-23 18:35 | NUR ---
Patient resides at [facility] [phone]. He is bedfast most of the time, totally dependent with adl's. He is a patient of [facility] for spina bifida and psyche ds. Dr. Dick Bryant/ [facility] [phone], cell [phone] from [facility] will be the decision maker and to provide for consents of treatment. Plan is to dc back to SNF once discharge. Addendum: 03/23/17 at 1836 by FRAN HINSON RN Amended: Links added.
--- NOTE | 2017-03-23 19:30 | NUR ---
RN OPENING NOTES PATIENT IS IN BED, ALERT AND ORIENTED X1. VS STABLE. PAIN OR DISCOMFORT NOTED. RESPIRATIONS EVEN AND UNLABORED. NO SOB NOTED. IV ACCESS ON RIGHT UA MIDLINE PATENT AND INTACT. INFUSING NS AT 75 ML/HR, NO REDNESS OR INFILTRATION NOTED. F/C IS IN PLACE, DRAINING CLEAR AND YELLOW URINE.BED IN LOW AND LOCKED POSITION. SIDE RAILS X2. CALL LIGHT WITHIN EASY REACH. WILL CONTINUE TO MONITOR AND ASSESS DURING THE SHIFT.
[2017-03-23 20:00] VITALS: BP 96/60
[2017-03-23 20:19] VITALS: BP 96/60
[2017-03-23] MEDS: MEROPENEM 500 MG in IV NS 0.9% 50 ML IV SCH (20:44)
[2017-03-23] MEDS: LINEZOLID RTU BAG 600 MG in PREMIX 1 EA IV SCH (21:25)
[2017-03-23] MEDS: MIRTAZAPINE 15 MG TABLET PO SCH (21:28)
[2017-03-24] MEDS: MEROPENEM 500 MG in IV NS 0.9% 50 ML IV SCH ×3 (04:54→20:23)
--- NOTE | 2017-03-24 06:33 | NUR ---
RN CLOSING NOTES PATIENT IS SLEEPING IN BED, EASY TO AROUSE, ALERT AND ORIENTED X1. VS STABLE. NO PAIN OR DISCOMFORT NOTED. RESPIRATIONS EVEN AND UNLABORED. NO SOB NOTED. IV ACCESS ON RIGHT UA MIDLINE AND RIGHT FA PATENT AND INTACT, NO REDNESS OR INFILTRATION NOTED. F/C IS IN PLACE, DRAINING CLEAR AND YELLOW URINE. SKIN CLEAN AND DRY, DRESSING CHANGED, PATIENT REPOSITIONED. ALL NEEDS ARE MET AND MEDICATIONS GIVEN PER MD ORDER. BED IN LOW AND LOCKED POSITION. SIDE RAILS X2. CALL LIGHT WITHIN EASY REACH. WILL ENDORSE TO RN DAY SHIFT FOR KEITH.
--- NOTE | 2017-03-24 07:30 | NUR ---
RN MS NOTES PT IN BED, AWAKE, ALERT TO SELF, NO SIGN OF PAIN OR DISTRESS, IV FLUIDS INFUSING WELL, CALL LIGHT WITHIN REACH, F/C INTACT AND PATENT, TURNED AND REPOSITIONED FOR COMFORT.
[2017-03-24 08:00] VITALS: BP 98/54
[2017-03-24] MEDS: ZINC SULFATE 220 MG CAPSULE PO SCH (08:12)
[2017-03-24] MEDS: PANTOPRAZOLE 40 MG TABLET.DR PO SCH (08:12)
[2017-03-24] MEDS: LACTULOSE 10 G/15 ML UDC (PYXIS) PO SCH ×2 (08:12→16:28)
[2017-03-24] MEDS: GABAPENTIN 100 MG CAPSULE PO SCH ×2 (08:12→16:28)
[2017-03-24] MEDS: FERROUS SULFATE (325 MG) 325 MG/TAB TABLET PO SCH ×2 (08:12→16:28)
[2017-03-24] MEDS: MULTIVITAMINS,THERAGRAN 1 UDTAB TABLET PO SCH (08:12)
[2017-03-24] MEDS: DOCUSATE SODIUM 100 MG CAPSULE PO SCH ×2 (08:12→16:28)
[2017-03-24] MEDS: DAKINS QUARTER STRENGTH (0.125%) 480 ML BOTTLE TOP SCH (08:13)
[2017-03-24] MEDS: LINEZOLID RTU BAG 600 MG in PREMIX 1 EA IV SCH ×2 (08:17→21:00)
[2017-03-24] MEDS: METOPROLOL TARTRATE 25 MG TABLET PO SCH ×2 (08:29→21:00)
--- NOTE | 2017-03-24 13:00 | NUR ---
RN MS NOTES PT IN BED, AWAKE, ASSISTED WITH MEALS, KEPT CLEAN AND DRY, WOUND TREATMENTS AND DRESSING CHANGE DONE, KEPT WARM AND COMFORTABLE.
[2017-03-24 16:00] VITALS: BP 98/55
[2017-03-24] MEDS: IV NS 0.9% 1,000 ML IV PRN (16:48)
--- NOTE | 2017-03-24 18:29 | NUR ---
RN MS NOTES PT IN BED, ASLEEP, EASY TO AROUSE, ALERT TO SELF, NOT IN PAIN OR DISTRESS, ASSISTED WITH DINNER, PM CARE PROVIDED, WOUND TREATMENTS AND DRESSING CHANGE DONE ORDERED, TURNED AND REPOSITIONED Q2 HRS, ALL NEEDS ATTENDED.
--- NOTE | 2017-03-24 19:30 | NUR ---
RN OPENING NOTES PATIENT IS SLEEPING IN BED, EASY TO AROUSE, ALERT AND ORIENTED X1. VS STABLE. NO PAIN OR DISCOMFORT NOTED. RESPIRATIONS EVEN AND UNLABORED. NO SOB NOTED. IV ACCESS ON RIGHT UA MIDLINE PATENT AND INTACT. INFUSING NS AT 75 ML/HR, NO REDNESS OR INFILTRATION NOTED. F/C IS IN PLACE, DRAINING CLEAR AND YELLOW URINE. BED IN LOW AND LOCKED POSITION. SIDE RAILS X2. CALL LIGHT WITHIN EASY REACH. WILL CONTINUE TO MONITOR AND ASSESS DURING THE SHIFT.
[2017-03-24 20:00] VITALS: BP 93/55
[2017-03-24] MEDS: MIRTAZAPINE 15 MG TABLET PO SCH (21:45)
[2017-03-25] MEDS: MEROPENEM 500 MG in IV NS 0.9% 50 ML IV SCH ×3 (04:52→20:06)
--- NOTE | 2017-03-25 07:32 | NUR ---
RN CLOSING NOTES PATIENT IS SLEEPING IN BED, EASY TO AROUSE, ALERT AND ORIENTED X1. VS STABLE. NO PAIN OR DISCOMFORT NOTED. RESPIRATIONS EVEN AND UNLABORED. NO SOB NOTED. IV ACCESS ON RIGHT UA MIDLINE PATENT AND INTACT. INFUSING NS AT 75 ML/HR, NO REDNESS OR INFILTRATION NOTED. F/C IS IN PLACE. SKIN CLEAN AND DRY, DRESSING CHANGED, REPOSITIONED. ALL NEEDS ARE MET AND MEDICATIONS GIVEN PER MD ORDER. BED IN LOW AND LOCKED POSITION. SIDE RAILS X2. CALL LIGHT WITHIN EASY REACH. WILL ENDORSE TO RN DAY SHIFT FOR KEITH.
[2017-03-25 08:00] VITALS: BP 104/65
--- NOTE | 2017-03-25 08:20 | NUR ---
ms rn receive don bed, sleeping, not in any form of distress, respirations even and unlabored,no sob noted,no s/s of pain ,will monitor patient.
[2017-03-25] MEDS: METOPROLOL TARTRATE 25 MG TABLET PO SCH ×2 (09:00→21:28)
--- NOTE | 2017-03-25 09:30 | NUR ---
ms dyer breakfast served,due meds given,tolerated well.
[2017-03-25] MEDS: GABAPENTIN 100 MG CAPSULE PO SCH ×2 (09:43→18:43)
[2017-03-25] MEDS: MULTIVITAMINS,THERAGRAN 1 UDTAB TABLET PO SCH (09:43)
[2017-03-25] MEDS: LINEZOLID RTU BAG 600 MG in PREMIX 1 EA IV SCH ×2 (09:43→21:27)
[2017-03-25] MEDS: DOCUSATE SODIUM 100 MG CAPSULE PO SCH ×2 (09:43→18:43)
[2017-03-25] MEDS: FERROUS SULFATE (325 MG) 325 MG/TAB TABLET PO SCH ×2 (09:43→18:43)
[2017-03-25] MEDS: ZINC SULFATE 220 MG CAPSULE PO SCH (09:43)
[2017-03-25] MEDS: LACTULOSE 10 G/15 ML UDC (PYXIS) PO SCH ×2 (09:43→18:43)
[2017-03-25] MEDS: DAKINS QUARTER STRENGTH (0.125%) 480 ML BOTTLE TOP SCH (09:45)
[2017-03-25] MEDS: PANTOPRAZOLE 40 MG TABLET.DR PO SCH (09:50)
--- NOTE | 2017-03-25 11:00 | NUR ---
MS RN WAS SEEN AND EXAMINED BY DR. ALVAREZ, NO NEW ORDERS AT THIS TIME,PT IS NOR ON DNR STATUS.
[2017-03-25 16:00] VITALS: BP 104/61
--- NOTE | 2017-03-25 17:00 | NUR ---
MS RN ON BED, CHANGED DRESSINGS,CHANGE PIRES CATHETER W/ GOOD DRAIN NOW.
--- NOTE | 2017-03-25 19:23 | NUR ---
MS RN ON BED, NO CHANGE OF CONDITION.
--- NOTE | 2017-03-25 19:30 | NUR ---
RN NOTES RECEIVED PT. AWAKE ON BED, A/OX1, F/C DRAINING CLEAR YELLOW URINE, DRESSING ON GROIN DRY AND INTACT, CALL LIGHT WITHIN REACH, SIDRAILSUPX2, WILL CONTINUE TO MONITOR
[2017-03-25 20:00] VITALS: BP_SYST 112; BP_SYST 119; BP_DIAS 65; BP_DIAS 74
[2017-03-25] MEDS: MIRTAZAPINE 15 MG TABLET PO SCH (21:27)
[2017-03-26] MEDS: MEROPENEM 500 MG in IV NS 0.9% 50 ML IV SCH ×3 (05:06→20:41)
[2017-03-26] MEDS: IV NS 0.9% 1,000 ML IV PRN ×2 (05:06→20:41)
--- NOTE | 2017-03-26 07:00 | NUR ---
RN NOTES AWAKE, MORNING CARE RENDERED, F/C DRAINING CLEAR YELLOW URINE, SIDERAILSUPX2, PT NEEDS ATTENDED
[2017-03-26 08:00] VITALS: BP 102/59
--- NOTE | 2017-03-26 08:00 | NUR ---
MS RN AM NOTES PATIENT AWAKE IN BED, A&O x 1. BREATHING COMFORTABLY ON ROOM AIR. VITALS STABLE, NO SIGNS OR SYMPTOMS OF PAIN OR DISTRESS. IV NORMAL SALINE AT 75ML/HR, INFUSING WELL TO RIGHT UPPER MIDLINE. RIGHT FOREARM IV SITE INTACT. BED LOW, WITH TWO RAILS UP. CALL LIGHT WITHIN REACH.
[2017-03-26] MEDS: MULTIVITAMINS,THERAGRAN 1 UDTAB TABLET PO SCH (08:48)
[2017-03-26] MEDS: FERROUS SULFATE (325 MG) 325 MG/TAB TABLET PO SCH ×2 (08:48→17:12)
[2017-03-26] MEDS: ZINC SULFATE 220 MG CAPSULE PO SCH (08:49)
[2017-03-26] MEDS: DOCUSATE SODIUM 100 MG CAPSULE PO SCH ×2 (08:49→17:12)
[2017-03-26] MEDS: METOPROLOL TARTRATE 25 MG TABLET PO SCH ×2 (08:49→21:00)
[2017-03-26] MEDS: GABAPENTIN 100 MG CAPSULE PO SCH ×2 (08:49→17:12)
[2017-03-26] MEDS: PANTOPRAZOLE 40 MG TABLET.DR PO SCH (08:50)
[2017-03-26] MEDS: LACTULOSE 10 G/15 ML UDC (PYXIS) PO SCH ×2 (08:50→17:12)
[2017-03-26] MEDS: DAKINS QUARTER STRENGTH (0.125%) 480 ML BOTTLE TOP SCH (08:52)
[2017-03-26] MEDS: LINEZOLID RTU BAG 600 MG in PREMIX 1 EA IV SCH ×2 (08:53→21:20)
[2017-03-26 16:00] VITALS: BP 113/68
--- NOTE | 2017-03-26 18:00 | NUR ---
PT RESTING IN BED AWAKE AND COMFORTABLE.WITH NO S/S OF PAIN OR DISTRESS.WITH ONGOING IVF NS AT 75 ML/HR INFUSING WELL MARIO MIDLINE.TURNED EVERY TWO HRS.REMAINS ON ESBL URINE CONTACT ISOLATION PRECAUTIONS.CALL LIGHT WITHIN REACH.
--- NOTE | 2017-03-26 19:00 | NUR ---
RN OPENING NOTES RECEIVE PT A/O X 1, STABLE CONDITION, NO S/S OF DISTRESS, SAFETY MEASURES IN PLACE. LOW BED AT ALL TIMES. WILL CONTINUE TO MONITOR.
[2017-03-26 20:00] VITALS: BP 92/54
[2017-03-26] MEDS: MIRTAZAPINE 15 MG TABLET PO SCH (21:19)
[2017-03-27] MEDS: MEROPENEM 500 MG in IV NS 0.9% 50 ML IV SCH ×3 (05:18→20:31)
--- NOTE | 2017-03-27 06:11 | NUR ---
MS RN CLOSING NOTES PT COMFORTABLY ASLEEP AND EASILY AWAKEN, TOLERATING ROOM AIR 02 SAT 98% IN STABLE CONDITION. RESPIRATION EVEN AND UNLABORED. KEPT CLEAN AND DRY AND COMFORTABLE, ALL NURSING CARE RENDERED. NEEDS ATTENDED AND ANTICIPATED, FREQUENT VISUAL CHECK DONE FOR SAFETY EVERY 2 HOURS. TX ORDERED, GOOD SKIN CARE PROVIDED. OFFLOAD HEEL AND ELBOWS AT ALL TIMES, REPOSITIONED EVERY 2 HOURS FOR SKIN MGT, NO COMPLAINS OF PAIN. ON LOW BED AT ALL TIMES TO ENSURE SAFETY. SAFE HAZARD FREE ENVIRONMENT PROVIDED. CALL LIGHT WITHIN EASY TO REACH. WILL ENDORSE NEXT SHIFT CONTINUITY OF CARE
--- NOTE | 2017-03-27 07:30 | NUR ---
RN OPENING NOTES PT AWAKE AND RESTING IN BED. PT IS A/O X1. NO APPARENT S/S OF PAIN, SOB, OR DISTRESS AT THIS TIME. PT HAS A RIGHT FOREARM IV #22 RUNNING NS @75 ML/HR, PT TOLERATING WELL. PT HAS A PIRES CATHETER, INTACT AND DRAINING WELL. SAFETY PRECAUTIONS IN PLACE. BED IN LOW LOCKED POSITION, X2 SIDE RAILS UP, CALL LIGHT WITHIN REACH. Addendum: 03/28/17 at 0735 by RAY POLLARD RN WRONG TIME. 1933
[2017-03-27 08:00] VITALS: BP 123/67
--- NOTE | 2017-03-27 08:00 | NUR ---
MED SURG AM RN NOTES PATIENT AWAKE IN BED RESTING COMFORTABLY. ALERT AND ORIENTED X1. VITALS STABLE WITHOUT SIGNS OR SYMPTOMS OF DISTRESS OR PAIN. RIGHT UPPER MIDLINE IV NORMAL SALINE INFUSING WELL AT 75ML/HR. RIGHT FOREARM IV SITE INTACT. BED LOW WITH TWO RAILS UP, CALL LIGHT WITHIN REACH.
[2017-03-27] MEDS: GABAPENTIN 100 MG CAPSULE PO SCH ×2 (08:46→16:47)
[2017-03-27] MEDS: METOPROLOL TARTRATE 25 MG TABLET PO SCH ×2 (08:49→20:31)
[2017-03-27] MEDS: PANTOPRAZOLE 40 MG TABLET.DR PO SCH (08:50)
[2017-03-27] MEDS: ZINC SULFATE 220 MG CAPSULE PO SCH (08:50)
[2017-03-27] MEDS: DOCUSATE SODIUM 100 MG CAPSULE PO SCH ×2 (08:50→16:47)
[2017-03-27] MEDS: MULTIVITAMINS,THERAGRAN 1 UDTAB TABLET PO SCH (08:50)
[2017-03-27] MEDS: FERROUS SULFATE (325 MG) 325 MG/TAB TABLET PO SCH ×2 (08:50→16:47)
[2017-03-27] MEDS: LACTULOSE 10 G/15 ML UDC (PYXIS) PO SCH ×2 (08:51→16:47)
[2017-03-27] MEDS: LINEZOLID RTU BAG 600 MG in PREMIX 1 EA IV SCH ×2 (08:58→21:38)
[2017-03-27] MEDS: DAKINS QUARTER STRENGTH (0.125%) 480 ML BOTTLE TOP SCH (10:54)
[2017-03-27 16:00] VITALS: BP 83/51
--- NOTE | 2017-03-27 16:46 | NUR ---
STILL AWAITING FOR HOSPICE EVAL.COMMERCIAL GREEN RETROFIT ARCHITECT,IESHA NEVAREZ AND WILL FOLLOW UP.
--- NOTE | 2017-03-27 17:22 | NUR ---
MED SURG 3 RN CLOSING NOTES PATIENT RESTING IN BED. BREATHING COMFORTABLY ON ROOM AIR. TURNED AND REPOSITIONED WITH PRESSURE AREAS OFFLOADED. RIGHT UPPER ARM MIDLINE INFUSING WELL AT 75ML/HR, RIGHT FOREARM IV SITE INTACT. ALL NURSING CARE RENDERED. PATIENT WITH NO SIGNS OF PAIN OR DISTRESS. BED IN LOW POSITION WITH HOB SEMI FOWLERS, TWO SIDE RAILS ARE UP, WITH CALL LIGHT WITHIN REACH.
--- NOTE | 2017-03-27 19:35 | NUR ---
RN OPENING NOTES PT AWAKE AND RESTING IN BED. PT IS A/O X1. NO APPARENT S/S OF PAIN, SOB, OR DISTRESS AT THIS TIME. PT HAS A RIGHT FOREARM IV #22 RUNNING NS @75 ML/HR, PT TOLERATING WELL. PT HAS A PIRES CATHETER, INTACT AND DRAINING WELL. SAFETY PRECAUTIONS IN PLACE. BED IN LOW LOCKED POSITION, X2 SIDE RAILS UP, CALL LIGHT WITHIN REACH.
[2017-03-27 20:00] VITALS: BP 105/59
[2017-03-27] MEDS: IV NS 0.9% 1,000 ML IV PRN (20:30)
[2017-03-27] MEDS: MIRTAZAPINE 15 MG TABLET PO SCH (21:38)
[2017-03-28] MEDS: MEROPENEM 500 MG in IV NS 0.9% 50 ML IV SCH ×3 (04:14→20:19)
[2017-03-28] MEDS: PANTOPRAZOLE 40 MG TABLET.DR PO SCH (07:30)
--- NOTE | 2017-03-28 07:37 | NUR ---
RN CLOSING NOTES PT AWAKE AND RESTING IN BED. PT IS A/O X1. NO APPARENT S/S OF PAIN, SOB, OR DISTRESS AT THIS TIME. PT HAS A RIGHT FOREARM IV #22 RUNNING NS @75 ML/HR, PT TOLERATING WELL. PT HAS A PIRES CATHETER OUTPUT 650, INTACT AND DRAINING WELL. SAFETY PRECAUTIONS IN PLACE. BED IN LOW LOCKED POSITION, X2 SIDE RAILS UP, CALL LIGHT WITHIN REACH. WILL ENDORSE TO DAY SHIFT NURSE FOR CONTINUITY OF CARE.
[2017-03-28 08:00] VITALS: BP 104/59
--- NOTE | 2017-03-28 08:00 | NUR ---
m/s auto fleet manager: initial assessment received pt in bed awake, alert to self only. reality orientation provided prn. kept comfortable. isolation precaution maintained. instructed to call for assistance. will monitor.
[2017-03-28] MEDS: METOPROLOL TARTRATE 25 MG TABLET PO SCH ×2 (09:00→21:03)
[2017-03-28] MEDS: LINEZOLID RTU BAG 600 MG in PREMIX 1 EA IV SCH ×2 (09:09→21:03)
[2017-03-28] MEDS: DOCUSATE SODIUM 100 MG CAPSULE PO SCH ×2 (09:11→16:26)
[2017-03-28] MEDS: LACTULOSE 10 G/15 ML UDC (PYXIS) PO SCH ×2 (09:11→16:26)
[2017-03-28] MEDS: FERROUS SULFATE (325 MG) 325 MG/TAB TABLET PO SCH ×2 (09:11→16:26)
[2017-03-28] MEDS: MULTIVITAMINS,THERAGRAN 1 UDTAB TABLET PO SCH (09:11)
[2017-03-28] MEDS: ZINC SULFATE 220 MG CAPSULE PO SCH (09:11)
[2017-03-28] MEDS: DAKINS QUARTER STRENGTH (0.125%) 480 ML BOTTLE TOP SCH (09:12)
[2017-03-28] MEDS: GABAPENTIN 100 MG CAPSULE PO SCH ×2 (09:17→16:26)
--- NOTE | 2017-03-28 10:00 | NUR ---
m/s adoption worker: notes resting comfortable in bed. reality orientation provided prn. will monitor.
--- NOTE | 2017-03-28 14:00 | NUR ---
m/s liability claims examiner: notes in bed with eyes close, appears comfortable. no acute distress noted. will monitor.
[2017-03-28] MEDS: IV NS 0.9% 1,000 ML IV PRN (16:26)
--- NOTE | 2017-03-28 18:10 | NUR ---
m/s equipment maintenance engineer: notes pm care rendered. tx done to wounds as ordered. kept comfortable. needs attended. no acute distress noted. will continue to monitor.
--- NOTE | 2017-03-28 19:20 | NUR ---
RN OPENING NOTES PT AWAKE AND RESTING IN BED. PT IS A/O X1 ONLY ORIENTED TO SELF. NO APPARENT S/S OF PAIN, SOB, OR DISTRESS AT THIS TIME. PT HAS A RIGHT FOREARM IV #22 RUNNING NS @75 ML/HR, PT TOLERATING WELL. PT HAS A PIRES CATHETER, INTACT AND DRAINING WELL. SAFETY PRECAUTIONS IN PLACE. BED IN LOW LOCKED POSITION, X2 SIDE RAILS UP, CALL LIGHT WITHIN REACH. WILL CONTINUE TO MONITOR.
[2017-03-28 20:00] VITALS: BP 111/62
[2017-03-28] MEDS: MIRTAZAPINE 15 MG TABLET PO SCH (21:04)
[2017-03-29] MEDS: MEROPENEM 500 MG in IV NS 0.9% 50 ML IV SCH ×3 (04:06→20:21)
--- NOTE | 2017-03-29 07:22 | NUR ---
RN CLOSING NOTES PT AWAKE AND RESTING IN BED. PT IS A/O X1 ONLY ORIENTED TO SELF. NO APPARENT S/S OF PAIN, SOB, OR DISTRESS AT THIS TIME. PT HAS A RIGHT FOREARM IV #22 RUNNING NS @75 ML/HR, PT TOLERATING WELL. PT HAS A PIRES CATHETER, INTACT AND DRAINING WELL. ALL NEEDS MET. WOUND CARE CARRIED OUT ORDERED. SAFETY PRECAUTIONS IN PLACE. BED IN LOW LOCKED POSITION, X3 SIDE RAILS UP, CALL LIGHT WITHIN REACH. WILL ENDORSE TO DAY SHIFT NURSE FOR CONTINUITY OF CARE.
--- NOTE | 2017-03-29 07:45 | NUR ---
MS/RN OPENING NOTE RECEIVED PATIENT IN BED AWAKE. ALERT AND ORIENTED TO SELF. RESPIRATION REGULAR AND UNLABORED. NO MANIFESTATION OF SOB, PAIN NOTED. IN NO APPARENT DISTRESS.RIGHT FOREARM IV G22 PATENT AND NO S/S INFILTRATION NOTED. PIRES CATH DRAINING WELL. BED LOW AND LOCKED. SIDE RAIL UP X3. CALL LIGHT WITHIN REACH. WILL CONTINUE TO MONITOR.
[2017-03-29 08:00] VITALS: BP 108/64
[2017-03-29] MEDS: ZINC SULFATE 220 MG CAPSULE PO SCH (08:36)
[2017-03-29] MEDS: GABAPENTIN 100 MG CAPSULE PO SCH ×2 (08:36→16:36)
[2017-03-29] MEDS: PANTOPRAZOLE 40 MG TABLET.DR PO SCH (08:36)
[2017-03-29] MEDS: DOCUSATE SODIUM 100 MG CAPSULE PO SCH ×2 (08:36→16:36)
[2017-03-29] MEDS: FERROUS SULFATE (325 MG) 325 MG/TAB TABLET PO SCH ×2 (08:36→16:36)
[2017-03-29] MEDS: LACTULOSE 10 G/15 ML UDC (PYXIS) PO SCH ×2 (08:37→16:36)
[2017-03-29] MEDS: MULTIVITAMINS,THERAGRAN 1 UDTAB TABLET PO SCH (08:48)
[2017-03-29] MEDS: DAKINS QUARTER STRENGTH (0.125%) 480 ML BOTTLE TOP SCH (08:48)
[2017-03-29] MEDS: METOPROLOL TARTRATE 25 MG TABLET PO SCH ×2 (08:52→21:15)
[2017-03-29] MEDS: LINEZOLID RTU BAG 600 MG in PREMIX 1 EA IV SCH ×2 (09:08→21:15)
[2017-03-29] MEDS: IV NS 0.9% 1,000 ML IV PRN (14:51)
[2017-03-29 15:42] VITALS: BP 100/52
[2017-03-29 16:00] VITALS: BP 100/52
--- NOTE | 2017-03-29 18:57 | NUR ---
MS/RN CLOSING NOTE PATIENT IN BED AWAKE. ALERT AND ORIENTED TO SELF. NO MANIFESTATION FO SOB, PAIN NOTED. RESPIRATION REGULAR AND UNLABORED. THE PATIENT IN STABLE CONDITION. DRESSING DRY. GOOD AND GENTLE SKIN CARE PROVIDED. ALL NEEDS ATTENDED AND ANTICIPATED. RFA G22 AND MARIO MIDLINE PATENT AND NO S/S INFILTRATION NOTED. BED LOW AND LOCKED. SIDE RAIL UP X3. CALL LIGHT WITHIN REACH. WILL ENDORSE TO MANAGER TRACK.
--- NOTE | 2017-03-29 19:25 | NUR ---
MS RN OPENING NOTES Received pt in bed awake, responsive, on room air, respirations even,unlabored.No s/sx of pain or discomfort noted. IV site MARIO midline intact,patent. Call light within reach.Kept clean and comfortable,attended all needs. Bed locked in lowest position. will continue to monitor accordingly.
[2017-03-29 20:00] VITALS: BP 139/83
[2017-03-29] MEDS: MIRTAZAPINE 15 MG TABLET PO SCH (21:15)
[2017-03-29 22:00] VITALS: BP 110/60
[2017-03-30] MEDS: MEROPENEM 500 MG in IV NS 0.9% 50 ML IV SCH ×2 (04:24→12:32)
[2017-03-30] MEDS: IV NS 0.9% 1,000 ML IV PRN (05:56)
--- NOTE | 2017-03-30 06:59 | NUR ---
MS RN OPENING NOTES PT AWAKE,IN BED, RESTING COMFORTABLY, ON ROOM AIR, RESPIRATIONS EVEN, UNLABORED,NO APPARENT DISTRESS NOTED. IV SITE INTACT, PATENT.F/C IN PLACE DRAINING YELLOW COLOR URINE. NO S/SX OF PAIN OR DISCOMFORT NOTED. KEPT CLEAN AND COMFORTABLE, ATTENDED ALL NEEDS.WILL CONTINUE TO MONITOR ACCORDINGLY.
--- NOTE | 2017-03-30 07:32 | NUR ---
MS/RN OPENING NOTE PATIENT IS RECEIVED IN BED AWAKE. ALERT AND ORIENTED TO SELF. NO MANIFESTATION OF SOB, PAIN AT THIS TIME. IN NO APPARENT DISTRESS. RESPIRATION REGULAR AND UNLABORED. MARIO MIDLINE AND RFA G 22 PATENT AND NO S/S INFILTRATION NOTED. WOUND DRESSINGS INTACT AND DRY. BED LOW AND LOCKED. SIDE RAIL UP X3. CALL LIGHT WITHIN REACH. WILL CONTINUE TO MONITOR.
[2017-03-30 08:00] VITALS: BP 93/67
[2017-03-30 08:20] VITALS: BP 93/67
[2017-03-30] MEDS: FERROUS SULFATE (325 MG) 325 MG/TAB TABLET PO SCH ×2 (08:42→17:55)
[2017-03-30] MEDS: LACTULOSE 10 G/15 ML UDC (PYXIS) PO SCH ×2 (08:42→17:55)
[2017-03-30] MEDS: GABAPENTIN 100 MG CAPSULE PO SCH ×2 (08:42→17:55)
[2017-03-30] MEDS: MULTIVITAMINS,THERAGRAN 1 UDTAB TABLET PO SCH (08:42)
[2017-03-30] MEDS: PANTOPRAZOLE 40 MG TABLET.DR PO SCH (08:42)
[2017-03-30] MEDS: ZINC SULFATE 220 MG CAPSULE PO SCH (08:42)
[2017-03-30] MEDS: DOCUSATE SODIUM 100 MG CAPSULE PO SCH ×2 (08:42→17:55)
[2017-03-30 08:43] VITALS: BP 93/67
[2017-03-30] MEDS: DAKINS QUARTER STRENGTH (0.125%) 480 ML BOTTLE TOP SCH (08:43)
[2017-03-30] MEDS: METOPROLOL TARTRATE 25 MG TABLET PO SCH (08:43)
[2017-03-30] MEDS: LINEZOLID RTU BAG 600 MG in PREMIX 1 EA IV SCH (08:53)
[2017-03-30] MEDS ORDERED: MERO1VIA3 IV (15:56)
[2017-03-30] MEDS ORDERED: LINE600T2 PO (15:56)
--- NOTE | 2017-03-30 16:30 | NUR ---
MS/PLASTIC FABRICATOR PER IESHA, INSURANCE ACCOUNT SPECIALIST, PATIENT TO BE TRANSFERRED BACK TO FACILITY THIS EVENING, [facility] AND [facility] DIRECTOR ARRANGED FOR [id number].
--- NOTE | 2017-03-30 17:30 | NUR ---
MS/TASTE TESTER WOUND CARE COMPLETED, PICTURES TAKEN.
--- NOTE | 2017-03-30 18:41 | NUR ---
MS/[employer]INESS [employer] OFFICER PATIENT DISCHARGED BACK TO [facility] IN STABLE CONDITION. HEPLOCK TO RIGHT WRIST REMOVED BUT LEAVING WITH MIDLINE TO RIGHT UPPER ARM. PATIENT TO CONTINUE WITH IV MERRIUM FOR FURTHER FIVE DAYS. NO PERSONAL BELONGINGS, REPORT CALLED TO YEIMI AT FACILITY AND REPORT GIVEN.
== END 2017-03-30 18:30 | DRG 871 ==
LOC: ER 11:14 → MED 14:07
PROVIDERS: ADMIT Internal Medicine; ATTEND Internal Medicine
PROC: 05H533Z Insertion of Infusion Device into Right Subclavian Vein, Percutaneous Approach (ICD-10-PCS; principal; 2017-03-23)
DX: A41.9 Sepsis, unspecified organism (principal); E43 Unspecified severe protein-calorie malnutrition; L89.159 Pressure ulcer of sacral region, unspecified stage; L89.329 Pressure ulcer of left buttock, unspecified stage; G92 Toxic encephalopathy; R64 Cachexia; F73 Profound intellectual disabilities; D62 Acute posthemorrhagic anemia; L89.629 Pressure ulcer of left heel, unspecified stage; C44.529 Squamous cell carcinoma of skin of other part of trunk; L03.314 Cellulitis of groin; N39.0 Urinary tract infection, site not specified; M86.9 Osteomyelitis, unspecified; I10 Essential (primary) hypertension; I73.9 Peripheral vascular disease, unspecified; K21.9 Gastro-esophageal reflux disease without esophagitis; L97.529 Non-pressure chronic ulcer of other part of left foot with unspecified severity; Z89.511 Acquired absence of right leg below knee; Q05.9 Spina bifida, unspecified; Z87.440 Personal history of urinary (tract) infections; D64.9 Anemia, unspecified; Z88.1 Allergy status to other antibiotic agents; Z79.899 Other long term (current) drug therapy; S71.00 Unspecified open wound of hip; X58.XXXS Exposure to other specified factors, sequela; Z66 Do not resuscitate
CPT/HCPCS: 36415; 71045-TC; 80048-TC; 80053-TC; 80061-TC; 80076-TC; 81000-TC; 83605-TC; 83735-TC; 84100-TC; 84484-TC; 85025-TC; 85730-TC; 87040-TC; 87081-TC; 87086-TC; A4216; A4606; A6253; A6402; A6403; J2020; J2185; J2543; J7030; J7060; Z7610